=== PATIENT | male | born 1945 | race Caucasian/White ===

== ENCOUNTER 2016-06-03 05:54 | Emergency (ER) | payer MEDICARE, BC ==
[2016-06-03] MEDS ORDERED: Ondansetron INJ* 2 MG/ML VIAL IV ONE (06:36)
[2016-06-03] MEDS ORDERED: NS 0.9% 1000 ML* 1,000 ML IV ONE (06:36)
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
[2016-06-03 07:19] LABS: Hematocrit 35 % (42-52); Hemoglobin 11.8 g/dl (14.0-18.0); Mean Corpuscular HGB Conc 34 g/dl (31-36); Mean Corpuscular Hemoglobin 30 pg (27-31); Mean Corpuscular Volume 89 fL (80-94); Mean Platelet Volume 8 um3 (7.4-10.4); Red Blood Count 3.89 10^6/ul (4.0-5.4); Red Cell Distribution Width 15 % (10.5-15); White Blood Count 9.7 10^3/ul (3.5-10.8)
[2016-06-03 07:36] LABS: Albumin 3.8 g/dL (3.2-5.2); C Reactive Protein 2.41 mg/L (< 5.00); Calcium 9.5 mg/dL (8.6-10.3); EGFR African American 53.2 (>60); EGFR Non-African American 41.3 (>60); Globulin 3.4 g/dL (2-4); Potassium 3.1 mmol/L (3.5-5.0); Total Bilirubin 0.7 mg/dL (0.2-1.0); Total Protein 7.2 g/dL (6.4-8.9)
[2016-06-03 07:38] LABS: Troponin I 0.03 ng/mL (<0.04)
[2016-06-03] MEDS ORDERED: diPHENhydraMINE IV* 50 MG/ML 1 ml VIAL (BENADRYL) IV ONE (09:20)
[2016-06-03] MEDS ORDERED: diPHENhydraMINE IV* 50 MG/ML 1 ml VIAL (BENADRYL) ONE (09:21)
[2016-06-03 10:09] VITALS: BP 152/81
--- NOTE | 2016-06-03 10:30 | ED ---
Tank Mcnair Michael, scribed for Abel Merida MD on 06/03/16 at 0759 . Progress - Progress Note Progress Note: The patient was signed out to Dr. Merida by Dr. Em. The pt's potassium was 3.1, and his first Troponin was 0.03. The pt is waiting for a second Troponin at 0900. If results are normal, the pt will be discharged home. The second Troponin was 0.03. Course/Dx - Diagnoses Provider Diagnoses: Abdominal pain The documentation as recorded by the garfieldibTank fan Michael accurately reflects the service I personally performed and the decisions made by Fuad gaines Richard L, MD.
== END 2016-06-03 10:10 | disposition home or self-care (01) ==
LOC: ED 05:54
DX: R11.10 Vomiting, unspecified (principal); I95.9 Hypotension, unspecified; Z87.891 Personal history of nicotine dependence; E11.9 Type 2 diabetes mellitus without complications; I10 Essential (primary) hypertension; I50.9 Heart failure, unspecified; I25.10 Atherosclerotic heart disease of native coronary artery without angina pectoris; I25.2 Old myocardial infarction; Z95.2 Presence of prosthetic heart valve; Z86.711 Personal history of pulmonary embolism; R10.30 Lower abdominal pain, unspecified
CPT/HCPCS: 36415; 80053; 83605; 83690; 84484; 85025; 86140; 86850; 86900; 86901; 96360; 96374; 96375; 99283; J1200

== ENCOUNTER 2016-10-23 13:53 | Emergency (ER) | payer MEDICARE, BC ==
[2016-10-23] MEDS ORDERED: Insulin REGULAR(*) 1 UNITS UNIT IV ONE (17:01)
[2016-10-23] MEDS ORDERED: NS 0.9% 1000 ML* 2,000 ML IV ONE (17:01)
[2016-10-23 17:42] LABS: Hematocrit 33 % (42-52); Hemoglobin 11.3 g/dl (14.0-18.0); Mean Corpuscular HGB Conc 34 g/dl (31-36); Mean Corpuscular Hemoglobin 31 pg (27-31); Mean Corpuscular Volume 92 fL (80-94); Mean Platelet Volume 8 um3 (7.4-10.4); Red Blood Count 3.65 10^6/ul (4.0-5.4); Red Cell Distribution Width 14 % (10.5-15); White Blood Count 4.6 10^3/ul (3.5-10.8)
[2016-10-23 17:57] LABS: Albumin 3.9 g/dL (3.2-5.2); C Reactive Protein 7.36 mg/L (< 5.00); Calcium 9.2 mg/dL (8.6-10.3); EGFR African American 23.1 (>60); EGFR Non-African American 17.9 (>60); Globulin 3.7 g/dL (2-4); Magnesium 2.6 mg/dL (1.9-2.7); Potassium 3.2 mmol/L (3.5-5.0); Total Bilirubin 0.5 mg/dL (0.2-1.0); Total Protein 7.6 g/dL (6.4-8.9)
[2016-10-23] MEDS ORDERED: Potassium Chlor TAB* 20 MEQ TAB.ER PO ONE (18:34)
[2016-10-23 18:41] LABS: Venous Bicarbonate HCO3 28.5 mmol/L (24-28)
[2016-10-23 18:41] LABS: Urine Bilirubin Negative (Negative); Urine Glucose 1+(50 mg/dL) (Negative); Urine Nitrite Negative (Negative)
[2016-10-23] MEDS ORDERED: Insulin REGULAR(*) 1 UNITS UNIT IV PUSH ONE (18:54)
[2016-10-23] MEDS: KCL 10 MEQ/50 ML IVPREMIX* 10 MEQ/50 ML BAG IV SCH ×2 (19:19→20:57)
[2016-10-23 22:07] VITALS: BP 133/100
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
== END 2016-10-23 22:10 | disposition home or self-care (01) ==
LOC: ED 13:53
DX: R73.9 Hyperglycemia, unspecified (principal); N18.9 Chronic kidney disease, unspecified; R35.8 Other polyuria; Z87.891 Personal history of nicotine dependence; E87.6 Hypokalemia
CPT/HCPCS: 36415; 80053; 81003; 82803; 83735; 85025; 85610; 86140; 99282; A9270-GY; J3480

== ENCOUNTER 2016-11-11 15:08 | Emergency (ER) | payer MEDICARE, BC ==
[2016-11-11 15:16] VITALS: BP 111/63
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
== END 2016-11-11 16:00 | disposition home or self-care (01) ==
LOC: UCEAST 15:08
DX: S80.12XA Contusion of left lower leg, initial encounter (principal); S80.11XA Contusion of right lower leg, initial encounter; S80.812A Abrasion, left lower leg, initial encounter; S80.811A Abrasion, right lower leg, initial encounter; X50.0XXA Overexertion from strenuous movement or load, initial encounter; E11.9 Type 2 diabetes mellitus without complications; I10 Essential (primary) hypertension; Z87.891 Personal history of nicotine dependence; Z79.4 Long term (current) use of insulin
CPT/HCPCS: 99213; G0463

== ENCOUNTER 2017-02-27 17:14 | Observation (INO) | payer MEDICARE, BC ==
[2017-02-27 19:35] LABS: Hematocrit 37 % (42-52); Hemoglobin 12.3 g/dl (14.0-18.0); Mean Corpuscular HGB Conc 33 g/dl (31-36); Mean Corpuscular Hemoglobin 30 pg (27-31); Mean Corpuscular Volume 89 fL (80-94); Mean Platelet Volume 9 um3 (7.4-10.4); Red Blood Count 4.11 10^6/ul (4.0-5.4); Red Cell Distribution Width 15 % (10.5-15); White Blood Count 5.9 10^3/ul (3.5-10.8)
[2017-02-27 19:48] LABS: BUN/Creatinine Ratio 28.1 (8-20); Calcium 9.3 mg/dL (8.6-10.3); EGFR African American 26.1 (>60); EGFR Non-African American 20.3 (>60); Globulin 3.9 g/dL (2-4); Magnesium 2.3 mg/dL (1.9-2.7); Potassium 2.8 mmol/L (3.5-5.0); Total Bilirubin 0.4 mg/dL (0.2-1.0); Total Protein 7.9 g/dL (6.4-8.9)
[2017-02-27] MEDS ORDERED: NS 0.9% 1000 ML* 1,000 ML IV ONE (19:58)
[2017-02-27] MEDS ORDERED: Potassium Chlor TAB* 20 MEQ TAB.ER PO ONE ×2 (20:00→23:59)
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
[2017-02-27 20:30] LABS: Troponin I 0.05 ng/mL (<0.04)
[2017-02-27] MEDS ORDERED: Dextrose 50% Syringe 50 ML* 25 GM/50 ML SYRINGE IV PUSH PRN (22:55)
[2017-02-27] MEDS ORDERED: Nortriptyline CAP* 25 MG PO SCH (23:30)
[2017-02-28 01:05] LABS: Potassium 2.8 mmol/L (3.5-5.0)
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
[2017-02-28 01:20] LABS: Troponin I 0.05 ng/mL (<0.04)
[2017-02-28] MEDS ORDERED: Levothyroxine TAB* 25 MCG TAB PO SCH (06:00)
[2017-02-28 07:07] LABS: Calcium 9.1 mg/dL (8.6-10.3); EGFR Non-African American 19.5 (>60)
[2017-02-28] MEDS ORDERED: Metolazone TAB* 5 MG PO SCH (07:30)
[2017-02-28] MEDS ORDERED: Torsemide TAB* 20 MG PO SCH (08:00)
[2017-02-28] MEDS: Insulin LISPRO* 1 UNITS UNIT SUBCUT SCH ×2 (08:53→12:53)
[2017-02-28] MEDS ORDERED: Magnesium Oxide TAB* 400 MG PO SCH (09:00)
[2017-02-28] MEDS ORDERED: busPIRone TAB* 10 MG PO SCH (09:00)
[2017-02-28] MEDS ORDERED: Gabapentin CAP(*) 100 MG PO SCH (09:00)
[2017-02-28] MEDS ORDERED: Insulin GLARGINE(*) 1 UNITS UNIT SUBCUT SCH (09:00)
[2017-02-28] MEDS ORDERED: Atorvastatin* 10 MG TAB PO SCH (09:00)
[2017-02-28] MEDS ORDERED: Cholecalciferol TAB* 1000 UNITS PO SCH (09:00)
[2017-02-28] MEDS ORDERED: Carvedilol TAB* 25 MG PO SCH (09:00)
[2017-02-28] MEDS ORDERED: Amiodarone TAB* 200 MG PO SCH (09:00)
[2017-02-28] MEDS ORDERED: Docusate CAP* 100 MG PO SCH (09:00)
[2017-02-28 13:06] VITALS: BP 104/64
[2017-02-28] MEDS ORDERED: Warfarin TAB(*) 4 MG PO SCH (17:00)
[2017-02-28] MEDS ORDERED: Potassium Chlor TAB* 10 MEQ TAB.ER PO SCH (21:00)
--- NOTE | 2017-02-28 22:21 | DS ---
CC: Dr. Gonzalez * DISCHARGE SUMMARY: DATE OF ADMISSION: 02/27/17 DATE OF DISCHARGE: 02/28/17 HISTORY OF PRESENT ILLNESS: This 71-year-old man was admitted due to an outpatient potassium level of 2.8. This was drawn on 04/29/16. It was notified by his family physician on the day of admission who saw potassium and advised to go to the emergency room. He had been feeling in his usual state of health; however, did notice blood sugars at home were quite high. I think this has been going on for some time. I note his A1c here level was 9.8%. The patient was given potassium supplementation. His magnesium level was 2.3. The patient noted that he did not seem to have any potassium or magnesium at home, although he thought he was supposed to be taking them. The patient received oral potassium here. His potassium level last measured on the day of discharge was 3.0. He received another 20 mEq p.o. before discharge. He will take 10 mEq at night at home as well as 10 mEq twice a day. He was prescribed his magnesium oxide 400 mg daily. It is not clear for how long he had not been taking it. FINAL DIAGNOSES: 1. Hypokalemia. 2. Chronic kidney disease. 3. Diabetes. 4. Coronary artery disease with ischemic cardiomyopathy. 5. Gastroesophageal reflux disease. 6. Atrial fibrillation on warfarin. 7. Hypertension. I note his INR here was 1.93. DISCHARGE MEDICATIONS: 1. Glargine insulin 55 units in the morning and 35 units at night. 2. Potassium chloride 10 mEq b.i.d. 3. Buspirone 10 mg b.i.d. 4. Atorvastatin 10 mg daily. 5. Amiodarone 200 mg daily. 6. Vitamin D3 1000 units daily. 7. Exenatide 2 mg subcu weekly. 8. Nortriptyline 50 mg h.s. 9. Carvedilol 25 mg b.i.d. 10. Levothyroxine 25 mcg daily. 11. Metolazone 2.5 mg daily. 12. Docusate 100 mg b.i.d. 13. Gabapentin 200 mg b.i.d. 14. Lispro by sliding scale. 15. Torsemide 20 mg b.i.d. 16. Warfarin 4 mg daily. 17. Magnesium oxide 400 mg daily. A consultation request was sent to a telehealth nurse educator and we welcomes as outpatient. [id number]/[facility] #: [id number] ANAMIKA
[2017-03-01] MEDS ORDERED: Potassium Chlor TAB* 10 MEQ TAB.ER PO ONE (11:30)
== END 2017-02-28 13:55 | disposition home or self-care (01) ==
LOC: ED 17:14 → MEDTELE 22:45
PROVIDERS: ADMIT Hospitalist; ATTEND Internal Medicine
DX: E87.6 Hypokalemia (principal); I12.9 Hypertensive chronic kidney disease with stage 1 through stage 4 chronic kidney disease, or unspecified chronic kidney disease; E11.22 Type 2 diabetes mellitus with diabetic chronic kidney disease; N18.9 Chronic kidney disease, unspecified; I25.10 Atherosclerotic heart disease of native coronary artery without angina pectoris; I25.5 Ischemic cardiomyopathy; K21.9 Gastro-esophageal reflux disease without esophagitis; I48.91 Unspecified atrial fibrillation; Z79.01 Long term (current) use of anticoagulants; Z91.09 Other allergy status, other than to drugs and biological substances; I25.2 Old myocardial infarction; Z95.0 Presence of cardiac pacemaker; Z79.4 Long term (current) use of insulin; Z79.899 Other long term (current) drug therapy; Z87.891 Personal history of nicotine dependence
CPT/HCPCS: 36415; 80048; 80051; 80053; 83036; 83735; 84484; 85025; 85610; 93005; 96361; 99283; A9270-GY; G0378

== ENCOUNTER 2017-05-08 19:28 | Inpatient (IN) | payer MEDICARE, BC ==
--- OUTSIDE RECORDS SUMMARY | 2017-05-08 20:07 | XMS REPORT ---
:1945 External Reference #:[id number] Author Organization [facility] Address [address] [address] Phone [phone] Care Team Providers Name Role Phone Lee Gonzalez MD Primary Care Physician Unavailable Payers Type Date Identification Numbers Payment Provider Subscriber Medicare Primary Effective: Policy Number: Medicare Mohit Mckinley 2003 [id number] PayID: [id number] [address] [place] [address] Medigap Part B Effective: 2011 Policy Number: BS Facets Mohit Mckinley [id number] PayID: [id number] [address] [address] [place] [address] Workers Compensation Onset: 2014 Policy Number: [facility] Mohit Mckinley [id number] [facility] Group Number: [id number] [address] [address] Group Name: [place] [address] PayID: [id number] Problems Date Description Provider Status Onset: 04/14/2014 Diabetic neuropathy Nilson Burgos M.D. Active Onset: 09/17/2015 Chronic ischemic heart disease Daryl Hernandez M.D. Active Onset: 09/17/2015 Coronary arteriosclerosis Daryl Hernandez M.D. Active Onset: 09/17/2015 Chronic post-traumatic stress Daryl Hernandez M.D. Active disorder Onset: 01/27/2016 Dyspnea Mercedez Clemons M.D. Active Onset: 01/27/2016 Chronic combined systolic and Mercedez Clemons M.D. Active diastolic heart failure Onset: 01/27/2016 Edema Mercedez Clemons M.D. Active Family History Date Family Member(s) Problem(s) Comments General Heart Disease General Diabetes Social History Type Date Description Comments Lives With Alone Occupation Retired Cigarette Use Former Cigarette Smoker Quit 1990 Denies using pipe, cigar, e-cigarettes, or chewing tobacco. ETOH Use Denies alcohol use ETOH Use Has consumed alcohol in the past Smoking Patient is a former smoker Recreational Drug Use Denies Drug Use Daily Caffeine Consumes on average 2 cups of regular coffee per day Exercise Type/Frequency Does not exercise Allergies, Adverse Reactions, Alerts Date Description Reaction Status Severity Comments 04/14/2014 Ibuprofen active 09/07/2014 Oxycodone angioedema, hives, SOB active 09/29/2014 Invanz rash active 02/04/2015 Lisinopril Cough, SOB, difficulty walk active 01/11/2016 Simvastatin active 01/11/2016 Crestor active 01/11/2016 Lovastatin active 01/11/2016 Gemfibrozil active 01/11/2016 Diltiazem active 11/07/2013 NKDA inactive Medications Medication Date Status Form Strength Qnty SIG Indications Ordering Provider Amiodarone HCL 01/10 Active Tablets 200mg 90tab 1 by mouth s every day An Hernandez M.D. Novofine Active Misc 32G X 6 Unknown /0000 mm Bydureon Active Suspension 2mg injection Rec once weekly Lantus Solostar Active Solution 100Unit/M inject 55 / Pen-Inject L SQ qam , 35 SQ qpm Atorvastatin Active Tablets 10mg 1 tab Unknown Calcium / every other day Nortriptyline HCL Active Capsules 50mg 1 by mouth every night at bedtime Magnesium Oxide Active Tablets 400mg One tab a day Alprazolam Active Tablets 0.25mg 1 po qd prn (does not use per daughter 03/27/16) Potassium Active Tablets ER 20Meq 1 by mouth Unknown Chloride ER /0000 three times per day (Dr Gonzalez increased) Coreg Active Tablets 25mg 60tab 1 tablet Z95.2 s twice a Ddimple Mcconnell M.D. Docusate Sodium Active Capsules 100mg 1 by mouth twice daily Vitamin D Active Tablets 1000Unit 1 tab each Unknown (Cholecalciferol) day by mouth Warfarin Sodium Active Tablets 2.5mg 120ta 1 tab Daryl bs every day DHarsha Hernandez, plus as M.D. directed. Buspirone HCL Active Tablets 10mg 1 by mouth Unknown twice per day Gabapentin Active Capsules 100mg 2 by mouth Unknown twice a day Levothyroxine Active Tablets 25mcg 1 by mouth Unknown Sodium every day Metolazone Active Tablets 2.5mg 30tab 1 tablet Daryl s daily An Hernandez M.D. Torsemide Active Tablets 20mg 180ta 3 by mouth Daryl bs every day An Hernandez, (patient M.D. has only been taking two a day) Prednisone Active Tablets 10mg 2 po daily Trazodone HCL Active Tablets 50mg 1-2 tablet at bedtime as needed Coreg 07/01 Hx Tablets 12.5mg 60tab 1 by mouth Z95.2 s twice a D. David, - day M.D. 01/09 Cozaar 06/20 Hx Tablets 100mg 90tab 1 by mouth Z95.2 s every day An Hernandez, - M.D. 01/09 Cozaar 06/07 Hx Tablets 50mg 2 by mouth Z95.2 Daryl every day An Hernandez, - M.D. 06/20 Keflex 04/20 Hx Capsules 500mg 9caps 1 by mouth Daryl three DHarsha Hernandez, - times a M.D. 04/26 day for days Cozaar 04/07 Hx Tablets 50mg 90tab 1 by mouth Z95.2 s every day An Hernandez, - M.D. 06/07 Coreg 02/04 Hx Tablets 6.25mg 180ta Z95.2 Daryl bs An Hernandez, - M.D. 07/01 Diovan 02/04 Hx Tablets 40mg 90tab 1 by mouth Z95.2 Daryl s every day An Hernandez, - (on hold M.D. 04/07 per /2015 David) Aldactone 01/22 Hx Tablets 25mg 30tab 1 by mouth Daryl s every day An Hernandez, - M.D. 01/09 Augmentin 10/27 Hx Tablets 500-125mg 60tab 1 by mouth 730.05 s twice a D. - day Hernesto, 11/17.D. Ceftriaxone 09/29 Hx Solution 2gm 28uni iv every Rec ts 24 hours x D. - 4 wks Hernesto, 11/17.D Flagyl 09/29 Hx Tablets 500mg 56tab 1 by mouth s two times D. - a day x 4 letitia, 11/17 wk.D Invanz 09/18 Hx Solution 1gm 42uni every 24 Rec ts hours D. - Anders, 09/29 Bactrim DS 11/18 Hx Tablets 800-160mg 42tab 1 tabs by Lee s mouth Christopher, - twice a M.D. 04/13 day x days Amoxicillin/Clavu 00/00 Hx Unknown lanate Potassium /0000 ER - 11/26 Clindamycin HCL 00/00 Hx Unknown / - 11/26 Oxycodone HCL 00/00 Hx Capsules 5mg 40cap 1-2 four Unknown /0000 s times a - day as 04/13 Vascepa 00/00 Hx Capsules 1gm one tab Unknown /0000 daily - 11/17 Amlodipine 00/00 Hx Tablets 10mg one tab Unknown Besylate /0000 daily - 02/04 Invokana 00/00 Hx Tablets 300mg one tab Unknown /0000 daily - 09/06 Levofloxacin 00/00 Hx Tablets 500mg Unknown /0000 - 11/26 Amoxicillin/Clavu 00/00 Hx Tablets 875-125mg Unknown lanate Potassium /0000 - 11/27 Clindamycin HCL 00/00 Hx Capsules 300mg Unknown /0000 - 11/26 Oxycodone-Acetami 00/00 Hx Tablets 5-325mg Unknown nophen / - 04/13 Cialis 00/00 Hx Tablets 20mg Unknown /0000 - 11/26 Nasonex 00/00 Hx Suspension 50mcg/Act Unknown /0000 - 11/17 Metoprolol /00 Hx Tablets 25mg 1 po bid Z95.2 Unknown Tartrate /0000 - 02/04 Diovan /00 Hx Tablets 320mg one tab Unknown /0000 daily - 12/17 Omeprazole 00/[address] 20mg one tab Unknown /0000 daily prn - 10/045 Ondansetron HCL 00/00 Hx Tablets 4mg Unknown /0000 - 11/26 Fluconazole 00/00 Hx Tablets 150mg Unknown /0000 - 11/26 Ondansetron 00/00 Hx Tablets 4mg Unknown /0000 Dispers - 11/26 Meclizine HCL 00/00 Hx Tablets 25mg Unknown /0000 - 04/13 Ondansetron 00/00 Hx Tablets 4mg 1 by mouth Unknown /0000 Dispers every 8 h - as needed 11/26 Hydrochlorothiazi 00 Hx Tablets 25mg 1 by mouth Unknown de /0000 every day - 11/17 Vitamin D 00/00 Hx Tablets 1000Unit by mouth Unknown /0000 everyday - 11/17 Tramadol HCL 00/00 Hx Tablets 50mg 1 tablets Unknown /0000 every 6 - hours as 09/16 Aspirin Adult Low 00/ Hx Tablets DR 81mg 1 by mouth Unknown Dose /0000 every day - 01/09 Metformin HCL /00 Hx Tablets 1000mg 1 by mouth Unknown /0000 twice a - day 01/09 Bactrim DS Hx Tablets 800-160mg 1 by mouth Unknown /0000 twice a - day 09/21 Flagyl Hx Tablets 500mg 1 by mouth Unknown /0000 three - times a Valsartan-Hydroch 00/00 Hx Tablets 320-12.5m 1 by mouth Unknown lorothiazide /0000 g every day - 01/19 Fish Oil Plus 00/00 Hx Capsules 1000mg -1 2 by mouth Unknown Vascepa /0000 G bid - 08/01 Furosemide 00/00 Hx Tablets 40mg 1 tablet Unknown /0000 po b.i.d ( - increased 03/2609/08/15) /2016 Amiodarone HCL 00/00 Hx Tablets 200mg 1 by mouth Unknown /0000 every day - 12/05 Lisinopril 00/00 Hx Tablets 5mg 1 by mouth Unknown /0000 every day - 12/05 Vitamin D2 00/00 Hx 50,000Iu weekly Unknown /0000 - 01/09 Augmentin /00 Hx Tablets 875-125mg 1 tablet Unknown /0000 by mouth - q12 hours 12/05 for days Citalopram Hx Tablets 40mg 1 po qd Unknown Hydrobromide /0000 - 01/09 Buspirone HCL Hx Tablets 15mg take one Unknown /0000 tablet by - mouth tid 03/27 Amoxicillin Hx Tablets 875mg take one Unknown /0000 tablet by - mouth 03/20 daily x weeks ( last day to take sunday04/04/16) Doxycycline Hx Capsules 100mg si Unknown Monohydrate / twice a - day ( 03/20 taking) Furosemide Hx Tablets 40mg 1 tablet Unknown /0000 po twice - daily 03/30 Vascepa /00 Hx Capsules 1gm 2 by mouth Unknown /0000 twice a - day 03/30 Vascepa 00/00 Hx 1G 1 tablet Unknown /0000 po daily - 08/01 Metformin HCL 00/00 Hx Tablets 1000mg 1 tablet Unknown /0000 po bid - 03/20 Immunizations CPT Code Status Date Vaccine Lot # [id number] Ordered 12/17/2014 Influenza Virus Vaccine, Quadrivalent, Split, Preservative Free Vital Signs Date Vital Result Comment 04/18/2017 Height 72 inches 6'0" Weight 238.00 lb No shoes Heart Rate 84 /min BP Systolic Sitting 140 mmHg Lue lrg cuff BP Diastolic Sitting 82 mmHg Lue lrg cuff BP Systolic Standing 132 mmHg Lue lrg cuff BP Diastolic Standing 80 mmHg Lue lrg cuff Respiratory Rate 16 /min BMI (Body Mass Index) 32.3 kg/m2 Ejection Fraction >20% 03/31/2017-echo 03/21/2017 Height 72 inches 6'0" Weight 236.00 lb Heart Rate 72 /min BP Systolic Sitting 106 mmHg Rue large cuff BP Diastolic Sitting 66 mmHg Rue large cuff BP Systolic Standing 114 mmHg Rue BP Diastolic Standing 72 mmHg Rue Respiratory Rate 18 /min BMI (Body Mass Index) 32.0 kg/m2 Ejection Fraction 20% 11/18/15 08/02/2016 Height 72 inches 6'0" Weight 234.00 lb with shoes Heart Rate 70 /min BP Systolic Sitting 100 mmHg Rue lg cuff BP Diastolic Sitting 60 mmHg Rue lg cuff BP Systolic Standing 108 mmHg Rue lg cuff BP Diastolic Standing 64 mmHg Rue lg cuff Respiratory Rate 17 /min BMI (Body Mass Index) 31.7 kg/m2 Ejection Fraction >20% date 11/18/2015 ECHO 03/31/2016 Height 72 inches 6'0" Weight 221.00 lb Heart Rate 70 /min BP Systolic Sitting 120 mmHg Rue lg cuff BP Diastolic Sitting 80 mmHg Rue lg cuff BP Systolic Standing 130 mmHg Rue lg cuff BP Diastolic Standing 78 mmHg Rue lg cuff Respiratory Rate 17 /min BMI (Body Mass Index) 30.0 kg/m2 Ejection Fraction <20% date 11/18/15 ECHO 01/27/2016 Height 65 inches 5'5" Weight 241.00 lb with shoes Heart Rate 74 /min BP Systolic Sitting 160 mmHg L arm reg cuff BP Diastolic Sitting 100 mmHg L arm reg cuff BP Systolic Standing 155 mmHg BP Diastolic Standing 105 mmHg Respiratory Rate 22 /min BMI (Body Mass Index) 40.1 kg/m2 01/11/2016 Height 72 inches 6'0" Weight 234.00 lb with shoes and coat Heart Rate 68 /min BP Systolic Sitting 106 mmHg right arm, reg cuff BP Diastolic Sitting 70 mmHg right arm, reg cuff BP Systolic Standing 108 mmHg right arm, reg cuff BP Diastolic Standing 72 mmHg right arm, reg cuff Respiratory Rate 16 /min BMI (Body Mass Index) 31.7 kg/m2 Ejection Fraction <20% 11/18/15 09/17/2015 Height 72 inches 6'0" Weight 208.00 lb with shoes Heart Rate 78 /min BP Systolic Sitting 140 mmHg Ra reg cuff BP Diastolic Sitting 88 mmHg Ra reg cuff BP Systolic Standing 138 mmHg Ra reg cuff BP Diastolic Standing 90 mmHg Ra reg cuff Respiratory Rate 17 /min O2 % BldC Oximetry 95 % at room air BMI (Body Mass Index) 28.2 kg/m2 Ejection Fraction <20% date 03/25/15 ECHO 07/02/2015 Height 72 inches 6'0" Weight 213.50 lb Heart Rate 90 /min BP Systolic Sitting 146 mmHg LA reg cuff BP Diastolic Sitting 100 mmHg LA reg cuff BP Systolic Standing 150 mmHg LA reg cuff BP Diastolic Standing 96 mmHg LA reg cuff Respiratory Rate 18 /min BMI (Body Mass Index) 29.0 kg/m2 Ejection Fraction <20% 03/25/15 06/08/2015 Height 72 inches 6'0" Weight 217.00 lb Heart Rate 100 /min BP Systolic Sitting 148 mmHg right arm, reg cuff BP Diastolic Sitting 102 mmHg right arm, reg cuff BP Systolic Standing 150 mmHg right arm, reg cuff BP Diastolic Standing 104 mmHg right arm, reg cuff Respiratory Rate 16 /min BMI (Body Mass Index) 29.4 kg/m2 Ejection Fraction <20% 03/25/15 04/27/2015 Height 72 inches 6'0" Weight 214.00 lb Heart Rate 78 /min BP Systolic Sitting 162 mmHg right arm, reg cuff BP Diastolic Sitting 102 mmHg right arm, reg cuff BP Systolic Standing 158 mmHg right arm, reg cuff BP Diastolic Standing 100 mmHg right arm, reg cuff BMI (Body Mass Index) 29.0 kg/m2 Ejection Fraction >20% 03/25/15 04/09/2015 Height 72 inches 6'0" Weight 212.00 lb BP Systolic Sitting 158 mmHg LA large cuff BP Diastolic Sitting 104 mmHg LA large cuff BP Systolic Standing 158 mmHg LA BP Diastolic Standing 106 mmHg LA Respiratory Rate 16 /min BMI (Body Mass Index) 28.7 kg/m2 02/04/2015 Height 72 inches 6'0" Weight 213.00 lb w/ shoes Heart Rate 80 /min reg BP Systolic Sitting 120 mmHg Lue, reg cuf f BP Diastolic Sitting 90 mmHg Lue, reg cuf f BP Systolic Standing 124 mmHg Lue BP Diastolic Standing 96 mmHg Lue Respiratory Rate 18 /min BMI (Body Mass Index) 28.9 kg/m2 Ejection Fraction < 20% as of 01/25/15 echo 01/20/2015 Height 72 inches 6'0" Weight 237.00 lb BMI (Body Mass Index) 32.1 kg/m2 12/24/2014 Height 72 inches 6'0" Weight 224.38 lb Heart Rate 86 /min BP Systolic Sitting 126 mmHg BP Diastolic Sitting 82 mmHg Respiratory Rate 14 /min Body Temperature 97.9 F BMI (Body Mass Index) 30.4 kg/m2 12/17/2014 Height 72 inches 6'0" Weight 219.00 lb w/ shoes Heart Rate 76 /min reg BP Systolic Sitting 110 mmHg Rue, reg cuff BP Diastolic Sitting 76 mmHg Rue, reg cuff BP Systolic Standing 110 mmHg Rue BP Diastolic Standing 78 mmHg Rue Respiratory Rate 18 /min BMI (Body Mass Index) 29.7 kg/m2 Ejection Fraction 30-35% as of 11/09/14 echo 10/27/2014 Height 72 inches 6'0" Weight 211.38 lb Heart Rate 80 /min BP Systolic Sitting 126 mmHg BP Diastolic Sitting 82 mmHg Respiratory Rate 14 /min Body Temperature 98.0 F BMI (Body Mass Index) 28.7 kg/m2 09/07/2014 Height 72 inches 6'0" Weight 200.00 lb Heart Rate 84 /min BP Systolic Sitting 110 mmHg BP Diastolic Sitting 72 mmHg Respiratory Rate 14 /min Body Temperature 97.8 F BMI (Body Mass Index) 27.1 kg/m2 04/14/2014 Height 72 inches 6'0" Weight 225.00 lb Heart Rate 80 /min BP Systolic Sitting 138 mmHg BP Diastolic Sitting 78 mmHg Respiratory Rate 16 /min BMI (Body Mass Index) 30.5 kg/m2 02/17/2014 Heart Rate 84 /min BP Systolic Sitting 128 mmHg BP Diastolic Sitting 82 mmHg 12/02/2013 Heart Rate 80 /min BP Systolic Sitting 130 mmHg BP Diastolic Sitting 82 mmHg 11/27/2013 Height 72 inches 6'0" Weight 225.00 lb Heart Rate 78 /min BP Systolic Sitting 132 mmHg BP Diastolic Sitting 76 mmHg Respiratory Rate 14 /min Body Temperature 97.3 F BMI (Body Mass Index) 30.5 kg/m2 11/18/2013 Heart Rate 84 /min BP Systolic Sitting 120 mmHg BP Diastolic Sitting 82 mmHg Body Temperature 98.2 F 11/07/2013 Height 72 inches 6'0" Weight 225.00 lb Heart Rate 78 /min BP Systolic 165 mmHg BP Diastolic 100 mmHg BMI (Body Mass Index) 30.5 kg/m2 Results Test Date Test Result H/L Range Note Laboratory test 04/18/2017 B-Type Natriuretic <pending> finding Peptide BNP Inr/Protime 04/11/2017 Inr 1.66 High 0.77-1.02 Inr/Protime 04/05/2017 Inr 1.33 High 0.77-1.02 Laboratory test 02/22/2017 PSA Screening 0.485 ng/mL 0-4.000 1 finding LDL Cholesterol Direct 51 mg/dL 2 Hemoglobin A1c (Glyco HGB) 9.8 % High 4.0-5.6 3 Inr/Protime 02/22/2017 Inr 1.57 High 0.77-1.02 4 Comp Metabolic Panel 02/22/2017 Sodium 134 mmol/L 133-145 Potassium 2.8 mmol/L Low 3.5-5.0 Chloride 93 mmol/L Low 101-111 Co2 Carbon Dioxide 31 mmol/L 22-32 Anion Gap 10 mmol/L 2-11 Glucose 253 mg/dL High 70-100 Blood Urea Nitrogen 81 mg/dL High 6-24 Creatinine 2.86 mg/dL High 0.67-1.17 BUN/Creatinine Ratio 28.3 High 8-20 Calcium 9.6 mg/dL 8.6-10.3 Total Protein 7.6 g/dL 6.4-8.9 Albumin 3.9 g/dL 3.2-5.2 Globulin 3.7 g/dL 2-4 Albumin/Globulin Ratio 1.1 1-3 Total Bilirubin 0.50 mg/dL 0.2-1.0 Alkaline Phosphatase 111 U/L High 34-104 Alt 50 U/L 7-52 Ast 44 U/L High 13-39 Egfr Non- 21.9 >60 Egfr 28.2 >60 5 Lipid Profile (Trig/Chol/HDL) 02/22/2017 Triglycerides 472 mg/dL 6 Cholesterol 147 mg/dL 7 HDL Cholesterol 23.4 mg/dL 8 LDL Cholesterol (SEE NOTE) mg/dL 9 Inr/Protime 04/06/2016 Inr 1.88 High 0.89-1.11 Basic Metabolic Panel 09/24/2015 Sodium 134 mmol/L 133-145 Potassium 4.9 mmol/L 3.5-5.0 Chloride 100 mmol/L Low 101-111 Co2 Carbon Dioxide 28 mmol/L 22-32 Anion Gap 6 mmol/L 2-11 Glucose 150 mg/dL High 70-100 Blood Urea Nitrogen 30 mg/dL High 6-24 Creatinine 1.23 mg/dL High 0.67-1.17 BUN/Creatinine Ratio 24.4 High 8-20 Calcium 8.9 mg/dL 8.6-10.3 Egfr Non- 58.2 >60 Egfr 74.8 >60 10 Laboratory test finding 06/08/2015 B-Type Natriuretic 1431 pg/mL High 11 Peptide BNP Basic Metabolic Panel 06/08/2015 Sodium 137 mmol/L 133-145 Potassium 4.0 mmol/L 3.5-5.0 Chloride 100 mmol/L Low 101-111 Co2 Carbon Dioxide 29 mmol/L 22-32 Anion Gap 8 mmol/L 2-11 Glucose 80 mg/dL 70-100 Blood Urea Nitrogen 35 mg/dL High 6-24 Creatinine 1.20 mg/dL High 0.67-1.17 BUN/Creatinine Ratio 29.2 High 8-20 Calcium 9.6 mg/dL 8.6-10.3 Egfr Non- 59.9 >60 Egfr 77.0 >60 12 Laboratory test finding 04/19/2015 Point of Care 119 mg/dL High 74-106 13 Glucose Pre Cath Panel 04/14/2015 Partial Thrombo Time 34.2 seconds 26.0-36.3 14 PTT CBC Auto Diff 04/14/2015 White Blood Count 7.7 10^3/uL 3.5-10.8 Red Blood Count 4.42 10^6/uL 4.0-5.4 Hemoglobin 12.1 g/dL Low 14.0-18.0 Hematocrit 38 % Low 42-52 Mean Corpuscular Volume 87 fL 80-94 Mean Corpuscular Hemoglobin 27 pg 27-31 Mean Corpuscular HGB Conc 32 g/dL 31-36 Red Cell Distribution Width 20 % High 10.5-15 Platelet Count 170 10^3/uL 150-450 Mean Platelet Volume 9 um3 7.4-10.4 Abs Neutrophils 5.8 10^3/uL 1.5-7.7 Abs Lymphocytes 1.0 10^3/uL 1.0-4.8 Abs Monocytes 0.6 10^3/uL 0-0.8 Abs Eosinophils 0.3 10^3/uL 0-0.6 Abs Basophils 0 10^3/uL 0-0.2 Abs Nucleated RBC 0 10^3/uL Granulocyte % 75.4 % 38-83 Lymphocyte % 12.7 % Low 25-47 Monocyte % 7.8 % 1-9 Eosinophil % 3.8 % 0-6 Basophil % 0.3 % 0-2 Nucleated Red Blood Cells % 0.1 Inr/Protime 04/14/2015 Inr 1.33 High 0.89-1.11 Basic Metabolic Panel 04/14/2015 Sodium 140 mmol/L 133-145 Potassium 4.0 mmol/L 3.5-5.0 Chloride 104 mmol/L 101-111 Co2 Carbon Dioxide 28 mmol/L 22-32 Anion Gap 8 mmol/L 2-11 Glucose 71 mg/dL 70-100 Blood Urea Nitrogen 25 mg/dL High 6-24 Creatinine 0.96 mg/dL 0.67-1.17 BUN/Creatinine Ratio 26.0 High 8-20 Calcium 9.2 mg/dL 8.6-10.3 Egfr Non- 77.7 >60 Egfr 99.9 >60 15 Laboratory test finding 04/14/2015 C Reactive Protein 5.56 mg/L High < 5.00 16 Basic Metabolic Panel 02/17/2015 Sodium 136 mmol/L 133-145 17 Potassium 4.1 mmol/L 3.5-5.0 17 Chloride 100 mmol/L Low 101-111 17 Co2 Carbon Dioxide 30 mmol/L 22-32 17 Anion Gap 6 mmol/L 2-11 17 Glucose 147 mg/dL High 70-100 17 Blood Urea Nitrogen 19 mg/dL 6-24 17 Creatinine 0.90 mg/dL 0.67-1.17 17 BUN/Creatinine Ratio 21.1 High 8-20 17 Calcium 9.7 mg/dL 8.6-10.3 17 Egfr Non- 83.7 >60 17 Egfr 107.6 >60 17, 18 Laboratory test finding 01/21/2015 Magnesium 1.4 mg/dL Low 1.9-2.7 Basic Metabolic Panel 01/21/2015 Sodium 139 mmol/L 133-145 Potassium 3.5 mmol/L 3.5-5.0 Chloride 100 mmol/L Low 101-111 Co2 Carbon Dioxide 29 mmol/L 22-32 Anion Gap 10 mmol/L 2-11 Glucose 142 mg/dL High 70-100 Blood Urea Nitrogen 15 mg/dL 6-24 Creatinine 0.95 mg/dL 0.67-1.17 BUN/Creatinine Ratio 15.8 8-20 Calcium 8.9 mg/dL 8.6-10.3 Egfr Non- 78.6 >60 Egfr 101.1 >60 19 Pre Cath Panel 12/17/2014 Partial Thrombo Time PTT 35.2 seconds 26.0- 36.3 20, 21 CBC Auto Diff 12/17/2014 White Blood Count 7.3 10^3/uL 4.8-10.8 20 Red Blood Count 4.41 10^6/uL 4.0-5.4 20 Hemoglobin 13.3 g/dL Low 14.0-18.0 20 Hematocrit 40 % Low 42-52 20 Mean Corpuscular Volume 91 fL 80-94 20 Mean Corpuscular Hemoglobin 30 pg 27-31 20 Mean Corpuscular HGB Conc 33 g/dL 31-36 20 Red Cell Distribution Width 13 % 10.5-15 20 Platelet Count 219 10^3/uL 150-450 20 Mean Platelet Volume 9 um3 7.4-10.4 20 Abs Neutrophils 4.6 10^3/uL 1.5-7.7 20 Abs Lymphocytes 1.8 10^3/uL 1.0-4.8 20 Abs Monocytes 0.7 10^3/uL 0-0.8 20 Abs Eosinophils 0.2 10^3/uL 0-0.6 20 Abs Basophils 0 10^3/uL 0-0.2 20 Abs Nucleated RBC 0.01 10^3/uL 20 Granulocyte % 63.1 % 38-83 20 Lymphocyte % 24.9 % Low 25-47 20 Monocyte % 9.3 % High 1-9 20 Eosinophil % 2.3 % 0-6 20 Basophil % 0.4 % 0-2 20 Nucleated Red Blood Cells % 0.1 20 Inr/Protime 12/17/2014 Inr 1.01 0.78-1.07 20 Basic Metabolic Panel 12/17/2014 Sodium 136 mmol/L 133-145 20 Potassium 3.5 mmol/L 3.5-5.0 20 Chloride 100 mmol/L Low 101-111 20 Co2 Carbon Dioxide 28 mmol/L 22-32 20 Anion Gap 8 mmol/L 2-11 20 Glucose 142 mg/dL High 70-100 20 Blood Urea Nitrogen 14 mg/dL 6-24 20 Creatinine 0.83 mg/dL 0.67-1.17 20 BUN/Creatinine Ratio 16.9 8-20 20 Calcium 9.5 mg/dL 8.6-10.3 20 Egfr Non- 91.9 >60 20 Egfr 118.1 >60 20, 22 CBC Auto Diff 10/21/2014 White Blood Count 5.9 10^3/uL 4.8-10.8 Red Blood Count 3.79 10^6/uL Low 4.0-5.4 Hemoglobin 11.5 g/dL Low 14.0-18.0 Hematocrit 35 % Low 42-52 Mean Corpuscular Volume 92 fL 80-94 Mean Corpuscular Hemoglobin 30 pg 27-31 Mean Corpuscular HGB Conc 33 g/dL 31-36 Red Cell Distribution Width 16 % High 10.5-15 Platelet Count 223 10^3/uL 150-450 Mean Platelet Volume 9 um3 7.4-10.4 Abs Neutrophils 3.6 10^3/uL 1.5-7.7 Abs Lymphocytes 1.7 10^3/uL 1.0-4.8 Abs Monocytes 0.5 10^3/uL 0-0.8 Abs Eosinophils 0.2 10^3/uL 0-0.6 Abs Basophils 0 10^3/uL 0-0.2 Abs Nucleated RBC 0 10^3/uL Granulocyte % 60.4 % 38-83 Lymphocyte % 27.9 % 25-47 Monocyte % 8.1 % 1-9 Eosinophil % 2.9 % 0-6 Basophil % 0.7 % 0-2 Nucleated Red Blood Cells % 0.1 Basic Metabolic Panel 10/21/2014 Sodium 135 mmol/L 133-145 Potassium 4.0 mmol/L 3.5-5.0 Chloride 101 mmol/L 101-111 Co2 Carbon Dioxide 25 mmol/L 22-32 Anion Gap 9 mmol/L 2-11 Glucose 165 mg/dL High 70-100 Blood Urea Nitrogen 13 mg/dL 6-24 Creatinine 0.67 mg/dL 0.67-1.17 BUN/Creatinine Ratio 19.4 8-20 Calcium 9.0 mg/dL 8.6-10.3 Egfr Non- 117.6 >60 Egfr 151.3 >60 23 Laboratory test finding 10/21/2014 C Reactive Protein 2.64 mg/L < 5.00 24 CBC Auto Diff 10/13/2014 White Blood Count 7.7 10^3/uL 4.8-10.8 Red Blood Count 3.73 10^6/uL Low 4.0-5.4 Hemoglobin 11.3 g/dL Low 14.0-18.0 Hematocrit 34 % Low 42-52 Mean Corpuscular Volume 91 fL 80-94 Mean Corpuscular Hemoglobin 30 pg 27-31 Mean Corpuscular HGB Conc 33 g/dL 31-36 Red Cell Distribution Width 15 % 10.5-15 Platelet Count 260 10^3/uL 150-450 Mean Platelet Volume 8 um3 7.4-10.4 Abs Neutrophils 5.3 10^3/uL 1.5-7.7 Abs Lymphocytes 1.7 10^3/uL 1.0-4.8 Abs Monocytes 0.5 10^3/uL 0-0.8 Abs Eosinophils 0.3 10^3/uL 0-0.6 Abs Basophils 0 10^3/uL 0-0.2 Abs Nucleated RBC 0.02 10^3/uL Granulocyte % 68.2 % 38-83 Lymphocyte % 21.4 % Low 25-47 Monocyte % 6.6 % 1-9 Eosinophil % 3.3 % 0-6 Basophil % 0.5 % 0-2 Nucleated Red Blood Cells % 0.3 Basic Metabolic Panel 10/13/2014 Sodium 136 mmol/L 133-145 Potassium 4.3 mmol/L 3.5-5.0 Chloride 102 mmol/L 101-111 Co2 Carbon Dioxide 27 mmol/L 22-32 Anion Gap 7 mmol/L 2-11 Glucose 97 mg/dL 70-100 Blood Urea Nitrogen 14 mg/dL 6-24 Creatinine 0.69 mg/dL 0.67-1.17 BUN/Creatinine Ratio 20.3 High 8-20 Calcium 8.9 mg/dL 8.6-10.3 Egfr Non- 113.7 >60 Egfr 146.2 >60 25 Laboratory test finding 10/13/2014 C Reactive Protein 3.12 mg/L < 5.00 26 CBC Auto Diff 10/06/2014 White Blood Count 7.0 10^3/uL 4.8-10.8 Red Blood Count 3.58 10^6/uL Low 4.0-5.4 Hemoglobin 10.7 g/dL Low 14.0-18.0 Hematocrit 32 % Low 42-52 Mean Corpuscular Volume 91 fL 80-94 Mean Corpuscular Hemoglobin 30 pg 27-31 Mean Corpuscular HGB Conc 33 g/dL 31-36 Red Cell Distribution Width 16 % High 10.5-15 Platelet Count 249 10^3/uL 150-450 Mean Platelet Volume 8 um3 7.4-10.4 Abs Neutrophils 4.3 10^3/uL 1.5-7.7 Abs Lymphocytes 1.8 10^3/uL 1.0-4.8 Abs Monocytes 0.6 10^3/uL 0-0.8 Abs Eosinophils 0.3 10^3/uL 0-0.6 Abs Basophils 0 10^3/uL 0-0.2 Abs Nucleated RBC 0 10^3/uL Granulocyte % 61.8 % 38-83 Lymphocyte % 25.1 % 25-47 Monocyte % 8.5 % 1-9 Eosinophil % 4.2 % 0-6 Basophil % 0.4 % 0-2 Nucleated Red Blood Cells % 0.1 Laboratory test finding 10/06/2014 Erythrocyte Sed Rate 36 mm/Hr 0-40 Basic Metabolic Panel 10/06/2014 Sodium 136 mmol/L 133-145 Potassium 3.8 mmol/L 3.5-5.0 Chloride 100 mmol/L Low 101-111 Co2 Carbon Dioxide 28 mmol/L 22-32 Anion Gap 8 mmol/L 2-11 Glucose 146 mg/dL High 70-100 Blood Urea Nitrogen 12 mg/dL 6-24 Creatinine 0.79 mg/dL 0.67-1.17 BUN/Creatinine Ratio 15.2 8-20 Calcium 8.8 mg/dL 8.6-10.3 Egfr Non- 97.2 >60 Egfr 125.1 >60 27 Laboratory test finding 10/06/2014 C Reactive Protein 14.29 mg/L High &lt ; 5.00 28 Basic Metabolic Panel 09/27/2014 Sodium 134 mmol/L 133-145 Potassium 3.8 mmol/L 3.5-5.0 Chloride 99 mmol/L Low 101-111 Co2 Carbon Dioxide 28 mmol/L 22-32 Anion Gap 7 mmol/L 2-11 Glucose 134 mg/dL High 70-100 Blood Urea Nitrogen 16 mg/dL 6-24 Creatinine 0.67 mg/dL 0.67-1.17 BUN/Creatinine Ratio 23.9 High 8-20 Calcium 8.7 mg/dL 8.6-10.3 Egfr Non- 117.6 >60 Egfr 151.3 >60 29 Laboratory test finding 09/27/2014 C Reactive Protein 9.08 mg/L High < 5.00 30 CBC Auto Diff 09/27/2014 White Blood Count 6.1 10^3/uL 4.8-10.8 Red Blood Count 3.64 10^6/uL Low 4.0-5.4 Hemoglobin 10.7 g/dL Low 14.0-18.0 Hematocrit 32 % Low 42-52 Mean Corpuscular Volume 88 fL 80-94 Mean Corpuscular Hemoglobin 30 pg 27-31 Mean Corpuscular HGB Conc 34 g/dL 31-36 Red Cell Distribution Width 14 % 10.5-15 Platelet Count 214 10^3/uL 150-450 Mean Platelet Volume 8 um3 7.4-10.4 Abs Neutrophils 3.6 10^3/uL 1.5-7.7 Abs Lymphocytes 1.7 10^3/uL 1.0-4.8 Abs Monocytes 0.5 10^3/uL 0-0.8 Abs Eosinophils 0.2 10^3/uL 0-0.6 Abs Basophils 0 10^3/uL 0-0.2 Abs Nucleated RBC 0 10^3/uL Granulocyte % 59.2 % 38-83 Lymphocyte % 27.8 % 25-47 Monocyte % 8.9 % 1-9 Eosinophil % 3.7 % 0-6 Basophil % 0.4 % 0-2 Nucleated Red Blood Cells % 0 Laboratory test finding 09/27/2014 Erythrocyte Sed Rate 60 mm/Hr High 0- 40 CBC Auto Diff 09/20/2014 White Blood Count 7.8 10^3/uL 4.8-10.8 Red Blood Count 3.87 10^6/uL Low 4.0-5.4 Hemoglobin 11.2 g/dL Low 14.0-18.0 Hematocrit 34 % Low 42-52 Mean Corpuscular Volume 88 fL 80-94 Mean Corpuscular Hemoglobin 29 pg 27-31 Mean Corpuscular HGB Conc 33 g/dL 31-36 Red Cell Distribution Width 14 % 10.5-15 Platelet Count 255 10^3/uL 150-450 Mean Platelet Volume 8 um3 7.4-10.4 Abs Neutrophils 5.1 10^3/uL 1.5-7.7 Abs Lymphocytes 1.9 10^3/uL 1.0-4.8 Abs Monocytes 0.6 10^3/uL 0-0.8 Abs Eosinophils 0.2 10^3/uL 0-0.6 Abs Basophils 0 10^3/uL 0-0.2 Abs Nucleated RBC 0.01 10^3/uL Granulocyte % 65.1 % 38-83 Lymphocyte % 23.7 % Low 25-47 Monocyte % 8.0 % 1-9 Eosinophil % 3.0 % 0-6 Basophil % 0.2 % 0-2 Nucleated Red Blood Cells % 0.1 Laboratory test finding 09/20/2014 Erythrocyte Sed Rate 65 mm/Hr High 0- 40 Basic Metabolic Panel 09/20/2014 Sodium 134 mmol/L 133-145 Potassium 4.2 mmol/L 3.5-5.0 Chloride 101 mmol/L 101-111 Co2 Carbon Dioxide 26 mmol/L 22-32 Anion Gap 7 mmol/L 2-11 Glucose 162 mg/dL High 70-100 Blood Urea Nitrogen 13 mg/dL 6-24 Creatinine 0.75 mg/dL 0.67-1.17 BUN/Creatinine Ratio 17.3 8-20 Calcium 9.2 mg/dL 8.6-10.3 Egfr Non- 103.3 >60 Egfr 132.8 >60 31 Laboratory test finding 09/20/2014 C Reactive Protein 8.73 mg/L High < 5.00 32 Laboratory test finding 11/27/2013 C Reactive Protein 1.91 mg/L < 5.00 33 CBC Auto Diff 11/27/2013 White Blood Count 5.2 10^3/uL 4.8-10.8 Red Blood Count 4.62 10^6/uL 4.0-5.4 Hemoglobin 13.3 g/dL Low 14.0-18.0 Hematocrit 40 % Low 42-52 Mean Corpuscular Volume 86 fL 80-94 Mean Corpuscular Hemoglobin 29 pg 27-31 Mean Corpuscular HGB Conc 34 g/dL 31-36 Red Cell Distribution Width 13 % 10.5-15 Platelet Count 228 10^3/uL 150-450 Mean Platelet Volume 9 um3 7.4-10.4 Abs Neutrophils 2.8 10^3/uL 1.5-7.7 Abs Lymphocytes 1.7 10^3/uL 1.0-4.8 Abs Monocytes 0.5 10^3/uL 0-0.8 Abs Eosinophils 0.1 10^3/uL 0-0.6 Abs Basophils 0 10^3/uL 0-0.2 Abs Nucleated RBC 0 10^3/uL Granulocyte % 53.9 % 38-83 Lymphocyte % 33.3 % 25-47 Monocyte % 9.8 % High 1-9 Eosinophil % 2.4 % 0-6 Basophil % 0.6 % 0-2 Nucleated Red Blood Cells % 0.1 1 Serum levels of PSA measured using the [employer] DXI Hybritech immunoassay should not be interpreted as absolute evidence of the presence or absence of disease. The PSA value should be used in conjunction with other pertinent clinical diagnostic procedures. A PSA value in the range of 0.1 to 0.6 ng/ml is indeterminate if being used as an indicator of recurrent or residual disease. The values obtained with different assay methods or kits cannot be used interchangeably. 2 Desirable: <100 Near Optimal: 100-129 Borderline High: 130-159 High: 160-189 Very High: >189 3 Therapeutic target for the treatment of diabetes mellitus patients is <7% HBA1C, and in selective patients <6.0%. Please refer to [place] [employer] diabetic care guidelines for further information. 4 Please note the change in INR reference range effective 17. 5 Because ethnic data is not always readily available, this report includes an eGFR for both -Americans and non- Americans. The National Kidney Disease Education Program (NKDEP) does not endorse the use of the MDRD equation for patients that are not between the ages of 18 and 70, are , have extremes of body size, muscle mass, or nutritional status, or are non- or non-. According to the National Kidney Foundation, irrespective of diagnosis, the stage of the disease is based on the level of kidney function: Stage Description GFR(mL/min/1.73 m(2)) 1 Kidney damage with normal or decreased GFR 90 2 Kidney damage with mild decrease in GFR 60-89 3 Moderate decrease in GFR 30-59 4 Severe decrease in GFR 15-29 5 Kidney failure <15 (or dialysis) 6 Desirable: <150 Borderline High: 150-199 High: 200-499 Very High: >500 7 Desirable: <200 Borderline High: 200-239 High: >239 8 Low: <40 Desirable: 40-60 High: >60 9 Unable to calculate LDL as triglyceride is > 400 10 Because ethnic data is not always readily available, this report includes an eGFR for both -Americans and non- Americans. The National Kidney Disease Education Program (NKDEP) does not endorse the use of the MDRD equation for patients that are not between the ages of 18 and 70, are , have extremes of body size, muscle mass, or nutritional status, or are non- or non-. According to the National Kidney Foundation, irrespective of diagnosis, the stage of the disease is based on the level of kidney function: Stage Description GFR(mL/min/1.73 m(2)) 1 Kidney damage with normal or decreased GFR 90 2 Kidney damage with mild decrease in GFR 60-89 3 Moderate decrease in GFR 30-59 4 Severe decrease in GFR 15-29 5 Kidney failure <15 (or dialysis) 11 >100 to <200 pg/mL: likely compensated congestive heart failure (CHF) 200 to 400 pg/mL: likely moderate CHF >400 pg/mL: likely moderate to severe CHF 12 Because ethnic data is not always readily available, this report includes an eGFR for both -Americans and non- Americans. The National Kidney Disease Education Program (NKDEP) does not endorse the use of the MDRD equation for patients that are not between the ages of 18 and 70, are , have extremes of body size, muscle mass, or nutritional status, or are non- or non-. According to the National Kidney Foundation, irrespective of diagnosis, the stage of the disease is based on the level of kidney function: Stage Description GFR(mL/min/1.73 m(2)) 1 Kidney damage with normal or decreased GFR 90 2 Kidney damage with mild decrease in GFR 60-89 3 Moderate decrease in GFR 30-59 4 Severe decrease in GFR 15-29 5 Kidney failure <15 (or dialysis) 13 [employer]: [id number] [place] 14 soon 15 Because ethnic data is not always readily available, this report includes an eGFR for both -Americans and non- Americans. The National Kidney Disease Education Program (NKDEP) does not endorse the use of the MDRD equation for patients that are not between the ages of 18 and 70, are , have extremes of body size, muscle mass, or nutritional status, or are non- or non-. According to the National Kidney Foundation, irrespective of diagnosis, the stage of the disease is based on the level of kidney function: Stage Description GFR(mL/min/1.73 m(2)) 1 Kidney damage with normal or decreased GFR 90 2 Kidney damage with mild decrease in GFR 60-89 3 Moderate decrease in GFR 30-59 4 Severe decrease in GFR 15-29 5 Kidney failure <15 (or dialysis) 16 Acute inflammation: >10.00 17 in 7-10 days 18 Because ethnic data is not always readily available, this report includes an eGFR for both -Americans and non- Americans. The National Kidney Disease Education Program (NKDEP) does not endorse the use of the MDRD equation for patients that are not between the ages of 18 and 70, are , have extremes of body size, muscle mass, or nutritional status, or are non- or non-. According to the National Kidney Foundation, irrespective of diagnosis, the stage of the disease is based on the level of kidney function: Stage Description GFR(mL/min/1.73 m(2)) 1 Kidney damage with normal or decreased GFR 90 2 Kidney damage with mild decrease in GFR 60-89 3 Moderate decrease in GFR 30-59 4 Severe decrease in GFR 15-29 5 Kidney failure <15 (or dialysis) 19 Because ethnic data is not always readily available, this report includes an eGFR for both -Americans and non- Americans. The National Kidney Disease Education Program (NKDEP) does not endorse the use of the MDRD equation for patients that are not between the ages of 18 and 70, are , have extremes of body size, muscle mass, or nutritional status, or are non- or non-. According to the National Kidney Foundation, irrespective of diagnosis, the stage of the disease is based on the level of kidney function: Stage Description GFR(mL/min/1.73 m(2)) 1 Kidney damage with normal or decreased GFR 90 2 Kidney damage with mild decrease in GFR 60-89 3 Moderate decrease in GFR 30-59 4 Severe decrease in GFR 15-29 5 Kidney failure <15 (or dialysis) 20 soon 21 soon 22 Because ethnic data is not always readily available, this report includes an eGFR for both -Americans and non- Americans. The National Kidney Disease Education Program (NKDEP) does not endorse the use of the MDRD equation for patients that are not between the ages of 18 and 70, are , have extremes of body size, muscle mass, or nutritional status, or are non- or non-. According to the National Kidney Foundation, irrespective of diagnosis, the stage of the disease is based on the level of kidney function: Stage Description GFR(mL/min/1.73 m(2)) 1 Kidney damage with normal or decreased GFR 90 2 Kidney damage with mild decrease in GFR 60-89 3 Moderate decrease in GFR 30-59 4 Severe decrease in GFR 15-29 5 Kidney failure <15 (or dialysis) 23 Because ethnic data is not always readily available, this report includes an eGFR for both -Americans and non- Americans. The National Kidney Disease Education Program (NKDEP) does not endorse the use of the MDRD equation for patients that are not between the ages of 18 and 70, are , have extremes of body size, muscle mass, or nutritional status, or are non- or non-. According to the National Kidney Foundation, irrespective of diagnosis, the stage of the disease is based on the level of kidney function: Stage Description GFR(mL/min/1.73 m(2)) 1 Kidney damage with normal or decreased GFR 90 2 Kidney damage with mild decrease in GFR 60-89 3 Moderate decrease in GFR 30-59 4 Severe decrease in GFR 15-29 5 Kidney failure <15 (or dialysis) 24 Acute inflammation: >10.00 25 Because ethnic data is not always readily available, this report includes an eGFR for both -Americans and non- Americans. The National Kidney Disease Education Program (NKDEP) does not endorse the use of the MDRD equation for patients that are not between the ages of 18 and 70, are , have extremes of body size, muscle mass, or nutritional status, or are non- or non-. According to the National Kidney Foundation, irrespective of diagnosis, the stage of the disease is based on the level of kidney function: Stage Description GFR(mL/min/1.73 m(2)) 1 Kidney damage with normal or decreased GFR 90 2 Kidney damage with mild decrease in GFR 60-89 3 Moderate decrease in GFR 30-59 4 Severe decrease in GFR 15-29 5 Kidney failure <15 (or dialysis) 26 Acute inflammation: >10.00 27 Because ethnic data is not always readily available, this report includes an eGFR for both -Americans and non- Americans. The National Kidney Disease Education Program (NKDEP) does not endorse the use of the MDRD equation for patients that are not between the ages of 18 and 70, are , have extremes of body size, muscle mass, or nutritional status, or are non- or non-. According to the National Kidney Foundation, irrespective of diagnosis, the stage of the disease is based on the level of kidney function: Stage Description GFR(mL/min/1.73 m(2)) 1 Kidney damage with normal or decreased GFR 90 2 Kidney damage with mild decrease in GFR 60-89 3 Moderate decrease in GFR 30-59 4 Severe decrease in GFR 15-29 5 Kidney failure <15 (or dialysis) 28 Acute inflammation: >10.00 29 Because ethnic data is not always readily available, this report includes an eGFR for both -Americans and non- Americans. The National Kidney Disease Education Program (NKDEP) does not endorse the use of the MDRD equation for patients that are not between the ages of 18 and 70, are , have extremes of body size, muscle mass, or nutritional status, or are non- or non-. According to the National Kidney Foundation, irrespective of diagnosis, the stage of the disease is based on the level of kidney function: Stage Description GFR(mL/min/1.73 m(2)) 1 Kidney damage with normal or decreased GFR 90 2 Kidney damage with mild decrease in GFR 60-89 3 Moderate decrease in GFR 30-59 4 Severe decrease in GFR 15-29 5 Kidney failure <15 (or dialysis) 30 Acute inflammation: >10.00 31 Because ethnic data is not always readily available, this report includes an eGFR for both -Americans and non- Americans. The National Kidney Disease Education Program (NKDEP) does not endorse the use of the MDRD equation for patients that are not between the ages of 18 and 70, are , have extremes of body size, muscle mass, or nutritional status, or are non- or non-. According to the National Kidney Foundation, irrespective of diagnosis, the stage of the disease is based on the level of kidney function: Stage Description GFR(mL/min/1.73 m(2)) 1 Kidney damage with normal or decreased GFR 90 2 Kidney damage with mild decrease in GFR 60-89 3 Moderate decrease in GFR 30-59 4 Severe decrease in GFR 15-29 5 Kidney failure <15 (or dialysis) 32 Acute inflammation: >10.00 33 Acute inflammation: >10.00 Procedures Date CPT Code Description Status 03/21/2017 61636 EKG Tracing & Interpretation Completed 03/09/2017 10644 Interrogation Implant Cardiovasc Monitor System Incl Completed Analysis Int 03/09/2017 73828 Icd Eval W/Iterative Adjustmnt Single Lead Icd Completed 03/09/2017 11070 Interrogation Implant Cardiovasc Monitor System Incl Completed Analysis Int 03/09/2017 57810 Icd Eval W/Iterative Adjustmnt Single Lead Icd Completed 11/22/2016 55464 Interrogation Implant Cardiovasc Monitor System Incl Completed Analysis Int 11/22/2016 36719 Icd Eval W/Iterative Adjustmnt Single Lead Icd Completed 07/05/2016 72541 Interrogation Implant Cardiovasc Monitor System Incl Completed Analysis Int 07/05/2016 19812 Icd eval w/iterative adjment single lead Icd Completed 01/11/2016 00671 EKG Tracing & Interpretation Completed 11/30/2015 32867 EKG, Interpretation Only Completed 11/22/2015 97079 EKG, Interpretation Only Completed 11/21/2015 37189 EKG, Interpretation Only Completed 11/20/2015 92891 EKG, Interpretation Only Completed 11/18/2015 14626 ECHO Transthorasic Realtime 2D W Doppler & Color Completed Flow Hosp 11/17/2015 00179 Interrogation Device Eval In Person W/DR Completed Analysis,Single,Dual,Mul 11/17/2015 87519 EKG, Interpretation Only Completed 11/16/2015 64078 EKG, Interpretation Only Completed 10/14/2015 48601 ECHO Transthorasic Realtime 2D W Doppler & Color Completed [facility] 10/12/2015 56366 EKG, Interpretation Only Completed 10/07/2015 83485 Icd eval w/iterative adjment single lead Icd Completed 09/17/2015 42583 EKG Tracing & Interpretation Completed 05/19/2015 83405 Icd eval w/iterative adjment single lead Icd Completed 04/19/2015 56891 Ep Eval Icd At Implant Completed 04/19/2015 81526 Insert/Replace Icd W/Generator Completed 04/09/2015 60758 EKG Tracing & Interpretation Completed 03/25/2015 13529 ECHO Transthoracic, Real-Time 2D With Doppler And Color Completed Flow 01/25/2015 20866 ECHO Transthoracic, Real-Time 2D With Doppler And Color Completed Flow 01/20/2015 70701 EKG Tracing & Interpretation Completed 12/21/2014 82385 EKG, Interpretation Only Completed 12/21/2014 78827 Left Heart Cath. Incl S/I Coronaries, Angio S/I V Gram Completed If Done 12/17/2014 76509 EKG Tracing & Interpretation Completed 11/09/2014 43348 ECHO Transthoracic, Real-Time 2D With Doppler And Color Completed Flow 07/13/2014 65743 Treadmill Interp/Report Only Completed 07/13/2014 48277 Stress Test Supervsn W/Out I/R Completed 07/10/2014 93281 ECHO Transthorasic Realtime 2D W Doppler & Color Completed [facility] 07/10/2014 13385 EKG, Interpretation Only Completed 11/10/2013 98351 Amputation Toe MP JT Completed 11/10/2013 49835 Amputation Toe MP JT Completed Encounters Type Date Location Provider CPT E/M Dx Office Visit 03/21/2017 [facility] Daryl Hernandez, 99152 I25.5 1:30p Karley Ortiz I48.91 Z95.810 I50.22 Office Visit 02/28/2017 1:11p [facility],jordyn Espino, 20251 E87.6 Hospitalists Diana I50.22 R74.8 I48.91 Office Visit 02/27/2017 1:10p [facility]pc Sarah Singer, 17446 E87.6 Hospitalists M.D. I50.22 R74.8 I48.91 Office Visit 08/02/2016 10:00a [facility] AdenikeHarsha Hernandez, 00015 I25.5 Nursing Attendant M.D. Z95.810 Z95.2 I25.10 Office Visit 03/31/2016 4:00p [facility] nA Hernandez, 90723 I50.42 Nursing Attendant M.D. R06.02 R94.31 Z95.2 I25.10 Office Visit 02/04/2016 10:28a [facility] Joon Espino, 31151 I27.2 Hospitalists M.D. E11.9 Z79.4 I50.21 Office Visit 02/03/2016 10:27a [facility] Joon Espino, 58084 I50.21 Hospitalists M.D. I27.2 E11.9 Z79.4 Office Visit 02/02/2016 10:27a [facility] Lupillo Marzulla-Dulfer, 55687 I50.21 Assoc,pc PA Hospitalists E11.9 I27.2 Z79.4 Office Visit 02/01/2016 10:26a [facility] Lupillo Marzulla-Dulfer, 46833 E11.9 Assoc,pc PA Hospitalists I27.2 Office Visit 01/31/2016 10:26a [facility] Lupillo Marzulla-Dulfer, 12937 I50.21 Assoc,pc PA Hospitalists I27.2 E11.9 Z79.4 Office Visit 01/30/2016 10:25a [facility] Sarah Singer, 88686 I50.21 Hospitalists M.D. E11.9 Office Visit 01/29/2016 10:25a [facility] Joon Espino, 18544 I50.21 Hospitalists M.D. E11.9 Office Visit 01/28/2016 10:24a [facility] Joon Espino, 44022 I50.21 Hospitalists M.D. E11.9 Office Visit 01/27/2016 10:23a [facility] Joontaty Espino, 84174 I50.21 Hospitalists Diana E11.9 Office Visit 01/27/2016 5:15p [facility] Mercedez Clemons M.D. 84143 R60.0 Nursing Attendant I48.92 I25.5 I50.42 R06.02 Office Visit 01/11/2016 1:30p [facility] Daryl Hernandez, 74842 I50.9 Nursing Attendant At [facility] Diana R94.31 Z95.2 I25.5 I25.10 I48.0 Office Visit 11/30/2015 1:13p [facility], Felipe Katherynlatanya, 61465 I50.9 Hospitalists Diana E11.9 I10 Z79.4 Office Visit 11/29/2015 1:13p [facility], Ronaldo Mayo M.D. 87683 I50.9 Hospitalists E11.9 I10 Z79.4 Office Visit [facility]/25[facility]2015 [facility] 70687 I48.92 Assoc, Hospitalists Diana I50.9 E11.9 L03.116 Office Visit 11/24/2015 1:46p [facility] Nolan 33921 L02.416 Infectious Diseases Diana Eric B95.61 I50.9 Z95.2 Office Visit 11/24/2015 10:08a [facility] Gabriella Monteiro, 77356 I48.92 Assoc, Hospitalists Diana I50.9 E11.9 L03.116 Office Visit 11/23/2015 2:48p [facility] Shaheen Reyes M.D. 69654 I25.5 I48.92 I50.9 Office Visit 11/23/2015 10:07a [facility] Gabriella Monteiro, 33776 I48.92 Assoc, Hospitalists Diana I50.9 L03.116 E11.9 Office Visit 11/22/2015 10:07a [facility] Gabriella Monteiro 00731 I48.92 Assoc, Hospitalists Diana I50.9 E11.9 L03.116 Office Visit 11/21/2015 12:28p [facility] Sharon Jenningsmichael, 15524 R00.0 M.D. I25.5 Z95.1 Z95.810 Office Visit 11/21/2015 10:07a [facility], Lee Glencoe, 49718 I50.9 Hospitalists M.D. E11.9 L03.116 I25.10 Office Visit 11/20/2015 12:24p [facility] S. Tammy, 76194 R00.0 M.D. I25.5 Z95.1 Z95.810 Office Visit 11/20/2015 10:06a [facility], Lee [place], 63127 I50.9 Hospitalists M.D. I25.10 E11.9 L03.116 Office Visit 11/19/2015 10:05a [facility], Lee [place], 36709 I50.9 Hospitalists M.D. E11.9 I25.10 L03.116 Office Visit 11/18/2015 10:05a [facility], Lee [place], 36121 I50.9 Hospitalists M.D. I25.10 E11.9 L03.116 Office Visit 11/17/2015 11:47a [facility] Mercedez Clemons M.D. 27957 I50.9 Nursing Attendant I25.5 E87.5 Z95.810 Office Visit 11/17/2015 10:04a [facility], Lee [place], 25035 I50.9 Hospitalists M.D. E11.9 L03.116 I25.10 Office Visit 11/16/2015 10:03a [facility], Rebecca Hernandez, 06717 I50.9 Hospitalists E11.9 L03.116 I25.10 Office Visit 10/14/2015 1:25p [facility], Sarah Singer, 49441 I50.9 Hospitalists M.D. E11.8 I10 I25.5 Office Visit 10/13/2015 1:25p [facility], Sarah Singer, 91193 I50.9 Hospitalists M.D. E11.8 I10 I25.5 Office Visit 10/12/2015 [facility] 22089 I50.9 Assoc,pc [facility] Hospitalists E11.8 I10 I25.5 Office Visit 09/17/2015 10:00a [facility] Darylpearl Hernandez, 42997 I25.5 Nursing Attendant M.D. I10 Z95.2 Z95.810 Office Visit 07/02/2015 11:30a [facility] OLIVER Edwards 40235 I25.5 I10 Z95.810 Z95.2 Office Visit 06/08/2015 1:30p [facility] Daryl Hernandez, 65387 I25.5 Nursing Attendant At [facility] M.D. Z95.810 Z95.2 I10 Office Visit 04/09/2015 1:45p [facility] Daryl Hernandez, 48723 I25.5 [facility] M.D. I25.10 Z95.2 I50.23 Office Visit 02/04/2015 10:30a [facility] Daryl Hernandez, 15951 Z95.2 [facility] M.D. I25.10 I25.5 Office Visit 01/20/2015 4:00p [facility] [place] [address] I50.23 [facility] Z95.2 I10 E11.9 M79.605 Office Visit 12/29/2014 11:38a [facility],pc Joon Espino, 95521 I50.23 Hospitalists M.DHarsha I35.0 I25.10 Z13.1 Office Visit 12/24/2014 3:00p [facility] Pranay Nolan 90886 L89.319 Infectious Diseases Diana Eric Office Visit 12/17/2014 10:45a [facility] Daryl Hernandez, 28175 I35.0 Karley Ortiz R94.31 I42.9 Office Visit 10/27/2014 9:50a [facility] Pranay Eric, 90840 730.05 Infectious Diseases Diana Office Visit 09/07/2014 4:20p [facility] Pranay Eric, 33657 730.05 Infectious Diseases Diana 707.8 Office Visit 08/28/2014 9:22a [facility] Guanaco Eric, 04036 682.5 Infectious Diseases M.D. 041.89 250.00 E819.9 Office Visit 08/28/2014 4:01p [facility], 84160 682.9 Hospitalists N.P. 682.9 250.00 401.9 250.00 427.31 401.9 427.31 Office Visit 08/27/2014 4:00p [facility], 98807 682.9 Hospitalists N.P. 250.00 401.9 427.31 Office Visit 08/14/2014 3:17p [facility] Pranay Eric, 62554 728.0 Infectious Diseases M.DHarsha Office Visit 08/13/2014 3:12p [facility] Pranay Eric, 15453 707.8 Infectious Diseases MHarshaDHarsha 250.80 Office Visit 07/13/2014 10:17a [facility] Daryl Hernandez, 86101 794.39 Nursing Attendant M.D. Office Visit 07/10/2014 12:51p [facility], 46873 959.9 Hospitalists N.P. 959.9 786.05 786.05 250.00 250.00 401.9 401.9 Office Visit 04/14/2014 3:45p [facility] Nilson Burgos, 40528 368.9 Services Of Karley Ortiz 250.80 Office Visit 02/17/2014 11:45a [facility], 65490 707.15 Nursing Attendant At [place] Diana Office Visit 11/27/2013 2:20p [facility] Pranay Nolan 26259 730.27 Infectious Yolanda Eric M.D. Office Visit 11/12/2013 10:32a [facility] Pranay Nolan 56743 730.27 Infectious Yolanda Eric M.D. 250.00 Office Visit 11/11/2013 10:23a [facility] Pranay Eric, 29922 250.80 Infectious Diseases Diana 707.15 730.27 401.9 Office Visit 11/07/2013 2:00p [facility], 38338 681.10 C.M.Fredi Ortiz Plan of Care Future Appointment(s):2017 2:00 pm - [facility] ECHO Schedule at [facility]04/18/2017 - Daryl Hernandez M.D.I25.5 Ischemic cardiomyopathyNew Orders:EchocardiogramReferral:Aishwarya Ortiz MD, Cardiology/Phys/OsteoFollow up:4 [id number] Presence of automatic ( implantable) cardiac [id number] Chronic systolic (congestive) heart [id number] Presence of prosthetic heart valve
[2017-05-08] MEDS ORDERED: NS 0.9% 1000 ML* 1,000 ML IV ONE (20:26)
--- NOTE | 2017-05-08 20:54 | RAD ---
INDICATION: Weakness. Short of breath. COMPARISON: February 01, 2016 TECHNIQUE: PA and lateral dual-energy views were obtained. FINDINGS: Bones/Soft Tissues: There are no acute bony findings. There are multiple right-sided rib fractures with cortical plates and screws. The appearance unchanged. There are sternotomy. There is a left-sided cardiac pacemaker. Cardiomediastinal: The cardiomediastinal silhouette is normal. Lungs: There is hyperinflation. There are no focal infiltrates. Pleura: Blunting left costophrenic angle consistent with a pleural effusion. Some of the findings may be chronic. There is an improved aeration of the right lung base with less pleural fluid. Other: None IMPRESSION: POSTOPERATIVE CHANGES. SMALL LEFT-SIDED EFFUSION. HYPERINFLATION.
[2017-05-08 21:23] LABS: ABS Basophils 0 10^3/ul (0-0.2); ABS Eosinophils 0.2 10^3/ul (0-0.6); ABS Lymphocytes 0.8 10^3/ul (1.0-4.8); ABS Monocytes 0.7 10^3/ul (0-0.8); ABS Neutrophils 3.5 10^3/ul (1.5-7.7); ABS Nucleated RBC 0 10^3/ul; Eosinophil % 3.8 % (0-6); Hematocrit 25 % (42-52); Hemoglobin 8.1 g/dl (14.0-18.0); Lymphocyte % 15.1 % (25-47); Mean Corpuscular HGB Conc 33 g/dl (31-36); Mean Corpuscular Hemoglobin 27 pg (27-31); Mean Corpuscular Volume 82 fL (80-94); Mean Platelet Volume 7 um3 (7.4-10.4); Nucleated Red Blood Cells % 0; Platelet Count 183 10^3/ul (150-450); Red Blood Count 3.03 10^6/ul (4.0-5.4); Red Cell Distribution Width 19 % (10.5-15); White Blood Count 5.2 10^3/ul (3.5-10.8)
[2017-05-08 21:25] LABS: Urine Appearance Clear; Urine Blood Negative (Negative); Urine Color Straw; Urine Ketones Negative (Negative); Urine Protein Negative (Negative); Urine Specific Gravity 1.008 (1.010-1.030); Urine Urobilinogen Negative (Negative)
[2017-05-08 21:35] LABS: EGFR Non-African American 16.9 (>60)
[2017-05-08 21:59] LABS: INR 2.37 (0.77-1.02)
[2017-05-08] MEDS ORDERED: NS 0.9% 1000 ML* 1,000 ML IV SCH (23:15)
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
[2017-05-08] MEDS ORDERED: Phytonadione Oral Solution* 5 MG/25 ML UDC PO ONE (23:19)
[2017-05-08] MEDS ORDERED: Potassium Chlor TAB* 20 MEQ TAB.ER PO ONE (23:22)
[2017-05-08] MEDS ORDERED: Dextrose 50% Syringe 50 ML* 25 GM/50 ML SYRINGE IV PUSH PRN (23:41)
[2017-05-09 01:35] LABS: Hematocrit 23 % (42-52); Hemoglobin 7.7 g/dl (14.0-18.0)
[2017-05-09] MEDS: Gabapentin CAP(*) 100 MG PO SCH ×3 (01:45→20:06)
--- NOTE | 2017-05-09 02:20 | HP ---
CC: Dr. Gonzalez; Dr. Hernandez * HISTORY AND PHYSICAL: DATE OF ADMISSION: 05/08/17 PRIMARY CARE PROVIDER: Dr. Gonzalez. POULTRYMAN: Dr. Hernandez. CHIEF COMPLAINT: Weakness. HISTORY OF PRESENT ILLNESS: Mr. Mckinley is a 71-year-old male, who states that he has had difficulty with getting up and walking around on the day of admission. He describes it as a feeling as if he wants to get up to walk but he feels like it is hard to get up from the chair or that it is very taxing. He denies any lightheadedness. He denies any pain. He has no shortness of breath or chest pain. The patient denies any recent illnesses including cold symptoms or diarrhea. He denies any dysuria. He does state he has a feeling somewhat of malaise. He also feels as if he is somewhat off balance while ambulating and he has had to use a cane to get around. He does not, however, feel as if he is leaning towards one side over the other. He denies any black stools or bright red blood per rectum. He denies any recent nose bleeds. He has had no other signs of bleeding. PAST MEDICAL HISTORY: 1. Systolic CHF. 2. Coronary artery disease. 3. GERD. 4. Depression. 5. History of DVT/PE. 6. Atrial fibrillation. 7. Type 2 diabetes. 8. Hypertension. PAST SURGICAL HISTORY: 1. Cholecystectomy. 2. IVC filter placement. 3. CABG and aortic valve replacement in 2014. 4. ICD insertion. 5. ORIF. MEDICATIONS: 1. Amiodarone 200 mg p.o. daily. 2. Lipitor 10 mg p.o. daily. 3. BuSpar 10 mg p.o. b.i.d. 4. Coreg 25 mg p.o. b.i.d. 5. Vitamin D3 1000 units p.o. daily. 6. Colace 100 mg p.o. daily. 7. Exenatide 2 mg subcutaneous weekly. 8. Gabapentin 200 mg p.o. twice daily. 9. Lantus 55 units subcutaneous q.a.m., 35 units subcutaneous q.p.m. 10. Lispro via sliding scale. 11. Levothyroxine 25 mcg p.o. daily. 12. Magnesium oxide 400 mg p.o. daily. 13. Metolazone 2.5 mg p.o. daily. 14. Nortriptyline 50 mg p.o. q.h.s. 15. Potassium chloride 10 mEq p.o. b.i.d. 16. Torsemide 20 mg p.o. b.i.d. 17. Coumadin 4 mg p.o. Sunday, Sunday, , Sunday; 6 mg Sunday, Sunday, Sunday. ALLERGIES: IBUPROFEN, OXYCODONE, ERTAPENEM, LISINOPRIL, DILTIAZEM, GEMFIBROZIL , LOVASTATIN, ROSUVASTATIN, SIMVASTATIN. FAMILY HISTORY: Mom at the age of 85 of coronary disease. Dad at the age of 92, he had diabetes and coronary disease. SOCIAL HISTORY: The patient is a former smoker. He quit approximately 30 years ago. He also quit drinking approximately 30 years ago. 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 He is . He has 5 children. His daughter, Pam, would be his surrogate decision maker. REVIEW OF SYSTEMS: A complete 11-system review of systems is obtained. Pertinent positives and negatives are as per HPI and in addition, the patient complains of poor appetite over the last few days as well as generalized weakness and ongoing depression. The rest of the review of systems is negative. PHYSICAL EXAMINATION GENERAL: The patient is a well-developed, elderly male, seen lying in the stretcher, in no acute distress. VITAL SIGNS: Blood pressure 123/78, pulse 72, respirations 17, temp 97.9, O2 sat 98% on room air. HEENT: Pupils are equal and round. Extraocular muscles are intact. Oropharynx is clear. Oral mucosa is moist. The patient wears dentures. There is no submandibular, cervical, or supraclavicular adenopathy. Thyroid is not enlarged. No thyroid nodules are noted. PULMONARY: Lungs are clear to auscultation bilaterally. CARDIAC: Normal S1, S2. Regular rate and rhythm. There is a 2/6 systolic murmur heard best at the right upper sternal border. There is no lower extremity edema. ABDOMEN: Bowel sounds are present. Abdomen is soft, nontender, nondistended. MUSCULOSKELETAL: There is no cyanosis or clubbing of the digits. There is full active range of motion of all 4 extremities. NEURO: Cranial nerves II through XII are grossly intact. Sensation is intact to light touch throughout. Strength is 5/5 and symmetric in both upper and lower extremities bilaterally. PSYCH: The patient is alert. He is oriented x3. Affects appears appropriate. SKIN: Warm and dry. There are no rashes. There are chronic venous stasis changes to the bilateral lower extremities. DIAGNOSTIC STUDIES/LAB DATA: WBC 5.2, hemoglobin 8.1, hematocrit 25, platelets 183. INR 2.37. Sodium 132, potassium 3.3, chloride 92, CO2 31, BUN 88, creatinine 3.59, glucose 240, lactic acid 1.2, calcium 9.5, magnesium 2.3. Bilirubin 0.5, AST 39, ALT 40, alk phos 99. Troponin 0.04. BNP 221. Albumin 3.8. TSH 3.2. Urinalysis reveals a specific gravity of 1.008 and otherwise negative sign of infection. EKG: Reveals normal sinus rhythm with inverted T waves in the inferior leads. No acute ST-T wave abnormalities. Chest x-ray: Postoperative changes are noted secondary to sternotomy. There is a small left-sided effusion and hyperinflation is noted. ASSESSMENT AND PLAN: Mr. Mckinley is a 71-year-old male with history of systolic congestive heart failure, coronary artery disease, history of deep venous thrombosis/pulmonary embolism, depression, atrial fibrillation, type 2 diabetes , and hypertension, who presents to the emergency room with complaints of weakness and is found to have a worsened anemia. 1. Symptomatic anemia. I suspect the patient's weakness is secondary to symptomatic anemia. In February 2017, his hemoglobin was 12.3. He dropped his hemoglobin to 8.1 on today's read. Stool is heme positive. My suspicion is that the patient may be having a slow upper gastrointestinal bleed. He is on Coumadin which likely does not help. He has never had an endoscopy before. He does believe that he had a colonoscopy within the last 5 years through the [facility] system. He states he had polyps removed at that time. The patient has a therapeutic INR; therefore, I will give vitamin K 5 mg p.o. x1 now. A repeat INR will be obtained tomorrow morning. I am going to hold off on transfusing any blood at this time; however, I will get a followup H and H at 0100. Subsequent H and H will be obtained with morning labs. GI consultation will be requested. Additionally, the patient's creatinine has worsened, so perhaps there is also component of worsened anemia secondary to his chronic kidney disease. He has a normal MCV; however his RDW is mildly elevated. I will check iron and B12 studies. 2. Worsened stage 4 chronic kidney disease. The patient's baseline creatinine appears to run in the 2.5 to 3 range. His creatinine currently is 3.59. He looks based on labs to be slightly volume deplete as the sodium and chloride are both down. The patient will receive 1 L of normal saline. Followup BNP will be obtained tomorrow morning. I am going to hold the patient's metolazone and torsemide for now. 3. Elevated troponin. The patient's troponin is mildly elevated at 0.04. His troponin appears to be chronically elevated. No further workup will be undertaken for this as he denies any chest pain. 4. Atrial fibrillation. The patient is currently in normal sinus rhythm. He will be maintained on amiodarone and Coreg. His Coumadin will be held given the possibility of gastrointestinal bleed. 5. Type 2 diabetes. The patient's last hemoglobin A1c was 9.8% in February 2017. He will be due for followup A1c next month. For now, he will be continued on his usual dose of Lantus and lispro sliding scale. I am going to hold his Exenatide as it is nonformulary. 6. Systolic congestive heart failure. As above, I am holding the patient's torsemide and metolazone. We will monitor his fluid status with the administration of normal saline. 7. Depression. Will continue BuSpar and nortriptyline. 8. DVT prophylaxis. According to the Adult Thrombosis Prophylaxis Risk Factor Assessment Guide, the patient has a total risk factor score of 3 making him high risk. His INR is therapeutic plus in the setting of possible gastrointestinal bleed, we will hold chemical prophylaxis. Ambulation will otherwise be utilized. 9. Code status is full. [id number]/[facility] #: [id number] MTDD
[2017-05-09] MEDS: Levothyroxine TAB* 25 MCG TAB PO SCH (05:37)
[2017-05-09 06:12] LABS: Hematocrit 23 % (42-52); Hemoglobin 7.5 g/dl (14.0-18.0); Mean Corpuscular HGB Conc 33 g/dl (31-36); Mean Corpuscular Hemoglobin 27 pg (27-31); Mean Corpuscular Volume 81 fL (80-94); Mean Platelet Volume 7 um3 (7.4-10.4); Platelet Count 181 10^3/ul (150-450); Red Blood Count 2.82 10^6/ul (4.0-5.4); Red Cell Distribution Width 19 % (10.5-15); White Blood Count 4.7 10^3/ul (3.5-10.8)
[2017-05-09 06:27] LABS: EGFR Non-African American 18.3 (>60)
[2017-05-09 06:30] LABS: INR 2.43 (0.77-1.02)
[2017-05-09] MEDS: Insulin LISPRO* 1 UNITS UNIT SUBCUT SCH ×4 (08:18→21:45)
[2017-05-09] MEDS: Insulin GLARGINE(*) 1 UNITS UNIT SUBCUT SCH (08:21)
[2017-05-09] MEDS ORDERED: Phytonadione INJ* 1 MG/0.5 ML ML IM ONE (08:50)
[2017-05-09] MEDS: Amiodarone TAB* 200 MG PO SCH (09:57)
[2017-05-09] MEDS: Atorvastatin* 10 MG TAB PO SCH (09:57)
[2017-05-09] MEDS: Cholecalciferol TAB* 1000 UNITS PO SCH (09:58)
[2017-05-09] MEDS: Carvedilol TAB* 25 MG PO SCH ×2 (09:58→20:06)
[2017-05-09] MEDS: busPIRone TAB* 10 MG PO SCH ×2 (09:58→20:06)
[2017-05-09] MEDS ORDERED: NS 0.9% IV ONE (10:00)
[2017-05-09] MEDS ORDERED: PHYTONADIONE IV ONE (10:00)
[2017-05-09] MEDS: Magnesium Oxide TAB* 400 MG PO SCH (10:01)
[2017-05-09] MEDS: Potassium Chlor TAB* 20 MEQ TAB.ER PO SCH ×2 (10:08→11:22)
[2017-05-09] MEDS ORDERED: fentaNYL* 50 MCG/ML 2 ML VIAL (100 MCG VIAL) ONE (12:51)
[2017-05-09] MEDS ORDERED: Midazolam* 1 MG/ML 10 ML VIAL (10 MG) ONE (12:52)
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
[2017-05-09 16:56] LABS: ABS Basophils 0 10^3/ul (0-0.2); ABS Eosinophils 0.1 10^3/ul (0-0.6); ABS Lymphocytes 0.6 10^3/ul (1.0-4.8); ABS Monocytes 0.6 10^3/ul (0-0.8); ABS Neutrophils 2.7 10^3/ul (1.5-7.7); ABS Nucleated RBC 0 10^3/ul; Eosinophil % 3.4 % (0-6); Hematocrit 26 % (42-52); Hemoglobin 8.7 g/dl (14.0-18.0); Lymphocyte % 15.7 % (25-47); Mean Corpuscular HGB Conc 33 g/dl (31-36); Mean Corpuscular Hemoglobin 27 pg (27-31); Mean Corpuscular Volume 82 fL (80-94); Mean Platelet Volume 7 um3 (7.4-10.4); Nucleated Red Blood Cells % 0; Platelet Count 163 10^3/ul (150-450); Red Blood Count 3.19 10^6/ul (4.0-5.4); Red Cell Distribution Width 18 % (10.5-15); White Blood Count 4.1 10^3/ul (3.5-10.8)
[2017-05-09] MEDS: Ferrous Gluconate TAB* 324 MG TAB PO SCH (17:44)
--- NOTE | 2017-05-09 18:25 | CONS ---
CC: Dr. Lee Gonzalez and Dr. Sarah Singer * GASTROENTEROLOGY CONSULTATION: DATE OF CONSULT: 05/09/17 REFERRING PHYSICIANS: Dr. Lee Gonzalez and Dr. Sarah Singer. HISTORY OF PRESENT ILLNESS: Thank you for asking me to see Mr. Mckinley. As you know, he is a pleasant 72-year-old male, who was admitted 2 days ago with weakness. He does have a history of chronic renal failure, atrial fibrillation on Coumadin therapy as well as aortic valve replacement. The patient was noted on admission to have a hematocrit of 25, MCV of 82, MCH of 27. His BUN and creatinine are elevated at 88 and 3.59. The patient's INR was 2.37 on admission. He was noted to have guaiac positive stool. The patient denied any melena, rectal bleeding, or hematemesis. He has had no abdominal pain or dysphagia. The patient did receive 5 mg of vitamin K p.o. in the emergency room. His hematocrit subsequently dropped to 23 today, he is receiving 1 unit of packed red blood cells. There have been no signs of active bleeding. His vital signs have been stable. PAST MEDICAL HISTORY: Significant for congestive heart failure, atrial fibrillation, hypertension, history of DVT, acid reflux disease, type 2 diabetes , cholecystectomy IVC filter placement, status post ICD insertion, CABG, and aortic valve replacement. MEDICATIONS: At home include: 1. Amiodarone. 2. BuSpar. 3. Coreg. 4. Lipitor. 5. Exenatide. 6. Gabapentin. 7. Insulin. 8. Levothyroxine. 9. Metolazone. 10. Nortriptyline. 11. Torsemide. 12. Coumadin. ALLERGIES: STATIN DRUGS, IBUPROFEN, OXYCODONE, ERTAPENEM, LISINOPRIL, DILTIAZEM , and GEMFIBROZIL. FAMILY HISTORY: Significant for heart disease and diabetes. SOCIAL HISTORY: No tobacco or alcohol abuse. The patient is . REVIEW OF SYSTEMS: A 10-point review of systems is performed and is otherwise negative. PHYSICAL EXAM: Mr. Mckinley is a well-appearing 72-year-old male. HEENT Exam: There is no scleral icterus. Heart is regular rate and rhythm. Lungs are clear. Abdomen is soft. There is no tenderness. Bowel sounds are present. There is no distention. Extremities are without cyanosis, clubbing, or edema. Neurologic exam is grossly intact. Alert and oriented x3. PERTINENT LABORATORY STUDIES: An INR this morning of 2.43. The patient has received 5 mg of vitamin K IV prior to endoscopy. White blood count of 4.7, hematocrit of 23. Patient is receiving 1 unit of packed red blood cells. IMPRESSION: Mr. Mckinley has significant anemia. He does have markedly elevated creatinine likely contributing to a chronic anemia. He did although have guaiac positive stool without signs of active bleeding. RECOMMENDATIONS: Upper endoscopy will be performed to look for source of upper GI bleeding. Further recommendations will be made based upon the results of that study. [id number]/[facility] #: [id number] [facility]ITALAdenike
[2017-05-09] MEDS: Omeprazole CAP* 20 MG PO SCH (20:08)
[2017-05-09] MEDS ORDERED: Insulin GLARGINE(*) 1 UNITS UNIT SUBCUT SCH (21:00)
[2017-05-09] MEDS ORDERED: Nortriptyline CAP* 25 MG PO SCH (21:00)
[2017-05-10 06:00] LABS: ABS Basophils 0 10^3/ul (0-0.2); ABS Eosinophils 0.1 10^3/ul (0-0.6); ABS Lymphocytes 0.5 10^3/ul (1.0-4.8); ABS Monocytes 0.6 10^3/ul (0-0.8); ABS Neutrophils 2.5 10^3/ul (1.5-7.7); ABS Nucleated RBC 0 10^3/ul; Eosinophil % 3.3 % (0-6); Hematocrit 27 % (42-52); Hemoglobin 8.7 g/dl (14.0-18.0); Lymphocyte % 13.6 % (25-47); Mean Corpuscular HGB Conc 33 g/dl (31-36); Mean Corpuscular Hemoglobin 27 pg (27-31); Mean Corpuscular Volume 82 fL (80-94); Mean Platelet Volume 7 um3 (7.4-10.4); Nucleated Red Blood Cells % 0.1; Platelet Count 184 10^3/ul (150-450); Red Blood Count 3.23 10^6/ul (4.0-5.4); Red Cell Distribution Width 19 % (10.5-15); White Blood Count 3.7 10^3/ul (3.5-10.8)
[2017-05-10] MEDS: Levothyroxine TAB* 25 MCG TAB PO SCH (06:13)
[2017-05-10 06:15] LABS: EGFR Non-African American 25.8 (>60)
[2017-05-10] MEDS: Gabapentin CAP(*) 100 MG PO SCH (08:31)
[2017-05-10] MEDS: Cholecalciferol TAB* 1000 UNITS PO SCH (08:31)
[2017-05-10] MEDS: Omeprazole CAP* 20 MG PO SCH (08:31)
[2017-05-10] MEDS: busPIRone TAB* 10 MG PO SCH (08:32)
[2017-05-10] MEDS: Insulin GLARGINE(*) 1 UNITS UNIT SUBCUT SCH (08:32)
[2017-05-10] MEDS: Magnesium Oxide TAB* 400 MG PO SCH (08:32)
[2017-05-10] MEDS: Atorvastatin* 10 MG TAB PO SCH (08:32)
[2017-05-10] MEDS: Amiodarone TAB* 200 MG PO SCH (08:32)
[2017-05-10] MEDS: Insulin LISPRO* 1 UNITS UNIT SUBCUT SCH ×2 (08:32→12:22)
[2017-05-10] MEDS: Ferrous Gluconate TAB* 324 MG TAB PO SCH (08:32)
[2017-05-10] MEDS: Carvedilol TAB* 25 MG PO SCH (08:32)
[2017-05-10] MEDS: Potassium Chlor TAB* 20 MEQ TAB.ER PO SCH ×2 (08:40→10:40)
--- NOTE | 2017-05-10 09:06 | PRO ---
CC: Dr. Lee Gonzalez; Dr. Sarah Singer GASTROENTEROLOGY PROCEDURE NOTE: DATE OF PROCEDURE: 05/09/17 REFERRING PHYSICIANS: Dr. Lee Gonzalez and Dr. Sarah Singer. PROCEDURE: EGD. PREOPERATIVE DIAGNOSIS: Question of upper GI bleeding in a 72-year-old male with significant anemia and guaiac positive stool. The patient is on Coumadin. Hematocrit of 23. Currently receiving 1 unit of packed red blood cells. INR of 2.43. The patient has received vitamin K 5 mg IV preprocedure. Vital signs have been stable. There have been no signs of significant active bleeding. POSTOPERATIVE DIAGNOSES: 1. Mild distal esophagitis. 2. Mild antral gastritis without erosion or ulceration. No old or new blood is present in the stoma ch. 3. Thickened fold of the duodenal bulb. No sign of ulceration or bleeding. PROCEDURE MEDICATIONS: 1. Versed 3 mg IV. 2. Fentanyl 50 mcg IV. INSTRUMENT: GF-190 Olympus high-definition gastroscope. DESCRIPTION OF PROCEDURE: Informed consent was obtained prior to performing this procedure. The ins trument was introduced into the mouth and passed the cervical esophagus under direct visualization. The instrument was then advanced down the esophagus. In the distal esophagus, there was mild inflamm ation. No obvious Platt's mucosa was noted. The scope was then passed in the gastric cardia, fund us, body, and antrum. There was mild antral gastritis without erosion or ulceration. No old or new blood is present. The scope was passed through the pylorus and duodenal bulb and descending duodenum . No old or new blood is present. There is a thickened fold in the bulb. No apparent ulceration clotilde und this thickened fold. Photograph is obtained. The instrument was withdrawn from the patient. Th e patient tolerated the procedure well and there were no complications. RECOMMENDATIONS: I will start the patient on omeprazole 40 mg daily. I would recommend outpatient v ideo capsule endoscopy and the patient may likely be discharged if his hematocrit responds to transfu isaías and there are no further signs of active bleeding, to follow up with Trisha Sauceda, nurse cassie sterling, in our office of [facility] 1 week after discharge to set up vide o capsule endoscopy. I would monitor his hematocrit on a weekly basis and try and keep his INR at 2. 0. The patient has undergone colonoscopy within the past couple of years. [id number]/[facility] #: [id number]
[2017-05-10 14:21] VITALS: BP 116/60
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
== END 2017-05-10 15:20 | disposition home or self-care (01) | DRG 812 ==
LOC: ED 19:28 → MED 23:10 → UNDOADMOB 23:10 → OBSVTOIN 05-09 14:00 → INTOOBSV 05-09 14:00 → MED 05-09 21:50 → UNDODISIN 05-10 15:20
PROVIDERS: ADMIT Hospitalist; ATTEND Internal Medicine
PROC: 30233N1 Transfusion of Nonautologous Red Blood Cells into Peripheral Vein, Percutaneous Approach (ICD-10-PCS; 2017-05-08)
PROC: 0DJ08ZZ Inspection of Upper Intestinal Tract, Via Natural or Artificial Opening Endoscopic (ICD-10-PCS; principal; 2017-05-09)
DX: D64.89 Other specified anemias (principal); E11.22 Type 2 diabetes mellitus with diabetic chronic kidney disease; E11.40 Type 2 diabetes mellitus with diabetic neuropathy, unspecified; N17.9 Acute kidney failure, unspecified; N18.4 Chronic kidney disease, stage 4 (severe); I13.0 Hypertensive heart and chronic kidney disease with heart failure and stage 1 through stage 4 chronic kidney disease, or unspecified chronic kidney disease; I50.20 Unspecified systolic (congestive) heart failure; E11.65 Type 2 diabetes mellitus with hyperglycemia; I25.10 Atherosclerotic heart disease of native coronary artery without angina pectoris; K21.9 Gastro-esophageal reflux disease without esophagitis; F32.9 Major depressive disorder, single episode, unspecified; I48.91 Unspecified atrial fibrillation; I25.5 Ischemic cardiomyopathy; I35.0 Nonrheumatic aortic (valve) stenosis; K20.8 Other esophagitis; R74.8 Abnormal levels of other serum enzymes; K29.60 Other gastritis without bleeding; Z95.1 Presence of aortocoronary bypass graft; Z95.2 Presence of prosthetic heart valve; Z95.810 Presence of automatic (implantable) cardiac defibrillator; Z86.718 Personal history of other venous thrombosis and embolism; Z86.711 Personal history of pulmonary embolism; Z79.01 Long term (current) use of anticoagulants; Z79.4 Long term (current) use of insulin; Z79.899 Other long term (current) drug therapy; Z88.6 Allergy status to analgesic agent; Z88.5 Allergy status to narcotic agent; Z88.8 Allergy status to other drugs, medicaments and biological substances; Z82.49 Family history of ischemic heart disease and other diseases of the circulatory system; Z83.3 Family history of diabetes mellitus; Z87.891 Personal history of nicotine dependence
CPT/HCPCS: 36415; 71046; 80048; 80053; 81003; 82272; 82607; 82728; 83540; 83550; 83605; 83735; 83880; 84443; 84484; 85014; 85018; 85025; 85027; 85610; 86703; 86704; 86706; 86803; 86850; 86900; 86901; 86922; 87340; 87522; 93005; 99156; 99157; 99284; A9270-GY; J2250; J3010; J3430; P9040

== ENCOUNTER 2017-07-17 18:54 | Observation (INO) | payer MEDICARE, BC ==
[2017-07-17 23:05] LABS: ABS Basophils 0 10^3/ul (0-0.2); ABS Eosinophils 0.2 10^3/ul (0-0.6); ABS Monocytes 0.7 10^3/ul (0-0.8); ABS Neutrophils 3.7 10^3/ul (1.5-7.7); ABS Nucleated RBC 0 10^3/ul; Eosinophil % 3.2 % (0-6); Hematocrit 29 % (42-52); Hemoglobin 10.1 g/dl (14.0-18.0); Lymphocyte % 18.2 % (25-47); Mean Corpuscular HGB Conc 34 g/dl (31-36); Mean Corpuscular Hemoglobin 30 pg (27-31); Mean Corpuscular Volume 88 fL (80-94); Mean Platelet Volume 7.8 um3 (7.4-10.4); Nucleated Red Blood Cells % 0.1; Platelet Count 153 10^3/ul (150-450); Red Blood Count 3.33 10^6/ul (4.0-5.4); Red Cell Distribution Width 20 % (10.5-15); White Blood Count 5.5 10^3/ul (3.5-10.8)
[2017-07-17 23:16] LABS: INR 2.24 (0.77-1.02)
[2017-07-17 23:22] LABS: EGFR Non-African American 16.6 (>60)
[2017-07-17] MEDS ORDERED: Furosemide IV* 10 MG/ML VIAL (40 MG) IV SLOW PU ONE (23:23)
[2017-07-17] MEDS ORDERED: Potassium Chlor TAB* 10 MEQ TAB.ER PO ONE (23:30)
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
[2017-07-18] MEDS ORDERED: Potassium Chlor TAB* 10 MEQ TAB.ER PO ONE (00:45)
[2017-07-18] MEDS ORDERED: Dextrose 50% Syringe 50 ML* 25 GM/50 ML SYRINGE IV PUSH PRN (01:02)
[2017-07-18] MEDS: Acetaminophen TAB* 325 MG PO PRN ×2 (04:29→23:49)
[2017-07-18] MEDS: Levothyroxine TAB* 25 MCG TAB PO SCH (05:27)
[2017-07-18 06:04] LABS: EGFR Non-African American 15.3 (>60)
--- NOTE | 2017-07-18 06:13 | HP ---
CC: Dr. Gonzalez * HISTORY AND PHYSICAL: DATE OF ADMISSION: 07/18/17 PRIMARY CARE PROVIDER: Dr. Gonzalez. CHIEF COMPLAINT: Dizziness. HISTORY OF PRESENT ILLNESS: Mr. Mckinley is a 72-year-old male whom I know from 2 prior admissions within the last 6 months who presents to the emergency room with complaints of dizziness. The patient has a history of systolic CHF, coronary artery disease, past history of DVT/PE, atrial fibrillation, type 2 diabetes and hypertension. The patient states that today he was taking his garbage out. He states that he was dragging several bags outside. While doing this he began to feel dizzy. He sat down in his chair for a while, began to feel quite a bit better and therefore, got up to continue completing his tasks. He again felt quite dizzy. He denied any chest pain or racing heart with the dizziness. He had some mild shortness of breath with exertion, but nothing significant. The patient states over the last couple of days he has been feeling pretty normal. He decided ultimately to present to the emergency room due to the dizziness. He did get up to go to the bathroom in the emergency room and did not have any dizziness with this activity. PAST MEDICAL HISTORY: 1. Systolic CHF. 2. Coronary artery disease. 3. GERD. 4. Depression. 5. History of DVT/PE. 6. Atrial fibrillation. 7. Type 2 diabetes. 8. Hypertension. PAST SURGICAL HISTORY: 1. Cholecystectomy. 2. IVC filter placement. 3. CABG and aortic valve replacement. 4. ICD insertion. 5. ORIF of pelvic fracture. MEDICATIONS: 1. Coumadin 4 mg p.o. daily. 2. Omeprazole 40 mg p.o. daily. 3. Lantus 55 units subcutaneous q.a.m., 35 units subcutaneous q.h.s. 4. Ferrous sulfate 143 mg p.o. daily. 5. Bydureon 2 mg subcutaneous weekly. 6. Coreg 25 mg p.o. b.i.d. 7. Lipitor 10 mg p.o. daily. 8. Amiodarone 200 mg p.o. daily. 9. Colace 100 mg p.o. b.i.d. 10. Vitamin D3, 1000 units p.o. daily. 11. Gabapentin 200 mg p.o. twice daily. 12. Lispro via sliding scale. 13. Metolazone 2.5 mg p.o. daily. 14. Magnesium oxide 400 mg p.o. daily. 15. Levothyroxine 25 mcg p.o. daily. 16. Potassium chloride 20 mEq p.o. twice daily. 17. Nortriptyline 50 mg p.o. q.h.s. 18. Torsemide 20 mg p.o. b.i.d. 19. BuSpar 10 mg p.o. b.i.d. ALLERGIES: IBUPROFEN, OXYCODONE, ERTAPENEM, LISINOPRIL, DILTIAZEM, GEMFIBROZIL , LOVASTATIN, ROSUVASTATIN and SIMVASTATIN. FAMILY HISTORY: Mom at the age of 85 of coronary artery disease. Dad at the age of 92, he had diabetes and coronary artery disease. SOCIAL HISTORY: The patient is a former smoker. He quit approximately 30 years ago. He also quit drinking heavily approximately 30 years ago. 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 He is . He has 5 children. His daughter, Pam, is his surrogate decision maker. REVIEW OF SYSTEMS: A complete 11-system review of systems is obtained. Pertinent positives and negatives are as per HPI and otherwise negative. PHYSICAL EXAMINATION GENERAL: The patient is a well-developed elderly male seen sitting up in the stretcher, in no acute distress. VITAL SIGNS: Blood pressure 136/68, pulse 67, respirations 20, temp 99.4, O2 sat 97% on room air. HEENT: Pupils are equal and round. Extraocular muscles are intact. Oropharynx is clear. The patient wears upper and lower dentures. There is no submandibular or supraclavicular adenopathy. Thyroid is not enlarged. No thyroid nodules noted. PULMONARY: Lungs are clear to auscultation bilaterally. CARDIAC: Normal S1 and S2. Regular rate and rhythm. There is trace bilateral lower extremity pitting edema. There are chronic venous stasis changes to the bilateral lower extremities. ABDOMEN: Bowel sounds are present. Abdomen is soft, nontender, nondistended. MUSCULOSKELETAL: There is no cyanosis or clubbing of the digits. There is full active range of motion of all 4 extremities. NEURO: Cranial nerves II through XII are grossly intact. Sensation is intact to light touch throughout. Strength is 5/5 and symmetric in both upper and lower extremities bilaterally. SKIN: Warm and dry. There are no rashes. There again is brawny discoloration of the bilateral lower legs. PSYCH: The patient is alert. He is oriented x3. Affect appears appropriate. DIAGNOSTIC STUDIES/LAB DATA: WBC 5.5, hemoglobin 10.1, hematocrit 29, platelets 153,000. INR 2.24. Sodium 129, potassium 2.8, chloride 85, CO2 of 33 , BUN 84, creatinine 3.63, glucose 351, calcium 9.1, bilirubin 0.4, AST 52, ALT 49, alk phos 110, troponin 0.03. CRP 10.68, BNP 118, albumin 4.0. EKG reveals normal sinus rhythm with a nonspecific intraventricular conduction delay and no acute ST-T wave abnormalities. Chest x-ray to my interpretation revealed perhaps increased pulmonary vascular congestion compared to the chest x-ray obtained on 05/08/17. Formal radiology report is pending. ASSESSMENT AND PLAN: Mr. Mckinley is a 72-year-old male with history of systolic congestive heart failure, coronary artery disease, atrial fibrillation, hypertension, type 2 diabetes and a past history of deep venous thrombosis/ pulmonary embolism who presents to the emergency room today with complaints of dizziness. 1. Dizziness. The etiology behind is not clear at this time. The differential diagnosis includes dizziness related to orthostasis from dehydration versus arrhythmia versus potentially hypoxia. The patient will be admitted to observation stay on the telemetry floor. We will get him up and moving later on the day of admission to monitor his heart rate with activity and check an O2 saturation with exertion. So far, the patient has had no further episodes of dizziness in the emergency room. At one point, he does inform me that he questions if maybe his dizziness was related to being exertional in the heat outside. 2. The patient did receive a dose of IV Lasix in the emergency room due to concerns of increased congestive heart failure; however, I am not going to continue this at this time and additionally I am not going to continue his torsemide at this time as again dehydration is a possibility as to the cause of his dizziness. If the patient's creatinine increases at the next lab draw, perhaps IV fluids should be administered. 3. Progressive stage 4 kidney disease. The patient's creatinine continues to worsen. His creatinine is the highest it has ever been. Again, he did receive IV Lasix in the ER. I am holding off on any further diuretic, but I am also holding off on IV fluids for now. If the creatinine worsens, gentle IV fluid hydration should be considered. The patient should be seeing a wet process head miller. He informs me that he has never seen a wet process head miller as far as he knows. A referral should be made on discharge for the patient to be seen by Dr. Coats. 4. Systolic congestive heart failure. At this point, the patient does not look overtly fluid overloaded. He does have trace edema to the bilateral lower extremities. As above, I am holding his torsemide. If he begins to show signs of overt fluid overload or respiratory distress related to fluid overload, we will reinitiate diuretic therapy. 5. Coronary artery disease. The patient's troponin is within normal limits. He will continue on his Lipitor and Coreg. He is not on an AYSHA inhibitor and this is appropriate given his progressive renal dysfunction. 6. Atrial fibrillation. The patient is currently in sinus rhythm. We will continue amiodarone, Coreg and Coumadin. 7. Type 2 diabetes. The patient will be maintained on his usual doses of Lantus and a lispro sliding scale. 8. Hypertension. The patient's blood pressure is under fair control in the emergency room. We will continue home medication regimen. 9. DVT prophylaxis. According to the Adult Thrombosis Prophylaxis Risk Factor Assessment Guide, the patient has a total risk factor score of 4, making him high risk. He is already on Coumadin with the therapeutic INR and this will act as his DVT prophylaxis. 10. Code status is full. TIME SPENT: 60 minutes was spent admitting this patient. [id number]/[facility] #: [id number] [place]
--- NOTE | 2017-07-18 07:18 | RAD ---
INDICATION: Shortness of breath. COMPARISON: Comparison is made with a prior study from May 08, 2017. Correlation is also made with a prior study from November 29, 2015. TECHNIQUE: A portable view of the chest was obtained. FINDINGS: The patient is status post coronary artery bypass surgery. Note is made of a transvenous cardiac pacemaker. The heart is mildly enlarged and unchanged. There is mild prominence of the interstitial markings which is most focal at the right lung base and unchanged from the prior study. The lungs are otherwise clear. No pleural effusion is seen. There are multiple surgical plates transfixed with screws present along several of the right lower ribs consistent with prior fracture reduction. IMPRESSION: MILD CARDIOMEGALY AND POSTSURGICAL CHANGES, NO EVIDENCE FOR ACUTE FINDING
[2017-07-18] MEDS: Omeprazole CAP* 20 MG PO SCH (07:49)
[2017-07-18] MEDS: Insulin LISPRO* 1 UNITS UNIT SUBCUT SCH ×4 (09:14→20:46)
[2017-07-18] MEDS: Insulin GLARGINE(*) 1 UNITS UNIT SUBCUT SCH (09:15)
[2017-07-18] MEDS: Docusate CAP* 100 MG PO SCH ×2 (09:16→20:46)
[2017-07-18] MEDS: busPIRone TAB* 10 MG PO SCH ×2 (09:16→20:46)
[2017-07-18] MEDS: Magnesium Oxide TAB* 400 MG PO SCH (09:16)
[2017-07-18] MEDS: Gabapentin CAP(*) 100 MG PO SCH ×2 (09:16→20:45)
[2017-07-18] MEDS: Amiodarone TAB* 200 MG PO SCH (09:16)
[2017-07-18] MEDS: Carvedilol TAB* 25 MG PO SCH ×2 (09:16→20:45)
[2017-07-18] MEDS: Cholecalciferol TAB* 1000 UNITS PO SCH (09:16)
[2017-07-18] MEDS: Atorvastatin* 10 MG TAB PO SCH (09:16)
[2017-07-18] MEDS ORDERED: KCL 20 MEQ/100 ML IVPREMIX* 20 MEQ/100 ML BAG IV SCH (14:00)
[2017-07-18] MEDS ORDERED: Potassium Chloride IV* 60 MEQ in NS 0.9% 500 ML* 500 ML IVPB ONE (14:00)
[2017-07-18] MEDS ORDERED: NS 0.9% 500 ML* 500 ML IV SCH (16:00)
--- NOTE | 2017-07-18 16:54 | PN ---
Hospitalist Progress Note Date of Service: 07/18/17 I have seen and examined Mr. Mckinley and assumed his care for today. He feels much better and wishes to go home. I spoke with his daughter Pam, who expressed some concern that he had been confused over the past few days, which usually occurs when he has an infection. Given his worsening renal failure, hypokalemia, and confusion, I'm going to give him an IVF trial after obtaining a FeUrea, replete his K+ intravenously, and check a UA. Recheck bmp in the morning.
[2017-07-18] MEDS ORDERED: Warfarin TAB(*) 4 MG PO SCH (17:00)
[2017-07-18] MEDS ORDERED: CMCS Melatonin (NF) 3 MG TAB PO SCH (20:00)
[2017-07-18 20:18] LABS: Urine Appearance Clear; Urine Blood Negative (Negative); Urine Color Yellow; Urine Ketones Negative (Negative); Urine Protein Negative (Negative); Urine Specific Gravity 1.009 (1.010-1.030); Urine Urobilinogen Negative (Negative)
[2017-07-18] MEDS ORDERED: Insulin GLARGINE(*) 1 UNITS UNIT SUBCUT SCH (21:00)
[2017-07-18] MEDS ORDERED: Nortriptyline CAP* 25 MG PO SCH (21:00)
[2017-07-19] MEDS: Levothyroxine TAB* 25 MCG TAB PO SCH (06:07)
[2017-07-19 06:09] LABS: ABS Basophils 0 10^3/ul (0-0.2); ABS Eosinophils 0.1 10^3/ul (0-0.6); ABS Lymphocytes 0.7 10^3/ul (1.0-4.8); ABS Monocytes 0.6 10^3/ul (0-0.8); ABS Neutrophils 3.1 10^3/ul (1.5-7.7); ABS Nucleated RBC 0 10^3/ul; Eosinophil % 3.3 % (0-6); Hematocrit 31 % (42-52); Hemoglobin 10.5 g/dl (14.0-18.0); Mean Corpuscular HGB Conc 34 g/dl (31-36); Mean Corpuscular Hemoglobin 30 pg (27-31); Mean Corpuscular Volume 88 fL (80-94); Mean Platelet Volume 7.6 um3 (7.4-10.4); Nucleated Red Blood Cells % 0; Platelet Count 139 10^3/ul (150-450); Red Blood Count 3.49 10^6/ul (4.0-5.4); Red Cell Distribution Width 21 % (10.5-15); White Blood Count 4.5 10^3/ul (3.5-10.8)
[2017-07-19 06:24] LABS: EGFR Non-African American 18.5 (>60)
[2017-07-19] MEDS: Insulin GLARGINE(*) 1 UNITS UNIT SUBCUT SCH (08:34)
[2017-07-19] MEDS: busPIRone TAB* 10 MG PO SCH (08:35)
[2017-07-19] MEDS: Omeprazole CAP* 20 MG PO SCH (08:35)
[2017-07-19] MEDS: Docusate CAP* 100 MG PO SCH (08:35)
[2017-07-19] MEDS: Insulin LISPRO* 1 UNITS UNIT SUBCUT SCH ×2 (08:35→12:19)
[2017-07-19] MEDS: Atorvastatin* 10 MG TAB PO SCH (08:35)
[2017-07-19] MEDS: Gabapentin CAP(*) 100 MG PO SCH (08:36)
[2017-07-19] MEDS: Amiodarone TAB* 200 MG PO SCH (08:36)
[2017-07-19] MEDS: Carvedilol TAB* 25 MG PO SCH (08:36)
[2017-07-19] MEDS: Cholecalciferol TAB* 1000 UNITS PO SCH (08:37)
[2017-07-19] MEDS: Magnesium Oxide TAB* 400 MG PO SCH (08:47)
[2017-07-19] MEDS ORDERED: KCL 20 MEQ/100 ML IVPREMIX* 20 MEQ/100 ML BAG IV SCH (09:00)
[2017-07-19] MEDS ORDERED: Potassium Chloride IV* 40 MEQ in NS 0.9% 250 ML* 250 ML IVPB ONE (09:00)
--- NOTE | 2017-07-19 10:45 | PN ---
Subjective Date of Service: 07/19/17 Interval History: Mr. Mckinley denies complaint and is eager for discharge home. Objective Active Medications: Acetaminophen (Tylenol Tab*) 650 mg PO Q4H PRN Amiodarone HCl (Cordarone Tab*) 200 mg PO DAILY [facility] Atorvastatin Calcium (Lipitor*) 10 mg PO DAILY [facility] Buspirone HCl (Buspar Tab*) 10 mg PO BID [facility] Carvedilol (Coreg Tab*) 25 mg PO BID [facility] Cholecalciferol (Vitamin D Tab*) 1,000 units PO DAILY [facility] Dextrose (D50w Syringe 50 Ml*) 12.5 gm IV PUSH .FOR FS < 60 - SS PRN Docusate Sodium (Colace Cap*) 100 mg PO BID [facility] Gabapentin (Neurontin Cap(*)) 200 mg PO BID [facility] Potassium Chloride 40 meq/ (Sodium Chloride) 270 mls @ 67.5 mls/hr IVPB ONCE ONE Insulin Glargine (Lantus(*)) 55 units SUBCUT QAM [facility] Insulin Glargine (Lantus(*)) 35 units SUBCUT BEDTIME [facility] Insulin Human Lispro (Humalog*) 0 units SUBCUT ACHS [facility] Levothyroxine Sodium (Synthroid Tab*) 25 mcg PO DAILY@0600 [facility] Magnesium Oxide (Magox 400 Tab*) 400 mg PO DAILY [facility] Melatonin (Melatonin (Nf)) 3 mg PO 2000 [facility] Nortriptyline HCl (Pamelor Cap*) 50 mg PO BEDTIME [facility] Omeprazole (Prilosec Cap*) 40 mg PO DAILY@0730 [facility] Pharmacy Profile Note (Coumadin Daily Reminder*) 1 note FOLLOW UP 1700 [facility] Warfarin Sodium (Coumadin Tab(*)) 4 mg PO DAILY@1700 [facility] Vital Signs: Temp Pulse Resp BP Pulse Ox 97.7 F 69 18 116/70 100 07/19/17 08:15 07/19/17 08:15 07/19/17 08:36 07/19/17 08:15 07/19/17 08:15 Oxygen Devices in Use Now: None Appearance: Male ambulating in room in NAD Eyes: No Scleral Icterus Ears/Nose/Mouth/Throat: Mucous Membranes Moist Neck: Trachea Midline Respiratory: Symmetrical Chest Expansion and Respiratory Effort, Clear to Auscultation Cardiovascular: NL Sounds; No Murmurs; No JVD, No Edema Abdominal: NL Sounds; No Tenderness; No Distention Lymphatic: No Cervical Adenopathy Extremities: No Edema Skin: No Rash or Ulcers Neurological: Alert and Oriented x 3, NL Muscle Strength and Tone Nutrition: Taking PO's Result Diagrams: 07/19/17 05:27 07/19/17 05:27 Assess/Plan/Problems-Billing Assessment: Mr. Mckinley is a 72 yo male with a PMH of systolic CHF, CKD, hx DVT/PE, afib, DM, and hypertension who was admitted on 07/18/17 with dizziness found to have worsening creatinine and hypokalemia. - Patient Problems (1) Dizziness Comment: - Resolved, ambulating on unit independently. - Not orthostatic, not hypoxic, no arrhythmmia noted on telemetry. - Question if related to hypokalemia and dehydration. (2) Hypokalemia Comment: - K persistently low this AM. - 40meq IV now, increase po home supplementation. (3) Hx of deep venous thrombosis Comment: - Continue warfarin. (4) CAD (coronary artery disease) Comment: - Continue atorvastatin (5) Diabetes Comment: - BGa 170-190s. - Continue lantus 55 qam, 35 qpm with lispro SSI coverage. (6) HTN (hypertension) Comment: - BP is under good control on his current regimen. - Continue carvedilol. (7) PAF (paroxysmal atrial fibrillation) Comment: - Now in NSR. - Continue amiodarone and carvedilol. - Continue warfarin, INR 2.24. (8) CKD (chronic kidney disease), stage IV Comment: - Creatinine slowly worsening over time. - Patient will need to follow up with Dr. Coats at discharge. (9) DVT prophylaxis Comment: - Warfarin with therapeutic INR (10) Full code status Comment: Status and Disposition: Inpatient. Discharge to home.
[2017-07-19 13:50] VITALS: BP 123/71
[2017-07-19] MEDS: Acetaminophen TAB* 325 MG PO PRN (14:45)
--- NOTE | 2017-07-19 23:54 | DS ---
CC: Dr. Gonzalez; Dr. Coats; Dr. Hernandez.* HOSPITAL MEDICINE DISCHARGE SUMMARY: DATE OF ADMISSION: 07/18/17 DATE OF DISCHARGE: 07/19/17 PRIMARY CARE PHYSICIAN: Dr. Gonzalez. STRETCH MACHINE OPERATOR: Dr. Coats. HEEL SPRAYER FIRST: Dr. Hernandez. ATTENDING PHYSICIAN: Dr. Bain * (dictation provided by Lacey Clifton NP). PRIMARY DIAGNOSIS: Dizziness suspected secondary to dehydration and hypokalemia. SECONDARY DIAGNOSES: 1. History of systolic congestive heart failure, systolic with ejection fraction less than 20% as of last echo on my record from 2015. 2. Coronary artery disease with history of coronary artery bypass graft. 3. Gastroesophageal reflux disease. 4. Depression. 5. History of deep venous thrombosis and pulmonary embolism. 6. History of atrial fibrillation, on chronic anticoagulation. 7. Type 2 diabetes, insulin dependent. 8. Hypertension. PAST SURGICAL HISTORY: 1. History of cholecystectomy. 2. IVC filter placement. 3. CABG and aortic valve replacement. 4. ICD insertion. 5. ORIF of pelvic fracture. MEDICATIONS AT THE TIME OF DISCHARGE: The only medication change is for potassium chloride increased to 20 mEq p.o. t.i.d. The remainder of the medications is: 1. Coumadin 4 mg p.o. daily with therapeutic INR. 2. Omeprazole 40 mg p.o. daily. 3. Lantus 55 units subcutaneously q.a.m. and 35 units subcutaneously q.h.s. ( well- controlled BGs in hospital). 4. Ferrous sulfate 143 mg p.o. daily. 5. Bydureon 2 mg subcutaneously weekly. 6 Coreg 25 mg p.o. b.i.d. 7. Lipitor 10 mg p.o. daily. 8. Amiodarone 200 mg p.o. daily. 9. Colace 100 mg p.o. b.i.d. 10. Vitamin D3 1000 units p.o. daily. 11. Gabapentin 200 mg p.o. twice daily. 12. Lispro via sliding scale. 13. Metolazone 2.5 mg p.o. daily. 14. Magnesium oxide 400 mg p.o. daily. 15. Levothyroxine 25 mcg p.o. daily. 16. Nortriptyline 50 mg p.o. q.h.s. 17. Torsemide 20 mg p.o. b.i.d. 18. BuSpar 10 mg p.o. b.i.d. HOSPITAL COURSE: Mr. Mckinley is a 72-year-old male with past medical history of systolic CHF, coronary artery disease with CABG, AFib, type 2 diabetes which is insulin dependent, who presented to the hospital on 07/18/17 with concern for dizziness. Mr. Mckinley states that he had been very sedentary over the winter months. As the weather has recently improved, he was out working hard in his garage. He drug several bags of garbage out to the road side and with this, he became lightheaded. He denied feeling unwell prior to this and noted no chest pain or shortness of breath with this event. Mr. Mckinley presented to the emergency room for evaluation. He was able to ambulate in the emergency room without dizziness. His workup included an EKG, which showed a normal sinus rhythm with no evidence of ischemia. He had a chest x-ray, which showed "mild cardiomegaly and post surgical changes, no evidence for acute findings." He had labs, which showed a persistent anemia, which was actually improved since his last check on 05/10/17; at the time of discharge, it was 10.5 and 31. His INR was therapeutic at 2.24; however, he did have hypokalemia with the potassium of 2.8, sodium of 129, BUN was 84. His creatinine was 3.63, this is somewhat up from baseline, though his values have been pretty variable. He had orthostatic vital signs and he was not orthostatic , his vitals were stable. Mr. Mckinley was admitted to the hospital, it was unclear why he had become dizzy or lightheaded at home. He did not describe the room spinning, but just stated he did not feel well. We repleted his potassium despite receiving over 60 mEq IV plus his home oral dose, he remained somewhat hypokalemic with potassium of 2.9. I had to have replete him with an additional 40 mEq today, and he will be going home with an increased dose for his home medication regimen at potassium chloride 20 mEq p.o. t.i.d. from his previous b.i.d. dosing. The patient was euvolemic during the hospitalization. He was given a one-time dose of diuretic in the emergency room IV. His BUN and creatinine have improved since arrival and his creatinine today at the time of discharge is 3.30. Mr. Mckinley has been doing very well since arriving to the emergency room. He has been able to ambulate without difficulty. He has been ambulating around the unit without difficulty. He is tolerating oral intake well. He denies chest pain. He denies shortness of breath. We suspect that perhaps his not feeling well was related to being sedentary for several months and then being very active yesterday in the warm weather in the setting of his multiple extensive severe comorbidities. I see no active issue today, and he should follow up with his primary care provider, his supervisor counseling and guidance and also with Nephrology. The patient states he has never seen a airport representative and with his steadily worsening chronic kidney disease now at stage 4, we do recommend that he see Dr. Coats. DISPOSITION: Home. DIET: Low fat, low salt, consistent carbohydrate, renal. ACTIVITY: As tolerated. FOLLOWUP PLANS: 1. Please follow up with Dr. Gonzalez for an appointment in 1 week. 2. Please follow up with Dr. Hernandez for an appointment within 1 month. 3. Please follow up with Dr. Coats within 1 month. 4. Please follow up with basic metabolic panel and INR on 07/23/17, with results forwarded to Dr. Gonzalez and Dr. Hernandez. TIME SPENT: Approximately 60 minutes was spent on the discharge of this patient , more than half the time spent with the patient at the bedside reviewing the events leading up to this hospitalization, performing the physical examination, and reviewing the plan of care. LACEY CLIFTON NP [id number]/CPS #: [id number] ANAMIKA
== END 2017-07-19 15:27 | disposition home or self-care (01) ==
LOC: ED 18:54 → MEDTELE 07-18 00:36
PROVIDERS: ADMIT Hospitalist; ATTEND Student in an Organized Health Care Education/Training Program
DX: R42 Dizziness and giddiness (principal); I13.0 Hypertensive heart and chronic kidney disease with heart failure and stage 1 through stage 4 chronic kidney disease, or unspecified chronic kidney disease; E11.22 Type 2 diabetes mellitus with diabetic chronic kidney disease; Z79.4 Long term (current) use of insulin; N18.4 Chronic kidney disease, stage 4 (severe); I50.20 Unspecified systolic (congestive) heart failure; I25.10 Atherosclerotic heart disease of native coronary artery without angina pectoris; Z95.1 Presence of aortocoronary bypass graft; F32.9 Major depressive disorder, single episode, unspecified; Z86.718 Personal history of other venous thrombosis and embolism; Z86.711 Personal history of pulmonary embolism; E87.6 Hypokalemia; Z79.01 Long term (current) use of anticoagulants; I48.91 Unspecified atrial fibrillation; Z79.899 Other long term (current) drug therapy; Z95.2 Presence of prosthetic heart valve; Z88.8 Allergy status to other drugs, medicaments and biological substances; Z87.891 Personal history of nicotine dependence; Z95.810 Presence of automatic (implantable) cardiac defibrillator; I51.7 Cardiomegaly
CPT/HCPCS: 36415; 71045; 80048; 80053; 81003; 82570; 82947; 83735; 83880; 84145; 84300; 84484; 84540; 85025; 85610; 85730; 86140; 86850; 86900; 86901; 93005; 96365; 96366; 96375; 99284; A9270-GY; G0378; J1940; J3480

== ENCOUNTER 2017-11-23 16:42 | Emergency (ER) | payer MEDICARE, BC ==
[2017-11-23 17:34] VITALS: BP 112/66
--- NOTE | 2017-11-23 18:24 | RAD ---
INDICATION: Patient twisted wrist last night, now has pain and swelling COMPARISON: None. TECHNIQUE: 3 views left wrist. REPORT: The visualized bones are properly aligned and well corticated. The joint spaces are normal.There is no fracture, dislocation or other focal osseous abnormality. There is calcified atherosclerosis overlying the radial ulnar arteries. IMPRESSION: No radiographically apparent fracture or dislocation of the left wrist. 2. Incidentally noted is calcified atherosclerosis of the visualized forearm arteries. If the patient's symptoms persist, follow-up imaging is recommended.
--- NOTE | 2017-11-23 18:24 | UC ---
Hand/Wrist HPI - HPI Summary HPI Summary: The patient is a 72 y/o M presenting to [facility] with a chief complaint of left hand and wrist pain starting last night at 2300. He was lying in bed when he tried to reach over to switch a fan off when he felt pain in his wrist. Due to the pain, he wrapped the wrist in a bandage, but he wrapped it too tight, causing him to wake up this morning with swelling in the wrist and hand. The aching pain is currently rated 8/10 in severity. The pain is aggravated by movement and alleviated by rest. He denies decreased sensation in the wrist. He has hx of CHF, CAD, DVT, HTN, GERD, renal failure. - History Of Current Complaint Chief Complaint: UCUpperExtremity Stated Complaint: HAND INJURY Time Seen by Provider: 11/23/17 17:40 Hx Obtained From: Patient Onset/Duration: Sudden Onset, Lasting Hours - starting last night at 2300, Still Present Severity Initially: Mild Severity Currently: Moderate Pain Intensity: 8 Pain Scale Used: 0-10 Numeric Character Of Pain: Aching Aggravating Factor(s): Movement Alleviating Factor(s): Rest Associated Signs And Symptoms: Positive: Negative - decreased sensation, Swelling Hands: 1 - pain in left wrist - Allergies/Home Medications Allergies/Adverse Reactions: Allergies Allergy/AdvReac Type Severity Reaction Status Date / Time diltiazem Allergy Unknown Verified 11/23/17 17:34 Reaction Details ertapenem Allergy Rash Verified 11/23/17 17:34 gemfibrozil Allergy Unknown Verified 11/23/17 17:34 Reaction Details lisinopril Allergy Difficulty Verified 11/23/17 17:34 Breathing lovastatin Allergy Unknown Verified 11/23/17 17:34 Reaction Details rosuvastatin [From Crestor] Allergy Unknown Verified 11/23/17 17:34 Reaction Details simvastatin [From Zocor] Allergy Unknown Verified 11/23/17 17:34 Reaction Details PMH/Surg Hx/FS Hx/Imm Hx Endocrine History: Diabetes Cardiovascular History: Hypertension, Congestive Heart Failure, Deep Vein Thrombosis Respiratory History: Pulmonary Embolism GI/ History: Gastroesophageal Reflux, Renal Disease - renal failure Other History Of: Anticoagulant Therapy Negative For: HIV, Hepatitis B, Hepatitis C - Surgical History Surgical History: Yes Surgery Procedure, Year, and Place: CABG 2016. chole[place]STECTOMY, [place], [place]. back surgery remote past, 2007, [facility]. bilat cataracts, [place], 2005. vitrectomy surgery rt eye 09/17 [place],. amputation Right great toe, 2013, [facility]. MULTIPLE RIB FX AND PELVIC SURGERY, RIGHT ARM, [place], 05/2014. orif of multiple fractured ribs 05/31 [place]. IVC INSERTION 05/31 [facility]. orif ulna [facility]. 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 Substance Use Type: None Smoking Status (MU): Former Smoker Type: Cigarettes Amount Used/How Often: 1.5 PACKS A DAY Have You Smoked in the Last Year: No When Did the Patient Quit Smoking/Using Tobacco: 29 years ago - Immunization History Most Recent Influenza Vaccination: Fall 2014 Most Recent Tetanus Shot: at some time in the past four year Most Recent Pneumonia Vaccination: 2013 Review of Systems Neurovascular: Other - NEGATIVE: decreased sensation Musculoskeletal: Other: - left wrist and hand pain and swelling All Other Systems Reviewed And Are Negative: Yes Physical Exam - Summary Physical Exam Summary: VITAL SIGNS: Reviewed. GENERAL: Patient is a well-developed and nourished male who is lying comfortable in the stretcher. Patient is not in any acute respiratory distress. HEAD AND FACE: Normocephalic EYES: PERRLA, EOMI x 2. EARS: Hearing grossly intact. MOUTH: Oropharynx within normal limits. NECK: Supple, trachea is midline, no adenopathy, no JVD, no carotid bruit. CHEST: Symmetric, no tenderness at palpation LUNGS: Clear to auscultation bilaterally. No wheezing or crackles. CVS: Regular rate and rhythm, S1 and S2 present, no murmurs or gallops appreciated. ABDOMEN: Soft, non-tender. Bowel sounds are normal. No abdominal abnormal pulsations. EXTREMITIES: Full ROM in all major joints, no edema, no cyanosis or clubbing. Good capillary refill, good muscle movements, Mild swelling in the left wrist NEURO: Alert and oriented x 3. No acute neurological deficits. Speech is normal and follows commands. SKIN: Dry and warm Triage Information Reviewed: Yes Vital Signs: Initial Vital Signs Temp 98.1 F 11/23/17 17:27 Pulse 63 11/23/17 17:27 Resp 18 11/23/17 17:27 BP 112/66 11/23/17 17:27 Pulse Ox 94 11/23/17 17:27 Vital Signs Reviewed: Yes Diagnostics - Radiology Left Wrist XR Xray Interpretation: No Acute Changes - 1. No radiographically apparent fracture or dislocation of the left wrist. 2. Incidentally noted is calcified atherosclerosis of the visualized forearm arteries. If the patient's symptoms persist, follow-up imaging is recommended. [facility] physician has reviewed this report. Radiology Interpretation Completed By: Radiologist Hand/Wrist Course/Dx - Course Course Of Treatment: Patient is a 72-year-old female presenting to the urgent care with chief complaint of left hand swelling. Patient reports that last night he was trying to reach the switch for the fan and started having some pain. Patient placed a tight bandage and this morning developed swelling of the hand. Patient has no history of trauma. X-ray of the wrist negative for fracture dislocation. Patient was discharged home with follow-up with PCP. He was advised to elevate the hand no bandages, and he can use ice or warm compresses. Patient understands and agrees. - Differential Dx/Diagnosis Provider Diagnoses: Hand Swelling Discharge - Sign-Out/Discharge Documenting (check all that apply): Patient Departure - Patient will be discharged home. All imaging exams completed and their final reports reviewed: Yes - Discharge Plan Condition: Stable Disposition: HOME Patient Education Materials: Hand Sprain (ED) Referrals: Lee Gonzalez MD [Primary Care Provider] - Additional Instructions: Elevate left upper extremity, apply ice or warm compresses. Do not place any bandages. Follow-up with PCP - Billing Disposition and Condition Condition: STABLE Disposition: Home - Attestation Statements Document Initiated by Melba: Yes Documenting Scribe: Elda Valles Provider For Whom Melba is Documenting (Include Credential): Dr. Tyler Morales MD Scribe Attestation: Elda Mcnair scribed for Dr. Tyler Morales MD on 11/23/17 at 2106. Scribe Documentation Reviewed: Yes Provider Attestation: The documentation as recorded by the Elda maddox Hai accurately reflects the service I personally performed and the decisions made by me, Dr. Tyler Morales MD
== END 2017-11-23 18:35 | disposition home or self-care (01) ==
LOC: UCEAST 16:42
DX: M79.89 Other specified soft tissue disorders (principal); M25.531 Pain in right wrist; M79.642 Pain in left hand; Z86.711 Personal history of pulmonary embolism; Z79.01 Long term (current) use of anticoagulants; Z89.411 Acquired absence of right great toe; Z88.8 Allergy status to other drugs, medicaments and biological substances; Z87.891 Personal history of nicotine dependence
CPT/HCPCS: 99211; G0463

== ENCOUNTER 2018-02-22 22:41 | Emergency (ER) | payer MEDICARE, BC ==
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
[2018-02-23] MEDS ORDERED: Butalb/Acetamin/Caff TAB* 1 TAB PO ONE (00:10)
[2018-02-23 00:54] LABS: ABS Basophils 0 10^3/ul (0-0.2); ABS Eosinophils 0.2 10^3/ul (0-0.6); ABS Lymphocytes 1.1 10^3/ul (1.0-4.8); ABS Monocytes 0.6 10^3/ul (0-0.8); ABS Neutrophils 3.7 10^3/ul (1.5-7.7); ABS Nucleated RBC 0 10^3/ul; Eosinophil % 2.9 %; Hematocrit 38 % (42-52); Hemoglobin 12.9 g/dl (14.0-18.0); Lymphocyte % 19.2 %; Mean Corpuscular HGB Conc 34 g/dl (31-36); Mean Corpuscular Hemoglobin 30 pg (27-31); Mean Corpuscular Volume 90 fL (80-94); Nucleated Red Blood Cells % 0; Platelet Count 146 10^3/ul (150-450); Red Blood Count 4.24 10^6/ul (4.00-5.40); Red Cell Distribution Width 14 % (10.5-15); White Blood Count 5.6 10^3/ul (3.5-10.8)
[2018-02-23 01:03] LABS: INR 2.05 (0.77-1.02)
[2018-02-23 01:13] LABS: EGFR Non-African American 40.9 (>60)
[2018-02-23] MEDS ORDERED: cloNIDine TAB* 0.1 MG PO ONE (01:41)
[2018-02-23 02:42] VITALS: BP 158/96
== END 2018-02-23 02:00 | disposition home or self-care (01) ==
LOC: ED 22:41
DX: I10 Essential (primary) hypertension (principal); R42 Dizziness and giddiness; R47.81 Slurred speech; R51 Headache; Z79.01 Long term (current) use of anticoagulants; Z87.891 Personal history of nicotine dependence
CPT/HCPCS: 36415; 80053; 83735; 84484; 85025; 85610; 85730; 93005; 99283; A9270-GY

== ENCOUNTER 2018-03-05 22:21 | Emergency (ER) | payer MEDICARE, BC ==
--- OUTSIDE RECORDS SUMMARY | 2018-03-05 22:40 | XMS REPORT | Continuity of Care Document ---
:1945 External Reference #:[id number] Author Name Lilliam Klein Care Team Providers Name Role Phone Lee Gonzalez MD Primary Care Physician Unavailable Payers Type Date Identification Numbers Payment Provider Subscriber Effective: 2003 Policy Number: [id number] Medicare Mohit Mckinley PayID: [id number] [address] [place] [address] Effective: 2011 Policy Number: [id number] [facility] Mohit Mckinley PayID: [id number] [address] [address] [place] [address] Onset: 2014 Policy Number: [id number] [facility] Mohit Mckinley Group Number: [id number] [address] [address] Group Name: [place] [address] PayID: [id number] Advance Directives Description No Information Available Problems Date Description Provider Status Onset: 04/14/2014 Diabetic neuropathy Nilson Burgos M.D. Active Onset: 09/17/2015 Chronic ischemic heart disease Daryl Hernandez M.D. Active Onset: 09/17/2015 Coronary arteriosclerosis Daryl Hernandez M.D. Active Onset: 09/17/2015 Chronic post-traumatic stress Daryl Hernandez M.D. Active disorder Onset: 01/27/2016 Edema Mercedez Clemons M.D. Active Onset: 01/27/2016 Chronic combined systolic and Mercedez Clemons M.D. Active diastolic heart failure Onset: 01/27/2016 Dyspnea Mercedez Clemons M.D. Active Family History Date Family Member(s) Problem(s) Comments General Heart Disease General Diabetes Social History Type Date Description Comments Sex Unknown Lives With Alone Occupation Retired Tobacco Use Start: Unknown End: Former Cigarette Smoker Quit 1990 Denies Unknown using pipe, cigar, e-cigarettes, or chewing tobacco. Smoking Status Reviewed: 01/02/18 Former Cigarette Smoker Quit 1990 Denies using pipe, cigar, e-cigarettes, or chewing tobacco. ETOH Use Denies alcohol use ETOH Use Has consumed alcohol in the past Tobacco Use Start: Unknown End: Patient is a former Unknown smoker Recreational Drug Use Denies Drug Use Exercise Type/Frequency Does not exercise Allergies, Adverse Reactions, Alerts Date Description Reaction Status Severity Comments 04/14/2014 Ibuprofen Active 09/07/2014 Oxycodone angioedema, hives, SOB Active 09/29/2014 Invanz rash Active 02/04/2015 Lisinopril Cough, SOB, difficulty walk Active 01/11/2016 Simvastatin Active 01/11/2016 Crestor Active 01/11/2016 Lovastatin Active 01/11/2016 Gemfibrozil Active 01/11/2016 Diltiazem Active 11/07/2013 NKDA Inactive Medications Medication Date Status Form Strength Qnty SIG Indications Ordering Provider Amiodarone HCL 01/10 Active Tablets 200mg 90tab 1 by mouth s every day An Hernandez M.D. Novofine Active Misc 32G X 6 Unknown /0000 mm Bydureon Active Suspension 2mg injection Rec once weekly Lantus Solostar Active Solution 100Unit/M inject 60 Pen-Inject L SQ qam , 50 SQ qpm Atorvastatin Active Tablets 10mg 1 tab Unknown Calcium / every other day Nortriptyline HCL Active Capsules 50mg 1 by mouth every night at bedtime Magnesium Oxide Active Tablets 400mg One tab a day Potassium Active Tablets ER 20Meq 1 by mouth Unknown Chloride ER /0000 three times per day (Dr Gonzalez increased) Coreg Active Tablets 25mg 60tab 1 tablet Z95.2 s twice a Ddimple Mcconnell M.D. Docusate Sodium Active Capsules 100mg 1 by mouth Unknown twice daily Warfarin Sodium Active Tablets 2.5mg 120ta 1 tab bs every day DHarsha Hernandez, plus as Diana directed. Buspirone HCL Active Tablets 10mg 1 by mouth Unknown /0000 twice per day Gabapentin Active Capsules 100mg 2 by mouth Unknown /0000 twice a day Levothyroxine Active Tablets 25mcg 1 by mouth Unknown Sodium /0000 every day Torsemide Active Tablets 20mg 90tab 3 by mouth Daryl / s every day DHarsha Hernandez M.D. Trazodone HCL Active Tablets 50mg 1-2 Unknown /0000 tablet at bedtime as needed Iron Slow Release Active Tablets ER 143(45Fe) take one Unknown /0000 mg capsule/ta blet daily by mouth Cholecalciferol Active Unknown / Metolazone Active Tablets 2.5mg take 1 Unknown /0000 tablet by mouth 3 times weekly Coreg 07/01 Hx Tablets 12.5mg 60tab 1 by mouth Z95.2 Daryl s twice a D. David, - day [...] Tablets 50mg 90tab 1 by mouth Z95.2 Daryl s every day An Hernandez, - M.D. 06/07 Coreg 02/04 Hx Tablets 6.25mg 180ta Z95.2 Daryl bs An Hernandez, - M.D. 07/01 Diovan 02/04 Hx Tablets 40mg 90tab 1 by mouth Z95.2 Daryl s every day An Hernandez, - (on hold M.D. 04/07 per Harsha /2015 David) Aldactone 01/22 Hx Tablets 25mg 30tab 1 by mouth Daryl s every day An Hernandez, - M.D. 01/09 Augmentin 10/27 Hx Tablets 500-125mg 60tab 1 by mouth 730.05 s twice a D. - day , 11/17 M.D. Ceftriaxone 09/29 Hx Solution 2gm 28uni iv every Rec ts 24 hours x D. - 4 wks , 11/17 M.D. Flagyl 09/29 Hx Tablets 500mg 56tab 1 by mouth s two times D. - a day x 4 , 11/17 wks M.D. Invanz 09/18 Hx Solution 1gm 42uni every 24 [place] Rec ts hours D. - , 09/29.D. Bactrim DS 11/18 Hx Tablets 800-160mg 42tab 1 tabs by s mouth Christopher, - twice a M.D. 04/13 day x days Amoxicillin/Clavu 00/00 Hx Unknown lanate Potassium /0000 ER - 11/26 Clindamycin HCL 00/00 Hx Unknown / - 11/26 Oxycodone HCL 00/00 Hx Capsules 5mg 40cap 1-2 four Unknown /0000 s times a - day as 04/13 Vascepa 00/00 Hx Capsules 1gm one tab Unknown / daily - 11/17 Amlodipine 00/00 Hx Tablets 10mg one tab Unknown Besylate /0000 daily - 02/04 Invokana 00/00 Hx Tablets 300mg one tab Unknown / daily - 09/06 Levofloxacin 00/00 Hx Tablets 500mg Unknown / - 11/26 Amoxicillin/Clavu 00/00 Hx Tablets 875-125mg Unknown lanate Potassium /0000 - 11/27 Clindamycin HCL 00/00 Hx Capsules 300mg Unknown / - 11/26 Oxycodone-Acetami 00/00 Hx Tablets 5-325mg Unknown nophen / - 04/13 Cialis /00 Hx Tablets 20mg Unknown / - 11/26 Nasonex / Hx Suspension 50mcg/Act Unknown - 11/17 Metoprolol 00/00 Hx Tablets 25mg 1 po bid Z95.2 Unknown Tartrate /0000 - 02/04 Diovan 00/00 Hx Tablets 320mg one tab Unknown /0000 [...] 8 h - as needed 11/26 Hydrochlorothiazi 00/00 Hx Tablets 25mg 1 by mouth Unknown de /0000 every day - 11/17 Vitamin D 00/00 Hx Tablets 1000Unit by mouth Unknown /0000 everyday - 11/17 Tramadol HCL 00/00 Hx Tablets 50mg 1 tablets Unknown /0000 every 6 - hours as 09/16 Aspirin Adult Low 00/[address] 81mg 1 by mouth Unknown Dose /0000 every day - 01/09 Metformin HCL 00/00 Hx Tablets 1000mg 1 by mouth Unknown /0000 twice a - day 01/09 Bactrim DS 00/00 Hx Tablets 800-160mg 1 by mouth Unknown /0000 twice a - day 09/21 Flagyl 0000 Hx Tablets 500mg 1 by mouth Unknown /0000 three - times a Valsartan-Hydroch 00/00 Hx Tablets 320-12.5m 1 by mouth Unknown lorothiazide /0000 g every day - 01/19 Fish Oil Plus 00/00 Hx Capsules 1000mg -1 2 by mouth Unknown Vascepa /0000 G bid - 08/01 Furosemide 00/00 Hx Tablets 40mg 1 tablet Unknown /0000 po b.i.d ( - increased 03/2609/08/15) Amiodarone HCL 00/00 Hx Tablets 200mg 1 by mouth Unknown /0000 every day - 12/05 Lisinopril 00/00 Hx Tablets 5mg 1 by mouth Unknown /0000 every day - 12/05 Vitamin D2 00/00 Hx 50,000Iu weekly Unknown /0000 - 01/09 Augmentin 00/00 Hx Tablets 875-125mg 1 tablet Unknown /0000 by mouth - q12 hours 12/05 for days Citalopram /00 Hx Tablets 40mg 1 po qd Unknown Hydrobromide /0000 - 01/09 Alprazolam 00/00 Hx Tablets 0.25mg 1 po qd Unknown /0000 prn (does - not use 01/01 daughter 03/27/16) Buspirone HCL Hx Tablets 15mg take one Unknown /0000 tablet by - mouth tid 03/27 Vitamin D / Hx Tablets 1000Unit 1 tab each Unknown (Cholecalciferol) / day by - mouth 01/02 Amoxicillin /00 Hx Tablets 875mg take one Unknown /0000 tablet by - mouth 03/20 daily x weeks ( last day to take sunday04/04/16) Doxycycline Hx Capsules 100mg si Unknown Monohydrate / twice a - day ( 03/20 taking) Metolazone Hx Tablets 2.5mg 30tab 1 tablet Daryl /0000 s daily Jean Erickson M.D. 12/06 Furosemide 00 Hx Tablets 40mg 1 tablet Unknown /0000 po twice - daily 03/30 Vascepa 00 Hx Capsules 1gm 2 by mouth Unknown /0000 twice a - day 03/30 Vascepa 0000 Hx 1G 1 tablet Unknown /0000 po daily - 08/01 Metformin HCL 00 Hx Tablets 1000mg 1 tablet Unknown /0000 po bid - 03/20 Prednisone 00/00 Hx Tablets 10mg 2 po daily Unknown /0000 - 05/29 Immunizations CPT Code Status Date Vaccine Lot # [id number] Ordered 12/17/2014 Influenza Virus Vaccine, Quadrivalent, Split, Preservative Free Vital Signs Date Vital Result Comment 01/02/2018 3:23pm Height 72 inches 6'0" Weight 256.00 lb Heart Rate 70 /min BP Systolic Sitting 110 mmHg lue lg cuff BP Diastolic Sitting 62 mmHg lue lg cuff Respiratory Rate 16 /min BMI (Body Mass Index) 34.7 kg/m2 Ejection Fraction LVEF 30-3% 05/29/2017 bubble echo 08/29/2017 3:08pm Height 72 inches 6'0" Weight 248.00 lb w/ shoes Heart Rate 60 /min reg BP Systolic Sitting 104 mmHg Rue lg cuff BP Diastolic Sitting 60 mmHg Rue lg cuff BP Systolic Standing 94 mmHg Rue BP Diastolic Standing 64 mmHg Rue Respiratory Rate 16 /min BMI (Body Mass Index) 33.6 kg/m2 Ejection Fraction < 20% as of 11/2015 echo 04/18/2017 8:29am Height 72 inches 6'0" Weight 238.00 lb No shoes Heart Rate 84 /min BP Systolic Sitting 140 mmHg Lue lrg cuff BP Diastolic Sitting 82 mmHg Lue lrg cuff BP Systolic Standing 132 mmHg Lue lrg cuff BP Diastolic Standing 80 mmHg Lue lrg cuff Respiratory Rate 16 /min BMI (Body Mass Index) 32.3 kg/m2 Ejection Fraction >20% 03/31/2017-echo 03/21/2017 1:04pm Height 72 inches 6'0" Weight 236.00 lb Heart Rate 72 /min BP Systolic Sitting 106 mmHg Rue large cuff BP Diastolic Sitting 66 mmHg Rue large cuff BP Systolic Standing 114 mmHg Rue BP Diastolic Standing 72 mmHg Rue Respiratory Rate 18 /min BMI (Body Mass Index) 32.0 kg/m2 Ejection Fraction 20% 11/18/15 08/02/2016 10:23am Height 72 inches 6'0" Weight 234.00 lb with shoes Heart Rate 70 /min BP Systolic Sitting 100 mmHg Rue lg cuff BP Diastolic Sitting 60 mmHg Rue lg cuff BP Systolic Standing 108 mmHg Rue lg cuff BP Diastolic Standing 64 mmHg Rue lg cuff Respiratory Rate 17 /min BMI (Body Mass Index) 31.7 kg/m2 Ejection Fraction >20% date 11/18/2015 ECHO 03/31/2016 4:16pm Height 72 inches 6'0" Weight 221.00 lb Heart Rate 70 /min BP Systolic Sitting 120 mmHg Rue lg cuff BP Diastolic Sitting 80 mmHg Rue lg cuff BP Systolic Standing 130 mmHg Rue lg cuff BP Diastolic Standing 78 mmHg Rue lg cuff Respiratory Rate 17 /min BMI (Body Mass Index) 30.0 kg/m2 Ejection Fraction <20% date 11/18/15 ECHO 01/27/2016 5:14pm Height 65 inches 5'5" Weight 241.00 lb with shoes Heart Rate 74 /min BP Systolic Sitting 160 mmHg L arm reg cuff BP Diastolic Sitting 100 mmHg L arm reg cuff BP Systolic Standing 155 mmHg BP Diastolic Standing 105 mmHg Respiratory Rate 22 /min BMI (Body Mass Index) 40.1 kg/m2 01/11/2016 1:49pm Height 72 inches 6'0" Weight 234.00 lb [...] 31.7 kg/m2 Ejection Fraction <20% 11/18/15 09/17/2015 9:58am Height 72 inches 6'0" Weight 208.00 lb [...] Ejection Fraction <20% date 03/25/15 ECHO 07/02/2015 11:47am Height 72 inches 6'0" Weight 213.50 lb Heart Rate 90 /min BP Systolic Sitting 146 mmHg LA reg cuff BP Diastolic Sitting 100 mmHg LA reg cuff BP Systolic Standing 150 mmHg LA reg cuff BP Diastolic Standing 96 mmHg LA reg cuff Respiratory Rate 18 /min BMI (Body Mass Index) 29.0 kg/m2 Ejection Fraction <20% 03/25/15 06/08/2015 1:06pm Height 72 inches 6'0" Weight 217.00 lb Heart Rate 100 /min BP Systolic Sitting 148 mmHg right arm, reg cuff BP Diastolic Sitting 102 mmHg right arm, reg cuff BP Systolic Standing 150 mmHg right arm, reg cuff BP Diastolic Standing 104 mmHg right arm, reg cuff Respiratory Rate 16 /min BMI (Body Mass Index) 29.4 kg/m2 Ejection Fraction <20% 03/25/15 04/27/2015 1:20pm Height 72 inches 6'0" Weight 214.00 lb Heart Rate 78 /min BP Systolic Sitting 162 mmHg right arm, reg cuff BP Diastolic Sitting 102 mmHg right arm, reg cuff BP Systolic Standing 158 mmHg right arm, reg cuff BP Diastolic Standing 100 mmHg right arm, reg cuff BMI (Body Mass Index) 29.0 kg/m2 Ejection Fraction >20% 03/25/15 04/09/2015 1:45pm Height 72 inches 6'0" Weight 212.00 lb BP Systolic Sitting 158 mmHg LA large cuff BP Diastolic Sitting 104 mmHg LA large cuff BP Systolic Standing 158 mmHg LA BP Diastolic Standing 106 mmHg LA Respiratory Rate 16 /min BMI (Body Mass Index) 28.7 kg/m2 02/04/2015 10:35am Height 72 inches 6'0" Weight 213.00 lb w/ shoes Heart Rate 80 /min reg BP Systolic Sitting 120 mmHg Lue, reg cuf f BP Diastolic Sitting 90 mmHg Lue, reg cuf f BP Systolic Standing 124 mmHg Lue BP Diastolic Standing 96 mmHg Lue Respiratory Rate 18 /min BMI (Body Mass Index) 28.9 kg/m2 Ejection Fraction < 20% as of 01/25/15 echo 01/20/2015 3:57pm Height 72 inches 6'0" Weight 237.00 lb BMI (Body Mass Index) 32.1 kg/m2 12/24/2014 2:55pm Height 72 inches 6'0" Weight 224.38 lb Heart Rate 86 /min BP Systolic Sitting 126 mmHg BP Diastolic Sitting 82 mmHg Respiratory Rate 14 /min Body Temperature 97.9 F BMI (Body Mass Index) 30.4 kg/m2 12/17/2014 10:30am Height 72 inches 6'0" Weight 219.00 lb w/ shoes Heart Rate 76 /min reg BP Systolic Sitting 110 mmHg Rue, reg cuff BP Diastolic Sitting 76 mmHg Rue, reg cuff BP Systolic Standing 110 mmHg Rue BP Diastolic Standing 78 mmHg Rue Respiratory Rate 18 /min BMI (Body Mass Index) 29.7 kg/m2 Ejection Fraction 30-35% as of 11/09/14 echo 10/27/2014 9:41am Height 72 inches 6'0" Weight 211.38 lb Heart Rate 80 /min BP Systolic Sitting 126 mmHg BP Diastolic Sitting 82 mmHg Respiratory Rate 14 /min Body Temperature 98.0 F BMI (Body Mass Index) 28.7 kg/m2 09/07/2014 4:17pm Height 72 inches 6'0" Weight 200.00 lb Heart Rate 84 /min BP Systolic Sitting 110 mmHg BP Diastolic Sitting 72 mmHg Respiratory Rate 14 /min Body Temperature 97.8 F BMI (Body Mass Index) 27.1 kg/m2 04/14/2014 3:58pm Height 72 inches 6'0" Weight 225.00 lb Heart Rate 80 /min BP Systolic Sitting 138 mmHg BP Diastolic Sitting 78 mmHg Respiratory Rate 16 /min BMI (Body Mass Index) 30.5 kg/m2 02/17/2014 11:43am Heart Rate 84 /min BP Systolic Sitting 128 mmHg BP Diastolic Sitting 82 mmHg 12/02/2013 10:17am Heart Rate 80 /min BP Systolic Sitting 130 mmHg BP Diastolic Sitting 82 mmHg 11/27/2013 2:10pm Height 72 inches 6'0" Weight 225.00 lb Heart Rate 78 /min BP Systolic Sitting 132 mmHg BP Diastolic Sitting 76 mmHg Respiratory Rate 14 /min Body Temperature 97.3 F BMI (Body Mass Index) 30.5 kg/m2 11/18/2013 9:10am Heart Rate 84 /min BP Systolic Sitting 120 mmHg BP Diastolic Sitting 82 mmHg Body Temperature 98.2 F 11/07/2013 2:09pm Height 72 inches 6'0" Weight 225.00 lb Heart Rate 78 /min BP Systolic 165 mmHg BP Diastolic 100 mmHg BMI (Body Mass Index) 30.5 kg/m2 Results Test Date Facility Test Result H/L Range Note Inr/Protime 02/04/2018 [facility] Inr 2.13 High 0.77-1.02 [address] [place] [address] [phone] Inr/Protime 01/10/2018 [facility] Inr 1.98 High 0.77-1.[address] [place] [address] [phone] Inr/Protime 12/14/2017 [facility] Inr 1.96 High 0.77-1.02 [address] [place] [address] [phone] Inr/Protime 11/14/2017 [facility] Inr 2.22 High 0.77-1.02 [address] [place] [address] [phone] Inr/Protime 10/24/2017 [facility] Inr 2.51 High 0.77-1.02 [address] [place] [address] [phone] Inr/Protime 10/01/2017 [facility] Inr 2.47 High 0.77-1.02 [address] [place] [address] [phone] Inr/Protime 09/14/2017 [facility] Inr 2.55 High 0.77-1.02 [address] [place] [address] [phone] Inr/Protime 08/30/2017 [facility] Inr 2.96 High 0.77-1.02 [address] [place] [address] [phone] Inr/Protime 08/15/2017 [facility] Inr 2.55 High 0.77-1.02 [address] [place] [address] [phone] Inr/Protime 06/28/2017 [facility] Inr 2.28 High 0.77-1.02 [address] [place] [address] [phone] Inr/Protime 06/14/2017 [facility] Inr 1.99 High 0.77-1.02 [address] [place] [address] [phone] Inr/Protime 05/30/2017 [facility] Inr 2.54 High 0.77-1.02 1 [address] [place] [address] [phone] Inr/Protime 05/16/2017 [facility] Inr 1.50 High 0.77-1.02 [address] [place] [address] [phone] Inr/Protime 05/02/2017 [facility] Inr 3.15 High 0.77-1.02 [address] [place] [address] [phone] Basic Metabolic 04/18/2017 [facility] Sodium 137 mmol/L N 133- 145 Panel [address] [place] [address] [phone] Potassium 3.7 mmol/L N 3.5-5.0 Chloride 97 mmol/L Low 101-111 Co2 Carbon Dioxide 30 mmol/L N 22-32 Anion Gap 10 mmol/L N 2-11 Glucose 153 mg/dL High 70-100 Blood Urea Nitrogen 74 mg/dL High 6-24 Creatinine 2.61 mg/dL High 0.67-1.17 BUN/Creatinine Ratio 28.4 High 8-20 Calcium 8.8 mg/dL N 8.6-10.3 Egfr Non- 24.3 >60 Egfr 31.3 >60 2 Laboratory test 04/18/2017 [facility] B-Type 209 pg/mL High [address] [place] [address] Peptide BNP [phone] Inr/Protime 04/18/2017 [facility] Inr 2.29 High 0.77- [address] [place] [address] [phone] Inr/Protime 04/11/2017 [facility] Inr 1.66 High 0.77- [address] [place] [address] [phone] Inr/Protime 04/05/2017 [facility] Inr 1.33 High 0.77- [address] [place] [address] [phone] Inr/Protime 02/22/2017 [facility] Inr 1.57 High 0.77- [address] [place] [address] [phone] Comp Metabolic 02/22/2017 [facility] Sodium 134 mmol/L N 133- [address] [place] [address] [phone] Potassium 2.8 mmol/L Low 3.5-5.0 Chloride 93 mmol/L Low 101-111 Co2 Carbon Dioxide 31 mmol/L N 22-32 Anion Gap 10 mmol/L N 2-11 Glucose 253 mg/dL High 70-100 Blood Urea Nitrogen 81 mg/dL High 6-24 Creatinine 2.86 mg/dL High 0.67-1.17 BUN/Creatinine Ratio 28.3 High 8-20 Calcium 9.6 mg/dL N 8.6-10.3 Total Protein 7.6 g/dL N 6.4-8.9 Albumin 3.9 g/dL N 3.2-5.2 Globulin 3.7 g/dL N 2-4 Albumin/Globulin Ratio 1.1 N 1-3 Total Bilirubin 0.50 mg/dL N 0.2-1.0 Alkaline Phosphatase 111 U/L High 34-104 Alt 50 U/L N 7-52 Ast 44 U/L High 13-39 Egfr Non- 21.9 >60 Egfr 28.2 >60 5 Lipid Profile 02/22/2017 [facility] Triglycerides 472 mg/dL 6 (Trig/Chol/HDL) [address] [place] [address] [phone] Cholesterol 147 mg/dL 7 HDL Cholesterol 23.4 mg/dL 8 LDL Cholesterol (SEE NOTE) mg/dL 9 Laboratory test 02/22/2017 [facility] PSA Screening 0.485 ng/mL N 0-4.000 [address] [place] [address] [phone] LDL Cholesterol Direct 51 mg/dL 11 Hemoglobin A1c (Glyco HGB) 9.8 % High 4.0-5.6 12 Inr/Protime 04/06/2016 [facility] Inr 1.88 High 0.89-1.[address] [place] [address] [phone] Basic Metabolic 09/24/2015 [facility] Sodium 134 mmol/L N 133- [address] [place] [address] [phone] Potassium 4.9 mmol/L N 3.5-5.0 Chloride 100 mmol/L Low 101-111 Co2 Carbon Dioxide 28 mmol/L N 22-32 Anion Gap 6 mmol/L N 2-11 Glucose 150 mg/dL High 70-100 Blood Urea Nitrogen 30 mg/dL High 6-24 Creatinine 1.23 mg/dL High 0.67-1.17 BUN/Creatinine Ratio 24.4 High 8-20 Calcium 8.9 mg/dL N 8.6-10.3 Egfr Non- 58.2 N >60 Egfr 74.8 N >60 13 Laboratory test 06/08/2015 [facility] B-Type 1431 pg/mL High [address] [place] [address] Peptide BNP [phone] Basic Metabolic 06/08/2015 [facility] Sodium 137 mmol/L N 133- [address] [place] [address] [phone] Potassium 4.0 mmol/L N 3.5-5.0 Chloride 100 mmol/L Low 101-111 Co2 Carbon Dioxide 29 mmol/L N 22-32 Anion Gap 8 mmol/L N 2-11 Glucose 80 mg/dL N 70-100 Blood Urea Nitrogen 35 mg/dL High 6-24 Creatinine 1.20 mg/dL High 0.67-1.17 BUN/Creatinine Ratio 29.2 High 8-20 Calcium 9.6 mg/dL N 8.6-10.3 Egfr Non- 59.9 N >60 Egfr 77.0 N >60 15 Laboratory test 04/19/2015 [facility] Point of 119 mg/dL High 74-106 [address] [place] [address] Glucose [phone] Pre Cath Panel 04/14/2015 [facility] Partial 34.2 N 26.0-36.[address] [place] [place] [address] Time PTT [phone] CBC Auto Diff 04/14/2015 [facility] White Blood 7.7 10^3/uL N 3.5-10.[address] [place] [address] [phone] Red Blood Count 4.42 10^6/uL N 4.0-5.4 Hemoglobin 12.1 g/dL Low 14.0-18.0 Hematocrit 38 % Low 42-52 Mean Corpuscular Volume 87 fL N 80-94 Mean Corpuscular Hemoglobin 27 pg N 27-31 Mean Corpuscular HGB Conc 32 g/dL N 31-36 Red Cell Distribution Width 20 % High 10.5-15 Platelet Count 170 10^3/uL N 150-450 Mean Platelet Volume 9 um3 N 7.4-10.4 Abs Neutrophils 5.8 10^3/uL N 1.5-7.7 Abs Lymphocytes 1.0 10^3/uL N 1.0-4.8 Abs Monocytes 0.6 10^3/uL N 0-0.8 Abs Eosinophils 0.3 10^3/uL N 0-0.6 Abs Basophils 0 10^3/uL N 0-0.2 Abs Nucleated RBC 0 10^3/uL N Granulocyte % 75.4 % N 38-83 Lymphocyte % 12.7 % Low 25-47 Monocyte % 7.8 % N 1-9 Eosinophil % 3.8 % N 0-6 Basophil % 0.3 % N 0-2 Nucleated Red Blood Cells % 0.1 N Inr/Protime 04/14/2015 [facility] Inr 1.33 High 0.89-1.[address] [place] [address] [phone] Basic Metabolic 04/14/2015 [facility] Sodium 140 mmol/L N 133- [address] [place] [address] [phone] Potassium 4.0 mmol/L N 3.5-5.0 Chloride 104 mmol/L N 101-111 Co2 Carbon Dioxide 28 mmol/L N 22-32 Anion Gap 8 mmol/L N 2-11 Glucose 71 mg/dL N 70-100 Blood Urea Nitrogen 25 mg/dL High 6-24 Creatinine 0.96 mg/dL N 0.67-1.17 BUN/Creatinine Ratio 26.0 High 8-20 Calcium 9.2 mg/dL N 8.6-10.3 Egfr Non- 77.7 N >60 Egfr 99.9 N >60 18 Laboratory test 04/14/2015 [facility] C Reactive 5.56 mg/L High < 5.00 [address] [place] [address] [phone] Basic Metabolic 02/17/2015 [facility] Sodium 136 N 133-145 [address] mmol/[place] [address] [phone] Potassium 4.1 mmol/L N 3.5-5.0 Chloride 100 mmol/L Low 101-111 Co2 Carbon Dioxide 30 mmol/L N 22-32 Anion Gap 6 mmol/L N 2-11 Glucose 147 mg/dL High 70-100 Blood Urea Nitrogen 19 mg/dL N 6-24 Creatinine 0.90 mg/dL N 0.67-1.17 BUN/Creatinine Ratio 21.1 High 8-20 Calcium 9.7 mg/dL N 8.6-10.3 Egfr Non- 83.7 N >60 Egfr 107.6 N >60 21 Basic Metabolic Panel 01/21/2015 [facility] Sodium 139 mmol/L N 133-[address] [place] [address] [phone] Potassium 3.5 mmol/L N 3.5-5.0 Chloride 100 mmol/L Low 101-111 Co2 Carbon Dioxide 29 mmol/L N 22-32 Anion Gap 10 mmol/L N 2-11 Glucose 142 mg/dL High 70-100 Blood Urea Nitrogen 15 mg/dL N 6-24 Creatinine 0.95 mg/dL N 0.67-1.17 BUN/Creatinine Ratio 15.8 N 8-20 Calcium 8.9 mg/dL N 8.6-10.3 Egfr Non- 78.6 N >60 Egfr 101.1 N >60 22 Laboratory test 01/21/2015 [facility] Magnesium 1.4 mg/dL Low 1.9-2.7 finding [address] [place] [address] [phone] Inr/Protime 12/17/2014 [facility] Inr 1.01 N 0.78-1.07 23 [address] [place] [address] [phone] Basic Metabolic 12/17/2014 [facility] Sodium 136 mmol/L N 133- 145 Panel [address] [place] [address] [phone] Potassium 3.5 mmol/L N 3.5-5.0 Chloride 100 mmol/L Low 101-111 Co2 Carbon Dioxide 28 mmol/L N 22-32 Anion Gap 8 mmol/L N 2-11 Glucose 142 mg/dL High 70-100 Blood Urea Nitrogen 14 mg/dL N 6-24 Creatinine 0.83 mg/dL N 0.67-1.17 BUN/Creatinine Ratio 16.9 N 8-20 Calcium 9.5 mg/dL N 8.6-10.3 Egfr Non- 91.9 N >60 Egfr 118.1 N >60 24 CBC Auto Diff 12/17/2014 [facility] White Blood 7.3 10^3/uL N 4.8-10.[address] [place] [address] [phone] Red Blood Count 4.41 10^6/uL N 4.0-5.4 Hemoglobin 13.3 g/dL Low 14.0-18.0 Hematocrit 40 % Low 42-52 Mean Corpuscular Volume 91 fL N 80-94 Mean Corpuscular Hemoglobin 30 pg N 27-31 Mean Corpuscular HGB Conc 33 g/dL N 31-36 Red Cell Distribution Width 13 % N 10.5-15 Platelet Count 219 10^3/uL N 150-450 Mean Platelet Volume 9 um3 N 7.4-10.4 Abs Neutrophils 4.6 10^3/uL N 1.5-7.7 Abs Lymphocytes 1.8 10^3/uL N 1.0-4.8 Abs Monocytes 0.7 10^3/uL N 0-0.8 Abs Eosinophils 0.2 10^3/uL N 0-0.6 Abs Basophils 0 10^3/uL N 0-0.2 Abs Nucleated RBC 0.01 10^3/uL N Granulocyte % 63.1 % N 38-83 Lymphocyte % 24.9 % Low 25-47 Monocyte % 9.3 % High 1-9 Eosinophil % 2.3 % N 0-6 Basophil % 0.4 % N 0-2 Nucleated Red Blood Cells % 0.1 N Pre Cath 12/17/2014 [facility] Partial 35.2 seconds N 26.0- 36.3 [address] [place] [address] PTT [phone] CBC Auto 10/21/2014 [facility] White Blood 5.9 10^3/uL N 4.8- 10.[address] [place] [address] [phone] Red Blood Count 3.79 10^6/uL Low 4.0-5.4 Hemoglobin 11.5 g/dL Low 14.0-18.0 Hematocrit 35 % Low 42-52 Mean Corpuscular Volume 92 fL N 80-94 Mean Corpuscular Hemoglobin 30 pg N 27-31 Mean Corpuscular HGB Conc 33 g/dL N 31-36 Red Cell Distribution Width 16 % High 10.5-15 Platelet Count 223 10^3/uL N 150-450 Mean Platelet Volume 9 um3 N 7.4-10.4 Abs Neutrophils 3.6 10^3/uL N 1.5-7.7 Abs Lymphocytes 1.7 10^3/uL N 1.0-4.8 Abs Monocytes 0.5 10^3/uL N 0-0.8 Abs Eosinophils 0.2 10^3/uL N 0-0.6 Abs Basophils 0 10^3/uL N 0-0.2 Abs Nucleated RBC 0 10^3/uL N Granulocyte % 60.4 % N 38-83 Lymphocyte % 27.9 % N 25-47 Monocyte % 8.1 % N 1-9 Eosinophil % 2.9 % N 0-6 Basophil % 0.7 % N 0-2 Nucleated Red Blood Cells % 0.1 N Basic Metabolic Panel 10/21/2014 [facility] Sodium 135 mmol/L N 133-[address] [place] [address] [phone] Potassium 4.0 mmol/L N 3.5-5.0 Chloride 101 mmol/L N 101-111 Co2 Carbon Dioxide 25 mmol/L N 22-32 Anion Gap 9 mmol/L N 2-11 Glucose 165 mg/dL High 70-100 Blood Urea Nitrogen 13 mg/dL N 6-24 Creatinine 0.67 mg/dL N 0.67-1.17 BUN/Creatinine Ratio 19.4 N 8-20 Calcium 9.0 mg/dL N 8.6-10.3 Egfr Non- 117.6 N >60 Egfr 151.3 N >60 26 Laboratory test 10/21/2014 [facility] C Reactive 2.64 mg/L N < 5.00 [address] [place] [address] [phone] CBC Auto Diff 10/13/2014 [facility] White Blood 7.7 N 4.8- 10.[address] Count 10^3/[place] [address] [phone] Red Blood Count 3.73 10^6/uL Low 4.0-5.4 Hemoglobin 11.3 g/dL Low 14.0-18.0 Hematocrit 34 % Low 42-52 Mean Corpuscular Volume 91 fL N 80-94 Mean Corpuscular Hemoglobin 30 pg N 27-31 Mean Corpuscular HGB Conc 33 g/dL N 31-36 Red Cell Distribution Width 15 % N 10.5-15 Platelet Count 260 10^3/uL N 150-450 Mean Platelet Volume 8 um3 N 7.4-10.4 Abs Neutrophils 5.3 10^3/uL N 1.5-7.7 Abs Lymphocytes 1.7 10^3/uL N 1.0-4.8 Abs Monocytes 0.5 10^3/uL N 0-0.8 Abs Eosinophils 0.3 10^3/uL N 0-0.6 Abs Basophils 0 10^3/uL N 0-0.2 Abs Nucleated RBC 0.02 10^3/uL N Granulocyte % 68.2 % N 38-83 Lymphocyte % 21.4 % Low 25-47 Monocyte % 6.6 % N 1-9 Eosinophil % 3.3 % N 0-6 Basophil % 0.5 % N 0-2 Nucleated Red Blood Cells % 0.3 N Basic Metabolic Panel 10/13/2014 [facility] Sodium 136 mmol/L N 133-[address] [place] [address] [phone] Potassium 4.3 mmol/L N 3.5-5.0 Chloride 102 mmol/L N 101-111 Co2 Carbon Dioxide 27 mmol/L N 22-32 Anion Gap 7 mmol/L N 2-11 Glucose 97 mg/dL N 70-100 Blood Urea Nitrogen 14 mg/dL N 6-24 Creatinine 0.69 mg/dL N 0.67-1.17 BUN/Creatinine Ratio 20.3 High 8-20 Calcium 8.9 mg/dL N 8.6-10.3 Egfr Non- 113.7 N >60 Egfr 146.2 N >60 28 Laboratory test 10/13/2014 [facility] C Reactive 3.12 mg/L N < 5.00 [address] [place] [address] [phone] Laboratory test 10/06/2014 [facility] C Reactive 14.29 High < 5.00 [address] Protein mg/[place] [address] [phone] Basic Metabolic 10/06/2014 [facility] Sodium 136 N 133-[address] mmol/[place] [address] [phone] Potassium 3.8 mmol/L N 3.5-5.0 Chloride 100 mmol/L Low 101-111 Co2 Carbon Dioxide 28 mmol/L N 22-32 Anion Gap 8 mmol/L N 2-11 Glucose 146 mg/dL High 70-100 Blood Urea Nitrogen 12 mg/dL N 6-24 Creatinine 0.79 mg/dL N 0.67-1.17 BUN/Creatinine Ratio 15.2 N 8-20 Calcium 8.8 mg/dL N 8.6-10.3 Egfr Non- 97.2 N >60 Egfr 125.1 N >60 31 Laboratory test 10/06/2014 [facility] Erythrocyte Sed 36 mm/Hr N 0-[address] [place] [address] [phone] CBC Auto Diff 10/06/2014 [facility] White Blood 7.0 N 4.8- 10.[address] Count 10^3/[place] [address] [phone] Red Blood Count 3.58 10^6/uL Low 4.0-5.4 Hemoglobin 10.7 g/dL Low 14.0-18.0 Hematocrit 32 % Low 42-52 Mean Corpuscular Volume 91 fL N 80-94 Mean Corpuscular Hemoglobin 30 pg N 27-31 Mean Corpuscular HGB Conc 33 g/dL N 31-36 Red Cell Distribution Width 16 % High 10.5-15 Platelet Count 249 10^3/uL N 150-450 Mean Platelet Volume 8 um3 N 7.4-10.4 Abs Neutrophils 4.3 10^3/uL N 1.5-7.7 Abs Lymphocytes 1.8 10^3/uL N 1.0-4.8 Abs Monocytes 0.6 10^3/uL N 0-0.8 Abs Eosinophils 0.3 10^3/uL N 0-0.6 Abs Basophils 0 10^3/uL N 0-0.2 Abs Nucleated RBC 0 10^3/uL N Granulocyte % 61.8 % N 38-83 Lymphocyte % 25.1 % N 25-47 Monocyte % 8.5 % N 1-9 Eosinophil % 4.2 % N 0-6 Basophil % 0.4 % N 0-2 Nucleated Red Blood Cells % 0.1 N Laboratory test 09/27/2014 [facility] Erythrocyte Sed 60 mm/Hr High 0-[address] [place] [address] [phone] CBC Auto Diff 09/27/2014 [facility] White Blood 6.1 N 4.8- 10.[address] Count 10^3/[place] [address] [phone] Red Blood Count 3.64 10^6/uL Low 4.0-5.4 Hemoglobin 10.7 g/dL Low 14.0-18.0 Hematocrit 32 % Low 42-52 Mean Corpuscular Volume 88 fL N 80-94 Mean Corpuscular Hemoglobin 30 pg N 27-31 Mean Corpuscular HGB Conc 34 g/dL N 31-36 Red Cell Distribution Width 14 % N 10.5-15 Platelet Count 214 10^3/uL N 150-450 Mean Platelet Volume 8 um3 N 7.4-10.4 Abs Neutrophils 3.6 10^3/uL N 1.5-7.7 Abs Lymphocytes 1.7 10^3/uL N 1.0-4.8 Abs Monocytes 0.5 10^3/uL N 0-0.8 Abs Eosinophils 0.2 10^3/uL N 0-0.6 Abs Basophils 0 10^3/uL N 0-0.2 Abs Nucleated RBC 0 10^3/uL N Granulocyte % 59.2 % N 38-83 Lymphocyte % 27.8 % N 25-47 Monocyte % 8.9 % N 1-9 Eosinophil % 3.7 % N 0-6 Basophil % 0.4 % N 0-2 Nucleated Red Blood Cells % 0 N Laboratory test 09/27/2014 [facility] C Reactive 9.08 mg/L High < 5.00 [address] [place] [address] [phone] Basic Metabolic 09/27/2014 [facility] Sodium 134 N 133-[address] mmol/[place] [address] [phone] Potassium 3.8 mmol/L N 3.5-5.0 Chloride 99 mmol/L Low 101-111 Co2 Carbon Dioxide 28 mmol/L N 22-32 Anion Gap 7 mmol/L N 2-11 Glucose 134 mg/dL High 70-100 Blood Urea Nitrogen 16 mg/dL N 6-24 Creatinine 0.67 mg/dL N 0.67-1.17 BUN/Creatinine Ratio 23.9 High 8-20 Calcium 8.7 mg/dL N 8.6-10.3 Egfr Non- 117.6 N >60 Egfr 151.3 N >60 33 Laboratory test 09/20/2014 [facility] C Reactive 8.73 mg/L High < 5.00 [address] [place] [address] [phone] Basic Metabolic 09/20/2014 [facility] Sodium 134 N 133-[address] mmol/[place] [address] [phone] Potassium 4.2 mmol/L N 3.5-5.0 Chloride 101 mmol/L N 101-111 Co2 Carbon Dioxide 26 mmol/L N 22-32 Anion Gap 7 mmol/L N 2-11 Glucose 162 mg/dL High 70-100 Blood Urea Nitrogen 13 mg/dL N 6-24 Creatinine 0.75 mg/dL N 0.67-1.17 BUN/Creatinine Ratio 17.3 N 8-20 Calcium 9.2 mg/dL N 8.6-10.3 Egfr Non- 103.3 N >60 Egfr 132.8 N >60 35 Laboratory test 09/20/2014 [facility] Erythrocyte Sed 65 mm/Hr High 0-[address] [place] [address] [phone] CBC Auto Diff 09/20/2014 [facility] White Blood 7.8 N 4.8- 10.[address] Count 10^3/[place] [address] [phone] Red Blood Count 3.87 10^6/uL Low 4.0-5.4 Hemoglobin 11.2 g/dL Low 14.0-18.0 Hematocrit 34 % Low 42-52 Mean Corpuscular Volume 88 fL N 80-94 Mean Corpuscular Hemoglobin 29 pg N 27-31 Mean Corpuscular HGB Conc 33 g/dL N 31-36 Red Cell Distribution Width 14 % N 10.5-15 Platelet Count 255 10^3/uL N 150-450 Mean Platelet Volume 8 um3 N 7.4-10.4 Abs Neutrophils 5.1 10^3/uL N 1.5-7.7 Abs Lymphocytes 1.9 10^3/uL N 1.0-4.8 Abs Monocytes 0.6 10^3/uL N 0-0.8 Abs Eosinophils 0.2 10^3/uL N 0-0.6 Abs Basophils 0 10^3/uL N 0-0.2 Abs Nucleated RBC 0.01 10^3/uL N Granulocyte % 65.1 % N 38-83 Lymphocyte % 23.7 % Low 25-47 Monocyte % 8.0 % N 1-9 Eosinophil % 3.0 % N 0-6 Basophil % 0.2 % N 0-2 Nucleated Red Blood Cells % 0.1 N CBC Auto Diff 11/27/2013 [facility] White Blood 5.2 10^3/uL N 4.8-10.[address] [place] [address] [phone] Red Blood Count 4.62 10^6/uL N 4.0-5.4 Hemoglobin 13.3 g/dL Low 14.0-18.0 Hematocrit 40 % Low 42-52 Mean Corpuscular Volume 86 fL N 80-94 Mean Corpuscular Hemoglobin 29 pg N 27-31 Mean Corpuscular HGB Conc 34 g/dL N 31-36 Red Cell Distribution Width 13 % N 10.5-15 Platelet Count 228 10^3/uL N 150-450 Mean Platelet Volume 9 um3 N 7.4-10.4 Abs Neutrophils 2.8 10^3/uL N 1.5-7.7 Abs Lymphocytes 1.7 10^3/uL N 1.0-4.8 Abs Monocytes 0.5 10^3/uL N 0-0.8 Abs Eosinophils 0.1 10^3/uL N 0-0.6 Abs Basophils 0 10^3/uL N 0-0.2 Abs Nucleated RBC 0 10^3/uL N Granulocyte % 53.9 % N 38-83 Lymphocyte % 33.3 % N 25-47 Monocyte % 9.8 % High 1-9 Eosinophil % 2.4 % N 0-6 Basophil % 0.6 % N 0-2 Nucleated Red Blood Cells % 0.1 N Laboratory test 11/27/2013 [facility] C Reactive 1.91 mg/L N < 5.00 36 finding [address] [place] [address] [phone] 1 ORDER DATE 04/06/17 EXPIRES 10/04/17 INR Q MONTH TIMES 6 MONTHS PLUS PRN 2 Because ethnic data is not always readily [...] 15-29 5 Kidney failure <15 (or dialysis) 3 >100 to <200 pg/mL: likely compensated congestive heart failure (CHF) 200 to 400 pg/mL: likely moderate CHF >400 pg/mL: likely moderate to severe CHF 4 Please note the change in INR [...] LDL as triglyceride is > 400 10 Serum levels of PSA measured using the Natalio Worthing DXI Hybritech immunoassay should not be interpreted [...] methods or kits cannot be used interchangeably. 11 Desirable: <100 Near Optimal: 100-129 Borderline High: 130-159 High: 160-189 Very High: >189 12 Therapeutic target for the treatment of diabetes mellitus patients is <7% HBA1C, and in selective patients <6.0%. Please refer to [place] [employer] diabetic care guidelines for further information. 13 Because ethnic data is not always readily [...] 15-29 5 Kidney failure <15 (or dialysis) 14 >100 to <200 pg/mL: likely compensated congestive heart failure (CHF) 200 to 400 pg/mL: likely moderate CHF >400 pg/mL: likely moderate to severe CHF 15 Because ethnic data is not always [...] 5 Kidney failure <15 (or dialysis) 16 Doctor Of Podiatry: [id number] [place] 17 soon 18 Because ethnic data is not always [...] 5 Kidney failure <15 (or dialysis) 19 Acute inflammation: >10.00 20 in 7-10 days 21 Because ethnic data is not always readily [...] 15-29 5 Kidney failure <15 (or dialysis) 22 Because ethnic data is not always [...] 5 Kidney failure <15 (or dialysis) 23 soon 24 Because ethnic data is not always readily [...] 15-29 5 Kidney failure <15 (or dialysis) 25 soon 26 Because ethnic data is not always readily [...] 15-29 5 Kidney failure <15 (or dialysis) 27 Acute inflammation: >10.00 28 Because ethnic data is not always readily [...] 15-29 5 Kidney failure <15 (or dialysis) 29 Acute inflammation: >10.00 30 Acute inflammation: >10.00 31 Because ethnic [...] (or dialysis) 32 Acute inflammation: >10.00 33 Because ethnic data is not always readily [...] 15-29 5 Kidney failure <15 (or dialysis) 34 Acute inflammation: >10.00 35 Because ethnic data is not always readily [...] 15-29 5 Kidney failure <15 (or dialysis) 36 Acute inflammation: >10.00 Procedures Date Code Description Status 11/22/2017 41194 Interrogation Implant Cardiovasc Monitor System Incl Completed Analysis Int 11/22/2017 65833 Interrogation Implant Cardiovasc Monitor System Incl Completed Analysis Int 11/22/2017 78016 Icd eval w/iterative adjment single lead Icd Completed 11/22/2017 71662 Icd eval w/iterative adjment single lead Icd Completed 08/29/2017 33283 EKG Tracing & Interpretation Completed 05/23/2017 32834 Icd eval w/iterative adjment single lead Icd Completed 05/23/2017 07595 Icd eval w/iterative adjment single lead Icd Completed 2017 80078 Endoscopy Upper GI Biopsy Completed 03/21/2017 17542 EKG Tracing & Interpretation Completed 03/09/2017 96213 Icd Eval W/Iterative Adjustmnt Single Lead Icd Completed 03/09/2017 76109 Icd Eval W/Iterative Adjustmnt Single Lead Icd Completed 03/09/2017 12828 Interrogation Implant Cardiovasc Monitor System Incl Completed Analysis Int 03/09/2017 21817 Interrogation Implant Cardiovasc Monitor System Incl Completed Analysis Int 11/22/2016 49370 Interrogation Implant Cardiovasc Monitor System Incl Completed Analysis Int 11/22/2016 95815 Icd Eval W/Iterative Adjustmnt Single Lead Icd Completed 07/05/2016 43543 Interrogation Implant Cardiovasc Monitor System Incl Completed Analysis Int 07/05/2016 23783 Icd eval w/iterative adjment single lead Icd Completed 01/11/2016 85944 EKG Tracing & Interpretation Completed 11/30/2015 60946 EKG, Interpretation Only Completed 11/22/2015 68433 EKG, Interpretation Only Completed 11/21/2015 61104 EKG, Interpretation Only Completed 11/20/2015 21861 EKG, Interpretation Only Completed 11/18/2015 91016 ECHO Transthorasic Realtime 2D W Doppler & Color Flow Hosp Completed 11/17/2015 32224 EKG, Interpretation Only Completed 11/17/2015 59166 Interrogation Device Eval In Person W/DR Completed Analysis,Single,Dual,Mul 11/16/2015 74106 EKG, Interpretation Only Completed 10/14/2015 69897 ECHO Transthorasic Realtime 2D W Doppler & Color Flow Hosp Completed 10/12/2015 48864 EKG, Interpretation Only Completed 10/07/2015 37292 Icd eval w/iterative adjment single lead Icd Completed 09/17/2015 20292 EKG Tracing & Interpretation Completed 05/19/2015 30496 Icd eval w/iterative adjment single lead Icd Completed 04/19/2015 25138 Ep Eval Icd AT Implant Completed 04/19/2015 24171 Insert/Replace Icd W/Generator Completed 04/09/2015 77180 EKG Tracing & Interpretation Completed 03/25/2015 54759 ECHO Transthoracic, Real-Time 2D With Doppler And Color Completed Flow 01/25/2015 66793 ECHO Transthoracic, Real-Time 2D With Doppler And Color Completed Flow 01/20/2015 65158 EKG Tracing & Interpretation Completed 12/21/2014 28073 Left Heart Cath. Incl S/I Coronaries, Angio S/I V Gram If Completed Done 12/21/2014 44221 EKG, Interpretation Only Completed 12/17/2014 49307 EKG Tracing & Interpretation Completed 11/09/2014 30264 ECHO Transthoracic, Real-Time 2D With Doppler And Color Completed Flow 07/13/2014 48083 Treadmill Interp/Report Only Completed 07/13/2014 99898 Stress Test Supervsn W/Out I/R Completed 07/10/2014 32679 ECHO Transthorasic Realtime 2D W Doppler & Color Flow Hosp Completed 07/10/2014 77418 EKG, Interpretation Only Completed 11/10/2013 78841 Amputation Toe MP JT Completed 11/10/2013 26303 Amputation Toe MP JT Completed Encounters Type Date Location Provider Dx Diagnosis Office Visit 01/02/2018 [facility] Daryl Nolan I48.0 Paroxysmal atrial 3:30p Of Karley Hernandez M.D. fibrillation N18.3 Chronic kidney disease, stage 3 (moderate) I50.22 Chronic systolic (congestive) heart failure I25.10 Athscl heart disease of [place] coronary artery w/o ang pctrs Z95.810 Presence of automatic (implantable) cardiac defibrillator I25.5 Ischemic cardiomyopathy Office Visit 08/29/2017 3:30p Rahul Nolan I25.5 Ischemic Cardiology Meagan Hernandez M.D. cardiomyopathy [facility] I25.10 Athscl heart disease of [place] coronary artery w/o ang pctrs I50.22 Chronic systolic (congestive) heart failure Office Visit 07/19/2017 9:41a [facility] Lacey Clifton, I50.22 Chronic systolic Assoc,pc N.P. (congestive) heart Hospitalists failure N18.3 Chronic kidney disease, stage 3 (moderate) I48.0 Paroxysmal atrial fibrillation Z86.718 Personal history of other venous thrombosis and embolism Office Visit 07/18/2017 [facility] Sarah I50.22 Chronic systolic 9:40a Assoc,pc Enmanuel D.OHarsha (congestive) heart Hospitalists failure N18.3 Chronic kidney disease, stage 3 (moderate) I48.0 Paroxysmal atrial fibrillation Z86.718 Personal history of other venous thrombosis and embolism Office Visit 05/10/2017 10:09a [facility] Tony Mott, D64.9 Anemia, Assocjordyn MD unspecified Hospitalists I50.22 Chronic systolic (congestive) heart failure N18.4 Chronic kidney disease, stage 4 (severe) E11.22 Type 2 diabetes mellitus w diabetic chronic kidney disease Office Visit 2017 10:07a [facility] Tony Mott D64.9 Anemia, Assocjordyn MD unspecified Hospitalists I50.22 Chronic systolic (congestive) heart failure N18.4 Chronic kidney disease, stage 4 (severe) E11.22 Type 2 diabetes mellitus w diabetic chronic kidney disease Office Visit 2017 7:00a [facility] Lacey Celestin, 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 D64.9 Anemia, unspecified I50.22 Chronic systolic (congestive) heart failure E11.22 Type 2 diabetes mellitus w diabetic chronic kidney disease Office Visit 04/18/2017 8:30a Rahul Nolan I25.5 Ischemic Cardiology Meagan Hernandez M.D. cardiomyopathy [employer] [place] Z95.810 Presence of automatic (implantable) cardiac defibrillator I50.22 Chronic systolic (congestive) heart failure Z95.2 Presence of prosthetic heart valve Office Visit 03/21/2017 1:30p Rahul Nolan I25.5 Ischemic Cardiology Meagan Hernandez M.D. cardiomyopathy [employer] [place] I48.91 Unspecified atrial fibrillation Z95.810 Presence of automatic (implantable) cardiac defibrillator I50.22 Chronic systolic (congestive) heart failure Office Visit 02/28/2017 1:11p [facility] Bong Tellez7.6 Hypokalemia Assoc, Barbie Ortiz I50.22 Chronic systolic (congestive) heart failure R74.8 Abnormal levels of other serum enzymes I48.91 Unspecified atrial fibrillation Office Visit 02/27/2017 1:10p [facility] Sarah Singer E87.6 Hypokalemia Assoc,[facility] Hospitalists D.OHarsha I50.22 Chronic systolic (congestive) heart failure R74.8 Abnormal levels of other serum enzymes I48.91 Unspecified atrial fibrillation Office Visit 08/02/2016 10:00a Rahul Nolan I25.5 Ischemic Cardiology Meagan Hernandez M.D. 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 pulmonary Hospitalists hypertension E11.9 Type 2 diabetes mellitus without complications Z79.4 [facility] (current) use of insulin I50.21 Acute systolic (congestive) heart failure Office Visit 02/03/2016 [facility] I50.21 Acute systolic 10:27a jordyn Heredia M.D. 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 I50.21 Acute systolic 10:25a jordyn Heredia DNoe (congestive) heart Hospitalists failure E11.9 Type 2 diabetes mellitus without complications Office Visit 01/29/2016 [facility] I50.21 Acute systolic 10:25a jordyn Heredia M.D. (congestive) heart Hospitalists failure E11.9 Type 2 diabetes mellitus without complications Office Visit 01/28/2016 [facility] I50.21 Acute systolic 10:24a jordyn Heredia M.D. (congestive) heart Hospitalists failure E11.9 Type 2 diabetes mellitus without complications Office Visit 01/27/2016 [facility] I50.21 Acute systolic 10:23a jordyn Heredia M.D. (congestive) heart Hospitalists failure E11.9 Type 2 diabetes mellitus without complications Office Visit 01/27/2016 5:15p [facility] Mercedez Clemons, R60.0 Localized edema Of Karley Ortiz I48.92 Unspecified atrial flutter I25.5 Ischemic cardiomyopathy I50.42 Chronic combined systolic and diastolic hrt fail R06.02 Shortness of breath Office Visit 01/11/2016 1:30p [facility] Daryl Nolan I50.9 Heart failure, Of [facility] Diana Hernandez unspecified R94.31 Abnormal electrocardiogram [ECG] [EKG] Z95.2 Presence of prosthetic heart valve I25.5 Ischemic cardiomyopathy I25.10 Athscl heart disease of [place] coronary artery w/o ang pctrs I48.0 Paroxysmal atrial fibrillation Office Visit 11/30/2015 [facility] Felipe I50.9 Heart failure, 1:13p Assjordyn titus M.D. 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 atrial flutter Hospitalists I50.9 Heart failure, unspecified E11.9 Type 2 diabetes mellitus without complications L03.116 Cellulitis of left lower limb Office Visit 11/24/2015 1:46p [facility] Pranay Nolan L02.416 Cutaneous Infectious Diana Eric abscess of left Diseases lower limb B95.61 Methicillin suscep staph infct causing dis classd elswhr I50.9 Heart failure, unspecified Z95.2 Presence of prosthetic heart valve Office Visit 11/24/2015 [facility] Gabriella Monteiro, I48.92 Unspecified 10:08a jordyn Heredia M.D. atrial flutter Hospitalists I50.9 Heart failure, unspecified E11.9 Type 2 diabetes mellitus without complications L03.116 Cellulitis of left lower limb Office Visit 11/23/2015 [place] Shaheen Patel I25.5 Ischemic 2:48p Cardiology Diana Reyes cardiomyopathy I48.92 Unspecified atrial flutter I50.9 Heart failure, unspecified Office Visit 11/23/2015 [place] Leticia Monteiro, I48.92 Unspecified 10:07a jordyn Heredia M.D. atrial flutter Hospitalists I50.9 Heart failure, unspecified L03.116 Cellulitis of left lower limb E11.9 Type 2 diabetes mellitus without complications Office Visit 11/22/2015 [place] Leticia Monteiro, I48.92 Unspecified 10:07a jordyn Heredia M.D. atrial flutter Hospitalists I50.9 Heart failure, unspecified E11.9 Type 2 diabetes mellitus without complications L03.116 Cellulitis of left lower limb Office Visit 11/21/2015 Brittany Simental S. R00.0 Tachycardia, 12:28p Irais Steinberg M.D. unspecified I25.5 Ischemic cardiomyopathy Z95.1 Presence of aortocoronary bypass graft Z95.810 Presence of automatic (implantable) cardiac defibrillator Office Visit 11/21/2015 10:07a Brittany Howard I50.9 Heart failure, Assjordyn titus M.D. unspecified Hospitalists E11.9 Type 2 diabetes mellitus without complications L03.116 Cellulitis of left lower limb I25.10 Athscl heart disease of [place] coronary artery w/o ang pctrs Office Visit 11/20/2015 Brittany Simental S. R00.0 Tachycardia, 12:24p Irais Steinberg M.D. unspecified I25.5 Ischemic cardiomyopathy Z95.1 Presence of aortocoronary bypass graft Z95.810 Presence of automatic (implantable) cardiac defibrillator Office Visit 11/20/2015 10:06a Brittany Hwoard I50.9 Heart failure, Assjordyn titus M.D. unspecified Hospitalists I25.10 Athscl heart disease of [place] coronary artery w/o ang pctrs E11.9 Type 2 diabetes mellitus without complications L03.116 Cellulitis of left lower limb Office Visit 11/19/2015 10:05a Brittany Howard I50.9 Heart failure, Assjordyn titus M.D. unspecified Hospitalists E11.9 Type 2 diabetes mellitus without complications I25.10 Athscl heart disease of [place] coronary artery w/o ang pctrs L03.116 Cellulitis of left lower limb Office Visit 11/18/2015 10:05a [facility] Lee I50.9 Heart failure, Assoc,pc Eloisa Ross. unspecified Hospitalists I25.10 Athscl heart disease of [place] coronary artery w/o ang pctrs E11.9 Type 2 diabetes mellitus without complications L03.116 Cellulitis of left lower limb Office Visit 11/17/2015 10:04a [facility] Lee I50.9 Heart failure, Assoc,pc Eloisa Ross. unspecified Hospitalists E11.9 Type 2 diabetes mellitus without complications L03.116 Cellulitis of left lower limb I25.10 Athscl heart disease of [place] coronary artery w/o ang pctrs Office Visit 11/17/2015 11:47a [facility] Mercedez Clemons, I50.9 Heart failure, Of [facility] MKale unspecified I25.5 Ischemic cardiomyopathy E87.5 Hyperkalemia Z95.810 Presence of automatic (implantable) cardiac defibrillator Office Visit 11/16/2015 10:03a [facility] Rebecca I50.9 Heart failure, Assoc,pc Christiane, DO unspecified Hospitalists E11.9 Type 2 diabetes mellitus without complications L03.116 Cellulitis of left lower limb I25.10 Athscl heart disease of [place] coronary artery w/o ang pctrs Office Visit 10/14/2015 1:25p [facility] Sarah I50.9 Heart failure, Assoc,pc Enmanuel, D.O. unspecified Hospitalists E11.8 Type 2 diabetes mellitus with unspecified complications I10 Essential (primary) hypertension I25.5 Ischemic cardiomyopathy Office [facility] 10/[facility], [facility]oc,pc Enmanuel, D.O. unspecified Hospitalists E11.8 Type 2 diabetes mellitus with unspecified complications I10 Essential (primary) hypertension I25.5 Ischemic cardiomyopathy Office Visit 10/12/2015 [facility] Di Valenzuela I50.9 Heart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
[2018-03-05] MEDS ORDERED: Albuterol 2.5 MG/3 ML NEB.SOL* (0.083%) INH ONE (23:24)
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
[2018-03-05 23:40] LABS: ABS Basophils 0.1 10^3/ul (0-0.2); ABS Eosinophils 0.2 10^3/ul (0-0.6); ABS Lymphocytes 0.8 10^3/ul (1.0-4.8); ABS Monocytes 0.5 10^3/ul (0-0.8); ABS Neutrophils 4.6 10^3/ul (1.5-7.7); ABS Nucleated RBC 0 10^3/ul; Eosinophil % 2.5 %; Hematocrit 38 % (42-52); Hemoglobin 12.6 g/dl (14.0-18.0); Mean Corpuscular HGB Conc 34 g/dl (31-36); Mean Corpuscular Hemoglobin 30 pg (27-31); Mean Corpuscular Volume 90 fL (80-94); Mean Platelet Volume 8.4 fL (7.4-10.4); Nucleated Red Blood Cells % 0.1; Platelet Count 147 10^3/ul (150-450); Red Blood Count 4.18 10^6/ul (4.00-5.40); Red Cell Distribution Width 14 % (10.5-15); White Blood Count 6.2 10^3/ul (3.5-10.8)
[2018-03-05 23:56] LABS: BUN/Creatinine Ratio 15.6 (8-20); EGFR Non-African American 37.5 (>60); Potassium 3.5 mmol/L (3.5-5.0)
[2018-03-06 00:17] VITALS: BP 160/95
== END 2018-03-06 00:16 | disposition home or self-care (01) ==
LOC: ED 22:21
DX: J06.9 Acute upper respiratory infection, unspecified (principal); E11.65 Type 2 diabetes mellitus with hyperglycemia; I50.9 Heart failure, unspecified; E78.00 Pure hypercholesterolemia, unspecified; I25.10 Atherosclerotic heart disease of native coronary artery without angina pectoris; Z86.718 Personal history of other venous thrombosis and embolism; Z79.01 Long term (current) use of anticoagulants; I73.9 Peripheral vascular disease, unspecified; K21.9 Gastro-esophageal reflux disease without esophagitis; Z87.891 Personal history of nicotine dependence; Z95.2 Presence of prosthetic heart valve; I25.2 Old myocardial infarction
CPT/HCPCS: 36415; 71046; 80048; 85025; 99282

== ENCOUNTER 2018-03-30 11:17 | Observation (INO) | payer MEDICARE, BC ==
[2018-03-30] MEDS ORDERED: NS 0.9% 1000 ML** 1,000 ML IV ONE (11:45)
[2018-03-30] MEDS ORDERED: HYDROcodone/ACETAMIN 5-325 MG* 1 TAB PO ONE (11:46)
[2018-03-30] MEDS ORDERED: HYDROcodone/ACETAMIN 5-325 MG* 1 TAB ONE (11:51)
[2018-03-30 11:52] LABS: Influenza A Molecular NEGATIVE (Negative); Influenza B Molecular NEGATIVE (Negative)
[2018-03-30 12:30] LABS: ABS Basophils 0 10^3/ul (0-0.2); ABS Eosinophils 0.1 10^3/ul (0-0.6); ABS Lymphocytes 0.7 10^3/ul (1.0-4.8); ABS Monocytes 0.9 10^3/ul (0-0.8); ABS Neutrophils 10.2 10^3/ul (1.5-7.7); ABS Nucleated RBC 0 10^3/ul; Eosinophil % 0.5 %; Hematocrit 42 % (42-52); Hemoglobin 14.1 g/dl (14.0-18.0); Lymphocyte % 5.8 %; Mean Corpuscular HGB Conc 34 g/dl (31-36); Mean Corpuscular Hemoglobin 30 pg (27-31); Mean Corpuscular Volume 88 fL (80-94); Mean Platelet Volume 8.2 fL (7.4-10.4); Nucleated Red Blood Cells % 0; Platelet Count 145 10^3/ul (150-450); Red Blood Count 4.74 10^6/ul (4.00-5.40); Red Cell Distribution Width 14 % (10.5-15); White Blood Count 11.9 10^3/ul (3.5-10.8)
[2018-03-30 12:46] LABS: Albumin 4.1 g/dL (3.2-5.2); Albumin/Globulin Ratio 1.1 (1-3); BUN/Creatinine Ratio 13.1 (8-20); C Reactive Protein 13.02 mg/L (<8.01); Calcium 9.8 mg/dL (8.6-10.3); EGFR African American 57.9 (>60); EGFR Non-African American 47.8 (>60); Globulin 3.8 g/dL (2-4); Potassium 3.6 mmol/L (3.5-5.0); Total Bilirubin 0.7 mg/dL (0.2-1.0); Total Protein 7.9 g/dL (6.4-8.9)
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
[2018-03-30 12:52] LABS: Troponin I 0.04 ng/mL (<0.04)
[2018-03-30] MEDS ORDERED: cefTRIAXone(*) 1 GM in NS 0.9% 50 ML* 50 ML IVPB ONE (12:57)
[2018-03-30] MEDS ORDERED: Azithromycin TAB* 250 MG PO ONE (13:09)
[2018-03-30] MEDS ORDERED: Aspirin 81 mg CHEW TAB* 81 MG TAB.CHEW PO ONE (13:09)
[2018-03-30 13:26] LABS: Activated Partial Thrombo Time 40.9 seconds (26.0-36.3); INR 1.89 (0.77-1.02)
[2018-03-30 14:28] LABS: TSH (Thyroid Stimulating Horm) 2.19 mcIU/mL (0.34-5.60)
[2018-03-30] MEDS ORDERED: Magnesium Hydroxide LIQ* 30 ML UDC PO PRN (15:00)
[2018-03-30] MEDS ORDERED: Acetaminophen TAB* 325 MG PO PRN (15:00)
[2018-03-30] MEDS ORDERED: Albuterol 2.5 MG/3 ML NEB.SOL* (0.083%) INH PRN (15:00)
[2018-03-30] MEDS ORDERED: Al Hydrox/Mg Hydrox/Simet LIQ* 30 ML UDC PO PRN (15:00)
[2018-03-30] MEDS ORDERED: Dextrose 50% Syringe 50 ML* 25 GM/50 ML SYRINGE IV PUSH PRN (15:11)
[2018-03-30] MEDS: Magnesium Oxide TAB* 400 MG PO SCH (16:42)
[2018-03-30] MEDS: Potassium Chlor TAB* 20 MEQ TAB.ER PO SCH ×2 (16:42→22:01)
[2018-03-30] MEDS: Atorvastatin* 10 MG TAB PO SCH (16:43)
[2018-03-30] MEDS: Torsemide TAB* 20 MG PO SCH ×2 (16:43→22:02)
[2018-03-30] MEDS: Levothyroxine TAB* 25 MCG TAB PO SCH (16:43)
[2018-03-30] MEDS: Amiodarone TAB* 200 MG PO SCH (16:44)
[2018-03-30] MEDS: Carvedilol TAB* 25 MG PO SCH ×2 (16:44→22:02)
[2018-03-30] MEDS: Insulin LISPRO* 1 UNITS UNIT SUBCUT SCH (16:57)
[2018-03-30] MEDS: busPIRone TAB* 15 MG PO SCH (16:58)
[2018-03-30] MEDS ORDERED: Warfarin TAB(*) 2.5 MG PO SCH (18:00)
[2018-03-30] MEDS ORDERED: DOXYcycline IV* 100 MG in NS 0.9% 250 ML* 250 ML IVPB SCH (19:00)
[2018-03-30] MEDS ORDERED: Insulin GLARGINE(*) 1 UNITS UNIT SUBCUT SCH (19:00)
--- NOTE | 2018-03-30 20:39 | HP ---
AMENDED REPORT NOW INCLUDES DESIGNATED COSIGNER AND ADDENDUM CC: Dr. Gonzalez * HISTORY AND PHYSICAL: DATE OF ADMISSION: 03/30/18 PRIMARY CARE PROVIDER: Dr. Gonzalez. ATTENDING PROVIDER: Dr. Bain * (DICTATED BY RAD DONALDSON, MELINDA) CHIEF COMPLAINT: Productive cough, shortness of breath, sore throat, headache. HISTORY OF PRESENT ILLNESS: Mr. Mckinley is a 72-year-old male who presented to the emergency room today with a complaint of productive cough, shortness of breath, sore throat and headache. He reports the onset was approximately 3 days ago. He reports the symptoms started with the cough and worsened last evening with the additional symptom of wheezing. The patient reports that aggravating factors include being in the cold or lying flat as he will hear gurgling sounds when he lies flat and also has an increase in shortness of breath when lying flat. 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 Alleviating symptoms include ProAir. The patient reports that when he lies flat and he feels short of breath, he will use his ProAir which alleviates symptoms. Home treatment prior to presentation to the emergency room include Tylenol, Sudafed, severe cold meds. On presentation to the emergency room, the patient was afebrile with a temp of 98.6, mildly tachycardic with a pulse of 95, resp rate of 19, blood pressure of 167/78 and pulse ox 93% on room air. The patient was noted to have mildly elevated WBC of 11.9. In addition, the patient's chest x-ray is suggestive of pneumonia as he has increased airspace consolidation predominantly in the right mid and lower lobe zones. Therefore, hospitalist team were asked to evaluate the patient for admission. In addition, it should also be noted that on admission, the patient had a mildly elevated troponin at 0.04. PAST MEDICAL HISTORY: 1. Systolic heart failure. 2. CAD. 3. GERD. 4. Depression. 5. History of DVT/PE. 6. Atrial fibrillation. 7. Type 2 diabetes. 8. Hypertension. 9. Thyroid disease. 10. Anemia. 11. High cholesterol. 12. Valvular disease. 13. CKD. PAST SURGICAL HISTORY: 1. Cholecystectomy. 2. IVC filter placement. 3. CABG with aortic valve replacement. 4. ICD insertion. 5. ORIF of pelvic fracture. ALLERGIES: IBUPROFEN, OXYCODONE, ERTAPENEM, LISINOPRIL, DILTIAZEM, GEMFIBROZIL , LOVASTATIN, ROSUVASTATIN and SIMVASTATIN. I reviewed these allergies with the patient but he reports he is unsure of many of these allergies and what his reactions were. FAMILY HISTORY: Mom at age 85 of coronary artery disease. Dad at the age 92, he had diabetes and coronary artery disease. SOCIAL HISTORY: The patient is a former smoker. He reports he smoked approximately 1.5 packs per day for approximately 30 years. The patient has a history of alcohol abuse, but has been sober for approximately 30 years. 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 He is . He has 5 children. His daughter, Pam Olivares, is his surrogate decision maker, her number is . REVIEW OF SYSTEMS: Constitutional: The patient denies fevers, anorexia, unexplained weight loss. The patient reports weakness since the onset of his recent illness. Cardiac: No chest pain, no edema, no palpitations. Respiratory: The patient reports productive cough and shortness of breath. Reports production of green sputum. Denies hemoptysis. GI: No nausea or vomiting, no diarrhea, no abdominal pain. Last BM 03/30/17. : No gross hematuria. No dysuria, no increasing frequency. Neuro: No focal weakness or sensory loss. Eyes: No visual complaints. ENT: The patient reports sore throat. No dysphagia, no nasal congestion. Musculoskeletal: The patient reports chronic back pain. Denies acute arthralgias or myalgias. Skin: No rashes, lesions, or ulcers. Psych: No psychosis. The patient reports anxiety and depression and a history of PTSD due to history. PHYSICAL EXAMINATION GENERAL: Mr. Mckinley is a 72-year-old male sitting on the emergency room stretcher and has just finished lunch. He is in no acute distress. He is alert and pleasant. VITAL SIGNS: Blood pressure 167/78, O2 sat 93% on room air, respirations 19, pulse 95, temp 98.6. HEENT: Eyes: Conjunctivae pink. PERRLA. EOMs intact. ENT: External ears and nose normal. Lips normal. Dentition good. Oropharynx is moist and free from lesions. Posterior pharynx is free from erythema, exudate, lesions. LYMPHATIC: No cervical or supraclavicular lymphadenopathy. RESPIRATORY: No accessory muscle use. The patient is breathing with ease. Lung sounds have noted sporadic wheeze and decrease in aeration. No rhonchi or rales. CARDIAC: S1, S2 present. Slight systolic murmur noted. No rubs or gallops. ABDOMEN: Soft, nontender, nondistended. Bowel sounds x4. EXTREMITIES: The patient has trace to +1 bilateral lower extremity pitting edema. It should also be noted that the patient has signs of peripheral vascular disease which include significant rubor. Pedal pulses are +2 bilaterally. MUSCULOSKELETAL: No clubbing or cyanosis. No abnormalities. SKIN: No rashes or lesions. As mentioned above, the patient has discoloration of bilateral lower extremities due to history of chronic DVT. NEURO: CN II through XII intact. Moves all extremities. No focal deficits. PSYCH: Alert and oriented x3. Mood is good and affect is normal. DIAGNOSTIC STUDIES/LAB DATA: Sodium 136, potassium 3.6, chloride 99, carbon dioxide 28, BUN 19, creatinine 1.45. Glucose 92, lactic acid 1.4, calcium 9.8, magnesium 2.0. Total bilirubin 0.70, AST 46, ALT 50, alk phos 145. Troponin 0.04. C-reactive protein 13.02. BNP 207. TSH is pending. INR is 1.89. WBC 11.9, hemoglobin 14.1, hematocrit 42, platelets 145. Influenza A and B negative. Group A strep rapid negative. Awaiting urine collection. Chest x-ray: Impression: Increased airspace consolidation predominates in right and mid lower lung zones. Unchanged bilateral pleural effusions. Status post CABG and AVR. AICD in place. ORIF, multiple old rib fractures redemonstrated. EKG: Impression: Sinus rhythm, rate 94. No significant change compared to 10/03. ASSESSMENT/PLAN: 1. Pneumonia: Due to the patient's chest x-ray which is suggestive of pneumonia, the patient's symptomatology, and previous history, the patient will be admitted for IV antibiotics and supportive care including respiratory treatments. In addition, patient has a CURB 65 score of 3. The patient has received ceftriaxone and azithromycin while in the emergency room. Ceftriaxone has been reordered, but Doxycycline will replace Azithro due to risk of QT prolongation. The patient does not meet systemic inflammatory response syndrome/ sepsis criteria. Either way, we will refrain from fluid bolus due to the patient's significant cardiac history, systolic congestive heart failure and suggestion of acute on chronic heart failure. The patient will receive nebulizer treatments. In addition, I have ordered urine antigen for a Streptococcus pneumoniae and legionella, sputum cultures. 2. Elevated troponin: On presentation to the ED, the patient did have a troponin drawn and it was noted to be elevated at 0.04. The patient is asymptomatic, he denies chest pain, shortness of breath with exertion, palpitations. Due to the elevated troponin, I will repeat the patient's troponins x4 q.3 hours. I suspect this troponin elevation is due to demand ischemia given his recent upper respiratory illness. Either way, I will trend the patient's troponin. 3. Systolic congestive heart failure: The patient has a history of heart failure. The patient's last echocardiogram was on 05/29/17 which revealed concentric left ventricular hypertrophy with abnormal diastolic function and left atrial enlargement. Moderately reduced calculated resting LVEF 37%. It should also be noted that the patient follows with Dr. Hernandez for his cardiac illness. His last appointment was 01/02/18 at which time, he was referred to [facility]. In regards to his admission and history of systolic heart failure, we will continue the patient's home medications as same including torsemide 60 mg p.o. b.i.d. and potassium 20 mEq p.o. t.i.d. The patient does report some shortness of breath with lying flat. He reports this is resolved with his albuterol. BNP is only mildly elevated. Therefore, we will continue to monitor the patient. 4. Coronary artery disease: The patient has a history of coronary artery disease with myocardial infarction and status post coronary artery bypass grafting. We will continue the patient's medications as same. 5. Severe cardiomyopathy: We will continue medications as same. The patient will be placed on telemetry. The patient has an ICD. We will refrain from any aggressive fluid resuscitation. 6. Gastroesophageal reflux disease: The patient is not currently on any medications for gastroesophageal reflux disease. We will provide PRNs as needed. 7. Depression: The patient has a history of depression, anxiety, and posttraumatic stress disorder due to career. We will continue the patient's medications as same. 8. History of deep vein thrombosis/pulmonary embolism. The patient does have an implanted IVC filter. He is also on Coumadin and slightly subtherapeutic. We will repeat his INR tomorrow and adjust medications as needed. 9. Atrial fibrillation: We will continue the patient's warfarin, amiodarone, Coreg as previously prescribed. The patient will also be placed on telemetry. 10. Type 2 diabetes: He takes insulin long acting at 60 units daily and 50 units at bedtime. I have ordered a hemoglobin A1c. I will place him on a sliding scale. I will provide him with the consistent carb diet. I will decrease his long acting insulin by half due to his current acute illness and monitor his fingersticks routinely. 11. Hypertension: The patient is currently mildly hypertensive with a pressure of 185/101. It should be noted that the patient has not received his morning medications which I will order promptly. We will continue the patient' s daily medications for hypertension as same and monitor his blood pressure. The patient may require p.r.n. for blood pressure but we will await until all of his daily medications are on board. 12. Thyroid disease: The patient takes levothyroxine. Therefore, I have added the TSH to his labs drawn in the emergency department. 13. High cholesterol: The patient has a history of high cholesterol. The patient takes atorvastatin 10 mg p.o. daily, which we will continue as same. 14. Peripheral vascular disease: As previously mentioned, the patient has a history of peripheral vascular disease and has evidence of bilateral lower extremity discoloration. The patient does see a liquor rectifier routinely and I will encourage the patient to continue that as an outpatient. 15. Chronic kidney disease: The patient does have elevated creatinine in his previous records. It is also noted that the patient has been previously referred to Dr. Coats. The patient shoulder be referred to Dr. Coats as an outpatient at discharge if this has not already been completed. 16. FEN: The patient will be on a consistent carb diet. 17. Code status: Full code. 18. DVT prophylaxis: The patient is currently on Coumadin and has an IVC filter. 19. Disposition: The patient will be placed on OBV status to receive IV antibiotics and respiratory treatments. The patient already has a followup with his primary care provider, Dr. Gonzalez on Sunday. This plan was discussed with my attending Dr. Bain, who agrees with my plan. TIME SPENT: Approximately 60 minutes was spent on this admission, greater than half the time was spent [id number] with the patient doing my physical exam and obtaining history. RAD DONALDSON, QUARTZ MOUNTER ADDENDUM: The patient required admission as his CURB-65 score is 2 to 3 points , due to respiratory rate greater than 30, age greater than 65, and BUN of 19. In addition, I have changed the patient's azithromycin to doxycycline due to risk of QT prolongation with the co-administration of amiodarone. RAD DONALDSON NP [id number]/CPS #: [id number]/CPS #: [id number] ANAMIKA
[2018-03-30] MEDS ORDERED: Nortriptyline CAP* 25 MG PO SCH (21:00)
[2018-03-30] MEDS: Docusate CAP* 100 MG PO SCH (22:01)
[2018-03-30] MEDS: Gabapentin CAP(*) 100 MG PO SCH (22:02)
--- NOTE | 2018-03-30 23:15 | HP ---
HISTORY AND PHYSICAL: ADDENDUM: The patient required admission as his CURB-65 score is 2 to 3 points , due to respiratory rate greater than 30, age greater than 65, and BUN of 19. In addition, I have changed the patient's azithromycin to doxycycline due to risk of QT prolongation with the co-administration of amiodarone. RAD DONALDSON, SEMICONDUCTOR ENGINEER [id number]/[facility] #: [id number] [facility] HOSPITALAdenike
[2018-03-30 23:57] LABS: Urine Appearance Clear; Urine Bacteria Absent (Absent); Urine Bilirubin Negative (Negative); Urine Blood 1+ (Negative); Urine Color Yellow; Urine Glucose 1+(50 mg/dL) (Negative); Urine Ketones Negative (Negative); Urine Nitrite Negative (Negative); Urine Protein 1+(30 mg/dL) (Negative); Urine Red Blood Cell 1+(3-5/hpf) (Absent); Urine Squamous Epithelial Cell Present (Absent); Urine Urobilinogen Negative (Negative); Urine White Blood Cell Absent (Absent)
[2018-03-31] MEDS: Levothyroxine TAB* 25 MCG TAB PO SCH (05:14)
[2018-03-31 06:48] LABS: INR 2.23 (0.77-1.02)
[2018-03-31 06:49] LABS: ABS Basophils 0.1 10^3/ul (0-0.2); ABS Eosinophils 0.1 10^3/ul (0-0.6); ABS Monocytes 0.6 10^3/ul (0-0.8); ABS Neutrophils 4.4 10^3/ul (1.5-7.7); ABS Nucleated RBC 0 10^3/ul; Eosinophil % 2.1 %; Hematocrit 36 % (42-52); Hemoglobin 12.1 g/dl (14.0-18.0); Lymphocyte % 15.8 %; Mean Corpuscular HGB Conc 34 g/dl (31-36); Mean Corpuscular Hemoglobin 30 pg (27-31); Mean Corpuscular Volume 89 fL (80-94); Mean Platelet Volume 8.6 fL (7.4-10.4); Nucleated Red Blood Cells % 0; Platelet Count 119 10^3/ul (150-450); Red Blood Count 4.05 10^6/ul (4.00-5.40); Red Cell Distribution Width 14 % (10.5-15); White Blood Count 6.3 10^3/ul (3.5-10.8)
[2018-03-31 07:03] LABS: BUN/Creatinine Ratio 15.1 (8-20); Calcium 9.1 mg/dL (8.6-10.3); EGFR African American 41.9 (>60); EGFR Non-African American 34.6 (>60); Potassium 3.8 mmol/L (3.5-5.0)
[2018-03-31] MEDS: Insulin LISPRO* 1 UNITS UNIT SUBCUT SCH ×2 (08:39→12:51)
[2018-03-31] MEDS: Docusate CAP* 100 MG PO SCH (08:40)
[2018-03-31] MEDS: Gabapentin CAP(*) 100 MG PO SCH (08:40)
[2018-03-31] MEDS: Atorvastatin* 10 MG TAB PO SCH (08:40)
[2018-03-31] MEDS: Torsemide TAB* 20 MG PO SCH (08:40)
[2018-03-31] MEDS: busPIRone TAB* 15 MG PO SCH (08:40)
[2018-03-31] MEDS: Carvedilol TAB* 25 MG PO SCH (08:40)
[2018-03-31] MEDS: Magnesium Oxide TAB* 400 MG PO SCH (08:40)
[2018-03-31] MEDS: Amiodarone TAB* 200 MG PO SCH (08:40)
[2018-03-31] MEDS: Potassium Chlor TAB* 20 MEQ TAB.ER PO SCH (08:40)
[2018-03-31] MEDS ORDERED: DOXYcycline IV* 100 MG in NS 0.9% 250 ML* 250 ML IVPB SCH (09:00)
[2018-03-31] MEDS ORDERED: Azithromycin TAB* 250 MG PO SCH (09:00)
[2018-03-31 11:31] VITALS: BP 126/67
[2018-03-31] MEDS ORDERED: cefTRIAXone(*) 1 GM in NS 0.9% 50 ML* 50 ML IVPB SCH (12:00)
--- NOTE | 2018-03-31 13:11 | DS ---
CC: Lee Gonzalez MD DISCHARGE SUMMARY: DATE OF ADMISSION: 03/30/18 DATE OF DISCHARGE: 03/31/18 PRIMARY CARE PHYSICIAN: Lee Gonzalez MD PRINCIPAL DIAGNOSIS: Community-acquired pneumonia. SECONDARY DIAGNOSES: 1. History of ischemic cardiomyopathy with an ICD with EF less than 20. 2. Coronary artery disease. 3. Gastroesophageal reflux disease. 4. Depression. 5. History of deep vein thrombosis and pulmonary embolism. 6. History of atrial fibrillation, on anticoagulation. 7. Diabetes. 8. Chronic kidney disease. 9. Hypothyroidism. 10. Hypertension. 11. Hyperlipidemia. MEDICATIONS: New medications prescribed on discharge are doxycycline 100 mg p.o. b.i.d. for 6 days to complete a total of 7-day treatment. Remaining medications are unchanged as follows though our medical reconciliation did not seem to be completely accurate with the patient's. What we have listed here as mentioned may not be completely accurate with the patient , as he has some discrepancies, but not able to articulate clearly what they are. They are as follows: 1. Lantus 60 units in the morning, 50 units in the evening. 2. Gabapentin 100 mg p.o. b.i.d. 3. Ezetimibe 2 mg subcu weekly. 4. Colace 100 mg p.o. b.i.d. 5. Coreg 25 mg p.o. b.i.d. 6. Lipitor 10 mg p.o. daily. 7. Amiodarone 20 mg p.o. daily. 8. Albuterol 1 to 2 puffs every 4 hours as needed. 9. Humalog sliding scale. 10. Vitamin D3 1000 units p.o. daily. 11. Magnesium oxide 400 mg p.o. daily. 12. Synthroid 25 mg daily. 13. Demadex 60 mg p.o. b.i.d. 14. Potassium chloride 20 mEq p.o. t.i.d. 15. Pamelor 50 mg p.o. at bedtime. 16. BuSpar 50 mg p.o. daily. 17. Warfarin 2.5 mg p.o. daily. HOSPITAL COURSE: This is a 72-year-old male with multiple comorbidities, who presented to the emergency room with cough, congestion, shortness of breath on his chest x-ray on admission. It was read as increased air space consolidation , predominant in the right mid and lower lung zones, unchanged small bilateral pleural effusions. The patient was admitted and started on doxycycline. He had a mildly elevated white count on admission that resolved on the day of discharge. His flu was negative. His legionella antigen, his Strep pneumoniae antigen were also negative. His vitals remained within normal limits. He remained afebrile. He remained on room air. The patient states from a respiratory standpoint, he feels significantly better. Before he has significant dyspnea on exertion when he was at home. Here, I am ambulating in the quinn with him, he is satting between 92 and 94%. He denies any shortness of breath. He is not coughing. He denies any chest pain. His troponins remain flat at 0.04. He denied any chest pain. EKG, no significant changes. Discussed regarding his community-acquired pneumonia to continue his doxycycline for a total of 7 days and that he should use his albuterol inhaler if he does wheeze, although on his exam today his lungs were clear, but diminished. He is to follow up with Dr. Gonzalez tomorrow. I discussed his renal function did bump overnight. It is possible from the torsemide and caused him to be dry though he does have baseline CKD . I discussed holding his torsemide tomorrow morning because of his elevated BUN and creatinine and to follow up with Dr. Gonzalez and to resume it on 04/02/18. We also discussed the patient taking Benadryl at night for sleep. We discussed the increased side effect profile as the older you get and discussed the trailing of melatonin instead, which he is agreeable to. The patient is independent at home. He has a 1 floor level. He has his grandson and his daughter who come and check on him. He is a follow-up appointment with Dr. Gonzalez tomorrow, which we recommended following his renal function, holding his torsemide for 1 day tomorrow and to continue with doxycycline for his pneumonia. ACTIVITY: Increase as tolerated. DIET: Heart-healthy diabetic. PATIENT TIME: Greater than 40 minutes was spent doing the discharge summary, more than half the time was spent in direct patient contact. [id number]/[facility] #: [id number] ANAMIKA
[2018-03-31] MEDS ORDERED: Warfarin TAB(*) 2.5 MG PO SCH (17:00)
[2018-04-01] MEDS ORDERED: Warfarin TAB(*) 5 MG PO SCH (17:00)
== END 2018-03-31 13:00 | disposition home or self-care (01) ==
LOC: ED 11:17 → MEDTELE 15:00
PROVIDERS: ADMIT Nurse Practitioner; ATTEND Pediatrics
DX: J18.9 Pneumonia, unspecified organism (principal); I25.5 Ischemic cardiomyopathy; I25.10 Atherosclerotic heart disease of native coronary artery without angina pectoris; K21.9 Gastro-esophageal reflux disease without esophagitis; F32.9 Major depressive disorder, single episode, unspecified; Z86.718 Personal history of other venous thrombosis and embolism; Z86.711 Personal history of pulmonary embolism; I48.91 Unspecified atrial fibrillation; Z79.01 Long term (current) use of anticoagulants; E11.9 Type 2 diabetes mellitus without complications; I12.9 Hypertensive chronic kidney disease with stage 1 through stage 4 chronic kidney disease, or unspecified chronic kidney disease; E11.22 Type 2 diabetes mellitus with diabetic chronic kidney disease; N18.9 Chronic kidney disease, unspecified; E03.9 Hypothyroidism, unspecified; E78.5 Hyperlipidemia, unspecified; Z95.4 Presence of other heart-valve replacement; Z90.49 Acquired absence of other specified parts of digestive tract; Z95.810 Presence of automatic (implantable) cardiac defibrillator; Z87.81 Personal history of (healed) traumatic fracture
CPT/HCPCS: 36415; 71046; 80048; 80053; 81003; 81015; 83036; 83605; 83735; 83880; 84443; 84484; 85025; 85610; 85730; 86140; 87651; 87899; 93005; 96365; 96366; 96372; 99284; A9270-GY; G0378; J0696

== ENCOUNTER 2018-04-09 16:33 | Emergency (ER) | payer MEDICARE, BC ==
[2018-04-09 16:54] VITALS: BP 171/96
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
== END 2018-04-09 18:45 | disposition home or self-care (01) ==
LOC: UCEAST 16:33
DX: M54.5 Low back pain (principal); M51.37 Other intervertebral disc degeneration, lumbosacral region; I25.10 Atherosclerotic heart disease of native coronary artery without angina pectoris; I10 Essential (primary) hypertension; Z95.1 Presence of aortocoronary bypass graft; Z88.8 Allergy status to other drugs, medicaments and biological substances; Z87.891 Personal history of nicotine dependence
CPT/HCPCS: 72131; 99212; G0463

== ENCOUNTER 2018-04-16 15:31 | Emergency (ER) | payer MEDICARE, BC ==
[2018-04-16] MEDS ORDERED: methylPREDNISolone 125 MG* 2 ML VIAL IV ONE (15:52)
[2018-04-16] MEDS ORDERED: Albuterol/Ipratropium NEB.SOL* Albuterol 2.5 MG/Ipratropium 0.5 MG 3 ML INH ONE ×2 (15:52→18:18)
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
[2018-04-16 16:15] LABS: ABS Basophils 0 10^3/ul (0-0.2); ABS Eosinophils 0.2 10^3/ul (0-0.6); ABS Lymphocytes 0.9 10^3/ul (1.0-4.8); ABS Monocytes 0.6 10^3/ul (0-0.8); ABS Neutrophils 3.1 10^3/ul (1.5-7.7); ABS Nucleated RBC 0 10^3/ul; Eosinophil % 3.6 %; Hematocrit 39 % (42-52); Hemoglobin 13.1 g/dl (14.0-18.0); Lymphocyte % 18.2 %; Mean Corpuscular HGB Conc 34 g/dl (31-36); Mean Corpuscular Hemoglobin 30 pg (27-31); Mean Corpuscular Volume 88 fL (80-94); Mean Platelet Volume 7.9 fL (7.4-10.4); Nucleated Red Blood Cells % 0.1; Platelet Count 146 10^3/ul (150-450); Red Blood Count 4.41 10^6/ul (4.00-5.40); Red Cell Distribution Width 14 % (10.5-15); White Blood Count 4.8 10^3/ul (3.5-10.8)
[2018-04-16 16:26] LABS: Activated Partial Thrombo Time 45.8 seconds (26.0-36.3); INR 2.54 (0.77-1.02)
[2018-04-16 16:35] LABS: Albumin 4.2 g/dL (3.2-5.2); Albumin/Globulin Ratio 1.2 (1-3); BUN/Creatinine Ratio 13.2 (8-20); Calcium 9.4 mg/dL (8.6-10.3); Globulin 3.4 g/dL (2-4); Potassium 3.7 mmol/L (3.5-5.0); Total Bilirubin 0.5 mg/dL (0.2-1.0); Total Protein 7.6 g/dL (6.4-8.9)
[2018-04-16 16:36] LABS: Troponin I 0.02 ng/mL (<0.04)
[2018-04-16 18:55] LABS: Influenza A Molecular NEGATIVE (Negative); Influenza B Molecular NEGATIVE (Negative)
[2018-04-16] MEDS ORDERED: Azithromycin TAB* 250 MG PO ONE (20:25)
[2018-04-16 21:14] VITALS: BP 159/11
== END 2018-04-16 21:26 | disposition home or self-care (01) ==
LOC: ED 15:31
DX: J20.9 Acute bronchitis, unspecified (principal); I25.10 Atherosclerotic heart disease of native coronary artery without angina pectoris; I11.0 Hypertensive heart disease with heart failure; Z95.1 Presence of aortocoronary bypass graft; Z95.810 Presence of automatic (implantable) cardiac defibrillator; Z95.2 Presence of prosthetic heart valve; Z86.718 Personal history of other venous thrombosis and embolism; Z79.01 Long term (current) use of anticoagulants; Z89.411 Acquired absence of right great toe; Z88.8 Allergy status to other drugs, medicaments and biological substances; Z82.49 Family history of ischemic heart disease and other diseases of the circulatory system; Z83.3 Family history of diabetes mellitus; Z87.891 Personal history of nicotine dependence
CPT/HCPCS: 36415; 71045; 80053; 82803; 83605; 83880; 84484; 85025; 85610; 85730; 93005; 96374; 99285; A9270-GY; J2930

== ENCOUNTER → 2018-05-22 16:32 | Emergency (ER) | payer MEDICARE, BC ==
[~2018-05-22 16:32] MED LIST: Furosemide TAB* 20 MG PO ONE; oxyCODONE/Acetamin 5/325 MG* TAB PO ONE
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
--- OUTSIDE RECORDS SUMMARY | 2018-05-22 17:05 | XMS REPORT | Continuity of Care Document ---
:1945 External Reference #:[id number] Author Name Geetha Velasco Care Team Providers Name Role Phone Lee Gonzalez MD Primary Care Physician Unavailable Payers Date Identification Numbers Payment Provider Subscriber Effective: 2003 Policy Number: [id number] Medicare Mohit Mckinley PayID: [id number] [address] [place] [address] Effective: 2011 Policy Number: [id number] [facility] Mohit Mckinley PayID: [id number] [address] [address] [place] [address] Onset: 2014 Policy Number: [id number] [facility] Mohit Mckinley Group Number: [id number] [address] [address] Group Name: [place] [address] PayID: [id number] Advance Directives Description No Information Available Problems Date Description Provider Status Onset: 04/14/2014 Diabetic neuropathy Nilson Burgos M.D. Active Onset: 09/17/2015 Chronic ischemic heart disease Daryl Hernandez M.D. Active Onset: 09/17/2015 Coronary arteriosclerosis Drayl Hernandez M.D. Active Onset: 09/17/2015 Chronic post-traumatic stress Daryl Hernandez M.D. Active disorder Onset: 01/27/2016 Edema Mercedez Clemons M.D. Active Onset: 01/27/2016 Chronic combined systolic and Mercedez Clemons M.D. Active diastolic heart failure Onset: 01/27/2016 Dyspnea Mercedez Clemons M.D. Active Family History Date Family Member(s) Observation Comments General Heart Disease General Diabetes Social [...] Lantus Solostar Active Solution 100Unit/M inject 60 Unknown Pen-Inject L SQ qam , 50 SQ qpm Atorvastatin Active Tablets 10mg 1 tab Unknown Calcium / every other day Nortriptyline HCL Active Capsules 50mg 1 by mouth every night at bedtime Magnesium Oxide Active Tablets 400mg One tab a day Potassium Active Tablets ER 20Meq 1 by mouth Unknown Chloride ER 0000 three times per day (Dr Gonzlaez increased) Coreg Active Tablets 25mg 60tab 1 tablet Z95.2 s twice a Ddimple Mcconnell M.D. Docusate Sodium Active Capsules 100mg 1 by mouth Unknown twice daily Warfarin Sodium Active Tablets 2.5mg 120ta 1 tab bs every day D. Brand, plus as M.DHarsha directed. Buspirone HCL Active Tablets 10mg 1 [...] Hx Tablets 6.25mg 180ta Z95.2 Daryl bs DHarsha Hernandez, - M.D. 07/01 Diovan 02/04 Hx [...] s twice a D. - day , 11/17.D. Ceftriaxone 09/29 Hx Solution 2gm 28uni [...] days Amoxicillin/Clavu 00/00 Hx Unknown lanate Potassium / ER - 11/26 Clindamycin HCL 00/00 Hx Unknown / - 11/26 Oxycodone HCL 00/00 Hx Capsules 5mg 40cap 1-2 four Unknown /0000 s times a - day as 04/13 Vascepa 00/00 Hx Capsules 1gm one tab Unknown / daily - 11/17 Amlodipine 00/00 Hx Tablets 10mg one tab Unknown Besylate daily - 02/04 Invokana /00 Hx Tablets 300mg one tab Unknown daily - 09/06 Levofloxacin 00/00 Hx Tablets [...] /0000 twice a - day 09/21 Flagyl 00 Hx Tablets 500mg 1 by mouth Unknown /0000 three - times a Valsartan-Hydroch 00/00 Hx Tablets 320-12.5m 1 by mouth Unknown lorothiazide /0000 g every day - 01/19 Fish Oil Plus 0000 Hx Capsules 1000mg -1 2 by mouth [...] qd Unknown Hydrobromide /0000 - 01/09 Alprazolam / Hx Tablets 0.25mg 1 po qd Unknown /0000 prn (does - not use 01/01 daughter 03/27/16) Buspirone HCL Hx Tablets 15mg take one Unknown /0000 tablet by - mouth tid 03/27 Vitamin D Hx Tablets 1000Unit 1 tab each Unknown (Cholecalciferol) / day by - mouth 01/02 Amoxicillin Hx Tablets 875mg take one Unknown /0000 tablet by - mouth 03/20 daily x weeks ( last day to take sunday04/04/16) Doxycycline Hx Capsules 100mg si Unknown Monohydrate / twice a - day ( 03/20 taking) Metolazone Hx Tablets 2.5mg 30tab 1 tablet Daryl /0000 s daily Jean Erickson M.D. 12/06 Furosemide Hx Tablets 40mg 1 tablet Unknown /0000 po twice - daily 03/30 Vascepa Hx Capsules 1gm 2 by mouth Unknown /0000 twice a - day 03/30 Vascepa 00 Hx 1G 1 tablet Unknown /0000 po daily - 08/01 Metformin HCL 00 Hx Tablets 1000mg 1 tablet Unknown /0000 po bid - 03/20 Prednisone 00/00 Hx Tablets 10mg 2 po daily Unknown /0000 - 05/29 Immunizations CPT Code Status Date Vaccine Lot # [id number] Ordered 12/17/2014 Influenza Virus Vaccine, Quadrivalent, Split, [...] Facility Test Result H/L Range Note Inr/Protime 04/11/2018 [facility] Inr 2.09 High 0.77-1.02 [address] [place] [address] [phone] Inr/Protime 03/25/2018 [facility] Inr 2.23 High 0.77-1.[address] [place] [address] [phone] Inr/Protime 03/06/2018 [facility] Inr 1.80 High 0.77-1.02 [address] [place] [address] [phone] Inr/Protime 02/04/2018 [facility] Inr 2.13 High 0.77-1.02 [address] [place] [address] [phone] Inr/Protime 01/10/2018 [facility] Inr 1.98 High 0.77-1.02 [address] [place] [address] [phone] Inr/Protime 12/14/2017 [facility] Inr 1.96 High 0.77-1.02 [address] [place] [address] [phone] Inr/Protime 11/14/2017 [facility] Inr 2.22 High 0.77-1.[address] [place] [address] [phone] Inr/Protime 10/24/2017 [facility] Inr 2.51 High 0.77-1.[address] [place] [address] [phone] Inr/Protime 10/01/2017 [facility] Inr 2.47 High 0.77-1.[address] [place] [address] [phone] Inr/Protime 09/14/2017 [facility] Inr 2.55 High 0.77-1.[address] [place] [address] [phone] Inr/Protime 08/30/2017 [facility] Inr 2.96 High 0.77-1.[address] [place] [address] [phone] Inr/Protime 08/15/2017 [facility] Inr 2.55 High 0.77-1.[address] [place] [address] [phone] Inr/Protime 06/28/2017 [facility] Inr 2.28 High 0.77-1.[address] [place] [address] [phone] Inr/Protime 06/14/2017 [facility] Inr 1.99 High 0.77-1.[address] [place] [address] [phone] Inr/Protime 05/30/2017 [facility] Inr 2.54 High 0.77-1.[address] [place] [address] [phone] Inr/Protime 05/16/2017 [facility] Inr 1.50 High 0.77-1.[address] [place] [address] [phone] Inr/Protime 05/02/2017 [facility] Inr 3.15 High 0.77-1.[address] [place] [address] [phone] Basic Metabolic 04/18/2017 [facility] Sodium 137 mmol/L N 133- [address] [place] [address] [phone] Potassium 3.7 mmol/L N 3.5-5.0 Chloride 97 mmol/L Low 101-111 Co2 Carbon Dioxide 30 mmol/L N 22-32 Anion Gap 10 mmol/L N 2-11 Glucose 153 mg/dL High 70-100 Blood Urea Nitrogen 74 mg/dL High 6-24 Creatinine 2.61 mg/dL High 0.67-1.17 BUN/Creatinine Ratio 28.4 High 8-20 Calcium 8.8 mg/dL N 8.6-10.3 Egfr Non- 24.3 >60 Egfr 31.3 >60 2 Laboratory test 04/18/2017 [facility] B-Type 209 pg/mL High [address] [place] [address] Peptide BNP [phone] Inr/Protime 04/18/2017 [facility] Inr 2.29 High 0.77- [address]02 [place] [address] [phone] Inr/Protime 04/11/2017 [facility] Inr 1.66 High 0.77- [address] [place] [address] [phone] Inr/Protime 04/05/2017 [facility] Inr 1.33 High 0.77- [address] [place] [address] [phone] Inr/Protime 02/22/2017 [facility] Inr 1.57 High 0.77- [address] [place] [address] [phone] Comp Metabolic 02/22/2017 [facility] Sodium 134 mmol/L N 133- [address] [place] [address] [phone] Potassium 2.8 mmol/L Low 3.5-5.0 Chloride 93 [...] Egfr 28.2 >60 5 Lipid Profile 02/22/2017 [facility] Triglycerides 472 mg/dL 6 (Trig/Chol/HDL) [address] [place], [place] [id number] [phone] Cholesterol 147 mg/dL 7 HDL Cholesterol 23.4 mg/dL 8 LDL Cholesterol (SEE NOTE) mg/dL 9 Laboratory test 02/22/2017 [facility] PSA Screening 0.485 ng/mL N 0-4.000 10 finding [address] [place], [place] [address] [phone] LDL Cholesterol Direct 51 mg/dL 11 Hemoglobin A1c (Glyco HGB) 9.8 % High 4.0-5.6 12 Inr/Protime 04/06/2016 [facility] Inr 1.88 High 0.89-1.11 [address] [place] [address] [phone] Basic Metabolic 09/24/2015 [facility] Sodium 134 mmol/L N 133- 145 Panel [address] [place] [address] [phone] Potassium 4.9 mmol/L N 3.5-5.0 Chloride 100 mmol/L Low 101-111 Co2 Carbon Dioxide 28 mmol/L N 22-32 Anion Gap 6 mmol/L N 2-11 Glucose 150 mg/dL High 70-100 Blood Urea Nitrogen 30 mg/dL High 6-24 Creatinine 1.23 mg/dL High 0.67-1.17 BUN/Creatinine Ratio 24.4 High 8-20 Calcium 8.9 mg/dL N 8.6-10.3 Egfr Non- 58.2 N >60 Egfr 74.8 N >60 13 Laboratory test 06/08/2015 [facility] B-Type 1431 pg/mL High [address] [place] [address] Peptide BNP [phone] Basic Metabolic 06/08/2015 [facility] Sodium 137 mmol/L N 133- [address] [place] [address] [phone] Potassium 4.0 mmol/L N 3.5-5.0 Chloride 100 mmol/L Low 101-111 Co2 Carbon Dioxide 29 mmol/L N 22-32 Anion Gap 8 mmol/L N 2-11 Glucose 80 mg/dL N 70-100 Blood Urea Nitrogen 35 mg/dL High 6-24 Creatinine 1.20 mg/dL High 0.67-1.17 BUN/Creatinine Ratio 29.2 High 8-20 Calcium 9.6 mg/dL N 8.6-10.3 Egfr Non- 59.9 N >60 Egfr 77.0 N >60 15 Laboratory test 04/19/2015 [facility] Point of 119 mg/dL High 74-106 [address] [place] [address] Glucose [phone] Pre Cath Panel 04/14/2015 [facility] Partial 34.2 N 26.0-36.[address] [place] [address] Time PTT [phone] CBC Auto Diff 04/14/2015 [facility] White Blood 7.7 10^3/uL N 3.5-10.[address] [place] [address] [phone] Red Blood Count 4.42 10^6/uL N 4.0-5.4 [...] Blood Cells % 0.1 N Inr/Protime 04/14/2015 [facility] Inr 1.33 High 0.89-1.[address] [place] [address] [phone] Basic Metabolic 04/14/2015 [facility] Sodium 140 mmol/L N 133- [address] [place] [address] [phone] Potassium 4.0 mmol/L N 3.5-5.0 Chloride 104 mmol/L N 101-111 Co2 Carbon Dioxide 28 mmol/L N 22-32 Anion Gap 8 mmol/L N 2-11 Glucose 71 mg/dL N 70-100 Blood Urea Nitrogen 25 mg/dL High 6-24 Creatinine 0.96 mg/dL N 0.67-1.17 BUN/Creatinine Ratio 26.0 High 8-20 Calcium 9.2 mg/dL N 8.6-10.3 Egfr Non- 77.7 N >60 Egfr 99.9 N >60 18 Laboratory test 04/14/2015 [facility] C Reactive 5.56 mg/L High < 5.00 [address] [place] [address] [phone] Basic Metabolic 02/17/2015 [facility] Sodium 136 N 133-145 [address] mmol/[place] [address] [phone] Potassium 4.1 mmol/L N 3.5-5.0 Chloride 100 [...] N >60 21 Basic Metabolic Panel 01/21/2015 [facility] Sodium 139 mmol/L N 133-145 [address] [place] [address] [phone] Potassium 3.5 mmol/L N 3.5-5.0 Chloride 100 mmol/L Low 101-111 Co2 Carbon Dioxide 29 mmol/L N 22-32 Anion Gap 10 mmol/L N 2-11 Glucose 142 mg/dL High 70-100 Blood Urea Nitrogen 15 mg/dL N 6-24 Creatinine 0.95 mg/dL N 0.67-1.17 BUN/Creatinine Ratio 15.8 N 8-20 Calcium 8.9 mg/dL N 8.6-10.3 Egfr Non- 78.6 N >60 Egfr 101.1 N >60 22 Laboratory test 01/21/2015 [facility] Magnesium 1.4 mg/dL Low 1.9-2.7 finding [address] [place] [address] [phone] Inr/Protime 12/17/2014 [facility] Inr 1.01 N 0.78-1.07 23 [address] [place] [address] [phone] Basic Metabolic 12/17/2014 [facility] Sodium 136 mmol/L N 133- 145 Panel [address] [place] [address] [phone] Potassium 3.5 mmol/L N 3.5-5.0 Chloride 100 [...] N >60 24 CBC Auto Diff 12/17/2014 [facility] White Blood 7.3 10^3/uL N 4.8-10.[address] [place] [address] [phone] Red Blood Count 4.41 10^6/uL N 4.0-5.4 [...] Cells % 0.1 N Pre Cath 12/17/2014 [facility] Partial 35.2 seconds N 26.0- 36.3 [address] [place] [address] PTT [phone] CBC Auto 10/21/2014 [facility] White Blood 5.9 10^3/uL N 4.8- 10.[address] [place] [address] [phone] Red Blood Count 3.79 10^6/uL Low 4.0-5.4 [...] % 0.1 N Basic Metabolic Panel 10/21/2014 [facility] Sodium 135 mmol/L N 133-[address] [place] [address] [phone] Potassium 4.0 mmol/L N 3.5-5.0 Chloride 101 mmol/L N 101-111 Co2 Carbon Dioxide 25 mmol/L N 22-32 Anion Gap 9 mmol/L N 2-11 Glucose 165 mg/dL High 70-100 Blood Urea Nitrogen 13 mg/dL N 6-24 Creatinine 0.67 mg/dL N 0.67-1.17 BUN/Creatinine Ratio 19.4 N 8-20 Calcium 9.0 mg/dL N 8.6-10.3 Egfr Non- 117.6 N >60 Egfr 151.3 N >60 26 Laboratory test 10/21/2014 [facility] C Reactive 2.64 mg/L N < 5.00 [address] [place] [address] [phone] CBC Auto Diff 10/13/2014 [facility] White Blood 7.7 N 4.8- 10.[address] Count 10^3/[place] [address] [phone] Red Blood Count 3.73 10^6/uL Low 4.0-5.4 [...] % 0.3 N Basic Metabolic Panel 10/13/2014 [facility] Sodium 136 mmol/L N 133-[address] [place] [address] [phone] Potassium 4.3 mmol/L N 3.5-5.0 Chloride 102 mmol/L N 101-111 Co2 Carbon Dioxide 27 mmol/L N 22-32 Anion Gap 7 mmol/L N 2-11 Glucose 97 mg/dL N 70-100 Blood Urea Nitrogen 14 mg/dL N 6-24 Creatinine 0.69 mg/dL N 0.67-1.17 BUN/Creatinine Ratio 20.3 High 8-20 Calcium 8.9 mg/dL N 8.6-10.3 Egfr Non- 113.7 N >60 Egfr 146.2 N >60 28 Laboratory test 10/13/2014 [facility] C Reactive 3.12 mg/L N < 5.00 [address] [place] [address] [phone] Laboratory test 10/06/2014 [facility] C Reactive 14.29 High < 5.00 [address] Protein mg/[place] [address] [phone] Basic Metabolic 10/06/2014 [facility] Sodium 136 N 133-[address] mmol/[place] [address] [phone] Potassium 3.8 mmol/L N 3.5-5.0 Chloride 100 mmol/L Low 101-111 Co2 Carbon Dioxide 28 mmol/L N 22-32 Anion Gap 8 mmol/L N 2-11 Glucose 146 mg/dL High 70-100 Blood Urea Nitrogen 12 mg/dL N 6-24 Creatinine 0.79 mg/dL N 0.67-1.17 BUN/Creatinine Ratio 15.2 N 8-20 Calcium 8.8 mg/dL N 8.6-10.3 Egfr Non- 97.2 N >60 Egfr 125.1 N >60 31 Laboratory test 10/06/2014 [facility] Erythrocyte Sed 36 mm/Hr N 0-[address] [place] [address] [phone] CBC Auto Diff 10/06/2014 [facility] White Blood 7.0 N 4.8- 10.[address] Count 10^3/[place] [address] [phone] Red Blood Count 3.58 10^6/uL Low 4.0-5.4 [...] Cells % 0.1 N Laboratory test 09/27/2014 [facility] Erythrocyte Sed 60 mm/Hr High 0-[address] [place] [address] [phone] CBC Auto Diff 09/27/2014 [facility] White Blood 6.1 N 4.8- 10.[address] Count 10^3/uL [place], [place] [address] [phone] Red Blood Count 3.64 10^6/uL Low 4.0-5.4 [...] Cells % 0 N Laboratory test 09/27/2014 [facility] C Reactive 9.08 mg/L High < 5.00 [address] [place] [address] [phone] Basic Metabolic 09/27/2014 [facility] Sodium 134 N 133-[address] mmol/[place] [address] [phone] Potassium 3.8 mmol/L N 3.5-5.0 Chloride 99 mmol/L Low 101-111 Co2 Carbon Dioxide 28 mmol/L N 22-32 Anion Gap 7 mmol/L N 2-11 Glucose 134 mg/dL High 70-100 Blood Urea Nitrogen 16 mg/dL N 6-24 Creatinine 0.67 mg/dL N 0.67-1.17 BUN/Creatinine Ratio 23.9 High 8-20 Calcium 8.7 mg/dL N 8.6-10.3 Egfr Non- 117.6 N >60 Egfr 151.3 N >60 33 Laboratory test 09/20/2014 [facility] C Reactive 8.73 mg/L High < 5.00 [address] [place] [address] [phone] Basic Metabolic 09/20/2014 [facility] Sodium 134 N 133-[address] mmol/[place] [address] [phone] Potassium 4.2 mmol/L N 3.5-5.0 Chloride 101 mmol/L N 101-111 Co2 Carbon Dioxide 26 mmol/L N 22-32 Anion Gap 7 mmol/L N 2-11 Glucose 162 mg/dL High 70-100 Blood Urea Nitrogen 13 mg/dL N 6-24 Creatinine 0.75 mg/dL N 0.67-1.17 BUN/Creatinine Ratio 17.3 N 8-20 Calcium 9.2 mg/dL N 8.6-10.3 Egfr Non- 103.3 N >60 Egfr 132.8 N >60 35 Laboratory test 09/20/2014 [facility] Erythrocyte Sed 65 mm/Hr High 0-[address] [place] [address] [phone] CBC Auto Diff 09/20/2014 [facility] White Blood 7.8 N 4.8- 10.[address] Count 10^3/[place] [address] [phone] Red Blood Count 3.87 10^6/uL Low 4.0-5.4 [...] % 0.1 N CBC Auto Diff 11/27/2013 [facility] White Blood 5.2 10^3/uL N 4.8-10.[address] [place] [address] [phone] Red Blood Count 4.62 10^6/uL N 4.0-5.4 [...] Cells % 0.1 N Laboratory test 11/27/2013 [facility] C Reactive 1.91 mg/L N < 5.00 [address] [place] [address] [phone] 1 ORDER DATE 04/06/17 EXPIRES 10/04/17 INR [...] Serum levels of PSA measured using the [employer] DXI Hybritech immunoassay should not be interpreted [...] in selective patients <6.0%. Please refer to [place] [employer] diabetic care guidelines for further [...] 5 Kidney failure <15 (or dialysis) 16 Accountant: [id number] [place] 17 soon 18 Because ethnic [...] >10.00 Procedures Date Code Description Status 11/22/2017 74128 Interrogation Implant Cardiovasc Monitor System Incl Completed Analysis Int 11/22/2017 48580 Interrogation Implant Cardiovasc Monitor System Incl Completed Analysis Int 11/22/2017 18295 Icd eval w/iterative adjment single lead Icd Completed 11/22/2017 17760 Icd eval w/iterative adjment single lead Icd Completed 08/29/2017 52482 EKG Tracing & Interpretation Completed 05/23/2017 72377 Icd eval w/iterative adjment single lead Icd Completed 05/23/2017 50361 Icd eval w/iterative adjment single lead Icd Completed 2017 18723 Endoscopy Upper GI Biopsy Completed 03/21/2017 47577 EKG Tracing & Interpretation Completed 03/09/2017 21438 Icd Eval W/Iterative Adjustmnt Single Lead Icd Completed 03/09/2017 02384 Icd Eval W/Iterative Adjustmnt Single Lead Icd Completed 03/09/2017 98198 Interrogation Implant Cardiovasc Monitor System Incl Completed Analysis Int 03/09/2017 97566 Interrogation Implant Cardiovasc Monitor System Incl Completed Analysis Int 11/22/2016 31973 Interrogation Implant Cardiovasc Monitor System Incl Completed Analysis Int 11/22/2016 77673 Icd Eval W/Iterative Adjustmnt Single Lead Icd Completed 07/05/2016 79265 Interrogation Implant Cardiovasc Monitor System Incl Completed Analysis Int 07/05/2016 56480 Icd eval w/iterative adjment single lead Icd Completed 01/11/2016 22515 EKG Tracing & Interpretation Completed 11/30/2015 05119 EKG, Interpretation Only Completed 11/22/2015 16486 EKG, Interpretation Only Completed 11/21/2015 76667 EKG, Interpretation Only Completed 11/20/2015 95268 EKG, Interpretation Only Completed 11/18/2015 08982 ECHO Transthorasic Realtime 2D W Doppler & Color Flow Hosp Completed 11/17/2015 03444 EKG, Interpretation Only Completed 11/17/2015 57710 Interrogation Device Eval In Person W/DR Completed Analysis,Single,Dual,Mul 11/16/2015 76421 EKG, Interpretation Only Completed 10/14/2015 68575 ECHO Transthorasic Realtime 2D W Doppler & Color Flow Hosp Completed 10/12/2015 23024 EKG, Interpretation Only Completed 10/07/2015 56924 Icd eval w/iterative adjment single lead Icd Completed 09/17/2015 75005 EKG Tracing & Interpretation Completed 05/19/2015 05935 Icd eval w/iterative adjment single lead Icd Completed 04/19/2015 03849 Ep Eval Icd AT Implant Completed 04/19/2015 81256 Insert/Replace Icd W/Generator Completed 04/09/2015 12436 EKG Tracing & Interpretation Completed 03/25/2015 27369 ECHO Transthoracic, Real-Time 2D With Doppler And Color Completed Flow 01/25/2015 77021 ECHO Transthoracic, Real-Time 2D With Doppler And Color Completed Flow 01/20/2015 01163 EKG Tracing & Interpretation Completed 12/21/2014 23374 Left Heart Cath. Incl S/I Coronaries, Angio S/I V Gram If Completed Done 12/21/2014 69588 EKG, Interpretation Only Completed 12/17/2014 72849 EKG Tracing & Interpretation Completed 11/09/2014 57407 ECHO Transthoracic, Real-Time 2D With Doppler And Color Completed Flow 07/13/2014 90141 Treadmill Interp/Report Only Completed 07/13/2014 84659 Stress Test Supervsn W/Out I/R Completed 07/10/2014 76161 ECHO Transthorasic Realtime 2D W Doppler & Color Flow Hosp Completed 07/10/2014 97667 EKG, Interpretation Only Completed 11/10/2013 85280 Amputation Toe MP JT Completed 11/10/2013 30146 Amputation Toe MP JT Completed Encounters Type Date Location Provider Dx Diagnosis Office Visit 01/02/2018 [facility] Daryl Nolan I48.0 Paroxysmal atrial 3:30p Of Karley Hernandez M.D. fibrillation N18.3 Chronic kidney disease, stage 3 (moderate) I50.22 Chronic systolic (congestive) heart failure I25.10 Athscl heart disease of [place] coronary artery w/o ang pctrs Z95.810 Presence of automatic (implantable) cardiac defibrillator I25.5 Ischemic cardiomyopathy Office Visit 08/29/2017 3:30p Rahul Nolan I25.5 Ischemic Cardiology Of Diana Hernandez cardiomyopathy [employer] I25.10 Athscl heart disease of [place] coronary artery w/o ang pctrs I50.22 Chronic systolic (congestive) heart failure Office Visit 07/19/2017 9:41a [facility] Lacey Clifton, I50.22 Chronic systolic Assoc,pc N.P. (congestive) heart Hospitalists failure N18.3 Chronic kidney disease, stage 3 (moderate) I48.0 Paroxysmal atrial fibrillation Z86.718 Personal history of other venous thrombosis and embolism Office Visit 07/18/2017 [facility] Sarah I50.22 Chronic systolic 9:40a Assoc,pc Adenike Singer.Bacilio. (congestive) heart Hospitalists failure N18.3 Chronic kidney disease, stage 3 (moderate) I48.0 Paroxysmal atrial fibrillation Z86.718 Personal history of other venous thrombosis and embolism Office Visit 05/10/2017 10:09a [facility] Tony Mott, D64.9 Anemia, Assoc,jordyn AVILA unspecified Hospitalists I50.22 Chronic systolic (congestive) heart failure N18.4 Chronic kidney disease, stage 4 (severe) E11.22 Type 2 diabetes mellitus w diabetic chronic kidney disease Office Visit 2017 10:07a [facility] Tony Mott, D64.9 Anemia, Assoc,jordyn AVILA unspecified Hospitalists I50.22 Chronic systolic (congestive) heart failure N18.4 Chronic kidney disease, stage 4 (severe) E11.22 Type 2 diabetes mellitus w diabetic chronic kidney disease Office Visit 2017 7:00a [facility] Lacey Brownva, 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 D64.9 Anemia, unspecified I50.22 Chronic systolic (congestive) heart failure E11.22 Type 2 diabetes mellitus w diabetic chronic kidney disease Office Visit 04/18/2017 8:30a Rahul Nolan I25.5 Ischemic Cardiology Meagan Hernandez M.D. cardiomyopathy [facility] Z95.810 Presence of automatic (implantable) cardiac defibrillator I50.22 Chronic systolic (congestive) heart failure Z95.2 Presence of prosthetic heart valve Office Visit 03/21/2017 1:30p Rahul Nolan I25.5 Ischemic Cardiology Meagan Hernandez M.D. cardiomyopathy [facility] I48.91 Unspecified atrial fibrillation Z95.810 Presence of automatic (implantable) cardiac defibrillator I50.22 Chronic systolic (congestive) heart failure Office Visit 02/28/2017 1:11p [facility] Joon Espino, E87.6 Hypokalemia Assoc, Hospitalists M.DHarsha I50.22 Chronic systolic (congestive) heart failure R74.8 Abnormal levels of other serum enzymes I48.91 Unspecified atrial fibrillation Office Visit 02/27/2017 1:10p [facility] Sarah Singer, E87.6 Hypokalemia Assoc, Hospitalists D.OHarsha I50.22 Chronic systolic (congestive) heart failure R74.8 Abnormal levels of other serum enzymes I48.91 Unspecified atrial fibrillation Office Visit 08/02/2016 10:00a Rahul Nolan I25.5 Ischemic Cardiology Meagan Hernandez M.D. cardiomyopathy [facility] Z95.810 Presence of automatic (implantable) cardiac defibrillator Z95.2 Presence of prosthetic heart valve I25.10 Athscl heart disease of [place] coronary artery w/o ang pctrs Office Visit 03/31/2016 4:00p Rahul Floreslm D. I50.42 Chronic combined Of Karley Hernandez M.D. systolic and diastolic hrt fail R06.02 Shortness of breath R94.31 Abnormal electrocardiogram [ECG] [EKG] Z95.2 Presence of prosthetic heart valve I25.10 Athscl heart disease of [place] coronary artery w/o ang pctrs Office Visit 02/04/2016 10:28a [facility] I27.2 Other secondary jordyn Heredia M.D. pulmonary Hospitalists hypertension E11.9 Type 2 diabetes mellitus without complications Z79.4 intermediate (current) use of insulin I50.21 Acute systolic (congestive) heart failure Office Visit 02/03/2016 [facility] I50.21 Acute systolic 10:27a jordyn Heredia M.D. (congestive) heart Hospitalists failure I27.2 Other secondary pulmonary hypertension E11.9 Type 2 diabetes mellitus without complications Z79.4 intermediate (current) use of insulin [facility] I[facility]21 Acute systolic Visit 10:27a jordyn Heredia PA (congestive) Hospitalists heart failure E11.9 Type 2 diabetes mellitus without complications I27.2 Other secondary pulmonary hypertension Z79.4 intermediate (current) use of insulin Office 02/01/2016 [facility] E11.9 Type 2 diabetes Visit 10:26a jordyn Heredia PA mellitus without Hospitalists complications I27.2 Other secondary pulmonary hypertension Office 01/31[facility]2016 [facility] I[facility].21 Acute systolic Visit 10:26a jordyn Heredia PA (congestive) Hospitalists heart failure I27.2 Other secondary pulmonary hypertension E11.9 Type 2 diabetes mellitus without complications Z79.4 intermediate (current) use of insulin Office Visit 01/30/2016 [facility] I50.21 Acute systolic 10:25a jordyn Heredia D.O. (congestive) heart Hospitalists failure E11.9 Type 2 diabetes mellitus without complications Office Visit 01/29/2016 [facility] I50.21 Acute systolic 10:25a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
[2018-05-22 17:39] LABS: ABS Basophils 0 10^3/ul (0-0.2); ABS Eosinophils 0.2 10^3/ul (0-0.6); ABS Lymphocytes 0.9 10^3/ul (1.0-4.8); ABS Monocytes 0.6 10^3/ul (0-0.8); ABS Neutrophils 3.1 10^3/ul (1.5-7.7); ABS Nucleated RBC 0 10^3/ul; Eosinophil % 3.4 %; Hematocrit 34 % (42-52); Hemoglobin 11.4 g/dl (14.0-18.0); Lymphocyte % 18.8 %; Mean Corpuscular HGB Conc 34 g/dl (31-36); Mean Corpuscular Hemoglobin 30 pg (27-31); Mean Corpuscular Volume 87 fL (80-94); Mean Platelet Volume 7.5 fL (7.4-10.4); Nucleated Red Blood Cells % 0.2; Platelet Count 141 10^3/ul (150-450); Red Blood Count 3.89 10^6/ul (4.00-5.40); Red Cell Distribution Width 16 % (10.5-15); White Blood Count 4.8 10^3/ul (3.5-10.8)
[2018-05-22 17:56] LABS: BUN/Creatinine Ratio 14.7 (8-20); Calcium 9.2 mg/dL (8.6-10.3); EGFR African American 55.5 (>60); EGFR Non-African American 45.9 (>60); Potassium 3.6 mmol/L (3.5-5.0)
[2018-05-22 17:58] LABS: Troponin I 0.02 ng/mL (<0.04)
[2018-05-22 18:19] LABS: INR 5.01 (0.77-1.02)
[2018-05-22 19:10] VITALS: BP 160/89
== END | disposition home or self-care (01) ==
LOC: ED 16:32
DX: M54.9 Dorsalgia, unspecified (principal); R60.9 Edema, unspecified; I87.8 Other specified disorders of veins; R79.1 Abnormal coagulation profile; Z87.891 Personal history of nicotine dependence; I25.10 Atherosclerotic heart disease of native coronary artery without angina pectoris; I25.2 Old myocardial infarction; Z95.810 Presence of automatic (implantable) cardiac defibrillator; I73.9 Peripheral vascular disease, unspecified
CPT/HCPCS: 36415; 80048; 83880; 84484; 85025; 85610; 99282; A9270-GY

== ENCOUNTER 2018-05-31 10:52 | Inpatient (IN) | payer MEDICARE, BC ==
[2018-05-31] MEDS ORDERED: ceFAZolin 1 GM ADVAN(*) 1 GM in NS 0.9% 50 ML* 50 ML IVPB ONE (11:20)
[2018-05-31] MEDS ORDERED: Furosemide IV* 10 MG/ML VIAL (40 MG) IV ONE (11:23)
--- OUTSIDE RECORDS SUMMARY | 2018-05-31 11:24 | XMS REPORT | Continuity of Care Document ---
:1945 External Reference #:[id number] Author Name Mari Loving Care Team Providers Name Role Phone Lee Gonzalez MD Primary Care Physician Unavailable Payers Date Identification Numbers Payment Provider Subscriber Effective: 2003 Policy Number: [id number] Medicare Mohit Mckinley PayID: [id number] [address] [place] [address] Effective: 2011 Policy Number: [id number] [facility] Mohit Mckinley PayID: [id number] [address] [address] [place] [address] Onset: 2014 Policy Number: [id number] [facility] Mohit Mckinley Group Number: [id number] [address] [address] Group Name: [place] [address] PayID: [id number] Advance Directives Description No Information Available Problems [...] e-cigarettes, or chewing tobacco. Smoking Status Reviewed: 05/24/18 Former Cigarette Smoker Quit 1990 Denies using [...] Form Strength Qnty SIG Indications Ordering Provider Buspirone HCL 05/23 Active Tablets 15mg take one tablet by An Hernandez, mouth once M.D. a day Hydralazine HCL 05/23 Active Tablets 25mg 1 by mouth three DHarsha Hernandez, times a M.D. day Amiodarone HCL 01/10 Active Tablets 200mg 90tab 1 by mouth s every day An Hernandez M.D. Novofine Active Misc 32G X 6 Unknown /0000 mm Bydureon Active Suspension 2mg injection Unknown Rec once weekly Lantus Solostar Active Solution 100Unit/M inject 60 Unknown Pen-Inject L SQ qam , 50 SQ qpm Atorvastatin Active Tablets 10mg 1 tab Unknown Calcium /0000 every other day Nortriptyline HCL Active Capsules 50mg 1 by mouth Unknown every night at bedtime Magnesium Oxide Active Tablets 400mg One tab a Unknown / day Potassium Active Tablets ER 20Meq 1 by mouth Unknown Chloride ER /0000 three times per day (Dr Gonzalez increased) Coreg Active Tablets 25mg 60tab 1 tablet Z95.2 Daryl s twice a D. Brand, day M.DHarsha Docusate Sodium Active Capsules 100mg 1 by mouth Unknown twice daily Warfarin Sodium Active Tablets 2.5mg 120ta 1 tab Daryl bs every day D. David, plus as M.D. directed. Gabapentin Active Capsules 100mg 1 by mouth Unknown /0000 twice a day Levothyroxine Active Tablets 25mcg 1 by mouth Unknown Sodium /0000 every day Torsemide Active Tablets 20mg 90tab 3 by mouth Daryl s every day DHarsha Hernandez, Diana Cholecalciferol Active 1000 units daily Coreg 07/01 Hx Tablets 12.5mg 60tab 1 by mouth Z95.2 Daryl s twice a D. David, - day M.D. 01/09 Cozaar 06/20 Hx Tablets 100mg 90tab 1 by mouth Z95.2 Daryl s every day DHarsha Hernandez, - M.D. 01/09 Cozaar 06/07 Hx Tablets 50mg 2 by mouth Z95.2 Daryl every day DHarsha Hernandez, - M.D. 06/20 Keflex 04/20 Hx Capsules 500mg 9caps 1 by mouth Daryl three D. David, - times a M.D. 04/26 day for days Cozaar 04/07 Hx Tablets 50mg 90tab 1 by mouth Z95.2 Daryl s every day An Hernandez, - M.D. 06/07 Coreg 02/04 Hx Tablets 6.25mg 180ta Z95.2 Daryl bs DHarsha Hernandez, - M.D. 07/01 Diovan 02/04 Hx Tablets 40mg 90tab 1 by mouth Z95.2 Daryl s every day DHarsha Hernandez, - (on hold M.D. 04/07 per Harsha /2015 David) Aldactone 01/22 Hx Tablets 25mg 30tab 1 by mouth Daryl s every day DHarsha Hernandez, - M.D. 01/09 Augmentin 10/27 Hx Tablets 500-125mg 60tab 1 by mouth 730.05 s twice a D. - day Hernesto, 11/17 M.D. Ceftriaxone 09/29 Hx Solution 2gm 28uni iv every Rec ts 24 hours x D. - 4 wks , 11/17.D Flagyl 09/29 Hx Tablets 500mg 56tab 1 by mouth s two times D. - a day x 4 , 11/17 wks M.D Invanz 09/18 Hx Solution 1gm 42uni every 24 Rec ts hours D. - , 09/29.D Bactrim DS 11/18 Hx Tablets 800-160mg 42tab 1 tabs by Lee s mouth Christopher, - twice a M.D. 04/13 day x days Amoxicillin/Clavu 00/00 Hx Unknown lanate Potassium / ER - 11/26 Clindamycin HCL 00/00 Hx Unknown - 11/26 Oxycodone HCL 0000 Hx Capsules 5mg 40cap 1-2 four Unknown /0000 s times a - day as 04/13 Vascepa /00 Hx Capsules 1gm one tab Unknown /0000 daily - 11/17 Amlodipine /00 Hx Tablets 10mg one tab Unknown Besylate / daily - 02/04 Invokana 00 Hx Tablets 300mg one tab Unknown / daily - 09/06 Levofloxacin /00 Hx Tablets 500mg Unknown / - 11/26 Amoxicillin/Clavu /00 Hx Tablets 875-125mg Unknown lanate Potassium / - 11/27 Clindamycin HCL 00/00 Hx Capsules 300mg Unknown / - 11/26 Oxycodone-Acetami 00 Hx Tablets 5-325mg Unknown nophen / - 04/13 Cialis /00 Hx Tablets 20mg Unknown / - 11/26 Nasonex /00 Hx Suspension 50mcg/Act Unknown / - 11/17 Metoprolol /00 Hx Tablets 25mg 1 po bid Z95.2 Unknown Tartrate / - 02/04 Diovan Hx Tablets 320mg one tab Unknown /0000 daily - 12/17 Omeprazole 00/[address] 20mg one tab Unknown /0000 daily prn - 10/04 Ondansetron HCL 00/00 Hx Tablets 4mg Unknown [...] /0000 twice a - day 09/21 Flagyl 00/00 Hx Tablets 500mg 1 by mouth Unknown /0000 three - times a Valsartan-Hydroch 00/00 Hx Tablets 320-12.5m 1 by mouth Unknown lorothiazide /0000 g every day - 01/19 Fish Oil Plus 00/00 Hx Capsules 1000mg -1 2 by mouth Unknown Vascepa /0000 G bid - 08/01 Furosemide 00/00 Hx Tablets 40mg 1 tablet Unknown /0000 po b.i.d ( - increased 03/2609/08/15 /2016 Amiodarone HCL 00/00 Hx Tablets 200mg 1 by mouth Unknown /0000 every day - 12/05 Lisinopril 00/00 Hx Tablets 5mg 1 by mouth Unknown /0000 every day - 12/05 Vitamin D2 00/00 Hx 50,000Iu weekly Unknown /0000 - 01/09 Augmentin 00/00 Hx Tablets 875-125mg 1 tablet Unknown /0000 by mouth - q12 hours 12/05 for days Citalopram / Hx Tablets 40mg 1 po qd Unknown Hydrobromide / - 01/09 Alprazolam 00/00 Hx Tablets 0.25mg 1 po qd Unknown /0000 prn (does - not use 01/01 daughter 03/27/16) Buspirone HCL 00 Hx Tablets 15mg take one Unknown /0000 tablet by - mouth tid 03/27 Vitamin D Hx Tablets 1000Unit 1 tab each Unknown (Cholecalciferol) / day by - mouth 01/02 Amoxicillin / Hx Tablets 875mg take one Unknown /0000 tablet by - mouth 03/20 daily x weeks ( last day to take sunday04/04/16) Buspirone HCL /00 Hx Tablets 10mg 1 by mouth Unknown /0000 twice per - day 05/24 Doxycycline Hx Capsules 100mg si Unknown Monohydrate /0000 twice a - day ( 03/20 taking) Metolazone Hx Tablets 2.5mg 30tab 1 tablet Daryl /0000 s daily An Hernandez - M.An 12/06 Furosemide Hx Tablets 40mg 1 tablet Unknown /0000 po twice - daily 03/30 Vascepa 0000 Hx Capsules 1gm 2 by mouth Unknown /0000 twice a - day 03/30 Vascepa 00 Hx 1G 1 tablet Unknown /0000 po daily - 08/01 Metformin HCL /00 Hx Tablets 1000mg 1 tablet Unknown /0000 po bid - 03/20 Prednisone 00/00 Hx Tablets 10mg 2 po daily Unknown /0000 - 05/29 Trazodone HCL 00 Hx Tablets 50mg 1-2 Unknown /0000 tablet at - bedtime as 05/23 Iron Slow Release /00 Hx Tablets ER 143(45Fe) take one Unknown /0000 mg capsule/ta - blet daily 05/23 by mouth Metolazone /00 Hx Tablets 2.5mg take 1 Unknown /0000 tablet by - mouth 3 05/23 weekly Immunizations CPT Code Status Date Vaccine Lot # [id number] Ordered 12/17/2014 Influenza Virus Vaccine, Quadrivalent, Split, Preservative Free Vital Signs Date Vital Result Comment 05/24/2018 8:47am Height 72 inches 6'0" Weight 258.00 lb with shoes Heart Rate 80 /min BP Systolic Sitting 140 mmHg Lue, large cuff BP Diastolic Sitting 80 mmHg Lue, large cuff BP Systolic Standing 130 mmHg Lue, large cuff BP Diastolic Standing 80 mmHg Lue, large cuff Respiratory Rate 14 /min BMI (Body Mass Index) 35.0 kg/m2 Ejection Fraction 37% Bubble study 05/29/17 01/02/2018 3:23pm Height 72 inches 6'0" Weight [...] Date Facility Test Result H/L Range Note Laboratory test 05/24/2018 [facility] TSH (Thyroid <pending> finding [address] Stim [place]orm) [place] [address] [phone] Inr/Protime 04/11/2018 [facility] Inr 2.09 High 0.77-1.[address] [place] [address] [phone] Inr/Protime 03/25/2018 [facility] Inr 2.23 High 0.77-1.[address] [place] [address] [phone] Inr/Protime 03/06/2018 [facility] Inr 1.80 High 0.77-1.[address] [place] [address] [phone] Inr/Protime 02/04/2018 [facility] Inr 2.13 High 0.77-1.[address] [place] [address] [phone] Inr/Protime 01/10/2018 [facility] Inr 1.98 High 0.77-1.[address] [place] [address] [phone] Inr/Protime 12/14/2017 [facility] Inr 1.96 High 0.77-1.[address] [place] [address] [phone] Inr/Protime 11/14/2017 [facility] Inr 2.22 High 0.77-1.[address] [place] [address] [phone] Inr/Protime 10/24/2017 [facility] Inr 2.51 High 0.77-1.[address] [place] [address] [phone] Inr/Protime 10/01/2017 [facility] Inr 2.47 High 0.77-1.[address] [place] [address] [phone] Inr/Protime 09/14/2017 [facility] Inr 2.55 High 0.77-1.[address] [place] [address] [phone] Inr/Protime 08/30/2017 [facility] Inr 2.96 High 0.77-1.[address] [place] [address] [phone] Inr/Protime 08/15/2017 [facility] Inr 2.55 High 0.77-1.[address] [place] [address] [phone] Inr/Protime 06/28/2017 [facility] Inr 2.28 High 0.77-1.[address] [place] [address] [phone] Inr/Protime 06/14/2017 [facility] Inr 1.99 High 0.77-1.[address] [place] [address] [phone] Inr/Protime 05/30/2017 [facility] Inr 2.54 High 0.77-1.[address] [place] [address] [phone] Inr/Protime 05/16/2017 [facility] Inr 1.50 High 0.77-1.[address] [place], [place] [address] [phone] Inr/Protime 05/02/2017 [facility] Inr 3.15 High 0.77-1.[address] [place], [place] [address] [phone] Basic Metabolic 04/18/2017 [facility] Sodium 137 mmol/L N 133- [address] [place] [address] [phone] Potassium 3.7 mmol/L N 3.5-5.0 Chloride 97 mmol/L Low 101-111 Co2 Carbon Dioxide 30 mmol/L N 22-32 Anion Gap 10 mmol/L N 2-11 Glucose 153 mg/dL High 70-100 Blood Urea Nitrogen 74 mg/dL High 6-24 Creatinine 2.61 mg/dL High 0.67-1.17 BUN/Creatinine Ratio 28.4 High 8-20 Calcium 8.8 mg/dL N 8.6-10.3 Egfr Non- 24.3 >60 Egfr 31.3 >60 2 Laboratory test 04/18/2017 [facility] B-Type 209 pg/mL High [address] [place] [address] Peptide BNP [phone] Inr/Protime 04/18/2017 [facility] Inr 2.29 High 0.77- [address] [place] [address] [phone] Inr/Protime 04/11/2017 [facility] Inr 1.66 High 0.77- [address] [place] [address] [phone] Inr/Protime 04/05/2017 [facility] Inr 1.33 High 0.77- [address] [place] [address] [phone] Inr/Protime 02/22/2017 [facility] Inr 1.57 High 0.77- [address] [place] [address] [phone] Comp Metabolic 02/22/2017 [facility] Sodium 134 mmol/L N 133- [address] [place] [address] [phone] Potassium 2.8 mmol/L Low 3.5-5.0 Chloride 93 [...] Egfr 28.2 >60 5 Lipid Profile 02/22/2017 [facility] Triglycerides 472 mg/dL 6 (Trig/Chol/HDL) [address] [place] [address] [phone] Cholesterol 147 mg/dL 7 HDL Cholesterol 23.4 mg/dL 8 LDL Cholesterol (SEE NOTE) mg/dL 9 Laboratory test 02/22/2017 [facility] PSA Screening 0.485 ng/mL N 0-4.000 [address] [place] [address] [phone] LDL Cholesterol Direct 51 mg/dL 11 Hemoglobin A1c (Glyco HGB) 9.8 % High 4.0-5.6 12 Inr/Protime 04/06/2016 [facility] Inr 1.88 High 0.89-1.[address] [place] [address] [phone] Basic Metabolic 09/24/2015 [facility] Sodium 134 mmol/L N 133- [address] [place] [address] [phone] Potassium 4.9 mmol/L N 3.5-5.0 Chloride 100 mmol/L Low 101-111 Co2 Carbon Dioxide 28 mmol/L N 22-32 Anion Gap 6 mmol/L N 2-11 Glucose 150 mg/dL High 70-100 Blood Urea Nitrogen 30 mg/dL High 6-24 Creatinine 1.23 mg/dL High 0.67-1.17 BUN/Creatinine Ratio 24.4 High 8-20 Calcium 8.9 mg/dL N 8.6-10.3 Egfr Non- 58.2 N >60 Egfr 74.8 N >60 13 Laboratory test 06/08/2015 [facility] B-Type 1431 pg/mL High [address] [place] [address] Peptide BNP [phone] Basic Metabolic 06/08/2015 [facility] Sodium 137 mmol/L N 133- [address] [place] [address] [phone] Potassium 4.0 mmol/L N 3.5-5.0 Chloride 100 mmol/L Low 101-111 Co2 Carbon Dioxide 29 mmol/L N 22-32 Anion Gap 8 mmol/L N 2-11 Glucose 80 mg/dL N 70-100 Blood Urea Nitrogen 35 mg/dL High 6-24 Creatinine 1.20 mg/dL High 0.67-1.17 BUN/Creatinine Ratio 29.2 High 8-20 Calcium 9.6 mg/dL N 8.6-10.3 Egfr Non- 59.9 N >60 Egfr 77.0 N >60 15 Laboratory test 04/19/2015 [facility] Point of 119 mg/dL High 74-106 [address] [place] [address] Glucose [phone] Pre Cath Panel 04/14/2015 [facility] Partial 34.2 N 26.0-36.[address] [place] [address] Time PTT [phone] CBC Auto Diff 04/14/2015 [facility] White Blood 7.7 10^3/uL N 3.5-10.[address] [place] [address] [phone] Red Blood Count 4.42 10^6/uL N 4.0-5.4 [...] Blood Cells % 0.1 N Inr/Protime 04/14/2015 [facility] Inr 1.33 High 0.89-1.[address] [place] [address] [phone] Laboratory test 04/14/2015 [facility] C Reactive 5.56 High < 5.00 [address] Protein mg/[place] [address] [phone] Basic Metabolic 04/14/2015 [facility] Sodium 140 N 133-[address] mmol/[place] [address] [phone] Potassium 4.0 mmol/L N 3.5-5.0 Chloride 104 mmol/L N 101-111 Co2 Carbon Dioxide 28 mmol/L N 22-32 Anion Gap 8 mmol/L N 2-11 Glucose 71 mg/dL N 70-100 Blood Urea Nitrogen 25 mg/dL High 6-24 Creatinine 0.96 mg/dL N 0.67-1.17 BUN/Creatinine Ratio 26.0 High 8-20 Calcium 9.2 mg/dL N 8.6-10.3 Egfr Non- 77.7 N >60 Egfr 99.9 N >60 19 Basic Metabolic Panel 02/17/2015 [facility] Sodium 136 mmol/L N 133-[address] [place] [address] [phone] Potassium 4.1 mmol/L N 3.5-5.0 Chloride 100 [...] N >60 21 Basic Metabolic Panel 01/21/2015 [facility] Sodium 139 mmol/L N 133-[address] [place] [address] [phone] Potassium 3.5 mmol/L N 3.5-5.0 Chloride 100 mmol/L Low 101-111 Co2 Carbon Dioxide 29 mmol/L N 22-32 Anion Gap 10 mmol/L N 2-11 Glucose 142 mg/dL High 70-100 Blood Urea Nitrogen 15 mg/dL N 6-24 Creatinine 0.95 mg/dL N 0.67-1.17 BUN/Creatinine Ratio 15.8 N 8-20 Calcium 8.9 mg/dL N 8.6-10.3 Egfr Non- 78.6 N >60 Egfr 101.1 N >60 22 Laboratory 01/21/2015 [facility] Magnesium 1.4 mg/dL Low 1.9- 2.7 test finding [address] [place] [address] [phone] Pre Cath Panel 12/17/2014 [facility] Partial 35.2 N 26.0-36.3 23, [address] Thrombo Time seconds [address] [place] [address] PTT [phone] CBC Auto Diff 12/17/2014 [facility] White Blood 7.3 N 4.8- 10.[address] Count 10^3/[place] [address] [phone] Red Blood Count 4.41 10^6/uL N 4.0-5.4 [...] Red Blood Cells % 0.1 N Inr/Protime 12/17/2014 [facility] Inr 1.01 N 0.78-1.07 [address] [place] [address] [phone] Basic Metabolic 12/17/2014 [facility] Sodium 136 mmol/L N 133- 145 Panel [address] [place] [address] [phone] Potassium 3.5 mmol/L N 3.5-5.0 Chloride 100 mmol/L Low 101-111 Co2 Carbon Dioxide 28 mmol/L N 22-32 Anion Gap 8 mmol/L N 2-11 Glucose 142 mg/dL High 70-100 Blood Urea Nitrogen 14 mg/dL N 6-24 Creatinine 0.83 mg/dL N 0.67-1.17 BUN/Creatinine Ratio 16.9 N 8-20 Calcium 9.5 mg/dL N 8.6-10.3 Egfr Non- 91.9 N >60 Egfr 118.1 N >60 25 CBC Auto Diff 10/21/2014 [facility] White Blood 5.9 10^3/uL N 4.8-10.[address] [place] [address] [phone] Red Blood Count 3.79 10^6/uL Low 4.0-5.4 [...] % 0.1 N Basic Metabolic Panel 10/21/2014 [facility] Sodium 135 mmol/L N 133-[address] [place] [address] [phone] Potassium 4.0 mmol/L N 3.5-5.0 Chloride 101 mmol/L N 101-111 Co2 Carbon Dioxide 25 mmol/L N 22-32 Anion Gap 9 mmol/L N 2-11 Glucose 165 mg/dL High 70-100 Blood Urea Nitrogen 13 mg/dL N 6-24 Creatinine 0.67 mg/dL N 0.67-1.17 BUN/Creatinine Ratio 19.4 N 8-20 Calcium 9.0 mg/dL N 8.6-10.3 Egfr Non- 117.6 N >60 Egfr 151.3 N >60 26 Laboratory test 10/21/2014 [facility] C Reactive 2.64 mg/L N < 5.00 [address] [place] [address] [phone] CBC Auto Diff 10/13/2014 [facility] White Blood 7.7 N 4.8- 10.[address] Count 10^3/[place] [address] [phone] Red Blood Count 3.73 10^6/uL Low 4.0-5.4 [...] % 0.3 N Basic Metabolic Panel 10/13/2014 [facility] Sodium 136 mmol/L N 133-[address] [place] [address] [phone] Potassium 4.3 mmol/L N 3.5-5.0 Chloride 102 mmol/L N 101-111 Co2 Carbon Dioxide 27 mmol/L N 22-32 Anion Gap 7 mmol/L N 2-11 Glucose 97 mg/dL N 70-100 Blood Urea Nitrogen 14 mg/dL N 6-24 Creatinine 0.69 mg/dL N 0.67-1.17 BUN/Creatinine Ratio 20.3 High 8-20 Calcium 8.9 mg/dL N 8.6-10.3 Egfr Non- 113.7 N >60 Egfr 146.2 N >60 28 Laboratory test 10/13/2014 [facility] C Reactive 3.12 mg/L N < 5.00 [address] [place] [address] [phone] CBC Auto Diff 10/06/2014 [facility] White Blood 7.0 N 4.8- 10.[address] Count 10^3/[place] [address] [phone] Red Blood Count 3.58 10^6/uL Low 4.0-5.4 [...] Blood Cells % 0.1 N Laboratory test 10/06/2014 [facility] Erythrocyte Sed 36 mm/Hr N 0-[address] [place] [address] [phone] Basic Metabolic 10/06/2014 [facility] Sodium 136 mmol/L N 133- [address] [place] [address] [phone] Potassium 3.8 mmol/L N 3.5-5.0 Chloride 100 mmol/L Low 101-111 Co2 Carbon Dioxide 28 mmol/L N 22-32 Anion Gap 8 mmol/L N 2-11 Glucose 146 mg/dL High 70-100 Blood Urea Nitrogen 12 mg/dL N 6-24 Creatinine 0.79 mg/dL N 0.67-1.17 BUN/Creatinine Ratio 15.2 N 8-20 Calcium 8.8 mg/dL N 8.6-10.3 Egfr Non- 97.2 N >60 Egfr 125.1 N >60 30 Laboratory test 10/06/2014 [facility] C Reactive 14.29 mg/L High < 5.00 31 finding [address] [employer] [place] [address] [phone] Basic Metabolic 09/27/2014 [facility] Sodium 134 mmol/L N 133- [address] [place] [address] [phone] Potassium 3.8 mmol/L N 3.5-5.0 Chloride 99 mmol/L Low 101-111 Co2 Carbon Dioxide 28 mmol/L N 22-32 Anion Gap 7 mmol/L N 2-11 Glucose 134 mg/dL High 70-100 Blood Urea Nitrogen 16 mg/dL N 6-24 Creatinine 0.67 mg/dL N 0.67-1.17 BUN/Creatinine Ratio 23.9 High 8-20 Calcium 8.7 mg/dL N 8.6-10.3 Egfr Non- 117.6 N >60 Egfr 151.3 N >60 32 Laboratory test 09/27/2014 [facility] C Reactive 9.08 mg/L High < 5.00 33 finding [address] [place] [address] [phone] CBC Auto Diff 09/27/2014 [facility] White Blood 6.1 N 4.8- 10.[address] Count 10^3/[place] [address] [phone] Red Blood Count 3.64 10^6/uL Low 4.0-5.4 [...] Cells % 0 N Laboratory test 09/27/2014 [facility] Erythrocyte Sed 60 mm/Hr High 0-[address] [place] [address] [phone] CBC Auto Diff 09/20/2014 [facility] White Blood 7.8 N 4.8- 10.[address] Count 10^3/[place] [address] [phone] Red Blood Count 3.87 10^6/uL Low 4.0-5.4 [...] Blood Cells % 0.1 N Laboratory test 09/20/2014 [facility] Erythrocyte Sed 65 mm/Hr High 0-[address] [place] [address] [phone] Basic Metabolic 09/20/2014 [facility] Sodium 134 N 133-[address] mmol/[place] [address] [phone] Potassium 4.2 mmol/L N 3.5-5.0 Chloride 101 mmol/L N 101-111 Co2 Carbon Dioxide 26 mmol/L N 22-32 Anion Gap 7 mmol/L N 2-11 Glucose 162 mg/dL High 70-100 Blood Urea Nitrogen 13 mg/dL N 6-24 Creatinine 0.75 mg/dL N 0.67-1.17 BUN/Creatinine Ratio 17.3 N 8-20 Calcium 9.2 mg/dL N 8.6-10.3 Egfr Non- 103.3 N >60 Egfr 132.8 N >60 34 Laboratory test 09/20/2014 [facility] C Reactive 8.73 mg/L High < 5.00 [address] [place] [address] [phone] Laboratory test 11/27/2013 [facility] C Reactive 1.91 mg/L N < 5.00 [address] [place] [address] [phone] CBC Auto Diff 11/27/2013 [facility] White Blood 5.2 N 4.8- 10.[address] Count 10^3/[place] [address] [phone] Red Blood Count 4.62 10^6/uL N 4.0-5.4 [...] Nucleated Red Blood Cells % 0.1 N 1 ORDER DATE 04/06/17 EXPIRES 10/04/17 INR [...] Serum levels of PSA measured using the Nova[employer]om DXI Hybritech immunoassay should not be interpreted [...] in selective patients <6.0%. Please refer to [place] [employer] diabetic care guidelines for further [...] 5 Kidney failure <15 (or dialysis) 16 Document Preparation Specialist: [id number] [place] 17 soon 18 Acute inflammation: >10.00 19 Because ethnic data is not always [...] 5 Kidney failure <15 (or dialysis) 20 in 7-10 days 21 Because ethnic [...] failure <15 (or dialysis) 23 soon 24 soon 25 Because ethnic data is not always [...] 5 Kidney failure <15 (or dialysis) 26 Because ethnic data is not always [...] (or dialysis) 29 Acute inflammation: >10.00 30 Because ethnic data is not always readily [...] 15-29 5 Kidney failure <15 (or dialysis) 31 Acute inflammation: >10.00 32 Because ethnic data is not always readily [...] 15-29 5 Kidney failure <15 (or dialysis) 33 Acute inflammation: >10.00 34 Because ethnic data is not always readily [...] 15-29 5 Kidney failure <15 (or dialysis) 35 Acute inflammation: >10.00 36 Acute inflammation: >10.00 Procedures Date Code Description Status 05/24/2018 45036 Icd eval w/iterative adjment single lead Icd Completed 05/24/2018 58367 EKG Tracing & Interpretation Completed 03/31/2018 22808 EKG, Interpretation Only Completed 11/22/2017 26521 Interrogation Implant Cardiovasc Monitor System Incl Completed Analysis Int 11/22/2017 73316 Interrogation Implant Cardiovasc Monitor System Incl Completed Analysis Int 11/22/2017 09448 Icd eval w/iterative adjment single lead Icd Completed 11/22/2017 18035 Icd eval w/iterative adjment single lead Icd Completed 08/29/2017 91521 EKG Tracing & Interpretation Completed 05/23/2017 62010 Icd eval w/iterative adjment single lead Icd Completed 05/23/2017 80775 Icd eval w/iterative adjment single lead Icd Completed 2017 17851 Endoscopy Upper GI Biopsy Completed 03/21/2017 84179 EKG Tracing & Interpretation Completed 03/09/2017 86860 Icd Eval W/Iterative Adjustmnt Single Lead Icd Completed 03/09/2017 48251 Icd Eval W/Iterative Adjustmnt Single Lead Icd Completed 03/09/2017 02166 Interrogation Implant Cardiovasc Monitor System Incl Completed Analysis Int 03/09/2017 02346 Interrogation Implant Cardiovasc Monitor System Incl Completed Analysis Int 11/22/2016 50226 Interrogation Implant Cardiovasc Monitor System Incl Completed Analysis Int 11/22/2016 80783 Icd Eval W/Iterative Adjustmnt Single Lead Icd Completed 07/05/2016 61592 Interrogation Implant Cardiovasc Monitor System Incl Completed Analysis Int 07/05/2016 62901 Icd eval w/iterative adjment single lead Icd Completed 01/11/2016 16050 EKG Tracing & Interpretation Completed 11/30/2015 06624 EKG, Interpretation Only Completed 11/22/2015 67183 EKG, Interpretation Only Completed 11/21/2015 98578 EKG, Interpretation Only Completed 11/20/2015 63936 EKG, Interpretation Only Completed 11/18/2015 46015 ECHO Transthorasic Realtime 2D W Doppler & Color Flow Hosp Completed 11/17/2015 76599 Interrogation Device Eval In Person W/DR Completed Analysis,Single,Dual,Mul 11/17/2015 62045 EKG, Interpretation Only Completed 11/16/2015 45293 EKG, Interpretation Only Completed 10/14/2015 63772 ECHO Transthorasic Realtime 2D W Doppler & Color Flow Hosp Completed 10/12/2015 80204 EKG, Interpretation Only Completed 10/07/2015 07529 Icd eval w/iterative adjment single lead Icd Completed 09/17/2015 39853 EKG Tracing & Interpretation Completed 05/19/2015 99371 Icd eval w/iterative adjment single lead Icd Completed 04/19/2015 83015 Ep Eval Icd AT Implant Completed 04/19/2015 59644 Insert/Replace Icd W/Generator Completed 04/09/2015 87367 EKG Tracing & Interpretation Completed 03/25/2015 21633 ECHO Transthoracic, Real-Time 2D With Doppler And Color Completed Flow 01/25/2015 41577 ECHO Transthoracic, Real-Time 2D With Doppler And Color Completed Flow 01/20/2015 81479 EKG Tracing & Interpretation Completed 12/21/2014 99894 Left Heart Cath. Incl S/I Coronaries, Angio S/I V Gram If Completed Done 12/21/2014 18239 EKG, Interpretation Only Completed 12/17/2014 96549 EKG Tracing & Interpretation Completed 11/09/2014 71776 ECHO Transthoracic, Real-Time 2D With Doppler And Color Completed Flow 07/13/2014 95584 Treadmill Interp/Report Only Completed 07/13/2014 27394 Stress Test Supervsn W/Out I/R Completed 07/10/2014 76204 ECHO Transthorasic Realtime 2D W Doppler & Color Flow Hosp Completed 07/10/2014 04744 EKG, Interpretation Only Completed 11/10/2013 53175 Amputation Toe MP JT Completed 11/10/2013 71263 Amputation Toe MP JT Completed Encounters Type Date Location Provider Dx Diagnosis Office Visit 03/31/2018 [facility] Rebecca Hernandez, J18.9 Pneumonia, 1:51p Assoc,pc DO unspecified Hospitalists organism Office Visit 03/30/2018 [facility] Collette J18.9 Pneumonia, 1:51p Assoc,pc MELINDA Marcus unspecified Hospitalists organism I50.23 Acute on chronic systolic (congestive) heart failure 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 fibrillation N18.3 Chronic kidney disease, stage 3 (moderate) I50.22 Chronic systolic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
--- OUTSIDE RECORDS SUMMARY | 2018-05-31 11:24 | XMS REPORT | Continuity of Care Document ---
:[address] [facility] Care Team Providers Name Role Phone PORTIA OCONNELL Admitting Physician PORTIA OCONNELL Attending Physician Allergies and Intolerances Code Code Allergy Type Reaction Severity Start End Status System Substance Date Date 20231025 RXNorm Motrin Drug ANAPHYLAXIS Unknown Active allergy 3 (disorder) Medications RxNorm Medication Dose Route Instructions Start End Status Date Date 819398 24 HR venlafaxine 75 75 mg oral orally every day Active MG Extended Release Oral Capsule 777485 Amlodipine 10 MG Oral 10 mg oral orally every day Active Tablet 1191 Aspirin 81 mg oral orally every day Active 293095 atorvastatin 10 MG 10 mg oral orally every Active Oral Tablet other day 7508021 canagliflozin 300 MG 300 mg oral orally every Active Oral Tablet morning ( administer before first meal of the day) 4018 Ergocalciferol 30890 oral orally every Active unit week 119946 Hydrochlorothiazide 25 mg oral orally every day Active 25 MG Oral Tablet 694339 Insulin Glargine 100 69 unit subcutaneous subcutaneously Active UNT/ML Injectable every day at Solution bedtime Metformin Oral 1000 mg oral orally 2 times Active per day 542950 Metoprolol Tartrate 100 mg oral orally 2 times Active 100 MG Oral Tablet per day 322381 Nortriptyline 75 MG 75 mg oral orally every day Active Oral Capsule at bedtime 3446 Omeprazole 20 mg oral orally BID Active 359225 valsartan 320 MG Oral 320 mg oral orally every day Active Tablet Problems Code Code System Problem Name Start Date End Date Status 62681050 SNOMED-CT Hypertensive disorder U Active 12398047 SNOMED-CT Diabetes mellitus U Active 301954137 SNOMED-CT Gastroesophageal reflux disease U Active 545595941 SNOMED-CT Anemia U Active 20263565 SNOMED-CT Depressive disorder U Active 243317016 SNOMED-CT Backache U Active 47198864 SNOMED-CT Posttraumatic stress disorder U Active Procedures Code Code System Procedure Date 81959622 SNOMED CT Cholecystectomy U BACK [DISC] U Results Laboratory Results Order: PT/INR Specimen Source: Body Site: Legend: (G,H)=High, (GG,HH,CH,#H)=Above High Threshold, (#,L)=Low, (##,CL,#L,LL) =Below Low Threshold, (C,CC,CA,#A,A)=Abnormal LOINC Test Result Flag Range Units Date 5902-2 1PT Time PPP 62.6 H 9.4-12.4 sec 05/22/2018 07:54 6301-6 1INR PPP 5.3 CH 05/22/2018 07:54 Interpretive Dorinda: 1 INR INTERPERTATION 2.0-3.0 THERAPEUTIC MONITORING 2.5-3.5 HEART VALVE REPLACEMENT Performing Lab Footnotes:[facility] - [id number] - [address] [place] [address] HARRY Jay [id number] Social History Code Code System Social History Description Dates Observed Observation 905903648 SNOMED CT Current Smoking Unknown if ever Status smoked UNK AdministrativeGender Sex Assigned At Unknown Vital Signs No data in the system Goals Section No data in the system Health Concerns No data in the systemEncounter Diagnosis Date Code Code System Diagnosis Status I48.0 ICD10 PAROXYSMAL ATRIAL FIBRILLATION Active Advance Directives *RHIO - CONSENT IS YES Directive Type Effective Date Party Host/Hostess Notes Supporting Document Name Address Phone No Directive Type 04/18/2011 1:52:59 Not Specified Not Specified Not Specified None No specified PM Family History Relationship: Father () Health Problem Age At Onset Notes Adult-onset diabetes (Diabetes mellitus type 2) Functional Status No data in the system Immunizations Vaccine Code Code System Vaccine Name Date Status UTD Completed Medical Equipment No data in the system Mental Status No data in the system Assessment and Plan Assessments No data in the systemPlan Of Treatment No data in the systemPending Tests No data in the system Hospital Discharge Instructions No data in the system Reason for Visit No data in the system
[2018-05-31 11:45] LABS: Hematocrit 33 % (36-46); Mean Corpuscular HGB Conc 34 g/dL (31-36); Mean Corpuscular Hemoglobin 30 pg (27-31); Mean Corpuscular Volume 90 fL (80-94); Mean Platelet Volume 7.6 fL (7.4-10.4); Platelet Count 154 10^3/uL (150-450); Red Blood Count 3.65 10^6 /uL (4.18-5.48); Red Cell Distribution Width 16 % (10.5-15); White Blood Count 4.9 10^3/uL (3.5-10.8)
[2018-05-31 11:52] LABS: INR 2.66 (0.77-1.02)
[2018-05-31 12:13] LABS: Albumin 3.7 g/dL (3.2-5.2); Albumin/Globulin Ratio 1.3 (1-3); BUN/Creatinine Ratio 15.5 (8-20); CRP High Sensitivity 15.46 mg/L (<2.00); Calcium 8.9 mg/dL (8.6-10.3); EGFR African American 46.8 (>60); EGFR Non-African American 38.7 (>60); Globulin 2.8 g/dL (2-4); Potassium 3.8 mmol/L (3.5-5.0); Total Bilirubin 0.5 mg/dL (0.2-1.0); Total Protein 6.5 g/dL (6.4-8.9)
[2018-05-31 12:14] LABS: Troponin I 0.02 ng/mL (<0.04)
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
[2018-05-31] MEDS ORDERED: Dextrose 50% Syringe 50 ML* 25 GM/50 ML SYRINGE IV PUSH PRN (14:47)
[2018-05-31] MEDS ORDERED: Acetaminophen TAB* 325 MG PO PRN (14:50)
[2018-05-31] MEDS: traMADol TAB* 50 MG PO SCH ×2 (15:11→22:29)
[2018-05-31 15:30] LABS: Erythrocyte Sed Rate 42 mm/Hr (0-20)
[2018-05-31] MEDS: Insulin LISPRO* 1 UNITS UNIT SUBCUT SCH ×2 (16:24→22:29)
[2018-05-31] MEDS: Potassium Chlor TAB* 10 MEQ TAB.ER PO SCH (16:25)
[2018-05-31] MEDS: Warfarin TAB(*) 5 MG PO SCH (16:26)
--- NOTE | 2018-05-31 17:19 | HP ---
CC: Dr. Gonzalez HISTORY AND PHYSICAL: ADDENDUM: DATE OF ADMISSION: 05/31/18 PRIMARY CARE PROVIDER: Dr. Gonzalez This case was reviewed and discussed with Jeannine Malhotra, physician accounting manager assistant controller. Mr. Mckinley was seen and examined at bedside. He is a 73-year-old male with a past medical history of systolic CHF with ejection fraction less than 20%, CAD, GERD, depression, history of DVT and PE, AFib, type 2 diabetes, hypertension, status post ICD, status post IVC placement , status post biological aortic valve replacement, who presents to the emergency room with left leg pain, edema, and erythema. The patient was seen in the emergency room a couple of days ago and at that time , he had a lower extremity Doppler that was negative for DVT. He was prescribed doxycycline, but unfortunately continued to have progression of edema , erythema, and tenderness; reason why he came to the emergency room for further evaluation. His left lower extremity has significant edema with erythema, extending from below knee, all the way to his ankle, but no area of fluctuation or any open areas. He has a small scab on the pretibial area, but no purulence or any drainage at this time. It was described to me that when he arrived to the emergency room, he had some weeping from his leg, but this was cleaned up and has not happened again. Labs, EKG, and x-ray were revived. The patient will be admitted to the medical floor and we are going to start therapy with cefazolin. He is going to have a lower extremity ultrasound to rule out an abscess. His other comorbidities appeared to be stable at this time and we will continue current management. [id number]/CPS #: [id number] [facility]
[2018-05-31] MEDS: oxyCODONE TAB* 5 MG TAB PO PRN (18:27)
--- NOTE | 2018-05-31 19:04 | HP ---
ATTENDING ADDENDUM NOW INCLUDED ON THIS REPORT CC: Dr. Lee Gonzalez * HISTORY AND PHYSICAL: DATE OF ADMISSION: 05/31/18 PROVIDER: OLIVER Leahy ATTENDING PHYSICIAN: Dr. Surjit Zhang * (dictated by OLIVER Leahy). PRIMARY CARE PHYSICIAN: Dr. Lee Gonzalez. CHIEF COMPLAINT: Left leg swelling and redness. HISTORY OF PRESENT ILLNESS: Mohit Mckinley is a 73-year-old male with significant past medical history of coronary artery disease, status post CABG; atrial fibrillation; systolic CHF (ejection fraction of less than 20%); type 2 diabetes mellitus; and hypertension, who presents to the emergency department complaining of increased swelling and redness to left lower extremity and pain. The patient was in the emergency room on 05/22/18 with a complaint of left leg swelling and warmth. At that time, DVT was ruled out with venous Doppler. At that time, the patient had an INR of 5.0 and was instructed to hold his Coumadin. He was also instructed to increase his dose of torsemide. The patient followed up with his primary care physician on 05/27/18 or 05/28/18 per patient. At this time, his primary care provider diagnosed him with cellulitis and prescribed doxycycline b.i.d., which the patient has been taking since this visit. Today, the redness and swelling is worst and the patient has had pain in the left lower extremity, which was not as significant prior. The patient has not noticed any purulent drainage. Denies fevers or chills, chest pain, shortness of breath, prior injury, and scrotal edema. The swelling and pain of his left lower extremity has not impeded his ability to ambulate. He ambulates with a cane at baseline. The hospitalist team was asked to evaluate the patient for admission. The patient notes that at baseline, his lower extremities are discolored. PAST MEDICAL HISTORY: 1. Systolic congestive heart failure (ejection fraction less than 20%). 2. Coronary artery disease, status post CABG. 3. Atrial fibrillation, on Coumadin. 4. Hypertension. 5. History of DVT and PE, status post IVC filter placement. 6. Hyperlipidemia. 7. Valvular disease, status post biologic aortic valve replacement. 8. GERD. 9. Hypothyroidism. 10. Diabetes mellitus type 2. 11. Depression. 12. Chronic kidney disease type 3. 13. Peripheral vascular disease. PAST SURGICAL HISTORY: 1. Cholecystectomy. 2. IVC filter. 3. CABG with aortic valve replacement. 4. ICD insertion. 5. ORIF pelvic fracture. 6. ORIF ulna/radius. 7. Amputation of right first toe. HOME MEDICATIONS: 1. Exenatide 2 mg subcu weekly. 2. Nortriptyline 50 mg at bedtime. 3. Torsemide 60 mg p.o. daily. 4. Warfarin 2.5 mg daily. 5. Glargine 60 units subcu every morning and 50 units subcu every night. 6. Hydralazine 35 mg p.o. t.i.d. 7. Tramadol 50 mg p.o. q.8. 8. Potassium chloride 10 mEq p.o. b.i.d. with meals. 9. Omeprazole 40 mg p.o. daily. 10. Levothyroxine 25 mcg p.o. daily. 11. Insulin aspart 0 to 80 units subcu daily with sliding scale. 12. Gabapentin 300 mg p.o. t.i.d. 13. Doxycycline 100 mg p.o. q.12 hours. ALLERGIES: 1. DILTIAZEM (lip swelling). 2. ERTAPENEM (rash). 3. (unknown reaction). 4. LISINOPRIL (cough). 5. LOVASTATIN (unknown reaction). 6. ROSUVASTATIN (unknown reaction). 7. SIMVASTATIN (unknown reaction). FAMILY HISTORY: Father at age 91 of an accident. Father had history of type 2 diabetes mellitus. Mother at age 86 due to condition of her heart, which is unknown to the patient. Mother had history of hypertension. SOCIAL HISTORY: The patient denies use of tobacco products, alcohol, illicit drug use. The patient lives alone in [place]. He reports his daughter manages his medications. The patient is a former smoker. He has a smoking history of 1.5 packs per day for 30 years. He has a history of alcohol use disorder, but reports he has not had alcohol for 32 years. 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 He is and has 5 children. REVIEW OF SYSTEMS: A complete 11-system review of systems was completed and any of the pertinent positive and negative as already listed above, all others are negative. PHYSICAL EXAMINATION GENERAL: Obese male, lies comfortably in hospital stretcher, appeared in no acute distress. HEAD: Normocephalic and atraumatic. EYES: PERRL and sclerae anicteric. ENT: Mucous membranes moist. NECK: Supple and no JVD. CARDIO: Regular rate and rhythm without murmurs, rubs, or gallops. RESPIRATORY: Lungs are clear to auscultation without adventitious lung sounds. ABDOMEN: Soft, nondistended, nontender. Bowel sounds normoactive x4 quadrants. EXTREMITIES: Brown pigmentation to bilateral lower extremities in the pretibial areas. Left lower extremity with +2 pitting edema pretibially up to the knee. Erythema throughout lower extremity in pretibial region. Left lower extremity is warm. GENITOURINARY: No scrotal edema. NEURO: The patient is alert and oriented x3. 5/5 strength in all extremities. SKIN: No rashes or ecchymosis present. DIAGNOSTIC STUDIES/LAB DATA: EKG on 05/31/18 at 1432. Sinus rhythm at 72 beats per minute. CA interval 213. No evidence of ischemia. No significant change compared to 04/16/18. White blood cell count 4.9, red blood cell count 3.65, hemoglobin 11, hematocrit 33, MCH 30, platelet count 154. Sodium 136, potassium 3.8, chloride 101, carbon dioxide 27, BUN 227, creatinine 1.74, glucose 228, calcium 8.9. BNP 2.5. Sed rate 42. INR 2.66. ASSESSMENT/PLAN: Mohit Mckinley is a 73-year-old male with past medical history of coronary artery disease, status post coronary artery bypass graft; atrial fibrillation; systolic congestive heart failure (ejection fraction of less than 20%); type 2 diabetes mellitus; and hypertension, who presents to the emergency department complaining of increased swelling and redness to left lower extremity and pain 1. Cellulitis. Due to the patient's symptomatology and past medical history, the patient will be admitted for IV antibiotics. It is unlikely that his lower extremity edema is due to acute exacerbation of congestive heart failure as edema is limited to the left extremity. Because the patient failed outpatient treatment with doxycycline, transition to IV cefazolin is warranted. Because of the patient's history of type 2 diabetes mellitus, Infectious Disease will be consulted. Soft tissue ultrasound of the left lower extremity with the ultrasounds to rule out abscess. Given the patient's past medical history of deep venous thrombosis and pulmonary embolism, venous Doppler is ordered to rule out deep venous thrombosis. It is unlikely that the patient has deep venous thrombosis at this time as Doppler was negative on 05/22/18 and the patient has INR of 2.66, but given his history, it must be ruled out. 2. Diabetes mellitus type 2. A1c ordered. During last admission, the patient' s A1c was 8.7. We will discontinue his home medicine exenatide. His home medicine dose of glargine will be adjusted to 40 units subcu q.12 and his home insulin sliding scale will be maintained but with lispro as NovoLog is nonformulary. His diet will be consistent carb diet. 3. Systolic congestive heart failure with ejection fraction of less than 20%. Continue home dose of torsemide. We will add losartan as the patient has prior reaction to lisinopril. It is recommended that the patient's reduced ejection fraction be maintained with an AYSHA or ARB. 4. Coronary artery disease, status post coronary artery bypass graft. Continue initiating atorvastatin. The patient has multiple statins listed as allergy, but he is unsure what the allergy is. It is likely that myalgias are the allergy. Continue to monitor for any true allergy. 5. Atrial fibrillation. EKG demonstrated in sinus rhythm. Continue warfarin. The patient does not have rate-control medicine at home to consider adding metoprolol. 6. Valve disease, status post biological valve replacement. Continue warfarin. 7. Hypertension. Continue home hydralazine. Added losartan as previously discussed. Continue to monitor blood pressure in the setting of new antihypertensive medicine. 8. Chronic kidney disease type 3. Continue potassium chloride and monitor kidney function. 9. Depression. Continue nortriptyline. 10. Hypothyroidism: Continue home Synthroid. DVT risk: The patient has a DVT risk of 7. SCDs are contraindicated due to lower extremity cellulitis. He is anticoagulated on warfarin. The patient's INR today is 2.66. We will check INR again tomorrow. Code status: The patient is full code. TIME SPENT: Approximately 60 minutes were spent on this admission. OLIVER LEAHY ADDENDUM: DATE OF ADMISSION: 05/31/18 PRIMARY CARE PROVIDER: Dr. Gonzalez This case was reviewed and discussed with Jeannine Malhotra, physician child care assistant. Mr. Mckinley was seen and examined at bedside. He is a 73-year-old male with a past medical history of systolic CHF with ejection fraction less than 20%, CAD, GERD, depression, history of DVT and PE, AFib, type 2 diabetes, hypertension, status post ICD, status post IVC placement , status post biological aortic valve replacement, who presents to the emergency room with left leg pain, edema, and erythema. The patient was seen in the emergency room a couple of days ago and at that time , he had a lower extremity Doppler that was negative for DVT. He was prescribed doxycycline, but unfortunately continued to have progression of edema , erythema, and tenderness; reason why he came to the emergency room for further evaluation. His left lower extremity has significant edema with erythema, extending from below knee, all the way to his ankle, but no area of fluctuation or any open areas. He has a small scab on the pretibial area, but no purulence or any drainage at this time. It was described to me that when he arrived to the emergency room, he had some weeping from his leg, but this was cleaned up and has not happened again. Labs, EKG, and x-ray were revived. The patient will be admitted to the medical floor and we are going to start therapy with cefazolin. He is going to have a lower extremity ultrasound to rule out an abscess. His other comorbidities appeared to be stable at this time and we will continue current management. SURJIT Zhang MD [id number]/CPS #: [id number]/CPS #: [id number] [place]
[2018-05-31] MEDS ORDERED: Atorvastatin* 80 MG TAB PO ONE (21:00)
[2018-05-31] MEDS: ceFAZolin 1 GM in Dextrose (*) 1 GM/50 ML BAG IVPB SCH (22:21)
[2018-05-31] MEDS: Nortriptyline CAP* 25 MG PO SCH (22:28)
[2018-05-31] MEDS: Gabapentin CAP(*) 300 MG PO SCH (22:29)
[2018-05-31] MEDS: hydrALAZINE TAB* 25 MG PO SCH (22:29)
[2018-05-31] MEDS: Insulin GLARGINE(*) 1 UNITS UNIT SUBCUT SCH (22:31)
[2018-06-01] MEDS: Levothyroxine TAB* 25 MCG TAB PO SCH (05:06)
[2018-06-01] MEDS: traMADol TAB* 50 MG PO SCH ×3 (05:06→20:16)
[2018-06-01] MEDS: ceFAZolin 1 GM in Dextrose (*) 1 GM/50 ML BAG IVPB SCH ×3 (05:06→20:17)
[2018-06-01 06:23] LABS: ABS Basophils 0 10^3/ul (0-0.2); ABS Eosinophils 0.1 10^3/ul (0-0.6); ABS Lymphocytes 0.9 10^3/ul (1.0-4.8); ABS Monocytes 0.6 10^3/ul (0-0.8); ABS Neutrophils 3.2 10^3/ul (1.5-7.7); ABS Nucleated RBC 0 10^3/ul; Eosinophil % 2.8 %; Hematocrit 33 % (36-46); Hemoglobin 11.1 g/dL (14.0-18.0); Lymphocyte % 18.4 %; Mean Corpuscular HGB Conc 33 g/dL (31-36); Mean Corpuscular Hemoglobin 30 pg (27-31); Mean Corpuscular Volume 90 fL (80-94); Mean Platelet Volume 7.7 fL (7.4-10.4); Nucleated Red Blood Cells % 0.2; Platelet Count 155 10^3/uL (150-450); Red Blood Count 3.71 10^6 /uL (4.18-5.48); Red Cell Distribution Width 17 % (10.5-15); White Blood Count 4.9 10^3/uL (3.5-10.8)
[2018-06-01 06:29] LABS: INR 2.64 (0.77-1.02)
[2018-06-01 06:42] LABS: BUN/Creatinine Ratio 15.6 (8-20); C Reactive Protein 13.75 mg/L (<8.01); Calcium 8.7 mg/dL (8.6-10.3); EGFR African American 51.5 (>60); EGFR Non-African American 42.6 (>60); Potassium 3.7 mmol/L (3.5-5.0)
--- NOTE | 2018-06-01 07:42 | PN ---
Subjective Date of Service: 06/01/18 Interval History: Patient reports his LLE looked much better this morning now it has increased with swelling but states he thinks this is due to dangling his leg off the bed. Reports the redness may be improved along with the pain. No fever/chills. No N/D /V. Objective Active Medications: Acetaminophen (Tylenol Tab*) 650 mg PO Q6H PRN PRN Reason: PAIN Dextrose (D50w Syringe 50 Ml*) 12.5 gm IV PUSH .FOR FS < 60 - SS PRN PRN Reason: FS < 60 Gabapentin (Neurontin Cap(*)) 300 mg PO BID [facility] Last Admin: 05/31/18 22:29 Dose: 300 mg Hydralazine HCl (Apresoline Tab*) 25 mg PO TID [facility] Last Admin: 05/31/18 22:29 Dose: 25 mg Cefazolin Sodium/Dextrose (Kefzol 1 Gm In Dextrose Duplex (*)) 1 gm in 50 mls @ 200 mls/hr IVPB Q8H [facility] Last Admin: 06/01/18 05:06 Dose: 200 mls/hr Insulin Glargine (Lantus(*)) 40 units SUBCUT Q12H [facility] Last Admin: 05/31/18 22:31 Dose: 40 units Insulin Human Lispro (Humalog*) 0 units SUBCUT ACHS [facility]; Protocol Last Admin: 05/31/18 22:29 Dose: 4 units Levothyroxine Sodium (Synthroid Tab*) 25 mcg PO DAILY@0600 [facility] Last Admin: 06/01/18 05:06 Dose: 25 mcg Losartan Potassium (Cozaar Tab*) 25 mg PO DAILY [facility] Nortriptyline HCl (Pamelor Cap*) 50 mg PO BEDTIME [facility] Last Admin: 05/31/18 22:28 Dose: 50 mg Oxycodone HCl (Roxycodone Tab*) 5 mg PO Q6H PRN PRN Reason: SEVERE PAIN Last Admin: 05/31/18 18:27 Dose: 5 mg Pantoprazole Sodium (Protonix Tab*) 40 mg PO DAILY [facility] Polyethylene Glycol/Electrolytes (Miralax*) 17 gm PO DAILY PRN PRN Reason: CONSTIPATION Potassium Chloride (Klor Con Er Tab*) 10 meq PO BID WITH MEALS [facility] Last Admin: 05/31/18 16:25 Dose: 10 meq Torsemide (Demadex*) 60 mg PO DAILY [facility] Tramadol HCl (Ultram*) 50 mg PO Q8HR [facility] Last Admin: 06/01/18 05:06 Dose: 50 mg Warfarin Sodium (Coumadin Tab(*)) 2.5 mg PO DAILY@1700 [facility]; Protocol Last Admin: 05/31/18 16:26 Dose: 2.5 mg Vital Signs - 8 hr 06/01/18 06/01/18 06/01/18 04:00 05:06 07:23 Temperature 97.9 F Pulse Rate 78 Respiratory 20 18 16 Rate Blood Pressure 143/64 (mmHg) O2 Sat by Pulse 94 Oximetry Oxygen Devices in Use Now: None Appearance: 73 yo male sitting up on the side of the bed in NAD, A+Ox3 Eyes: No Scleral Icterus, PERRLA Ears/Nose/Mouth/Throat: NL Teeth, Lips, Gums, Mucous Membranes Moist Neck: NL Appearance and Movements; NL JVP Respiratory: Symmetrical Chest Expansion and Respiratory Effort, Clear to Auscultation Cardiovascular: NL Sounds; No Murmurs; No JVD, RRR Abdominal: NL Sounds; No Tenderness; No Distention Extremities: - - LLE > right - erythema generalized on LE. no noted open areas. warm, dry Neurological: Alert and Oriented x 3, NL Sensation, NL Gait, NL Muscle Strength and Tone Lines/Tubes/Other Access: Clean, Dry and Intact Peripheral IV Nutrition: Taking PO's Result Diagrams: 06/01/18 06:04 06/01/18 06:04 Additional Lab and Data: Lab Results 05/31/18 05/31/18 05/31/18 Range/Units 11:26 11:26 11:26 WBC 4.9 (3.5-10.8) 10^3/uL RBC 3.65 L (4.18-5.48) 10^6 /uL Hgb 11.0 L (14.0-18.0) g/dL Hct 33 L (36-46) % MCV 90 (80-94) fL MCH 30 (27-31) pg MCHC 34 (31-36) g/dL RDW 16 H (10.5-15) % Plt Count 154 (150-450) 10^3/uL MPV 7.6 (7.4-10.4) fL ESR Pending INR (Anticoag Therapy) 2.66 H (0.77-1.02) Sodium 136 (135-145) mmol/L Potassium 3.8 (3.5-5.0) mmol/L Chloride 101 (101-111) mmol/L Carbon Dioxide 27 (22-32) mmol/L Anion Gap 8 (2-11) mmol/L BUN 27 H (6-24) mg/dL Creatinine 1.74 H (0.67-1.17) mg/dL Est GFR ( Amer) 46.8 (>60) Est GFR (Non-Af Amer) 38.7 (>60) BUN/Creatinine Ratio 15.5 (8-20) Glucose 228 H (70-100) mg/dL Calcium 8.9 (8.6-10.3) mg/dL Total Bilirubin 0.50 (0.2-1.0) mg/dL AST 29 (13-39) U/L ALT 32 (7-52) U/L Alkaline Phosphatase 170 H (34-104) U/L Total Creatine Kinase 91 (10-223) U/L Troponin I 0.02 (<0.04) ng/mL C-React Prot High Sens 15.46 H (<2.00) mg/L B-Natriuretic Peptide (<=100) pg/mL Total Protein 6.5 (6.4-8.9) g/dL Albumin 3.7 (3.2-5.2) g/dL Globulin 2.8 (2-4) g/dL Albumin/Globulin Ratio 1.3 (1-3) 05/31/18 Range/Units 11:28 WBC (3.5-10.8) 10^3/uL RBC (4.18-5.48) 10^6 /uL Hgb (14.0-18.0) g/dL Hct (36-46) % MCV (80-94) fL MCH (27-31) pg MCHC (31-36) g/dL RDW (10.5-15) % Plt Count (150-450) 10^3/uL MPV (7.4-10.4) fL ESR INR (Anticoag Therapy) (0.77-1.02) Sodium (135-145) mmol/L Potassium (3.5-5.0) mmol/L Chloride (101-111) mmol/L Carbon Dioxide (22-32) mmol/L Anion Gap (2-11) mmol/L BUN (6-24) mg/dL Creatinine (0.67-1.17) mg/dL Est GFR ( Amer) (>60) Est GFR (Non-Af Amer) (>60) BUN/Creatinine Ratio (8-20) Glucose (70-100) mg/dL Calcium (8.6-10.3) mg/dL Total Bilirubin (0.2-1.0) mg/dL AST (13-39) U/L ALT (7-52) U/L Alkaline Phosphatase (34-104) U/L Total Creatine Kinase (10-223) U/L Troponin I (<0.04) ng/mL C-React Prot High Sens (<2.00) mg/L B-Natriuretic Peptide 295 H (<=100) pg/mL Total Protein (6.4-8.9) g/dL Albumin (3.2-5.2) g/dL Globulin (2-4) g/dL Albumin/Globulin Ratio (1-3) Assess/Plan/Problems-Billing Assessment: Mr. Mckinley is a 73 yo male with a PMH of CAD s/p CABG, afib on coumadin, systolic HF EF < 20%, DM II, HTN who presented to the ER on 05/31 with c/o increased left LE swelling, redness and pain. He was seen initially on 05/22 in the ED for similar complaints (increased swelling/warmth), DVT was ruled out , his torsemide was increased and patient then followed up with PCP on 05/27 & and was dx with cellulitis and started on Doxy - Patient Problems (1) Cellulitis Comment: - continue Cefazolin - Blood cx NTD - soft tissue US and Doppler negative - pain management - Encourage elevation of LE's (2) CAD (coronary artery disease) Comment: - s/p CABG - Continue atorvastatin, coumadin (3) HTN (hypertension) Comment: - Continue closartan, hydralazine, torsemide (4) CKD (chronic kidney disease) Comment: - stable - at baseline - renally dose medications (5) Hypothyroid Comment: add on TSH levothyroxine 25 mcg daily (6) Diabetes Comment: -Restart home insulin lantus 60 qam, 50 qpm with lispro SSI coverage. - FSBG ACHS (7) Hx of deep venous thrombosis Comment: - s/p IVC filter - Continue warfarin. (8) DVT prophylaxis Comment: - Warfarin with therapeutic INR (9) Full code status Comment: Status and Disposition: inpatient with cellulitis on IV abx failed oral antibiotics
[2018-06-01] MEDS: Insulin LISPRO* 1 UNITS UNIT SUBCUT SCH ×4 (08:51→20:09)
[2018-06-01] MEDS: Insulin GLARGINE(*) 1 UNITS UNIT SUBCUT SCH ×2 (08:51→20:09)
[2018-06-01] MEDS: Pantoprazole TAB * 40 MG TAB PO SCH (08:52)
[2018-06-01] MEDS: Torsemide TAB* 20 MG PO SCH (08:52)
[2018-06-01] MEDS: Losartan TAB* 25 MG PO SCH (08:52)
[2018-06-01] MEDS: Gabapentin CAP(*) 300 MG PO SCH ×2 (08:52→20:43)
[2018-06-01] MEDS: Potassium Chlor TAB* 10 MEQ TAB.ER PO SCH ×2 (08:53→16:45)
[2018-06-01] MEDS: hydrALAZINE TAB* 25 MG PO SCH ×3 (08:53→20:08)
[2018-06-01] MEDS: oxyCODONE TAB* 5 MG TAB PO PRN ×2 (11:45→20:07)
[2018-06-01 12:54] LABS: TSH (Thyroid Stimulating Horm) 4.04 mcIU/mL (0.34-5.60)
[2018-06-01] MEDS: Warfarin TAB(*) 5 MG PO SCH (16:45)
[2018-06-01] MEDS: Nortriptyline CAP* 25 MG PO SCH (20:08)
[2018-06-02] MEDS: oxyCODONE TAB* 5 MG TAB PO PRN ×2 (03:17→17:33)
[2018-06-02] MEDS: traMADol TAB* 50 MG PO SCH ×3 (05:08→21:04)
[2018-06-02] MEDS: Levothyroxine TAB* 25 MCG TAB PO SCH (05:08)
[2018-06-02] MEDS: ceFAZolin 1 GM in Dextrose (*) 1 GM/50 ML BAG IVPB SCH ×3 (05:08→21:03)
[2018-06-02 06:10] LABS: ABS Basophils 0.1 10^3/ul (0-0.2); ABS Eosinophils 0.1 10^3/ul (0-0.6); ABS Lymphocytes 0.8 10^3/ul (1.0-4.8); ABS Monocytes 0.8 10^3/ul (0-0.8); ABS Neutrophils 3.5 10^3/ul (1.5-7.7); ABS Nucleated RBC 0 10^3/ul; Eosinophil % 1.8 %; Hematocrit 34 % (36-46); Hemoglobin 11.4 g/dL (14.0-18.0); Lymphocyte % 15.5 %; Mean Corpuscular HGB Conc 33 g/dL (31-36); Mean Corpuscular Hemoglobin 30 pg (27-31); Mean Corpuscular Volume 90 fL (80-94); Mean Platelet Volume 7.4 fL (7.4-10.4); Nucleated Red Blood Cells % 0; Platelet Count 152 10^3/uL (150-450); Red Blood Count 3.83 10^6 /uL (4.18-5.48); Red Cell Distribution Width 16 % (10.5-15); White Blood Count 5.3 10^3/uL (3.5-10.8)
[2018-06-02 06:17] LABS: INR 2.86 (0.77-1.02)
[2018-06-02 06:25] LABS: BUN/Creatinine Ratio 15.2 (8-20); Calcium 8.9 mg/dL (8.6-10.3); EGFR African American 52.3 (>60); EGFR Non-African American 43.2 (>60); Potassium 3.6 mmol/L (3.5-5.0)
[2018-06-02] MEDS: Insulin LISPRO* 1 UNITS UNIT SUBCUT SCH ×4 (07:51→21:05)
--- NOTE | 2018-06-02 08:01 | PN ---
Subjective Date of Service: 06/02/18 Interval History: Pt reports he feels better today with less LLL pain and swelling. he reports he did elevated his leg most of the day yesterday and this seemed to help. he does feel that it is still "warmer than normal" and does report the swelling has not resolved. He is using a walker as he feels like he cant get around without it due to some continued discomfort in the right leg. He denies and fever/chills. No N/V/D. Objective Active Medications: Acetaminophen (Tylenol Tab*) 650 mg PO Q6H PRN PRN Reason: PAIN Dextrose (D50w Syringe 50 Ml*) 12.5 gm IV PUSH .FOR FS < 60 - SS PRN PRN Reason: FS < 60 Gabapentin (Neurontin Cap(*)) 300 mg PO BID [facility] Last Admin: 06/01/18 20:43 Dose: 300 mg Hydralazine HCl (Apresoline Tab*) 25 mg PO TID [facility] Last Admin: 06/01/18 20:08 Dose: 25 mg Cefazolin Sodium/Dextrose (Kefzol 1 Gm In Dextrose Duplex (*)) 1 gm in 50 mls @ 200 mls/hr IVPB Q8H [facility] Last Admin: 06/02/18 05:08 Dose: 200 mls/hr Insulin Glargine (Lantus(*)) 50 units SUBCUT Q24H [facility] Last Admin: 06/01/18 20:09 Dose: 50 units Insulin Glargine (Lantus(*)) 60 units SUBCUT Q24H [facility] Insulin Human Lispro (Humalog*) 0 units SUBCUT ACHS [facility]; Protocol Last Admin: 06/02/18 07:51 Dose: Not Given Levothyroxine Sodium (Synthroid Tab*) 25 mcg PO DAILY@0600 [facility] Last Admin: 06/02/18 05:08 Dose: 25 mcg Losartan Potassium (Cozaar Tab*) 25 mg PO DAILY [facility] Last Admin: 06/01/18 08:52 Dose: 25 mg Nortriptyline HCl (Pamelor Cap*) 50 mg PO BEDTIME [facility] Last Admin: 06/01/18 20:08 Dose: 50 mg Oxycodone HCl (Roxycodone Tab*) 5 mg PO Q6H PRN PRN Reason: SEVERE PAIN Last Admin: 06/02/18 03:17 Dose: 5 mg Pantoprazole Sodium (Protonix Tab*) 40 mg PO DAILY [facility] Last Admin: 06/01/18 08:52 Dose: 40 mg Polyethylene Glycol/Electrolytes (Miralax*) 17 gm PO DAILY PRN PRN Reason: CONSTIPATION Potassium Chloride (Klor Con Er Tab*) 10 meq PO BID WITH MEALS [facility] Last Admin: 06/01/18 16:45 Dose: 10 meq Torsemide (Demadex*) 60 mg PO DAILY [facility] Last Admin: 06/01/18 08:52 Dose: 60 mg Tramadol HCl (Ultram*) 50 mg PO Q8HR [facility] Last Admin: 06/02/18 05:08 Dose: 50 mg Warfarin Sodium (Coumadin Tab(*)) 2.5 mg PO DAILY@1700 [facility]; Protocol Last Admin: 06/01/18 16:45 Dose: 2.5 mg Vital Signs - 8 hr 06/02/18 06/02/18 06/02/18 03:10 03:17 05:08 Temperature 98.4 F Pulse Rate 91 Respiratory 20 18 18 Rate Blood Pressure 156/79 (mmHg) O2 Sat by Pulse 96 Oximetry 06/02/18 06/02/18 05:14 07:22 Temperature 98.2 F Pulse Rate 86 Respiratory 16 18 Rate Blood Pressure 126/79 (mmHg) O2 Sat by Pulse 95 Oximetry Oxygen Devices in Use Now: None Appearance: 73 yo chronically ill male sitting up in a chair in NAD, A+O x3 Eyes: No Scleral Icterus, PERRLA Ears/Nose/Mouth/Throat: NL Teeth, Lips, Gums, Mucous Membranes Moist Neck: NL Appearance and Movements; NL JVP Respiratory: Symmetrical Chest Expansion and Respiratory Effort, Clear to Auscultation Cardiovascular: RRR Abdominal: NL Sounds; No Tenderness; No Distention, - - obese Extremities: - - LLE is larger than Right - chronic vascular chngaes b/l. Left LE has noted erythema genralized and 1+ edema. Neurological: Alert and Oriented x 3, NL Sensation, NL Muscle Strength and Tone Lines/Tubes/Other Access: Clean, Dry and Intact Peripheral IV Nutrition: Taking PO's Result Diagrams: 06/02/18 06:01 06/02/18 06:01 Additional Lab and Data: Lab Results 05/31/18 05/31/18 05/31/18 Range/Units 11:26 11:26 11:26 WBC 4.9 (3.5-10.8) 10^3/uL RBC 3.65 L (4.18-5.48) 10^6 /uL Hgb 11.0 L (14.0-18.0) g/dL Hct 33 L (36-46) % MCV 90 (80-94) fL MCH 30 (27-31) pg MCHC 34 (31-36) g/dL RDW 16 H (10.5-15) % Plt Count 154 (150-450) 10^3/uL MPV 7.6 (7.4-10.4) fL ESR Pending INR (Anticoag Therapy) 2.66 H (0.77-1.02) Sodium 136 (135-145) mmol/L Potassium 3.8 (3.5-5.0) mmol/L Chloride 101 (101-111) mmol/L Carbon Dioxide 27 (22-32) mmol/L Anion Gap 8 (2-11) mmol/L BUN 27 H (6-24) mg/dL Creatinine 1.74 H (0.67-1.17) mg/dL Est GFR ( Amer) 46.8 (>60) Est GFR (Non-Af Amer) 38.7 (>60) BUN/Creatinine Ratio 15.5 (8-20) Glucose 228 H (70-100) mg/dL Calcium 8.9 (8.6-10.3) mg/dL Total Bilirubin 0.50 (0.2-1.0) mg/dL AST 29 (13-39) U/L ALT 32 (7-52) U/L Alkaline Phosphatase 170 H (34-104) U/L Total Creatine Kinase 91 (10-223) U/L Troponin I 0.02 (<0.04) ng/mL C-React Prot High Sens 15.46 H (<2.00) mg/L B-Natriuretic Peptide (<=100) pg/mL Total Protein 6.5 (6.4-8.9) g/dL Albumin 3.7 (3.2-5.2) g/dL Globulin 2.8 (2-4) g/dL Albumin/Globulin Ratio 1.3 (1-3) 05/31/18 Range/Units 11:28 WBC (3.5-10.8) 10^3/uL RBC (4.18-5.48) 10^6 /uL Hgb (14.0-18.0) g/dL Hct (36-46) % MCV (80-94) fL MCH (27-31) pg MCHC (31-36) g/dL RDW (10.5-15) % Plt Count (150-450) 10^3/uL MPV (7.4-10.4) fL ESR INR (Anticoag Therapy) (0.77-1.02) Sodium (135-145) mmol/L Potassium (3.5-5.0) mmol/L Chloride (101-111) mmol/L Carbon Dioxide (22-32) mmol/L Anion Gap (2-11) mmol/L BUN (6-24) mg/dL Creatinine (0.67-1.17) mg/dL Est GFR ( Amer) (>60) Est GFR (Non-Af Amer) (>60) BUN/Creatinine Ratio (8-20) Glucose (70-100) mg/dL Calcium (8.6-10.3) mg/dL Total Bilirubin (0.2-1.0) mg/dL AST (13-39) U/L ALT (7-52) U/L Alkaline Phosphatase (34-104) U/L Total Creatine Kinase (10-223) U/L Troponin I (<0.04) ng/mL C-React Prot High Sens (<2.00) mg/L B-Natriuretic Peptide 295 H (<=100) pg/mL Total Protein (6.4-8.9) g/dL Albumin (3.2-5.2) g/dL Globulin (2-4) g/dL Albumin/Globulin Ratio (1-3) Microbiology and Other Data: Microbiology 05/31/18 11:35 Aerobic Blood Culture - Preliminary Blood Venous No Growth Day 1 Anaerobic Blood Culture - Preliminary No Growth Day 1 05/31/18 11:35 Aerobic Blood Culture - Preliminary Blood Venous No Growth Day 1 Anaerobic Blood Culture - Preliminary No Growth Day 1 Assess/Plan/Problems-Billing Assessment: Mr. Mckinley is a 73 yo male with a PMH of CAD s/p CABG, afib on coumadin, systolic HF EF < 20% s/p ICD, s/p biological valve replacement, DM II , HTN who presented to the ER on 05/31 with c/o increased left LE swelling, redness and pain. He was seen initially on 05/22 in the ED for similar complaints (increased swelling/warmth), DVT was ruled out, his torsemide was increased and patient then followed up with PCP on 05/27 & 05/28 and was dx with cellulitis and started on Doxy - Patient Problems (1) Cellulitis Comment: - continue Cefazolin, failed outpt Doxy - Blood cx NTD - soft tissue US and Doppler negative - Encourage elevation of LE's (2) Systolic heart failure, chronic Comment: - asymptomatic, apears euvolemic - EF < 20%, s/p ICD - continue home dose torsemide 60 mg daily, Potassium supplementation - continue losartan (new/added on admission) (3) CAD (coronary artery disease) Comment: - asymptomatic - s/p CABG, biological valve replacement - Continue atorvastatin, coumadin (4) HTN (hypertension) Comment: - controlled - Continue losartan, hydralazine, torsemide (5) CKD (chronic kidney disease) Comment: - stable - at baseline - renally dose medications (6) Hypothyroid Comment: TSH 4 levothyroxine 25 mcg daily (7) Diabetes Comment: - controlled -continue home insulin lantus 60 qam, 50 qpm with lispro SSI coverage. - FSBG ACHS (8) Hx of deep venous thrombosis Comment: - Hx of PE/DVT - s/p IVC filter - Continue home dose warfarin. - INT therapuetic (9) DVT prophylaxis Comment: - Warfarin with therapeutic INR (10) Full code status Comment: Status and Disposition: inpatient with cellulitis on IV abx failed oral antibiotics. Home when medically stable, in 1-2 days
[2018-06-02 08:25] LABS: Magnesium 1.9 mg/dL (1.9-2.7)
[2018-06-02] MEDS: Torsemide TAB* 20 MG PO SCH (08:32)
[2018-06-02] MEDS: Losartan TAB* 25 MG PO SCH (08:32)
[2018-06-02] MEDS: Gabapentin CAP(*) 300 MG PO SCH ×2 (08:33→21:03)
[2018-06-02] MEDS: Insulin GLARGINE(*) 1 UNITS UNIT SUBCUT SCH ×2 (08:33→21:05)
[2018-06-02] MEDS: Pantoprazole TAB * 40 MG TAB PO SCH (08:33)
[2018-06-02] MEDS: hydrALAZINE TAB* 25 MG PO SCH ×3 (08:33→21:04)
[2018-06-02] MEDS: Potassium Chlor TAB* 10 MEQ TAB.ER PO SCH ×2 (08:33→17:34)
[2018-06-02] MEDS: Warfarin TAB(*) 5 MG PO SCH (17:34)
[2018-06-02] MEDS: Nortriptyline CAP* 25 MG PO SCH (21:08)
[2018-06-03] MEDS: oxyCODONE TAB* 5 MG TAB PO PRN ×2 (02:18→18:27)
[2018-06-03] MEDS: traMADol TAB* 50 MG PO SCH ×3 (05:49→21:02)
[2018-06-03] MEDS: Levothyroxine TAB* 25 MCG TAB PO SCH (05:49)
[2018-06-03] MEDS: ceFAZolin 1 GM in Dextrose (*) 1 GM/50 ML BAG IVPB SCH (05:49)
[2018-06-03 06:12] LABS: ABS Basophils 0 10^3/ul (0-0.2); ABS Eosinophils 0.1 10^3/ul (0-0.6); ABS Monocytes 1.1 10^3/ul (0-0.8); ABS Neutrophils 4.7 10^3/ul (1.5-7.7); ABS Nucleated RBC 0 10^3/ul; Eosinophil % 1.5 %; Hematocrit 35 % (36-46); Hemoglobin 11.7 g/dL (14.0-18.0); Lymphocyte % 14.8 %; Mean Corpuscular HGB Conc 34 g/dL (31-36); Mean Corpuscular Hemoglobin 30 pg (27-31); Mean Corpuscular Volume 89 fL (80-94); Mean Platelet Volume 7.7 fL (7.4-10.4); Nucleated Red Blood Cells % 0.1; Platelet Count 164 10^3/uL (150-450); Red Blood Count 3.88 10^6 /uL (4.18-5.48); Red Cell Distribution Width 16 % (10.5-15); White Blood Count 6.9 10^3/uL (3.5-10.8)
[2018-06-03 06:18] LABS: INR 2.61 (0.77-1.02)
[2018-06-03 06:30] LABS: BUN/Creatinine Ratio 16.3 (8-20); Calcium 8.9 mg/dL (8.6-10.3); EGFR African American 38.1 (>60); EGFR Non-African American 31.5 (>60); Potassium 3.8 mmol/L (3.5-5.0)
--- NOTE | 2018-06-03 09:00 | PN ---
Subjective Date of Service: 06/04/18 Interval History: patient with swelling in left lower leg 2-3 + pitting edema, mild edema noted to right lower leg( at baseline per patient). Denies chest pain or shortness of breath. denies abd pain n/v/d. Patient reports that left leg feels better today less pain. Encouraged to keep left leg elevated Family History: Unchanged from Admission Social History: Unchanged from Admission Past Medical History: Unchanged from Admission Objective Active Medications: Acetaminophen (Tylenol Tab*) 650 mg PO Q6H PRN PRN Reason: PAIN Dextrose (D50w Syringe 50 Ml*) 12.5 gm IV PUSH .FOR FS < 60 - SS PRN PRN Reason: FS < 60 Gabapentin (Neurontin Cap(*)) 300 mg PO BID [facility] Last Admin: 06/02/18 21:03 Dose: 300 mg Hydralazine HCl (Apresoline Tab*) 25 mg PO TID [facility] Last Admin: 06/02/18 21:04 Dose: 25 mg Cefazolin Sodium/Dextrose (Kefzol 1 Gm In Dextrose Duplex (*)) 1 gm in 50 mls @ 200 mls/hr IVPB Q8H [facility] Last Admin: 06/03/18 05:49 Dose: 200 mls/hr Insulin Glargine (Lantus(*)) 50 units SUBCUT Q24H [facility] Last Admin: 06/02/18 21:05 Dose: 50 units Insulin Glargine (Lantus(*)) 60 units SUBCUT Q24H [facility] Last Admin: 06/02/18 08:33 Dose: 60 unit Insulin Human Lispro (Humalog*) 0 units SUBCUT ACHS [facility]; Protocol Last Admin: 06/02/18 21:05 Dose: 4 units Levothyroxine Sodium (Synthroid Tab*) 25 mcg PO DAILY@0600 [facility] Last Admin: 06/03/18 05:49 Dose: 25 mcg Losartan Potassium (Cozaar Tab*) 25 mg PO DAILY [facility] Last Admin: 06/02/18 08:32 Dose: 25 mg Nortriptyline HCl (Pamelor Cap*) 50 mg PO BEDTIME [facility] Last Admin: 06/02/18 21:08 Dose: 50 mg Oxycodone HCl (Roxycodone Tab*) 5 mg PO Q6H PRN PRN Reason: SEVERE PAIN Last Admin: 06/03/18 02:18 Dose: 5 mg Pantoprazole Sodium (Protonix Tab*) 40 mg PO DAILY [facility] Last Admin: 06/02/18 08:33 Dose: 40 mg Polyethylene Glycol/Electrolytes (Miralax*) 17 gm PO DAILY PRN PRN Reason: CONSTIPATION Potassium Chloride (Klor Con Er Tab*) 10 meq PO BID WITH MEALS [facility] Last Admin: 06/02/18 17:34 Dose: 10 meq Torsemide (Demadex*) 60 mg PO DAILY [facility] Last Admin: 06/02/18 08:32 Dose: 60 mg Tramadol HCl (Ultram*) 50 mg PO Q8HR [facility] Last Admin: 06/03/18 05:49 Dose: 50 mg Warfarin Sodium (Coumadin Tab(*)) 2.5 mg PO DAILY@1700 [facility]; Protocol Last Admin: 06/02/18 17:34 Dose: 2.5 mg Vital Signs - 8 hr 06/03/18 06/03/18 06/03/18 02:18 02:54 05:02 Temperature 98.0 F Pulse Rate 88 Respiratory 17 20 17 Rate Blood Pressure 139/76 (mmHg) O2 Sat by Pulse 92 Oximetry 06/03/18 06/03/18 05:49 06:06 Temperature 98.2 F Pulse Rate 84 Respiratory 18 18 Rate Blood Pressure 120/67 (mmHg) O2 Sat by Pulse 93 Oximetry Oxygen Devices in Use Now: None Appearance: alert sittingin the chair no acute distress Eyes: No Scleral Icterus Ears/Nose/Mouth/Throat: Clear Oropharnyx, Mucous Membranes Moist Neck: NL Appearance and Movements; NL JVP, Trachea Midline Respiratory: Symmetrical Chest Expansion and Respiratory Effort, Clear to Auscultation Cardiovascular: NL Sounds; No Murmurs; No JVD Abdominal: NL Sounds; No Tenderness; No Distention Extremities: No Clubbing, Cyanosis, - - swelling to left lower leg 2-3+, mild swelling to right lower leg Skin: - - brown discoloration to bilat lower legs Neurological: Alert and Oriented x 3 Nutrition: Taking PO's Result Diagrams: 06/03/18 05:58 06/04/18 06:39 Additional Lab and Data: Lab Results 05/31/18 05/31/18 05/31/18 Range/Units 11:26 11:26 11:26 WBC 4.9 (3.5-10.8) 10^3/uL RBC 3.65 L (4.18-5.48) 10^6 /uL Hgb 11.0 L (14.0-18.0) g/dL Hct 33 L (36-46) % MCV 90 (80-94) fL MCH 30 (27-31) pg MCHC 34 (31-36) g/dL RDW 16 H (10.5-15) % Plt Count 154 (150-450) 10^3/uL MPV 7.6 (7.4-10.4) fL ESR Pending INR (Anticoag Therapy) 2.66 H (0.77-1.02) Sodium 136 (135-145) mmol/L Potassium 3.8 (3.5-5.0) mmol/L Chloride 101 (101-111) mmol/L Carbon Dioxide 27 (22-32) mmol/L Anion Gap 8 (2-11) mmol/L BUN 27 H (6-24) mg/dL Creatinine 1.74 H (0.67-1.17) mg/dL Est GFR ( Amer) 46.8 (>60) Est GFR (Non-Af Amer) 38.7 (>60) BUN/Creatinine Ratio 15.5 (8-20) Glucose 228 H (70-100) mg/dL Calcium 8.9 (8.6-10.3) mg/dL Total Bilirubin 0.50 (0.2-1.0) mg/dL AST 29 (13-39) U/L ALT 32 (7-52) U/L Alkaline Phosphatase 170 H (34-104) U/L Total Creatine Kinase 91 (10-223) U/L Troponin I 0.02 (<0.04) ng/mL C-React Prot High Sens 15.46 H (<2.00) mg/L B-Natriuretic Peptide (<=100) pg/mL Total Protein 6.5 (6.4-8.9) g/dL Albumin 3.7 (3.2-5.2) g/dL Globulin 2.8 (2-4) g/dL Albumin/Globulin Ratio 1.3 (1-3) 05/31/18 Range/Units 11:28 WBC (3.5-10.8) 10^3/uL RBC (4.18-5.48) 10^6 /uL Hgb (14.0-18.0) g/dL Hct (36-46) % MCV (80-94) fL MCH (27-31) pg MCHC (31-36) g/dL RDW (10.5-15) % Plt Count (150-450) 10^3/uL MPV (7.4-10.4) fL ESR INR (Anticoag Therapy) (0.77-1.02) Sodium (135-145) mmol/L Potassium (3.5-5.0) mmol/L Chloride (101-111) mmol/L Carbon Dioxide (22-32) mmol/L Anion Gap (2-11) mmol/L BUN (6-24) mg/dL Creatinine (0.67-1.17) mg/dL Est GFR ( Amer) (>60) Est GFR (Non-Af Amer) (>60) BUN/Creatinine Ratio (8-20) Glucose (70-100) mg/dL Calcium (8.6-10.3) mg/dL Total Bilirubin (0.2-1.0) mg/dL AST (13-39) U/L ALT (7-52) U/L Alkaline Phosphatase (34-104) U/L Total Creatine Kinase (10-223) U/L Troponin I (<0.04) ng/mL C-React Prot High Sens (<2.00) mg/L B-Natriuretic Peptide 295 H (<=100) pg/mL Total Protein (6.4-8.9) g/dL Albumin (3.2-5.2) g/dL Globulin (2-4) g/dL Albumin/Globulin Ratio (1-3) Microbiology and Other Data: Microbiology 05/31/18 11:35 Aerobic Blood Culture - Preliminary Blood Venous No Growth Day 1 Anaerobic Blood Culture - Preliminary No Growth Day 1 05/31/18 11:35 Aerobic Blood Culture - Preliminary Blood Venous No Growth Day 1 Anaerobic Blood Culture - Preliminary No Growth Day 1 Assess/Plan/Problems-Billing Assessment: Mr. Mckinley is a 73 yo male with a PMH of CAD s/p CABG, afib on coumadin, systolic HF EF < 20% s/p ICD, s/p biological valve replacement, DM II , HTN who presented to the ER on 05/31 with c/o increased left LE swelling, redness and pain. He was seen initially on 05/22 in the ED for similar complaints (increased swelling/warmth), DVT was ruled out, his torsemide was increased and patient then followed up with PCP on 05/27 & 05/28 and was dx with cellulitis and started on Doxy - Patient Problems (1) Cellulitis Current Visit: Yes Status: Acute Code(s): L03.90 - CELLULITIS, UNSPECIFIED SNOMED Code(s): 833148929 Comment: - stopped cefazolin as per ID recommendations - will continue keflex 500 mg BID - Blood cx NTD - soft tissue US and Doppler negative - Encourage elevation of LE's and jeet wrap - continues to have swelling to left lower leg, pain is improving , redness improving (2) CKD (chronic kidney disease) Current Visit: Yes Status: Acute Code(s): N18.9 - CHRONIC KIDNEY DISEASE, UNSPECIFIED SNOMED Code(s): 809364387 Comment: - bun/ creatinine trending up - FeUrea 21.8% today- pre renal - will continue to monitor , repeat BMP in the AM - upward trend in Bun/ creatinine could be related to starting Losartan - renally dose medications (3) HTN (hypertension) Current Visit: Yes Status: Acute Code(s): I10 - ESSENTIAL (PRIMARY) HYPERTENSION SNOMED Code(s): 05182208 Comment: - controlled - Continue hydralazine prn, torsemide - will stop losartan d/t SBP 95-106- could consider restarting Losartan if BP improves with changes hydralazine PRN. (4) Hx of deep venous thrombosis Current Visit: Yes Status: Acute Code(s): Z86.718 - PERSONAL HISTORY OF OTHER VENOUS THROMBOSIS AND EMBOLISM SNOMED Code(s): 761061974 Comment: - Hx of PE/DVT - s/p IVC filter - Continue home dose warfarin. - INT therapuetic (5) CAD (coronary artery disease) Current Visit: Yes Status: Chronic Code(s): I25.10 - ATHSCL HEART DISEASE OF INUPIAT CORONARY ARTERY W/O ANG PCTRS SNOMED Code(s): 08153236 Comment: - asymptomatic - s/p CABG, biological valve replacement - Continue atorvastatin, coumadin (6) Diabetes Current Visit: Yes Status: Chronic Code(s): E11.9 - TYPE 2 DIABETES MELLITUS WITHOUT COMPLICATIONS SNOMED Code(s): 58200991 Comment: - fasting blood sugar 102 this AM after drinking cranberry juice - will decrease lantus to 50 units in the AM and 30 units in the PM - FSBG ACHS (7) Hypothyroid Current Visit: Yes Status: Chronic Code(s): E03.9 - HYPOTHYROIDISM, UNSPECIFIED SNOMED Code(s): 52532511 Comment: TSH 4 levothyroxine 25 mcg daily (8) Systolic heart failure, chronic Current Visit: Yes Status: Chronic Code(s): I50.22 - CHRONIC SYSTOLIC ( CONGESTIVE) HEART FAILURE SNOMED Code(s): 802454179 Comment: - asymptomatic - EF < 20%, s/p ICD - continue home dose torsemide 60 mg daily, Potassium supplementation - losartan (new/added on admission)- will stop as patient SBP 95-106 - patient with 3 pound weight gain , pitting edema to lower ext +3 on the right and +1 on the Left - FeUrea 21.8% pre renal - LS clear , no respiratory distress - will give extra one time dose of lasix 20 mg IV monitor I/O and repeat BMP in the AM (9) DVT prophylaxis Current Visit: Yes Status: Acute Code(s): QQS7283 - SNOMED Code(s): 962124350 Comment: - Warfarin with therapeutic INR (10) Full code status Current Visit: Yes Status: Acute Code(s): Z78.9 - OTHER SPECIFIED HEALTH STATUS SNOMED Code(s): 429611447 Comment: Status and Disposition: inpatient with cellulitis on IV abx failed oral antibiotics. Home when medically stable, in 1-2 days
[2018-06-03] MEDS: Losartan TAB* 25 MG PO SCH (09:52)
[2018-06-03] MEDS: hydrALAZINE TAB* 25 MG PO SCH ×3 (09:52→21:02)
[2018-06-03] MEDS: Pantoprazole TAB * 40 MG TAB PO SCH (09:52)
[2018-06-03] MEDS: Torsemide TAB* 20 MG PO SCH (09:52)
[2018-06-03] MEDS: Potassium Chlor TAB* 10 MEQ TAB.ER PO SCH ×2 (09:52→18:11)
[2018-06-03] MEDS: Gabapentin CAP(*) 300 MG PO SCH ×2 (09:53→21:03)
[2018-06-03] MEDS: Insulin LISPRO* 1 UNITS UNIT SUBCUT SCH ×4 (09:53→21:04)
[2018-06-03] MEDS: Insulin GLARGINE(*) 1 UNITS UNIT SUBCUT SCH ×2 (09:54→21:04)
--- NOTE | 2018-06-03 14:16 | CONS ---
CONSULTATION REPORT: DATE OF ADMISSION: 05/31/18 DATE OF CONSULT: 06/03/18 PRIMARY CARE PROVIDER: Dr. Lee Gonzalez. PROVIDER REQUESTING CONSULTATION: Monica Benitez NP CONSULTING SERVICE: Infectious Disease. ATTENDING PHYSICIAN: Dr. Guanaco Marti * (dictated by Pamela Casiano NP) REASON FOR CONSULTATION: Cellulitis. IMPRESSION: 1. Left lower extremity cellulitis. He has completed a 2-day course of IV cefazolin. He is afebrile and has no leukocytosis. C-reactive protein is minimally elevated. This likely represents a strep infection which is worsened by lymphedema, venous insufficiency and his diabetes. 2. Peripheral vascular disease. 3. Chronic kidney disease stage 3. 4. Diabetes mellitus. PLAN: Discontinue IV cefazolin and change to Keflex 500 mg by mouth twice daily to complete a 7-day course of antibiotics. Recommend Thad wraps for compression to decrease swelling and elevating the leg throughout the day. HISTORY OF PRESENT ILLNESS: Mr. Mckinley is a 73-year-old male with past medical history significant for coronary artery disease, status post CABG; atrial fibrillation; systolic congestive heart failure with EF less than 20; diabetes mellitus type 2; peripheral vascular disease, who presented to the emergency room with complaints of increased swelling and redness to his left lower extremity and pain. The patient was initially seen in the emergency room on 09/04 with complaints of left leg swelling and warmth. At that time, a DVT was ruled out with venous Doppler. He was found to have a supratherapeutic INR of 5 and was instructed to hold his Coumadin and increase his torsemide dosing. He was seen by his primary care provider on 05/28/18, who diagnosed him with cellulitis and started him on doxycycline which he has been taking. He noticed increased redness and swelling of his left leg. The swelling and pain in his left leg were not impeding his ability to ambulate. He ambulates with a cane at baseline. Denied any drainage, fevers, chills. While in the ER, he had left lower extremity venous Doppler study that was negative for DVT and a soft tissue ultrasound of the left calf that was negative for abscess that showed diffuse edema. He was admitted to the hospital by the hospitalist service. During his hospitalization, he has been afebrile with no leukocytosis. He has been treated with IV cefazolin. PAST MEDICAL HISTORY: 1. Systolic congestive heart failure, EF less than 20%. 2. Coronary artery disease. 3. Atrial fibrillation. 4. Hypertension. 5. History of DVT and PE. 6. Hyperlipidemia. 7. Valvular heart disease. 8. GERD. 9. Hypothyroidism. 10. Diabetes mellitus type 2. 11. Depression. 12. Chronic kidney disease stage 3. 13. Peripheral vascular disease. PAST SURGICAL HISTORY: 1. Status post cholecystectomy. 2. Status post IVC filter placement. 3. Status post coronary artery bypass graft with aortic valve replacement. 4. Status post ICD insertion. 5. Status post ORIF of pelvic fracture. 6. Status post ulnar and radius ORIF. 7. Status post amputation of right first toe. MEDICATIONS: Home medications include: 1. Torsemide 60 mg by mouth daily. 2. Warfarin 2.5 mg by mouth daily. 3. Tramadol 50 mg by mouth every 8 hours. 4. Potassium chloride 10 mEq by mouth twice daily with meals. 5. Omeprazole 40 mg by mouth daily. 6. Nortriptyline 50 mg by mouth at bedtime. 7. Levothyroxine 25 mcg by mouth daily. 8. Glargine insulin 50 units subcutaneous at bedtime and 60 units subcutaneous in the morning. 9. NovoLog insulin 0 to 80 units subcutaneously daily. 10. Hydralazine 25 mg by mouth 3 times daily. 11. Gabapentin 300 mg by mouth 3 times daily. 12. Exenatide 2 mg subcutaneously weekly. 13. Doxycycline 100 mg by mouth twice daily. Hospital medications: 1. Acetaminophen 650 mg by mouth every 6 hours as needed for fever or pain. 2. Cefazolin 1 g IV every 8 hours. 3. Dextrose 12.5 g IV as needed for fingerstick less than 60. 4. Gabapentin 300 mg by mouth twice daily. 5. Hydralazine 25 mg by mouth 3 times daily. 6. Lantus insulin 60 units subcutaneously in the morning, 50 units subcutaneously at bedtime. 7. Lispro insulin sliding scale subcutaneously with meals and at bedtime. 8. Levothyroxine 25 mcg by mouth daily. 9. Losartan 25 mg by mouth daily. 10. Nortriptyline 50 mg by mouth at bedtime. 11. Oxycodone 5 mg by mouth every 6 hours as needed for pain. 12. Protonix 40 mg by mouth daily. 13. MiraLAX 17 g by mouth daily as needed for constipation. 14. Potassium chloride 10 mEq by mouth twice daily with meals. 15. Torsemide 60 mg by mouth daily. 16. Tramadol 50 mg by mouth every 8 hours. 17. Warfarin 2.5 mg by mouth daily. ALLERGIES: 1. DILTIAZEM. 2. ERTAPENEM causes rash. 3. GEMFIBROZIL. 4. LISINOPRIL. 5. LOVASTATIN. 6. CRESTOR. 7. SIMVASTATIN. FAMILY HISTORY: Mother with a history of heart disease, passed at age 86. Father with a history of diabetes and passed at age 91 from an accident. Older brother with a history of colon cancer and younger brother passed from colon cancer at the age of 59. SOCIAL HISTORY: Denies alcohol, recreational drug use. He is former smoker. He quit smoking approximately 31 years ago. Prior to that he had a pack and half a day smoking history for 30 years. 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 REVIEW OF SYSTEMS: I performed an 11-point review of systems. All the pertinent positives and negatives are mentioned in the history of present illness. The remaining review of systems are negative. PHYSICAL EXAMINATION: Vital Signs: Temperature 98.2, heart rate 84, respiratory rate 18, O2 sat 93% on room air, blood pressure 120/67. General Appearance: Alert, pleasant, appears to be in no acute distress. Head: Normocephalic, atraumatic. ENT: Pupils are equal and reactive to light. Mucous membranes are moist. Neck is supple. No lymphadenopathy. Neurological : Alert and oriented x4. Cardiovascular: Regular rate and rhythm. S1, S2 present. There are no murmurs, rubs, or gallops heard. Respiratory: No accessory muscle use. Lung are clear to auscultation bilateral. Abdomen: Bowel sounds present. Abdomen is soft, nontender, nondistended. Extremities: There is left lower extremity edema. Musculoskeletal: Moves all extremities. No swelling at any joints. Psychological: Calm and cooperative. Skin: There are some chronic skin changes consistent with venous stasis to bilateral lower extremities. The right leg below the knee is erythematous. There is an area of induration to the lateral proximal calf. Additionally, there is a boggy area to the medial malleolus. DIAGNOSTIC STUDIES/LABORATORY DATA: Sodium 136, potassium 3.8, chloride 99, CO2 is 29, BUN 34, and creatinine 2.08, glucose 175. White blood cell count 6.9 , hemoglobin 11.7, hematocrit 35, platelet count 164. ESR on 05/31/18 was 42, CRP on 06/01/18 was 13.75. Hemoglobin A1c is 8.9. Please see impressions and recommendations outlined above. Thank you for asking us to see Mr. Mckinley in consultation. TIME SPENT: Time spent for this consultation was approximately 45 minutes, greater than half of that was spent with the patient discussing medications, past medical history, the events leading to his arrival, performing a physical examination. The case has been reviewed with the attending, Dr. Marti, who agrees with the plan of care. The case has been discussed with Monica Benitez NP. Reviewed by PAMELA CASIANO, ABBEY-Loli 06/06/18 [id number]/[facility] #: [id number]
[2018-06-03] MEDS: Warfarin TAB(*) 5 MG PO SCH (18:10)
--- NOTE | 2018-06-03 18:54 | PN ---
Subjective Date of Service: 06/03/18 Interval History: patient reports that pain is his left leg has improved . continues to s/o increased warmth to left leg. denies fever or chills. denies abd pain n/v/d. Family History: Unchanged from Admission Social History: Unchanged from Admission Past Medical History: Unchanged from Admission Objective Active Medications: Acetaminophen (Tylenol Tab*) 650 mg PO Q6H PRN PRN Reason: PAIN Cephalexin HCl (Keflex Cap*) 500 mg PO BID [facility] Dextrose (D50w Syringe 50 Ml*) 12.5 gm IV PUSH .FOR FS < 60 - SS PRN PRN Reason: FS < 60 Gabapentin (Neurontin Cap(*)) 300 mg PO BID [facility] Last Admin: 06/03/18 09:53 Dose: 300 mg Hydralazine HCl (Apresoline Tab*) 25 mg PO TID [facility] Last Admin: 06/03/18 14:13 Dose: 25 mg Insulin Glargine (Lantus(*)) 50 units SUBCUT Q24H [facility] Last Admin: 06/02/18 21:05 Dose: 50 units Insulin Glargine (Lantus(*)) 60 units SUBCUT Q24H [facility] Last Admin: 06/03/18 09:54 Dose: 60 unit Insulin Human Lispro (Humalog*) 0 units SUBCUT [facility]; Protocol Last Admin: 06/03/18 18:10 Dose: 1 units Levothyroxine Sodium (Synthroid Tab*) 25 mcg PO DAILY@0600 [facility] Last Admin: 06/03/18 05:49 Dose: 25 mcg Losartan Potassium (Cozaar Tab*) 25 mg PO DAILY [facility] Last Admin: 06/03/18 09:52 Dose: 25 mg Nortriptyline HCl (Pamelor Cap*) 50 mg PO BEDTIME [facility] Last Admin: 06/02/18 21:08 Dose: 50 mg Oxycodone HCl (Roxycodone Tab*) 5 mg PO Q6H PRN PRN Reason: SEVERE PAIN Last Admin: 06/03/18 18:27 Dose: 5 mg Pantoprazole Sodium (Protonix Tab*) 40 mg PO DAILY [facility] Last Admin: 06/03/18 09:52 Dose: 40 mg Polyethylene Glycol/Electrolytes (Miralax*) 17 gm PO DAILY PRN PRN Reason: CONSTIPATION Potassium Chloride (Klor Con Er Tab*) 10 meq PO BID WITH MEALS [facility] Last Admin: 06/03/18 18:11 Dose: 10 meq Torsemide (Demadex*) 60 mg PO DAILY [facility] Last Admin: 06/03/18 09:52 Dose: 60 mg Tramadol HCl (Ultram*) 50 mg PO Q8HR [facility] Last Admin: 06/03/18 14:12 Dose: 50 mg Warfarin Sodium (Coumadin Tab(*)) 2.5 mg PO DAILY@1700 [facility]; Protocol Last Admin: 06/03/18 18:10 Dose: 2.5 mg Vital Signs - 8 hr 06/03/18 06/03/18 06/03/18 11:18 11:21 11:55 Temperature 97.9 F Pulse Rate 84 Respiratory 16 16 Rate Blood Pressure 124/66 (mmHg) O2 Sat by Pulse 95 Oximetry 06/03/18 06/03/18 06/03/18 14:12 14:24 15:57 Temperature 98.8 F Pulse Rate 91 Respiratory 14 16 22 Rate Blood Pressure 129/79 (mmHg) O2 Sat by Pulse 93 Oximetry 06/03/18 06/03/18 17:17 18:27 Temperature Pulse Rate Respiratory 18 18 Rate Blood Pressure (mmHg) O2 Sat by Pulse Oximetry Oxygen Devices in Use Now: None Appearance: appears comfortable sitting in the chair , no acute distress. Eyes: No Scleral Icterus Ears/Nose/Mouth/Throat: Clear Oropharnyx, Mucous Membranes Moist Neck: NL Appearance and Movements; NL JVP, Trachea Midline Respiratory: Symmetrical Chest Expansion and Respiratory Effort, Clear to Auscultation Cardiovascular: NL Sounds; No Murmurs; No JVD, No Edema Abdominal: NL Sounds; No Tenderness; No Distention Extremities: No Clubbing, Cyanosis, - - redness and warmth noted to left leg, mild swelling Skin: No Rash or Ulcers Neurological: Alert and Oriented x 3 Nutrition: Taking PO's Result Diagrams: 06/03/18 05:58 06/03/18 05:58 Additional Lab and Data: Lab Results 05/31/18 05/31/18 05/31/18 Range/Units 11:26 11:26 11:26 WBC 4.9 (3.5-10.8) 10^3/uL RBC 3.65 L (4.18-5.48) 10^6 /uL Hgb 11.0 L (14.0-18.0) g/dL Hct 33 L (36-46) % MCV 90 (80-94) fL MCH 30 (27-31) pg MCHC 34 (31-36) g/dL RDW 16 H (10.5-15) % Plt Count 154 (150-450) 10^3/uL MPV 7.6 (7.4-10.4) fL ESR Pending INR (Anticoag Therapy) 2.66 H (0.77-1.02) Sodium 136 (135-145) mmol/L Potassium 3.8 (3.5-5.0) mmol/L Chloride 101 (101-111) mmol/L Carbon Dioxide 27 (22-32) mmol/L Anion Gap 8 (2-11) mmol/L BUN 27 H (6-24) mg/dL Creatinine 1.74 H (0.67-1.17) mg/dL Est GFR ( Amer) 46.8 (>60) Est GFR (Non-Af Amer) 38.7 (>60) BUN/Creatinine Ratio 15.5 (8-20) Glucose 228 H (70-100) mg/dL Calcium 8.9 (8.6-10.3) mg/dL Total Bilirubin 0.50 (0.2-1.0) mg/dL AST 29 (13-39) U/L ALT 32 (7-52) U/L Alkaline Phosphatase 170 H (34-104) U/L Total Creatine Kinase 91 (10-223) U/L Troponin I 0.02 (<0.04) ng/mL C-React Prot High Sens 15.46 H (<2.00) mg/L B-Natriuretic Peptide (<=100) pg/mL Total Protein 6.5 (6.4-8.9) g/dL Albumin 3.7 (3.2-5.2) g/dL Globulin 2.8 (2-4) g/dL Albumin/Globulin Ratio 1.3 (1-3) 05/31/18 Range/Units 11:28 WBC (3.5-10.8) 10^3/uL RBC (4.18-5.48) 10^6 /uL Hgb (14.0-18.0) g/dL Hct (36-46) % MCV (80-94) fL MCH (27-31) pg MCHC (31-36) g/dL RDW (10.5-15) % Plt Count (150-450) 10^3/uL MPV (7.4-10.4) fL ESR INR (Anticoag Therapy) (0.77-1.02) Sodium (135-145) mmol/L Potassium (3.5-5.0) mmol/L Chloride (101-111) mmol/L Carbon Dioxide (22-32) mmol/L Anion Gap (2-11) mmol/L BUN (6-24) mg/dL Creatinine (0.67-1.17) mg/dL Est GFR ( Amer) (>60) Est GFR (Non-Af Amer) (>60) BUN/Creatinine Ratio (8-20) Glucose (70-100) mg/dL Calcium (8.6-10.3) mg/dL Total Bilirubin (0.2-1.0) mg/dL AST (13-39) U/L ALT (7-52) U/L Alkaline Phosphatase (34-104) U/L Total Creatine Kinase (10-223) U/L Troponin I (<0.04) ng/mL C-React Prot High Sens (<2.00) mg/L B-Natriuretic Peptide 295 H (<=100) pg/mL Total Protein (6.4-8.9) g/dL Albumin (3.2-5.2) g/dL Globulin (2-4) g/dL Albumin/Globulin Ratio (1-3) Microbiology and Other Data: Microbiology 05/31/18 11:35 Aerobic Blood Culture - Preliminary Blood Venous No Growth Day 1 Anaerobic Blood Culture - Preliminary No Growth Day 1 05/31/18 11:35 Aerobic Blood Culture - Preliminary Blood Venous No Growth Day 1 Anaerobic Blood Culture - Preliminary No Growth Day 1 Assess/Plan/Problems-Billing Assessment: Mr. Mckinley is a 73 yo male with a PMH of CAD s/p CABG, afib on coumadin, systolic HF EF < 20% s/p ICD, s/p biological valve replacement, DM II , HTN who presented to the ER on 05/31 with c/o increased left LE swelling, redness and pain. He was seen initially on 05/22 in the ED for similar complaints (increased swelling/warmth), DVT was ruled out, his torsemide was increased and patient then followed up with PCP on 05/27 & 05/28 and was dx with cellulitis and started on Doxy - Patient Problems (1) Cellulitis Current Visit: Yes Status: Acute Code(s): L03.90 - CELLULITIS, UNSPECIFIED SNOMED Code(s): 037666039 Comment: - will stop cefazolin as per ID recommendations - will start keflex 500 mg BID - Blood cx NTD - soft tissue US and Doppler negative - Encourage elevation of LE's and jeet wrap (2) CKD (chronic kidney disease) Current Visit: Yes Status: Acute Code(s): N18.9 - CHRONIC KIDNEY DISEASE, UNSPECIFIED SNOMED Code(s): 060689532 Comment: - stable - at baseline - renally dose medications (3) HTN (hypertension) Current Visit: Yes Status: Acute Code(s): I10 - ESSENTIAL (PRIMARY) HYPERTENSION SNOMED Code(s): 32808202 Comment: - controlled - Continue losartan, hydralazine, torsemide (4) Hx of deep venous thrombosis Current Visit: Yes Status: Acute Code(s): Z86.718 - PERSONAL HISTORY OF OTHER VENOUS THROMBOSIS AND EMBOLISM SNOMED Code(s): 173613707 Comment: - Hx of PE/DVT - s/p IVC filter - Continue home dose warfarin. - INT therapuetic (5) CAD (coronary artery disease) Current Visit: Yes Status: Chronic Code(s): I25.10 - ATHSCL HEART DISEASE OF [place] CORONARY ARTERY W/O ANG PCTRS SNOMED Code(s): 14313027 Comment: - asymptomatic - s/p CABG, biological valve replacement - Continue atorvastatin, coumadin (6) Diabetes Current Visit: Yes Status: Chronic Code(s): E11.9 - TYPE 2 DIABETES MELLITUS WITHOUT COMPLICATIONS SNOMED Code(s): 12524691 Comment: - controlled -continue home insulin lantus 60 qam, 50 qpm with lispro SSI coverage. - FSBG ACHS (7) Hypothyroid Current Visit: Yes Status: Chronic Code(s): E03.9 - HYPOTHYROIDISM, UNSPECIFIED SNOMED Code(s): 09302299 Comment: TSH 4 levothyroxine 25 mcg daily (8) Systolic heart failure, chronic Current Visit: Yes Status: Chronic Code(s): I50.22 - CHRONIC SYSTOLIC ( CONGESTIVE) HEART FAILURE SNOMED Code(s): 142313909 Comment: - asymptomatic, apears euvolemic - EF < 20%, s/p ICD - continue home dose torsemide 60 mg daily, Potassium supplementation - continue losartan (new/added on admission) (9) DVT prophylaxis Current Visit: Yes Status: Acute Code(s): QII5572 - SNOMED Code(s): 409815663 Comment: - Warfarin with therapeutic INR (10) Full code status Current Visit: Yes Status: Acute Code(s): Z78.9 - OTHER SPECIFIED HEALTH STATUS SNOMED Code(s): 114950266 Comment: Status and Disposition: inpatient with cellulitis on IV abx failed oral antibiotics. Home when medically stable, in 1-2 days
[2018-06-03] MEDS: Nortriptyline CAP* 25 MG PO SCH (21:02)
[2018-06-03] MEDS: Cephalexin CAP* 500 MG PO SCH (21:02)
[2018-06-04] MEDS: oxyCODONE TAB* 5 MG TAB PO PRN ×3 (00:09→21:21)
[2018-06-04] MEDS: traMADol TAB* 50 MG PO SCH ×3 (05:43→21:10)
[2018-06-04] MEDS: Levothyroxine TAB* 25 MCG TAB PO SCH (05:44)
[2018-06-04 07:29] LABS: BUN/Creatinine Ratio 19.7 (8-20); Calcium 8.9 mg/dL (8.6-10.3); EGFR African American 36.1 (>60); EGFR Non-African American 29.8 (>60); Potassium 3.8 mmol/L (3.5-5.0)
[2018-06-04] MEDS: Losartan TAB* 25 MG PO SCH (09:32)
[2018-06-04] MEDS: Torsemide TAB* 20 MG PO SCH (09:32)
[2018-06-04] MEDS: Cephalexin CAP* 500 MG PO SCH ×2 (09:32→21:10)
[2018-06-04] MEDS: Pantoprazole TAB * 40 MG TAB PO SCH (09:33)
[2018-06-04] MEDS: Potassium Chlor TAB* 10 MEQ TAB.ER PO SCH ×2 (09:33→17:03)
[2018-06-04] MEDS: Gabapentin CAP(*) 300 MG PO SCH ×2 (09:33→21:09)
[2018-06-04] MEDS: hydrALAZINE TAB* 25 MG PO SCH ×2 (09:33→12:54)
[2018-06-04] MEDS: Insulin LISPRO* 1 UNITS UNIT SUBCUT SCH ×4 (09:34→21:10)
[2018-06-04] MEDS: Insulin GLARGINE(*) 1 UNITS UNIT SUBCUT SCH ×2 (12:37→21:11)
[2018-06-04] MEDS ORDERED: hydrALAZINE TAB* 25 MG PO PRN (14:41)
[2018-06-04 16:23] LABS: Urine Appearance Clear; Urine Bilirubin Negative (Negative); Urine Blood Negative (Negative); Urine Color Yellow; Urine Glucose Negative (Negative); Urine Ketones Negative (Negative); Urine Nitrite Negative (Negative); Urine Protein Negative (Negative); Urine Specific Gravity 1.011 (1.010-1.030); Urine Urobilinogen Negative (Negative)
[2018-06-04 16:47] LABS: Urine Creatinine Concentration 94.71 mg/dL
[2018-06-04] MEDS: Polyethylene Glycol 3350* 17 GM PACKET PO PRN (17:01)
[2018-06-04] MEDS: Warfarin TAB(*) 5 MG PO SCH (17:02)
[2018-06-04] MEDS ORDERED: Furosemide IV* 10 MG/ML 2 ML VIAL (20 MG) IV ONE (20:11)
[2018-06-04] MEDS: Nortriptyline CAP* 25 MG PO SCH (21:10)
[2018-06-05] MEDS: traMADol TAB* 50 MG PO SCH ×3 (05:56→22:38)
[2018-06-05] MEDS: Levothyroxine TAB* 25 MCG TAB PO SCH (05:56)
[2018-06-05 07:09] LABS: BUN/Creatinine Ratio 23.1 (8-20); Calcium 8.7 mg/dL (8.6-10.3); EGFR African American 37.2 (>60); EGFR Non-African American 30.8 (>60)
[2018-06-05] MEDS: Cephalexin CAP* 500 MG PO SCH ×2 (08:53→21:07)
[2018-06-05] MEDS: Torsemide TAB* 20 MG PO SCH (08:53)
[2018-06-05] MEDS: Gabapentin CAP(*) 300 MG PO SCH ×2 (08:53→21:06)
[2018-06-05] MEDS: Insulin LISPRO* 1 UNITS UNIT SUBCUT SCH ×4 (08:54→21:08)
[2018-06-05] MEDS: Potassium Chlor TAB* 10 MEQ TAB.ER PO SCH ×2 (08:54→16:45)
[2018-06-05] MEDS: Pantoprazole TAB * 40 MG TAB PO SCH (08:54)
[2018-06-05] MEDS: Insulin GLARGINE(*) 1 UNITS UNIT SUBCUT SCH ×3 (08:56→21:09)
--- NOTE | 2018-06-05 10:40 | PN ---
Progress Note - Progress Note Date of Service: 06/05/18 SOAP: Subjective: CC: cellulitis HPI: 73 year old man with left leg cellulitis, redness less intense, swelling about the same and diffuse lower leg pain with weight bearing. No fever, rash, or diarrhea and appetite is good. Objective: Vital Signs Temp 36.8 C 06/05/18 07:46 Pulse 80 06/05/18 07:46 Resp 18 06/05/18 08:53 BP 117/69 06/05/18 07:46 Pulse Ox 94 06/05/18 03:21 Intake & Output 06/04/18 06/05/18 06/05/18 18:59 06:59 18:59 Intake Total 1360 1760 240 Output Total 300 600 Balance 1060 1160 240 Weight 263 lb 4.8 oz Intake: Oral 1360 1760 240 Output: Urine 300 600 Other: # Bowel Movements 0 Gen:awake, no distress HEENT: no thrush Heart:RRR no murmur Lungs: CTA BL Abd:+BS NTND soft Skin: no rash MSK: left lower leg diffuse edema, diffuse darkened erythema, no crepitus or fluctuance, no ankle or knee tenderness or effusion Laboratory Results - last 24 hr 06/04/18 06/04/18 06/04/18 12:06 15:50 15:50 Sodium Potassium Chloride Carbon Dioxide Anion Gap BUN Creatinine Est GFR ( Amer) Est GFR (Non-Af Amer) BUN/Creatinine Ratio Glucose POC Glucose (mg/dL) 168 H Calcium Urine Color Yellow Urine Appearance Clear Urine pH 5.0 Ur Specific [place] 1.011 Urine Protein Negative Urine Ketones Negative Urine Blood Negative Urine Nitrate Negative Urine Bilirubin Negative Urine Urobilinogen Negative Ur Leukocyte Esterase Negative Ur Creatinine Concen 94.71 Ur Urea Nitrogen Conc 405 Urine Glucose Negative 06/04/18 06/04/18 06/05/18 16:17 20:15 01:12 Sodium Potassium Chloride Carbon Dioxide Anion Gap BUN Creatinine Est GFR ( Amer) Est GFR (Non-Af Amer) BUN/Creatinine Ratio Glucose POC Glucose (mg/dL) 194 H 183 H 155 H Calcium Urine Color Urine Appearance Urine pH Ur Specific [place] Urine Protein Urine Ketones Urine Blood Urine Nitrate Urine Bilirubin Urine Urobilinogen Ur Leukocyte Esterase Ur Creatinine Concen Ur Urea Nitrogen Conc Urine Glucose 06/05/18 06/05/18 06:27 08:05 Sodium 136 Potassium 4.0 Chloride 99 L Carbon Dioxide 29 Anion Gap 8 BUN 49 H Creatinine 2.12 H Est GFR ( Amer) 37.2 Est GFR (Non-Af Amer) 30.8 BUN/Creatinine Ratio 23.1 H Glucose 157 H POC Glucose (mg/dL) 188 H Calcium 8.7 Urine Color Urine Appearance Urine pH Ur Specific [place] Urine Protein Urine Ketones Urine Blood Urine Nitrate Urine Bilirubin Urine Urobilinogen Ur Leukocyte Esterase Ur Creatinine Concen Ur Urea Nitrogen Conc Urine Glucose Assessment: 1. Left leg cellulitis, likely Grp A Strep, improving 2. T2DM with peripheral neuropathy 3. CKD 4. CAD Plan: 1. continue cephalexin 500 mg po BID for 5 more days, continue leg elevation and jeet wrap as able. FU with me next week.
[2018-06-05] MEDS ORDERED: Furosemide IV* 10 MG/ML 2 ML VIAL (20 MG) IV SLOW PU ONE (11:05)
[2018-06-05] MEDS: oxyCODONE TAB* 5 MG TAB PO PRN ×2 (13:26→23:37)
--- NOTE | 2018-06-05 14:35 | PN ---
Subjective Date of Service: 06/05/18 Interval History: Patient complains of slight dizziness on standing. Patient states that he has not felt like he was going to pass out, but that he feels slightly unsteady on standing. Patient states this is new and has not previously been present. Patient also states that since he has been in the hospital he has had difficulty initiating his urinary stream and has been having urinary frequency without dysuria. Patient complains of back pain at his baseline. Patient denies F/C, CP, SOB, N/V, abdominal pain, diarrhea, or other pain. Family History: Unchanged from Admission Social History: Unchanged from Admission Past Medical History: Unchanged from Admission Objective Active Medications: Acetaminophen (Tylenol Tab*) 650 mg PO Q6H PRN PRN Reason: PAIN Last Admin: 06/05/18 03:10 Dose: 650 mg Cephalexin HCl (Keflex Cap*) 500 mg PO BID [facility] Last Admin: 06/05/18 08:53 Dose: 500 mg Dextrose (D50w Syringe 50 Ml*) 12.5 gm IV PUSH .FOR FS < 60 - SS PRN PRN Reason: FS < 60 Gabapentin (Neurontin Cap(*)) 300 mg PO BID [facility] Last Admin: 06/05/18 08:53 Dose: 300 mg Hydralazine HCl (Apresoline Tab*) 25 mg PO TID PRN PRN Reason: Systolic Bp Greater Than:180 Insulin Glargine (Lantus(*)) 60 units SUBCUT Q24H [facility] Last Admin: 06/05/18 09:06 Dose: 10 unit Insulin Glargine (Lantus(*)) 30 units SUBCUT Q24H [facility] Last Admin: 06/04/18 21:11 Dose: 30 unit Insulin Human Lispro (Humalog*) 0 units SUBCUT ACHS [facility]; Protocol Last Admin: 06/05/18 13:25 Dose: 1 units Levothyroxine Sodium (Synthroid Tab*) 25 mcg PO DAILY@0600 [facility] Last Admin: 06/05/18 05:56 Dose: 25 mcg Nortriptyline HCl (Pamelor Cap*) 50 mg PO BEDTIME [facility] Last Admin: 06/04/18 21:10 Dose: 50 mg Oxycodone HCl (Roxycodone Tab*) 5 mg PO Q6H PRN PRN Reason: SEVERE PAIN Last Admin: 06/05/18 13:26 Dose: 5 mg Pantoprazole Sodium (Protonix Tab*) 40 mg PO DAILY [facility] Last Admin: 06/05/18 08:54 Dose: 40 mg Polyethylene Glycol/Electrolytes (Miralax*) 17 gm PO DAILY PRN PRN Reason: CONSTIPATION Last Admin: 06/04/18 17:01 Dose: 17 gm Potassium Chloride (Klor Con Er Tab*) 10 meq PO BID WITH MEALS [facility] Last Admin: 06/05/18 08:54 Dose: 10 meq Torsemide (Demadex*) 60 mg PO DAILY [facility] Last Admin: 06/05/18 08:53 Dose: 60 mg Tramadol HCl (Ultram*) 50 mg PO Q8HR [facility] Last Admin: 06/05/18 13:26 Dose: 50 mg Warfarin Sodium (Coumadin Tab(*)) 2.5 mg PO DAILY@1700 [facility]; Protocol Last Admin: 06/04/18 17:02 Dose: 2.5 mg Vital Signs - 8 hr 06/05/18 06/05/18 06/05/18 07:31 07:46 08:00 Temperature 98.3 F 98.3 F Pulse Rate 80 80 Respiratory 18 18 20 Rate Blood Pressure 117/69 117/69 (mmHg) O2 Sat by Pulse 90 Oximetry 06/05/18 06/05/18 06/05/18 08:53 12:05 12:10 Temperature Pulse Rate 78 79 Respiratory 18 Rate Blood Pressure 145/79 142/68 (mmHg) O2 Sat by Pulse Oximetry 06/05/18 06/05/18 12:12 13:26 Temperature Pulse Rate 81 Respiratory 18 Rate Blood Pressure 133/66 (mmHg) O2 Sat by Pulse Oximetry Oxygen Devices in Use Now: None Appearance: Patient is a 73yo male who appears stated age and is sitting in the bed in [facility]. Eyes: No Scleral Icterus, PERRLA Ears/Nose/Mouth/Throat: NL Teeth, Lips, Gums, Clear Oropharnyx, Mucous Membranes Moist Neck: NL Appearance and Movements; NL JVP, Trachea Midline Respiratory: Symmetrical Chest Expansion and Respiratory Effort, Clear to Auscultation, - - Diminished in bases. Cardiovascular: NL Sounds; No Murmurs; No JVD, RRR, No Edema Abdominal: NL Sounds; No Tenderness; No Distention, No Hepatosplenomegaly Lymphatic: No Cervical Adenopathy Extremities: No Edema, No Clubbing, Cyanosis Skin: No Nodules or Sclerosis, - - LLE edema and erythema to the level of the knee. Neurological: Alert and Oriented x 3, NL Sensation, NL Muscle Strength and Tone , - - CN II-XII intact. Result Diagrams: 06/03/18 05:58 06/05/18 06:27 Additional Lab and Data: Lab Results Microbiology and Other Data: Microbiology 05/31/18 11:35 Aerobic Blood Culture - Preliminary Blood Venous No Growth Day 1 Anaerobic Blood Culture - Preliminary No Growth Day 1 05/31/18 11:35 Aerobic Blood Culture - Preliminary Blood Venous No Growth Day 1 Anaerobic Blood Culture - Preliminary No Growth Day 1 Assess/Plan/Problems-Billing Assessment: Mr. Mckinley is a 73 yo male with a PMH of CAD s/p CABG, afib on coumadin, systolic HF EF < 20% s/p ICD, s/p biological valve replacement, DM II , HTN who presented to the ER on 05/31 with c/o increased left LE swelling, redness and pain. He was seen initially on 05/22 in the ED for similar complaints (increased swelling/warmth), DVT was ruled out, his torsemide was increased and patient then followed up with PCP on 05/27 & 05/28 and was dx with cellulitis and started on Doxy and is now improving with a slow course on keflex. - Patient Problems (1) CKD (chronic kidney disease) Current Visit: Yes Status: Acute Code(s): N18.9 - CHRONIC KIDNEY DISEASE, UNSPECIFIED SNOMED Code(s): 882403429 Comment: - Acute on Chronic renal failure. - Renal function increased abover baseline, stable at current level - FeUrea 21.8% incicating prerenal pathology, patient appears clinically fluid overloaded, continue increased Diuresis - Possibly related to starting losartan, patient also recently started complianing of symptoms possibly related to BPH, check Bladder/Renal US - UA negative, no known nephrotoxins being administered. (2) Cellulitis Current Visit: Yes Status: Acute Code(s): L03.90 - CELLULITIS, UNSPECIFIED SNOMED Code(s): 784170835 Comment: - Will continue keflex 500 mg BID per ID. - Blood cx NTD - Soft tissue US and Doppler negative - Encourage elevation of LE's and jeet wrap, worsening clinically today in PM after no elevation of leg in AM. (3) HTN (hypertension) Current Visit: Yes Status: Acute Code(s): I10 - ESSENTIAL (PRIMARY) HYPERTENSION SNOMED Code(s): 49869242 Comment: - controlled, non-orthostatic - Continue hydralazine prn, torsemide - Losartan started and stopped this admission due to borderline hypotension. - When patient is euvolemic, likely in the outpatient setting, may be able to start losartan and possibly BB/Spironolactone/Entresto if BP will tolerate. (4) Hx of deep venous thrombosis Current Visit: Yes Status: Acute Code(s): Z86.718 - PERSONAL HISTORY OF OTHER VENOUS THROMBOSIS AND EMBOLISM SNOMED Code(s): 325905264 Comment: - Hx of PE/DVT - s/p IVC filter - Continue home dose warfarin. - INR therapeutic - LE US negative (5) CAD (coronary artery disease) Current Visit: Yes Status: Chronic Code(s): I25.10 - ATHSCL HEART DISEASE OF [place] CORONARY ARTERY W/O ANG PCTRS SNOMED Code(s): 20538234 Comment: - No CP - s/p CABG, biological valve replacement - Continue atorvastatin, coumadin (6) Diabetes Current Visit: Yes Status: Chronic Code(s): E11.9 - TYPE 2 DIABETES MELLITUS WITHOUT COMPLICATIONS SNOMED Code(s): 30353735 Comment: - Fasting morning FSBG appropriate, continue home regimen - FSBG ACHS and SSI (7) Acute on chronic systolic (congestive) heart failure Current Visit: No Status: Acute Code(s): I50.23 - ACUTE ON CHRONIC SYSTOLIC (CONGESTIVE) HEART FAILURE SNOMED Code(s): 794308776 Comment: - Clinical signs of fluid overload, decreased weight overnight, but still up over 5 lbs this admission - Continue torsemide and IV Lasix - EF<20 - Patient should be started on HFrEF as above when able. (8) Full code status Current Visit: Yes Status: Acute Code(s): Z78.9 - OTHER SPECIFIED HEALTH STATUS SNOMED Code(s): 702249776 Comment: (9) DVT prophylaxis Current Visit: Yes Status: Acute Code(s): PBW5761 - SNOMED Code(s): 765143572 Comment: - Warfarin with therapeutic INR Status and Disposition: inpatient with cellulitis on IV abx failed oral antibiotics, now with TESFAYE and fluid overload, D/C when medically stable.
[2018-06-05] MEDS: Warfarin TAB(*) 5 MG PO SCH (16:44)
[2018-06-05] MEDS: Polyethylene Glycol 3350* 17 GM PACKET PO PRN (16:45)
[2018-06-05] MEDS: Nortriptyline CAP* 25 MG PO SCH (21:07)
[2018-06-05] MEDS ORDERED: Benzocaine/Menthol LOZ* 1 LOZENGE PO PRN (22:54)
[2018-06-06] MEDS: traMADol TAB* 50 MG PO SCH (06:10)
[2018-06-06] MEDS: Levothyroxine TAB* 25 MCG TAB PO SCH (06:11)
[2018-06-06 06:29] LABS: ABS Basophils 0 10^3/ul (0-0.2); ABS Eosinophils 0.1 10^3/ul (0-0.6); ABS Lymphocytes 0.7 10^3/ul (1.0-4.8); ABS Monocytes 0.8 10^3/ul (0-0.8); ABS Neutrophils 3.4 10^3/ul (1.5-7.7); ABS Nucleated RBC 0 10^3/ul; Eosinophil % 2.7 %; Hematocrit 32 % (36-46); Hemoglobin 10.7 g/dL (14.0-18.0); Lymphocyte % 14.4 %; Mean Corpuscular HGB Conc 34 g/dL (31-36); Mean Corpuscular Hemoglobin 30 pg (27-31); Mean Corpuscular Volume 89 fL (80-94); Mean Platelet Volume 7.8 fL (7.4-10.4); Nucleated Red Blood Cells % 0; Platelet Count 154 10^3/uL (150-450); Red Blood Count 3.57 10^6 /uL (4.18-5.48); Red Cell Distribution Width 16 % (10.5-15); White Blood Count 5.1 10^3/uL (3.5-10.8)
[2018-06-06 06:44] LABS: BUN/Creatinine Ratio 23.4 (8-20); Calcium 8.8 mg/dL (8.6-10.3); EGFR African American 47.7 (>60); EGFR Non-African American 39.4 (>60); Potassium 3.9 mmol/L (3.5-5.0)
[2018-06-06] MEDS: Torsemide TAB* 20 MG PO SCH (08:37)
[2018-06-06] MEDS: oxyCODONE TAB* 5 MG TAB PO PRN (08:37)
[2018-06-06] MEDS: Cephalexin CAP* 500 MG PO SCH (08:37)
[2018-06-06] MEDS: Gabapentin CAP(*) 300 MG PO SCH (08:38)
[2018-06-06] MEDS: Potassium Chlor TAB* 10 MEQ TAB.ER PO SCH (08:38)
[2018-06-06] MEDS: Pantoprazole TAB * 40 MG TAB PO SCH (08:38)
[2018-06-06] MEDS: Insulin LISPRO* 1 UNITS UNIT SUBCUT SCH ×2 (08:51→12:14)
[2018-06-06] MEDS: Insulin GLARGINE(*) 1 UNITS UNIT SUBCUT SCH (08:52)
[2018-06-06] MEDS ORDERED: Finasteride TAB* 5 MG PO SCH (09:00)
[2018-06-06 11:18] VITALS: BP 153/80
--- NOTE | 2018-06-07 01:34 | DS ---
CC: Dr. Gonzalez * DISCHARGE SUMMARY: DATE OF ADMISSION: 05/31/18 DATE OF DISCHARGE: 06/06/18 PRIMARY CARE PROVIDER: Dr. Gonzalez. MY ATTENDING WHILE IN HOSPITAL: Dr. Lee Ross.* (DICTATED BY OLIVER HUGHES) PRIMARY DISCHARGE DIAGNOSES: 1. Left lower extremity cellulitis, likely due to Strep. 2. Mild congestive heart failure exacerbation. 3. Acute kidney injury. SECONDARY DISCHARGE DIAGNOSES: 1. Chronic congestive heart failure, ejection fraction of less than 20%. 2. Coronary artery disease, status post CABG. 3. Atrial fibrillation, on Coumadin. 4. Hypertension. 5. History of deep vein thrombosis and pulmonary embolism. 6. Hyperlipidemia. 7. History of biological aortic valve replacement. 8. Gastroesophageal reflux disease. 9. Hypothyroidism. 10. Diabetes mellitus type 2. 11. Depression. 12. Chronic kidney disease stage 3. 13. Peripheral vascular disease. 14. ICD insertion. STUDIES DONE WHILE IN THE HOSPITAL: Ultrasound from 05/31/18 shows diffuse edema, no abscess. Venous Doppler study from 05/31/18 read as no evidence for deep vein thrombosis. Abdomen and bladder ultrasound from 06/05/18 read as high postvoid residual 26% , sonographically normal kidneys, nonspecific splenomegaly consistent with prior granulomatous disease. MEDICATIONS AT DISCHARGE: 1. Exenatide 2 mg subcutaneously weekly. 2. Nortriptyline 50 mg p.o. at bedtime. 3. Torsemide 60 mg p.o. daily. 4. Warfarin 2.5 mg p.o. daily. 5. Insulin glargine 60 units subcutaneously q.a.m. 6. Insulin glargine 50 units subcutaneously q.p.m. 7. Hydralazine 25 mg p.o. t.i.d. 8. Tramadol 50 mg p.o. q.8 hours as needed. 9. Potassium chloride 10 mEq p.o. b.i.d. 10. Omeprazole 40 mg p.o. daily. 11. Levothyroxine 25 mcg p.o. daily. 12. NovoLog insulin sliding scale subcutaneously daily. 13. Gabapentin 300 mg p.o. t.i.d. 14. Tylenol 650 mg q.6 hours as needed. 15. Cephalexin 500 mg p.o. b.i.d. x7 doses. 16. Finasteride 5 mg p.o. daily. New medications on discharge: 1. Tylenol. 2. Cephalexin. 3. Finasteride. Medication discontinued on discharge: 1. Doxycycline 100 mg p.o. q.12 hours. HOSPITAL COURSE: This is a brief summary of the patient's presentation. For more details, please see the history and physical from OLIVER Leahy, on 05/31/18. In brief, the patient is a 73-year-old male with past medical history significant for the above who presented to the emergency department with increased swelling in his lower extremity and pain. The patient was evaluated in the emergency department on 05/22/18 and was ruled out for PE and told to follow up with his primary care provider. At that time, he was diagnosed with cellulitis and started on doxycycline with no improvement. The patient again returned to the emergency department on 05/31/18 due to no improvement in his leg with antibiotics. The patient had previously fallen approximately 3 weeks ago and had not been ambulating as much due to back pain, which had been evaluated and had no fracture per the patient. The patient was admitted to the hospital for IV antibiotics. The patient at that time due to heart failure with reduced ejection fraction was switched from hydralazine to losartan. The patient only had minimally elevated CRP. The patient's INR was therapeutic. The patient's creatinine on admission was 1.74 consistent with his baseline. The patient improved progressively on IV cefazolin. The patient was encouraged to elevate his legs, though there was difficulty with compliance with this. The patient was seen in consultation by Di Casiano NP, of Infectious Disease and recommended switching from cefazolin to Keflex. The patient on 06/03/18, had a significant increase in his creatinine from 1.58 to 2.08. The patient also developed at this time signs of fluid overload and was given additional IV diuretics. At this time, swelling in the patient's legs increased as did the redness. The patient had fractional excretion of urea, which was consistent with prerenal etiology. The patient continued to be diuresed due to clinical signs of fluid overload. The patient in the hospital was treated with oxycodone for his back pain and was seen in consultation by Physical Therapy with whom he performed very well. The patient's blood pressure also decreased to the low end of normal while in the hospital and his losartan was stopped on 06/03/18. The patient continued to have signs of fluid overload and complaints of feeling of incomplete emptying of his bladder. The patient had unremarkable urinalysis. The patient had an abdomen and bladder ultrasound, both showing postvoid residuals, likely due to BPH. The patient was started on finasteride. The patient's creatinine decreased to 1.71, which is near his baseline. On 06/06/18, the patient was restarted on his hydralazine. He was stable and amenable for discharge on 06/06/18. PHYSICAL EXAM ON THE DAY OF DISCHARGE: General: The patient is a 73-year-old male who appears stated age and is sitting comfortably in the bed in no acute distress. Vital Signs: At the time of evaluation, temperature 98.3, pulse rate 88, respiratory rate 18, oxygen saturation 94% on room air, blood pressure 153/ 80. HEENT: Head: Normocephalic, atraumatic. Sclerae icteric. No conjunctival injection. Nasal mucosa moist. Oral mucosa moist. No pharyngeal erythema, discharge, or exudate. Neck: Supple, nontender. No lymphadenopathy. No carotid bruits auscultated. No JVD. Cardiac: Regular rate and rhythm. No clicks, murmurs, gallops, or rubs. Pulses are 2+ in the dorsalis pedis, posterior tibialis and radialis areas. 3+ pitting edema in the left lower extremity, 1+ in the right lower extremity, improved from previous exam. Respiratory: Clear to auscultation bilaterally. No wheezes, rales, or rhonchi. Good air exchange bilaterally. Abdomen: Soft, nontender, nondistended. There are bowel sounds present and normoactive in all 4 quadrants. No hepatosplenomegaly. No abdominal bruits auscultated. No hepatojugular reflux. Genitourinary: No suprapubic or CVA tenderness. Skin: Clean, dry, intact. No rashes. Venous stasis changes in the bilateral lower extremities. Erythema in the left lower leg up to slightly underneath the knee , improved from previous exam. Neuro: Cranial nerves II through XII are intact. No focal deficits. Alert and oriented x3. Psychiatric: Pleasant and cooperative. DISCHARGE PLAN: The patient will be discharged to home. The patient will finish up the 7-day course of antibiotic therapy with 3 more days of cephalexin. The patient will have his INR checked per routine. The patient will be continued on his home insulin regimen. The patient was recently given a large supply of tramadol for his back pain. The patient should use this for his back pain and has been encouraged to ambulate more frequently. The patient may need outpatient physical therapy if he continues to have no improvement and/ or repeat imaging of his back. The patient has been referred to visiting nurse services to help with his medications. The patient has been started on finasteride due to BPH symptoms. The patient due to diuresis is at high risk for falls and orthostatic hypotension, so the patient has not been started on tamsulosin. Referral to Urology and further evaluation of BPH symptoms should be undertaken if indicated through the patient's primary care provider. Side effects of finasteride have been discussed with the patient including low energy , possible depression, and anemia and he states understanding. The patient to follow up with his primary care provider in 1 week for general medical management and a repeat BMP and INR. The patient will ideally be on an ARB, a beta-pratibha, and a potassium sparing diuretic for his heart failure; however, and this may be arranged at a later date through patient's primary care provider. If the patient did not tolerate losartan well while in the hospital, spironolactone maybe to enhance the patient's diuresis and balance out his concern for hypokalemia with torsemide may be indicated. The patient should have a heart healthy consistent carbohydrate diet without caffeine. The patient should engage in activity as tolerated with frequent ambulation as above. The patient should wrap his legs daily and elevate them as tolerated. TIME SPENT: Approximately 60 minutes spent on the discharge of the patient, 30 of which was spent in [id number] with the patient obtaining history and physical and discussing treatment plan. OLIVER HUGHES [id number]/[facility] #: [id number] ANAMIKA
== END 2018-06-06 13:20 | disposition home health service (06) | DRG 602 ==
LOC: ED 10:52 → MED 13:09 → INTOOBSV 06-02 15:09 → OBSVTOIN 06-02 15:09
PROVIDERS: ADMIT Internal Medicine; ATTEND Internal Medicine
DX: L03.116 Cellulitis of left lower limb (principal); I50.23 Acute on chronic systolic (congestive) heart failure; N17.9 Acute kidney failure, unspecified; I13.0 Hypertensive heart and chronic kidney disease with heart failure and stage 1 through stage 4 chronic kidney disease, or unspecified chronic kidney disease; N18.3 Chronic kidney disease, stage 3 (moderate); E11.22 Type 2 diabetes mellitus with diabetic chronic kidney disease; E11.42 Type 2 diabetes mellitus with diabetic polyneuropathy; I48.91 Unspecified atrial fibrillation; E78.5 Hyperlipidemia, unspecified; I25.10 Atherosclerotic heart disease of native coronary artery without angina pectoris; K21.9 Gastro-esophageal reflux disease without esophagitis; B95.0 Streptococcus, group A, as the cause of diseases classified elsewhere; M54.9 Dorsalgia, unspecified; E66.9 Obesity, unspecified; E03.9 Hypothyroidism, unspecified; F32.9 Major depressive disorder, single episode, unspecified; I87.8 Other specified disorders of veins; E87.70 Fluid overload, unspecified; N40.1 Benign prostatic hyperplasia with lower urinary tract symptoms; R33.8 Other retention of urine; Z79.01 Long term (current) use of anticoagulants; Z95.1 Presence of aortocoronary bypass graft; Z95.810 Presence of automatic (implantable) cardiac defibrillator; Z95.2 Presence of prosthetic heart valve; Z86.718 Personal history of other venous thrombosis and embolism; Z86.711 Personal history of pulmonary embolism; Z79.4 Long term (current) use of insulin; Z79.899 Other long term (current) drug therapy; Z88.8 Allergy status to other drugs, medicaments and biological substances; Z83.3 Family history of diabetes mellitus; Z82.49 Family history of ischemic heart disease and other diseases of the circulatory system; Z87.891 Personal history of nicotine dependence; Z68.35 Body mass index [BMI] 35.0-35.9, adult; Z80.0 Family history of malignant neoplasm of digestive organs
CPT/HCPCS: 36415; 76770; 80048; 80053; 81003; 82550; 82570; 83036; 83735; 83880; 84443; 84484; 84540; 85025; 85027; 85610; 85652; 86140; 86141; 87040; 93005; 99284; A9270-GY; G0378; G8978-GP-CI; G8979-GP-CI; G8980-GP-CI; G8987-GO-CI; G8988-GO-CI; G8989-GO-CI; J0690; J1940

== ENCOUNTER 2018-07-12 18:52 | Observation (INO) | payer MEDICARE, BC ==
--- OUTSIDE RECORDS SUMMARY | 2018-07-12 19:52 | XMS REPORT | Continuity of Care Document ---
:1945 Author Organization [facility] Care Team Providers Name Role Phone PORTIA OCONNELL Admitting Physician PORTIA OCONNELL Attending Physician Allergies and Intolerances Code Code Allergy Type Reaction Severity Start End Status System Substance Date Date 20231025 RXNorm Motrin Drug ANAPHYLAXIS Unknown Active allergy 3 (disorder) Medications RxNorm Medication Dose Route Instructions Start End Status Date Date 231025 24 HR venlafaxine 75 75 mg oral orally every day Active MG Extended Release Oral Capsule 031662 Amlodipine 10 MG Oral 10 mg oral orally every day Active Tablet 1191 Aspirin 81 mg oral orally every day Active 204129 atorvastatin 10 MG 10 mg oral orally every Active Oral Tablet other day 3276562 canagliflozin 300 MG 300 mg oral orally every Active Oral Tablet morning ( administer before first meal of the day) 4018 Ergocalciferol 55229 oral orally every Active unit week 186356 Hydrochlorothiazide 25 mg oral orally every day Active 25 MG Oral Tablet 755042 Insulin Glargine 100 69 unit subcutaneous subcutaneously Active UNT/ML Injectable every day at Solution bedtime Metformin Oral 1000 mg oral orally 2 times Active per day 588428 Metoprolol Tartrate 100 mg oral orally 2 times Active 100 MG Oral Tablet per day 801512 Nortriptyline 75 MG 75 mg oral orally every day Active Oral Capsule at bedtime 7846 Omeprazole 20 mg oral orally BID Active 443408 valsartan 320 MG Oral 320 mg oral orally every day Active Tablet Problems Code Code System Problem Name Start Date End Date Status 06141614 SNOMED-CT Hypertensive disorder U Active 71446661 SNOMED-CT Diabetes mellitus U Active 067878885 SNOMED-CT Gastroesophageal reflux disease U Active 585760156 SNOMED-CT Anemia U Active 31495005 SNOMED-CT Depressive disorder U Active 807178337 SNOMED-CT Backache U Active 29198077 SNOMED-CT Posttraumatic stress disorder U Active Procedures Code Code System Procedure Date 45886534 SNOMED CT Cholecystectomy U BACK [DISC] U Results Laboratory Results Order: PT/INR Specimen Source: Body Site: Legend: (G,H)=High, (GG,HH,CH,#H)=Above High Threshold, (#,L)=Low, (##,CL,#L,LL) =Below Low Threshold, (C,CC,CA,#A,A)=Abnormal LOINC Test Result Flag Range Units Date 5902-2 1PT Time PPP 35.9 H 9.4-12.4 sec 06/19/2018 09:04 6301-6 1INR PPP 3.1 06/19/2018 09:04 Interpretive Dorinda: 1 INR INTERPERTATION 2.0-3.0 THERAPEUTIC MONITORING 2.5-3.5 HEART VALVE REPLACEMENT Performing Lab Footnotes:[facility] - [id number] - [address] [place] [address] HARRY Jay [email or web address] Social History Code Code System Social History Description Dates Observed Observation 757916187 SNOMED CT Current Smoking Unknown if ever Status smoked UNK AdministrativeGender Sex Assigned At Unknown Vital Signs No data in the system Goals Section No data in the system Health Concerns No data in the systemEncounter Diagnosis Date Code Code System Diagnosis Status I48.0 ICD10 PAROXYSMAL ATRIAL FIBRILLATION Active Advance Directives *RHIO - CONSENT IS YES Directive Type Effective Date Telecommunications Equipment Installer Notes Supporting Document Name Address Phone No [...]
--- OUTSIDE RECORDS SUMMARY | 2018-07-12 19:52 | XMS REPORT | Continuity of Care Document ---
:1945 Author Organization [facility] Care Team Providers Name Role Phone PORTIA OCONNELL Admitting Physician PORTIA OCONNELL Attending Physician Allergies and Intolerances Code Code Allergy Type Reaction Severity Start End Status System Substance Date Date 20231025 RXNorm Motrin Drug ANAPHYLAXIS Unknown Active allergy 3 (disorder) Medications RxNorm Medication Dose Route Instructions Start End Status Date Date 484677 24 HR venlafaxine 75 75 mg oral orally every day Active MG Extended Release Oral Capsule 307499 Amlodipine 10 MG Oral 10 mg oral orally every day Active Tablet 1191 Aspirin 81 mg oral orally every day Active 266932 atorvastatin 10 MG 10 mg oral orally every Active Oral Tablet other day 2693250 canagliflozin 300 MG 300 mg oral orally every Active Oral Tablet morning ( administer before first meal of the day) 4018 Ergocalciferol 19221 oral orally every Active unit week 143345 Hydrochlorothiazide 25 mg oral orally every day Active 25 MG Oral Tablet 484642 Insulin Glargine 100 69 unit subcutaneous subcutaneously Active UNT/ML Injectable every day at Solution bedtime Metformin Oral 1000 mg oral orally 2 times Active per day 623223 Metoprolol Tartrate 100 mg oral orally 2 times Active 100 MG Oral Tablet per day 901417 Nortriptyline 75 MG 75 mg oral orally every day Active Oral Capsule at bedtime 9146 Omeprazole 20 mg oral orally BID Active 039135 valsartan 320 MG Oral 320 mg oral orally every day Active Tablet Problems Code Code System Problem Name Start Date End Date Status 69701362 SNOMED-CT Hypertensive disorder U Active 39802514 SNOMED-CT Diabetes mellitus U Active 872265503 SNOMED-CT Gastroesophageal reflux disease U Active 322186961 SNOMED-CT Anemia U Active 00513317 SNOMED-CT Depressive disorder U Active 299420305 SNOMED-CT Backache U Active 11386604 SNOMED-CT Posttraumatic stress disorder U Active Procedures Code Code System Procedure Date 25046262 SNOMED CT Cholecystectomy U BACK [DISC] U Results Laboratory Results Order: PT/INR Specimen Source: Body Site: Legend: (G,H)=High, (GG,HH,CH,#H)=Above High Threshold, (#,L)=Low, (##,CL,#L,LL) =Below Low Threshold, (C,CC,CA,#A,A)=Abnormal LOINC Test Result Flag Range Units Date 5902-2 1PT Time PPP 29.9 H 9.4-12.4 sec 07/03/2018 08:20 6301-6 1INR PPP 2.6 07/03/2018 08:20 Interpretive Dorinda: 1 INR INTERPERTATION 2.0-3.0 THERAPEUTIC MONITORING 2.5-3.5 HEART VALVE REPLACEMENT Performing Lab Footnotes:[facility] - [id number] - [address] [place] [address] HARRY Jay [email or web address] Social History Code Code System Social History Description Dates Observed Observation 770628000 SNOMED CT Current Smoking Unknown if ever Status smoked UNK AdministrativeGender Sex Assigned At Unknown Vital Signs No data in the system Goals Section No data in the system Health Concerns No data in the systemEncounter Diagnosis Date Code Code System Diagnosis Status I48.0 ICD10 PAROXYSMAL ATRIAL FIBRILLATION Active Advance Directives *RHIO - CONSENT IS YES Directive Type Effective Date Director Of Pharmacy Notes Supporting Document Name Address Phone No [...]
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
[2018-07-12 21:21] LABS: Urine Appearance Clear; Urine Bilirubin Negative (Negative); Urine Blood Negative (Negative); Urine Color Straw; Urine Glucose 2+(150 mg/dL) (Negative); Urine Ketones Negative (Negative); Urine Nitrite Negative (Negative); Urine Protein Negative (Negative); Urine Specific Gravity 1.006 (1.010-1.030); Urine Urobilinogen Negative (Negative)
[2018-07-12 21:49] LABS: Albumin 4.5 g/dL (3.2-5.2); Albumin/Globulin Ratio 1.3 (1-3); BUN/Creatinine Ratio 16.3 (8-20); Calcium 9.3 mg/dL (8.6-10.3); EGFR African American 49.4 (>60); EGFR Non-African American 40.8 (>60); Globulin 3.5 g/dL (2-4); Potassium 3.6 mmol/L (3.5-5.0); Total Bilirubin 0.6 mg/dL (0.2-1.0)
[2018-07-12 21:51] LABS: Troponin I 0.03 ng/mL (<0.04)
[2018-07-12 21:56] LABS: Activated Partial Thrombo Time 38.7 seconds (26.0-36.3); INR 1.95 (0.82-1.09)
[2018-07-12 22:04] LABS: ABS Basophils 0 10^3/ul (0-0.2); ABS Eosinophils 0.1 10^3/ul (0-0.6); ABS Lymphocytes 0.7 10^3/ul (1.0-4.8); ABS Monocytes 0.5 10^3/ul (0-0.8); ABS Neutrophils 3.8 10^3/ul (1.5-7.7); ABS Nucleated RBC 0 10^3/ul; Eosinophil % 1.7 %; Hematocrit 38 % (36-46); Hemoglobin 12.3 g/dL (14.0-18.0); Lymphocyte % 13.9 %; Mean Corpuscular HGB Conc 33 g/dL (31-36); Mean Corpuscular Hemoglobin 29 pg (27-31); Mean Corpuscular Volume 89 fL (80-94); Mean Platelet Volume 8.7 fL (7.4-10.4); Nucleated Red Blood Cells % 0.1; Platelet Count 153 10^3/uL (150-450); Red Cell Distribution Width 15 % (10.5-15); White Blood Count 5.1 10^3/uL (3.5-10.8)
[2018-07-12] MEDS ORDERED: Acetaminophen TAB* 325 MG PO PRN (23:22)
[2018-07-13 00:09] LABS: HDL Cholesterol 26.1 mg/dL
[2018-07-13] MEDS: hydrALAZINE TAB* 25 MG PO SCH ×4 (01:09→20:54)
[2018-07-13] MEDS ORDERED: Dextrose 50% Syringe 50 ML* 25 GM/50 ML SYRINGE IV PUSH PRN (01:22)
[2018-07-13] MEDS: Nortriptyline CAP* 25 MG PO SCH ×4 (01:32→20:53)
[2018-07-13] MEDS: oxyCODONE/Acetamin 5/325 MG* TAB PO PRN ×3 (01:44→22:06)
[2018-07-13] MEDS ORDERED: Enoxaparin(*) 150 MG/ML 1 ML SYRINGE SUBCUT ONE (02:15)
[2018-07-13 03:46] LABS: ABS Basophils 0 10^3/ul (0-0.2); ABS Eosinophils 0.1 10^3/ul (0-0.6); ABS Lymphocytes 0.7 10^3/ul (1.0-4.8); ABS Monocytes 0.6 10^3/ul (0-0.8); ABS Neutrophils 3.4 10^3/ul (1.5-7.7); ABS Nucleated RBC 0 10^3/ul; Eosinophil % 2.1 %; Hematocrit 34 % (36-46); Hemoglobin 11.4 g/dL (14.0-18.0); Lymphocyte % 15.4 %; Mean Corpuscular HGB Conc 33 g/dL (31-36); Mean Corpuscular Hemoglobin 29 pg (27-31); Mean Corpuscular Volume 89 fL (80-94); Mean Platelet Volume 8.2 fL (7.4-10.4); Nucleated Red Blood Cells % 0; Platelet Count 142 10^3/uL (150-450); Red Blood Count 3.87 10^6 /uL (4.18-5.48); Red Cell Distribution Width 15 % (10.5-15); White Blood Count 4.8 10^3/uL (3.5-10.8)
[2018-07-13 04:00] LABS: BUN/Creatinine Ratio 17.4 (8-20); Calcium 8.8 mg/dL (8.6-10.3); EGFR African American 53.4 (>60); EGFR Non-African American 44.2 (>60); Potassium 3.2 mmol/L (3.5-5.0)
[2018-07-13 04:02] LABS: Troponin I 0.02 ng/mL (<0.04)
[2018-07-13] MEDS: Levothyroxine TAB* 25 MCG TAB PO SCH (05:28)
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
[2018-07-13] MEDS ORDERED: KCL 20 MEQ/100 ML IVPREMIX* 20 MEQ/100 ML BAG IV ONE (07:36)
--- NOTE | 2018-07-13 07:44 | PN ---
Subjective Date of Service: 07/13/18 Interval History: patient reported to the nurse he felt like he could go home but on evaluation states he continues to feel sob. Reports better than yesterday. occasional cough. no sputum production. No fever or chills. Reports his le have reduce in size with less edema. Reports that he doesn't add extra salt to diet but he frequently eats frozen meals due to continence and prior to coming to hospital he ate spaghetti and meats balls. Objective Active Medications: Acetaminophen (Tylenol Tab*) 650 mg PO Q4H PRN PRN Reason: FEVER/PAIN Amiodarone HCl (Cordarone Tab*) 200 mg PO DAILY [facility] Atorvastatin Calcium (Lipitor*) 10 mg PO DAILY [facility] Buspirone HCl (Buspar Tab *) 15 mg PO DAILY [facility] Carvedilol (Coreg Tab*) 25 mg PO BID [facility] Dextrose (D50w Syringe 50 Ml*) 12.5 gm IV PUSH .FOR FS < 60 - SS PRN PRN Reason: FS < 60 Docusate Sodium (Colace Cap*) 100 mg PO DAILY [facility] Gabapentin (Neurontin Cap(*)) 300 mg PO TID [facility] Hydralazine HCl (Apresoline Tab*) 25 mg PO TID [facility] Last Admin: 07/13/18 01:09 Dose: 25 mg Potassium Chloride (Potassium Chloride 20 Meq/100 Ml Ivpremix*) 20 meq in 100 mls @ 50 mls/hr IV ONCE ONE Stop: 07/13/18 09:35 Insulin Glargine (Lantus(*)) 50 units SUBCUT BEDTIME [facility] Insulin Glargine (Lantus(*)) 60 units SUBCUT QAM [facility] Insulin Human Lispro (Humalog*) 0 units SUBCUT AC [facility]; Protocol Levothyroxine Sodium (Synthroid Tab*) 25 mcg PO DAILY@0600 [facility] Last Admin: 07/13/18 05:28 Dose: 25 mcg Nortriptyline HCl (Pamelor Cap*) 50 mg PO 2100 [facility] Last Admin: 07/13/18 01:45 Dose: 50 mg Oxycodone/Acetaminophen (Percocet 5/325 Tab*) 1 tab PO Q4HR PRN PRN Reason: PAIN Last Admin: 07/13/18 01:44 Dose: 1 tab Potassium Chloride (Klor Con Er Tab*) 20 meq PO TID [facility] Torsemide (Torsemide) 20 mg PO ONCE ONE Stop: 07/13/18 22:20 Torsemide (Demadex*) 80 mg PO DAILY [facility] Warfarin Sodium (Coumadin Tab(*)) 2.5 mg PO DAILY [facility]; Protocol Vital Signs - 8 hr 07/13/18 07/13/18 07/13/18 00:01 00:10 00:16 Temperature 98.3 F Pulse Rate 76 Respiratory 21 16 22 Rate Blood Pressure 183/107 237/119 (mmHg) O2 Sat by Pulse 93 Oximetry 07/13/18 07/13/18 07/13/18 00:19 00:21 00:24 Temperature Pulse Rate Respiratory 22 22 19 Rate Blood Pressure 183/107 187/95 (mmHg) O2 Sat by Pulse Oximetry 07/13/18 07/13/18 07/13/18 00:30 00:40 00:50 Temperature 98.3 F 97.4 F Pulse Rate 76 78 Respiratory 18 16 20 Rate Blood Pressure 169/107 183/107 183/94 (mmHg) O2 Sat by Pulse 93 92 Oximetry 07/13/18 07/13/18 07/13/18 01:44 03:22 04:47 Temperature 97.6 F Pulse Rate 76 Respiratory 18 18 18 Rate Blood Pressure 161/73 (mmHg) O2 Sat by Pulse 98 Oximetry Oxygen Devices in Use Now: None Appearance: chornically ill male A+O x3 in NAD Eyes: No Scleral Icterus, PERRLA Respiratory: Symmetrical Chest Expansion and Respiratory Effort, Clear to Auscultation, - - noted to be slightly dyspneic when talking Cardiovascular: NL Sounds; No Murmurs; No JVD, RRR, - - 2+ LE edema Abdominal: NL Sounds; No Tenderness; No Distention, - - obese Extremities: - - vascular changes to le's Neurological: Alert and Oriented x 3, NL Sensation, NL Muscle Strength and Tone Lines/Tubes/Other Access: Clean, Dry and Intact Peripheral IV Nutrition: Taking PO's Result Diagrams: 07/13/18 03:30 07/13/18 03:30 Assess/Plan/Problems-Billing Assessment: Mr. Mckinley is a 73 yo male with a PMH of CAD s/p CABG, afib, systolic CHF EF < 20%, DMII, HTN who presented to the ER with c/o increased LE swelling, acute sob and Chest heaviness - Patient Problems (1) Acute on chronic systolic (congestive) heart failure Comment: - Clinical signs of fluid overload - Continue IV Lasix - EF<20 - has ICD - continue home medications (2) Chest pain Comment: - No further chest discomfort - troponins x3 negative, no EKG changes - underwent a cardiac nuclear stress test 5 weeks ago in [place] and was told it was normal (3) History of mechanical aortic valve replacement Comment: - Continue warfarin (4) Hx of deep venous thrombosis Comment: - Doppler negative - Hx of PE/DVT - s/p IVC filter - Continue home dose warfarin. - INR therapeutic - LE US negative (5) Diabetes Comment: - continue home regimen - FSBG ACHS and SSI (6) Hypothyroid Comment: TSH 4 levothyroxine 25 mcg daily (7) DVT prophylaxis Comment: - Warfarin with therapeutic INR (8) Full code status Comment: Status and Disposition: OBV acute on chronic CHF. Most likely DC home tomorrow
[2018-07-13] MEDS: Insulin LISPRO* 1 UNITS UNIT SUBCUT SCH ×3 (08:40→17:42)
[2018-07-13] MEDS: Potassium Chlor TAB* 20 MEQ TAB.ER PO SCH ×3 (08:44→20:53)
[2018-07-13] MEDS: Warfarin TAB(*) 2.5 MG PO SCH (08:44)
[2018-07-13] MEDS: Docusate CAP* 100 MG PO SCH (08:44)
[2018-07-13] MEDS: busPIRone TAB* 15 MG PO SCH (08:44)
[2018-07-13] MEDS: Atorvastatin* 10 MG TAB PO SCH (08:44)
[2018-07-13] MEDS: Amiodarone TAB* 200 MG PO SCH (08:45)
[2018-07-13] MEDS: Gabapentin CAP(*) 300 MG PO SCH ×3 (08:45→20:53)
[2018-07-13] MEDS: Carvedilol TAB* 25 MG PO SCH ×2 (08:45→20:54)
[2018-07-13] MEDS ORDERED: Insulin GLARGINE(*) 1 UNITS UNIT SUBCUT SCH ×2 (09:00→21:00)
[2018-07-13] MEDS ORDERED: Torsemide TAB* 20 MG PO SCH (09:00)
[2018-07-13] MEDS: Torsemide TAB 10 MG PO SCH (10:00)
[2018-07-13] MEDS ORDERED: Torsemide TAB 10 MG PO ONE (22:19)
[2018-07-14] MEDS: Levothyroxine TAB* 25 MCG TAB PO SCH (05:01)
[2018-07-14] MEDS: Insulin LISPRO* 1 UNITS UNIT SUBCUT SCH (07:43)
[2018-07-14 07:57] LABS: ABS Basophils 0 10^3/ul (0-0.2); ABS Eosinophils 0.2 10^3/ul (0-0.6); ABS Lymphocytes 0.9 10^3/ul (1.0-4.8); ABS Monocytes 0.7 10^3/ul (0-0.8); ABS Neutrophils 3.6 10^3/ul (1.5-7.7); ABS Nucleated RBC 0 10^3/ul; Eosinophil % 2.8 %; Hematocrit 36 % (36-46); Hemoglobin 11.9 g/dL (14.0-18.0); Lymphocyte % 15.9 %; Mean Corpuscular HGB Conc 33 g/dL (31-36); Mean Corpuscular Hemoglobin 29 pg (27-31); Mean Corpuscular Volume 89 fL (80-94); Mean Platelet Volume 8.3 fL (7.4-10.4); Nucleated Red Blood Cells % 0.1; Platelet Count 144 10^3/uL (150-450); Red Blood Count 4.05 10^6 /uL (4.18-5.48); Red Cell Distribution Width 15 % (10.5-15); White Blood Count 5.4 10^3/uL (3.5-10.8)
[2018-07-14 08:16] LABS: BUN/Creatinine Ratio 16.7 (8-20); Calcium 9.2 mg/dL (8.6-10.3); EGFR African American 48.7 (>60); EGFR Non-African American 40.3 (>60); Potassium 3.6 mmol/L (3.5-5.0)
[2018-07-14] MEDS ORDERED: Insulin GLARGINE(*) 1 UNITS UNIT SUBCUT SCH ×2 (09:00→21:00)
[2018-07-14] MEDS: Potassium Chlor TAB* 20 MEQ TAB.ER PO SCH (09:50)
[2018-07-14] MEDS: Torsemide TAB 10 MG PO SCH (09:51)
[2018-07-14] MEDS: Carvedilol TAB* 25 MG PO SCH (09:52)
[2018-07-14] MEDS: busPIRone TAB* 15 MG PO SCH (09:52)
[2018-07-14] MEDS: Atorvastatin* 10 MG TAB PO SCH (09:52)
[2018-07-14] MEDS: oxyCODONE/Acetamin 5/325 MG* TAB PO PRN (09:52)
[2018-07-14] MEDS: Docusate CAP* 100 MG PO SCH (09:52)
[2018-07-14] MEDS: Gabapentin CAP(*) 300 MG PO SCH (09:52)
[2018-07-14] MEDS: hydrALAZINE TAB* 25 MG PO SCH (09:53)
[2018-07-14] MEDS: Amiodarone TAB* 200 MG PO SCH (09:53)
[2018-07-14] MEDS: Warfarin TAB(*) 2.5 MG PO SCH (09:55)
--- NOTE | 2018-07-14 11:00 | DCNOTE ---
Subjective Date of Service: 07/14/18 Interval History: pt reports he feels much better today; stating his breathing is much better today and denies SOB. No cough or sputum production. Reports his LE has greatly reduced from the edema. Denies orthopnea. Objective Active Medications: Acetaminophen (Tylenol Tab*) 650 mg PO Q4H PRN PRN Reason: FEVER/PAIN Amiodarone HCl (Cordarone Tab*) 200 mg PO DAILY [facility] Last Admin: 07/14/18 09:53 Dose: 200 mg Atorvastatin Calcium (Lipitor*) 10 mg PO DAILY [facility] Last Admin: 07/14/18 09:52 Dose: 10 mg Buspirone HCl (Buspar Tab *) 15 mg PO DAILY [facility] Last Admin: 07/14/18 09:52 Dose: 15 mg Carvedilol (Coreg Tab*) 25 mg PO BID [facility] Last Admin: 07/14/18 09:52 Dose: 25 mg Dextrose (D50w Syringe 50 Ml*) 12.5 gm IV PUSH .FOR FS < 60 - SS PRN PRN Reason: FS < 60 Last Admin: 07/14/18 05:47 Dose: 12.5 gm Docusate Sodium (Colace Cap*) 100 mg PO DAILY [facility] Last Admin: 07/14/18 09:52 Dose: 100 mg Gabapentin (Neurontin Cap(*)) 300 mg PO TID [facility] Last Admin: 07/14/18 09:52 Dose: 300 mg Hydralazine HCl (Apresoline Tab*) 25 mg PO TID [facility] Last Admin: 07/14/18 09:53 Dose: 25 mg Insulin Glargine (Lantus(*)) 40 units SUBCUT BEDTIME [facility] Insulin Glargine (Lantus(*)) 50 units SUBCUT QAM [facility] Last Admin: 07/14/18 09:48 Dose: 50 units Insulin Human Lispro (Humalog*) 0 units SUBCUT AC [facility]; Protocol Last Admin: 07/14/18 07:43 Dose: Not Given Levothyroxine Sodium (Synthroid Tab*) 25 mcg PO DAILY@0600 [facility] Last Admin: 07/14/18 05:01 Dose: 25 mcg Nortriptyline HCl (Pamelor Cap*) 50 mg PO 2100 [facility] Last Admin: 07/13/18 20:53 Dose: 50 mg Oxycodone/Acetaminophen (Percocet 5/325 Tab*) 1 tab PO Q4HR PRN PRN Reason: PAIN Last Admin: 07/14/18 09:52 Dose: 1 tab Potassium Chloride (Klor Con Er Tab*) 20 meq PO TID [facility] Last Admin: 07/14/18 09:50 Dose: 20 meq Torsemide (Torsemide) 80 mg PO DAILY [facility] Last Admin: 07/14/18 09:51 Dose: 80 mg Warfarin Sodium (Coumadin Tab(*)) 2.5 mg PO 1700 JUDY; Protocol Vital Signs - 8 hr 07/14/18 07/14/18 07/14/18 03:17 07:44 08:48 Temperature 97.9 F 97.3 F Pulse Rate 69 72 Respiratory 20 20 16 Rate Blood Pressure 150/83 177/80 (mmHg) O2 Sat by Pulse 95 98 Oximetry 07/14/18 09:52 Temperature Pulse Rate Respiratory 20 Rate Blood Pressure (mmHg) O2 Sat by Pulse Oximetry Oxygen Devices in Use Now: None Appearance: AOx3 in NAD. Eyes: No Scleral Icterus, PERRLA Ears/Nose/Mouth/Throat: NL Teeth, Lips, Gums, Mucous Membranes Moist Neck: NL Appearance and Movements; NL JVP Respiratory: Symmetrical Chest Expansion and Respiratory Effort, Clear to Auscultation Cardiovascular: NL Sounds; No Murmurs; No JVD, RRR, - - 1+ LE edema Abdominal: NL Sounds; No Tenderness; No Distention, - - obese Extremities: No Clubbing, Cyanosis Neurological: Alert and Oriented x 3, NL Sensation, NL Muscle Strength and Tone Lines/Tubes/Other Access: Clean, Dry and Intact Peripheral IV Nutrition: Taking PO's Result Diagrams: 07/14/18 07:10 07/14/18 07:10 Assess/Plan/Problems-Billing Assessment: Mr. Mckinley is a 73 yo male with a PMH of CAD s/p CABG, afib, systolic CHF EF < 20%, DMII, HTN who presented to the ER with c/o increased LE swelling, acute sob and Chest heaviness - Patient Problems (1) Acute on chronic systolic (congestive) heart failure Comment: - much improvement overnight - EF<20 - has ICD - continue home medications (2) Chest pain Comment: - No further chest discomfort - troponins x3 negative, no EKG changes - underwent a cardiac nuclear stress test 5 weeks ago in [place] and was told it was normal (3) History of mechanical aortic valve replacement Comment: - Continue warfarin (4) Hx of deep venous thrombosis Comment: - Doppler negative - Hx of PE/DVT - s/p IVC filter - Continue home dose warfarin. - INR therapeutic - LE US negative (5) Diabetes Comment: - continue home regimen - FSBG ACHS and SSI (6) Hypothyroid Comment: TSH 4 levothyroxine 25 mcg daily (7) DVT prophylaxis Comment: - Warfarin with therapeutic INR (8) Full code status Comment: Status and Disposition: OBV acute on chronic CHF. DC home.
[2018-07-14 11:23] LABS: INR 1.99 (0.82-1.09)
[2018-07-14 11:50] VITALS: BP 119/70
[2018-07-14] MEDS ORDERED: Warfarin TAB(*) 2.5 MG PO SCH (17:00)
--- NOTE | 2018-07-14 21:55 | DS ---
CC: Dr. Gonzalez; Dr. Hernandez* DISCHARGE SUMMARY: DATE OF ADMISSION: 07/12/18 DATE OF DISCHARGE: 07/14/18 PROVIDER: Ethel Pearson NP. ATTENDING PHYSICIAN: Dr. Monteiro* (report dictated by Ethel Pearson NP). PRIMARY CARE PROVIDER: Dr. Gonzalez. HOTBED OPERATOR: Dr. Hernandez. DISCHARGE DIAGNOSIS: Acute on chronic systolic congestive heart failure with known ejection fraction of less than 20%. SECONDARY DIAGNOSES: 1. Status post automatic implantable cardioverter-defibrillator. 2. Coronary artery disease, status post coronary artery bypass graft. 3. Atrial fibrillation, on Coumadin. 4. Hypertension. 5. History of deep vein thrombosis and pulmonary embolism post IVC filter placement. 6. Hyperlipidemia. 7. Valvular disease, status post prosthetic biologic aortic valve replacement. 8. Gastroesophageal reflux disease. 9. Hypothyroidism. 10. Insulin-dependent type 2 diabetes. 11. Depression. 12. Chronic kidney disease, stage 3. 13. Peripheral vascular disease. DISCHARGE MEDICATIONS: 1. Coreg 25 mg p.o. b.i.d. 2. Colace 100 mg p.o. daily. 3. Vitamin D 1000 units p.o. daily. 4. Oxycodone/acetaminophen 5/325 mg p.o. q. 4 hours p.r.n. pain. 5. Buspirone 15 mg p.o. daily. 6. Atorvastatin 10 mg p.o. daily. 7. Amiodarone 200 mg daily. 8. Gabapentin 300 mg p.o. t.i.d. 9. Acetaminophen 650 mg p.o. q.8 hours p.r.n. 10. Nortriptyline 50 mg p.o. at bedtime. 11. Levothyroxine 25 mcg p.o. daily. 12. Lantus 50 units subcu at bedtime, 60 units q. a.m. 13. Lispro insulin sliding scale. 14. Torsemide 60 mg p.o. daily. 15. Potassium 20 mEq p.o. t.i.d. 16. Hydralazine 25 mg p.o. t.i.d. 17. Coumadin 2.5 mg p.o. daily. 18. Proscar 5 mg p.o. daily. HISTORY OF PRESENT ILLNESS AND HOSPITAL COURSE: Please see history and physical by Monica Benitez NP for full admission details, but in summary, this is a 73-year- old male with a past medical history as stated above who presented to emergency department on 07/12/18 with complaints of shortness of breath and chest discomfort and increase in lower extremity edema, left greater than right. The patient was found to have a BNP of 335, which is around the patient's baseline. Initial troponin was 0.03. EKG showed no acute changes. The patient was admitted to the hospitalist service on telemetry for acute on chronic systolic congestive heart failure exacerbation. The patient's torsemide was increased from 60 mg p.o. daily to 80 mg daily, and 24 hours after admission, the patient reported less shortness of breath and decrease in his lower extremity edema. He did undergo a venous Doppler of his lower extremities, which showed no DVT. Today, on evaluation, the patient reports that he is at baseline and has had resolution of his shortness of breath as well as his lower extremity edema greatly improved. The patient is able to ambulate on room air maintaining O2 sats greater than 94%. In regards to the patient's chest discomfort, the patient was monitored on telemetry. He had no further chest discomfort after admission. Troponins were trended, which were all negative x3. The patient reports that he just underwent a cardiac nuclear stress test 5 weeks ago in [place], which was low risk. I suspect the patient's congestive heart failure exacerbation was secondary to diet and noncompliance as the patient reports that the day prior to coming to the emergency department, he ate spaghetti and the meat ball as well as he eats dinners frequently. He states he does not add extra salt, but does admit that he most likely eats a high salt diet. Also reporting he eats microwave popcorn every night. This was discussed with the patient as far as diet compliance of the low salt diet is important for his health in relation to his systolic congestive heart failure. The patient is ready for discharge to home. He was recommended to take 80 mg of torsemide tomorrow morning then go back to his home dose of 60 mg p.o. daily. His creatinine has remained around baseline of 1.6. The patient was also recommended to buy a home scale and to weigh himself daily and if he gains more than 3 pounds, to notify his primary care provider. The patient's INR is 1.99 on today's lab. He will continue his home dose Coumadin. DISCHARGE PLAN: 1. The patient is to follow up with Dr. Gonzalez within one week. 2. The patient was recommended to buy a scale and weigh himself daily and if he gains more than 3 pounds, to notify his primary care provider. 3. Follow up with Dr. Hernandez as previously scheduled. 4. Low salt diet. TIME SPENT: Approximately . ETHEL PEARSON, MELINDA [id number]/[facility] #: [id number] ANAMIKA
== END 2018-07-14 12:20 | disposition home or self-care (01) ==
LOC: ED 18:52 → MEDTELE 23:22 → UNDOADMOB 07-13 00:02
PROVIDERS: ADMIT Hospitalist; ATTEND Internal Medicine
DX: I50.23 Acute on chronic systolic (congestive) heart failure (principal); I25.10 Atherosclerotic heart disease of native coronary artery without angina pectoris; Z95.810 Presence of automatic (implantable) cardiac defibrillator; I48.91 Unspecified atrial fibrillation; E11.22 Type 2 diabetes mellitus with diabetic chronic kidney disease; I12.9 Hypertensive chronic kidney disease with stage 1 through stage 4 chronic kidney disease, or unspecified chronic kidney disease; R06.02 Shortness of breath; Z95.5 Presence of coronary angioplasty implant and graft; J90 Pleural effusion, not elsewhere classified; R05 Cough; R60.9 Edema, unspecified; Z87.891 Personal history of nicotine dependence; Z79.01 Long term (current) use of anticoagulants; Z86.711 Personal history of pulmonary embolism; K21.9 Gastro-esophageal reflux disease without esophagitis; R07.9 Chest pain, unspecified; I38 Endocarditis, valve unspecified; Z95.4 Presence of other heart-valve replacement; Z86.718 Personal history of other venous thrombosis and embolism; E03.9 Hypothyroidism, unspecified; N18.3 Chronic kidney disease, stage 3 (moderate); Z79.4 Long term (current) use of insulin; I73.9 Peripheral vascular disease, unspecified
CPT/HCPCS: 36415; 71046; 80048; 80053; 80061; 81003; 83605; 83690; 83735; 83880; 84484; 85025; 85610; 85730; 93005; 96372; 99285; A9270-GY; G0378; J1650; J3480

== ENCOUNTER 2018-08-11 11:11 | Emergency (ER) | payer MEDICARE, BC ==
--- OUTSIDE RECORDS SUMMARY | 2018-08-11 11:40 | XMS REPORT | Continuity of Care Document ---
:1945 Author Organization [facility] Care Team Providers Name Role Phone PORTIA OCONNELL Admitting Physician PORTIA OCONNELL Attending Physician Allergies and Intolerances Code Code Allergy Type Reaction Severity Start End Status System Substance Date Date 20231025 RXNorm Motrin Drug ANAPHYLAXIS Unknown Active allergy 3 (disorder) Medications RxNorm Medication Dose Route Instructions Start End Status Date Date 118926 24 HR venlafaxine 75 75 mg oral orally every day Active MG Extended Release Oral Capsule 409269 Amlodipine 10 MG Oral 10 mg oral orally every day Active Tablet 1191 Aspirin 81 mg oral orally every day Active 669296 atorvastatin 10 MG 10 mg oral orally every Active Oral Tablet other day 1588811 canagliflozin 300 MG 300 mg oral orally every Active Oral Tablet morning ( administer before first meal of the day) 4018 Ergocalciferol 64116 oral orally every Active unit week 176024 Hydrochlorothiazide 25 mg oral orally every day Active 25 MG Oral Tablet 576416 Insulin Glargine 100 69 unit subcutaneous subcutaneously Active UNT/ML Injectable every day at Solution bedtime Metformin Oral 1000 mg oral orally 2 times Active per day 368801 Metoprolol Tartrate 100 mg oral orally 2 times Active 100 MG Oral Tablet per day 416297 Nortriptyline 75 MG 75 mg oral orally every day Active Oral Capsule at bedtime 0446 Omeprazole 20 mg oral orally BID Active 652784 valsartan 320 MG Oral 320 mg oral orally every day Active Tablet Problems Code Code System Problem Name Start Date End Date Status 67136033 SNOMED-CT Hypertensive disorder U Active 30741435 SNOMED-CT Diabetes mellitus U Active 920732354 SNOMED-CT Gastroesophageal reflux disease U Active 514117910 SNOMED-CT Anemia U Active 38713754 SNOMED-CT Depressive disorder U Active 297364687 SNOMED-CT Backache U Active 27961355 SNOMED-CT Posttraumatic stress disorder U Active Procedures Code Code System Procedure Date 85916284 SNOMED CT Cholecystectomy U BACK [DISC] U Results Laboratory Results Order: PT/INR Specimen Source: Body Site: Legend: (G,H)=High, (GG,HH,CH,#H)=Above High Threshold, (#,L)=Low, (##,CL,#L,LL) =Below Low Threshold, (C,CC,CA,#A,A)=Abnormal LOINC Test Result Flag Range Units Date 5902-2 1PT Time PPP 23.3 H 9.4-12.4 sec 07/31/2018 10:20 6301-6 1INR PPP 2.0 07/31/2018 10:20 Interpretive Dorinda: 1 INR INTERPERTATION 2.0-3.0 THERAPEUTIC MONITORING 2.5-3.5 HEART VALVE REPLACEMENT Performing Lab Footnotes:[facility] - [id number] - [address] [place] [address] HARRY Jay RICCIOMD1 Social History Code Code System Social History Description Dates Observed Observation 012430871 SNOMED CT Current Smoking Unknown if ever Status smoked UNK AdministrativeGender Sex Assigned At Unknown Vital Signs No data in the system Goals Section No data in the system Health Concerns No data in the systemEncounter Diagnosis Date Code Code System Diagnosis Status I48.0 ICD10 PAROXYSMAL ATRIAL FIBRILLATION Active Advance Directives *RHIO - CONSENT IS YES Directive Type Effective Date Bonding Machine Setter Notes Supporting Document Name Address Phone No [...]
--- OUTSIDE RECORDS SUMMARY | 2018-08-11 11:41 | XMS REPORT | Continuity of Care Document ---
:1945 Author Organization [facility] Care Team Providers Name Role Phone PORTIA OCONNELL Admitting Physician PORTIA OCONNELL Attending Physician Allergies and Intolerances Code Code Allergy Type Reaction Severity Start End Status System Substance Date Date 20231025 RXNorm Motrin Drug ANAPHYLAXIS Unknown Active allergy 3 (disorder) Medications RxNorm Medication Dose Route Instructions Start End Status Date Date 566293 24 HR venlafaxine 75 75 mg oral orally every day Active MG Extended Release Oral Capsule 264908 Amlodipine 10 MG Oral 10 mg oral orally every day Active Tablet 1191 Aspirin 81 mg oral orally every day Active 355329 atorvastatin 10 MG 10 mg oral orally every Active Oral Tablet other day 8170773 canagliflozin 300 MG 300 mg oral orally every Active Oral Tablet morning ( administer before first meal of the day) 4018 Ergocalciferol 67120 oral orally every Active unit week 003955 Hydrochlorothiazide 25 mg oral orally every day Active 25 MG Oral Tablet 393676 Insulin Glargine 100 69 unit subcutaneous subcutaneously Active UNT/ML Injectable every day at Solution bedtime Metformin Oral 1000 mg oral orally 2 times Active per day 724947 Metoprolol Tartrate 100 mg oral orally 2 times Active 100 MG Oral Tablet per day 157340 Nortriptyline 75 MG 75 mg oral orally every day Active Oral Capsule at bedtime 1846 Omeprazole 20 mg oral orally BID Active 180026 valsartan 320 MG Oral 320 mg oral orally every day Active Tablet Problems Code Code System Problem Name Start Date End Date Status 75778526 SNOMED-CT Hypertensive disorder U Active 21139703 SNOMED-CT Diabetes mellitus U Active 486540089 SNOMED-CT Gastroesophageal reflux disease U Active 676340935 SNOMED-CT Anemia U Active 53333914 SNOMED-CT Depressive disorder U Active 158244650 SNOMED-CT Backache U Active 39253859 SNOMED-CT Posttraumatic stress disorder U Active Procedures Code Code System Procedure Date 89433474 SNOMED CT Cholecystectomy U BACK [DISC] U Results Laboratory Results Order: PT/INR Specimen Source: Body Site: Legend: (G,H)=High, (GG,HH,CH,#H)=Above High Threshold, (#,L)=Low, (##,CL,#L,LL) =Below Low Threshold, (C,CC,CA,#A,A)=Abnormal LOINC Test Result Flag Range Units Date 5902-2 1PT Time PPP 20.7 H 9.4-12.4 sec 07/24/2018 08:50 6301-6 1INR PPP 1.8 07/24/2018 08:50 Interpretive Dorinda: 1 INR INTERPERTATION 2.0-3.0 THERAPEUTIC MONITORING 2.5-3.5 HEART VALVE REPLACEMENT Performing Lab Footnotes:[facility] - [id number] - [address] [place] [address] HARRY Jay RICCIOMD1 Social History Code Code System Social History Description Dates Observed Observation 634447535 SNOMED CT Current Smoking Unknown if ever Status smoked UNK AdministrativeGender Sex Assigned At Unknown Vital Signs No data in the system Goals Section No data in the system Health Concerns No data in the systemEncounter Diagnosis Date Code Code System Diagnosis Status I48.0 ICD10 PAROXYSMAL ATRIAL FIBRILLATION Active Advance Directives *RHIO - CONSENT IS YES Directive Type Effective Date Senior Planning Analyst Notes Supporting Document Name Address Phone No [...]
--- OUTSIDE RECORDS SUMMARY | 2018-08-11 11:41 | XMS REPORT | Continuity of Care Document ---
:1945 Author Organization [facility] Care Team Providers Name Role Phone PORTIA OCONNELL Admitting Physician PORTIA OCONNELL Attending Physician Allergies and Intolerances Code Code Allergy Type Reaction Severity Start End Status System Substance Date Date 20231025 RXNorm Motrin Drug ANAPHYLAXIS Unknown Active allergy 3 (disorder) Medications RxNorm Medication Dose Route Instructions Start End Status Date Date 557225 24 HR venlafaxine 75 75 mg oral orally every day Active MG Extended Release Oral Capsule 902433 Amlodipine 10 MG Oral 10 mg oral orally every day Active Tablet 1191 Aspirin 81 mg oral orally every day Active 534066 atorvastatin 10 MG 10 mg oral orally every Active Oral Tablet other day 8084541 canagliflozin 300 MG 300 mg oral orally every Active Oral Tablet morning ( administer before first meal of the day) 4018 Ergocalciferol 46678 oral orally every Active unit week 667398 Hydrochlorothiazide 25 mg oral orally every day Active 25 MG Oral Tablet 259440 Insulin Glargine 100 69 unit subcutaneous subcutaneously Active UNT/ML Injectable every day at Solution bedtime Metformin Oral 1000 mg oral orally 2 times Active per day 093141 Metoprolol Tartrate 100 mg oral orally 2 times Active 100 MG Oral Tablet per day 471233 Nortriptyline 75 MG 75 mg oral orally every day Active Oral Capsule at bedtime 4746 Omeprazole 20 mg oral orally BID Active 127146 valsartan 320 MG Oral 320 mg oral orally every day Active Tablet Problems Code Code System Problem Name Start Date End Date Status 41721227 SNOMED-CT Hypertensive disorder U Active 92453874 SNOMED-CT Diabetes mellitus U Active 511831850 SNOMED-CT Gastroesophageal reflux disease U Active 270554364 SNOMED-CT Anemia U Active 78659077 SNOMED-CT Depressive disorder U Active 910650611 SNOMED-CT Backache U Active 08087685 SNOMED-CT Posttraumatic stress disorder U Active Procedures Code Code System Procedure Date 10694854 SNOMED CT Cholecystectomy U BACK [DISC] U Results Laboratory Results Order: PT/INR Specimen Source: Body Site: Legend: (G,H)=High, (GG,HH,CH,#H)=Above High Threshold, (#,L)=Low, (##,CL,#L,LL) =Below Low Threshold, (C,CC,CA,#A,A)=Abnormal LOINC Test Result Flag Range Units Date 5902-2 1PT Time PPP 24.3 H 9.4-12.4 sec 07/10/2018 09:37 6301-6 1INR PPP 2.1 07/10/2018 09:37 Interpretive Dorinda: 1 INR INTERPERTATION 2.0-3.0 THERAPEUTIC MONITORING 2.5-3.5 HEART VALVE REPLACEMENT Performing Lab Footnotes:[facility] - [id number] - [address] [place] [address] HARRY Jay RICCIOMD1 Social History Code Code System Social History Description Dates Observed Observation 181765105 SNOMED CT Current Smoking Unknown if ever Status smoked UNK AdministrativeGender Sex Assigned At Unknown Vital Signs No data in the system Goals Section No data in the system Health Concerns No data in the systemEncounter Diagnosis Date Code Code System Diagnosis Status I48.0 ICD10 PAROXYSMAL ATRIAL FIBRILLATION Active Advance Directives *RHIO - CONSENT IS YES Directive Type Effective Date Mononitrotoluene Operator Notes Supporting Document Name Address Phone No [...]
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
[2018-08-11] MEDS ORDERED: Sulfamethox/Trimethoprim DS 800/160* TAB PO ONE (12:23)
[2018-08-11] MEDS ORDERED: oxyCODONE/Acetamin 5/325 MG* TAB PO ONE (14:09)
[2018-08-11 14:58] VITALS: BP 123/67
== END 2018-08-11 14:56 | disposition home or self-care (01) ==
LOC: ED 11:11
DX: I83.029 Varicose veins of left lower extremity with ulcer of unspecified site (principal); I25.10 Atherosclerotic heart disease of native coronary artery without angina pectoris; I50.9 Heart failure, unspecified; E11.22 Type 2 diabetes mellitus with diabetic chronic kidney disease; N18.9 Chronic kidney disease, unspecified; Z95.2 Presence of prosthetic heart valve; Z79.01 Long term (current) use of anticoagulants; Z95.810 Presence of automatic (implantable) cardiac defibrillator; Z89.411 Acquired absence of right great toe; Z88.8 Allergy status to other drugs, medicaments and biological substances; Z87.891 Personal history of nicotine dependence
CPT/HCPCS: 99283; A9270-GY

== ENCOUNTER 2018-08-16 14:15 | Emergency (ER) | payer MEDICARE, BC ==
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
[2018-08-16 16:35] LABS: ABS Lymphocytes 0.4 10^3/ul (1.0-4.8); ABS Monocytes 0.1 10^3/ul (0-0.8); ABS Neutrophils 8.1 10^3/ul (1.5-7.7); Hematocrit 35 % (42-52); Hemoglobin 11.5 g/dL (14.0-18.0); Lymphocyte % 4.3 %; Mean Corpuscular HGB Conc 33 g/dL (31-36); Mean Corpuscular Hemoglobin 29 pg (27-31); Mean Corpuscular Volume 89 fL (80-94); Mean Platelet Volume 8.2 fL (7.4-10.4); Platelet Count 172 10^3/uL (150-450); Red Blood Count 3.95 10^6 /uL (4.18-5.48); Red Cell Distribution Width 15 % (10.5-15); White Blood Count 8.6 10^3/uL (3.5-10.8)
[2018-08-16 16:45] LABS: Activated Partial Thrombo Time 47.5 seconds (26.0-38.0); INR 3.47 (0.82-1.09)
[2018-08-16 16:53] LABS: Albumin 4.2 g/dL (3.2-5.2); Albumin/Globulin Ratio 1.2 (1-3); BUN/Creatinine Ratio 22.8 (8-20); Calcium 9.3 mg/dL (8.6-10.3); EGFR African American 29.6 (>60); EGFR Non-African American 24.4 (>60); Globulin 3.5 g/dL (2-4); Potassium 5.4 mmol/L (3.5-5.0); Total Bilirubin 0.4 mg/dL (0.2-1.0); Total Protein 7.7 g/dL (6.4-8.9); Troponin I 0.02 ng/mL (<0.04)
[2018-08-16] MEDS ORDERED: Torsemide TAB* 20 MG PO ONE (17:20)
[2018-08-16] MEDS ORDERED: Torsemide TAB 10 MG PO ONE (17:30)
[2018-08-16 17:52] VITALS: BP 135/72
== END 2018-08-16 17:51 | disposition home or self-care (01) ==
LOC: ED 14:15
DX: I50.9 Heart failure, unspecified (principal); R06.02 Shortness of breath; Z79.01 Long term (current) use of anticoagulants; I25.10 Atherosclerotic heart disease of native coronary artery without angina pectoris; Z86.718 Personal history of other venous thrombosis and embolism; I10 Essential (primary) hypertension; Z95.0 Presence of cardiac pacemaker; I73.9 Peripheral vascular disease, unspecified; K21.9 Gastro-esophageal reflux disease without esophagitis; Z87.891 Personal history of nicotine dependence
CPT/HCPCS: 36415; 71046; 80053; 83605; 83880; 84484; 85025; 85610; 85730; 93005; 99283; A9270-GY

== ENCOUNTER → 2018-09-04 17:07 | Emergency (ER) | payer MEDICARE, BC ==
--- OUTSIDE RECORDS SUMMARY | 2018-09-04 17:24 | XMS REPORT | Continuity of Care Document ---
:1945 Author Organization [facility] Care Team Providers Name Role Phone PORTIA OCONNELL Admitting Physician PORTIA OCONNELL Attending Physician Allergies and Intolerances Code Code Allergy Type Reaction Severity Start End Status System Substance Date Date 20231025 RXNorm Motrin Drug ANAPHYLAXIS Unknown Active allergy 3 (disorder) Medications RxNorm Medication Dose Route Instructions Start End Status Date Date 171183 24 HR venlafaxine 75 75 mg oral orally every day Active MG Extended Release Oral Capsule 017349 Amlodipine 10 MG Oral 10 mg oral orally every day Active Tablet 1191 Aspirin 81 mg oral orally every day Active 177270 atorvastatin 10 MG 10 mg oral orally every Active Oral Tablet other day 0209688 canagliflozin 300 MG 300 mg oral orally every Active Oral Tablet morning ( administer before first meal of the day) 4018 Ergocalciferol 28456 oral orally every Active unit week 185291 Hydrochlorothiazide 25 mg oral orally every day Active 25 MG Oral Tablet 470679 Insulin Glargine 100 69 unit subcutaneous subcutaneously Active UNT/ML Injectable every day at Solution bedtime Metformin Oral 1000 mg oral orally 2 times Active per day 438826 Metoprolol Tartrate 100 mg oral orally 2 times Active 100 MG Oral Tablet per day 963356 Nortriptyline 75 MG 75 mg oral orally every day Active Oral Capsule at bedtime 5746 Omeprazole 20 mg oral orally BID Active 801482 valsartan 320 MG Oral 320 mg oral orally every day Active Tablet Problems Code Code System Problem Name Start Date End Date Status 18748698 SNOMED-CT Hypertensive disorder U Active 48864564 SNOMED-CT Diabetes mellitus U Active 844493838 SNOMED-CT Gastroesophageal reflux disease U Active 966878654 SNOMED-CT Anemia U Active 92060804 SNOMED-CT Depressive disorder U Active 884796531 SNOMED-CT Backache U Active 76255917 SNOMED-CT Posttraumatic stress disorder U Active Procedures Code Code System Procedure Date 71234365 SNOMED CT Cholecystectomy U BACK [DISC] U Results Laboratory Results Order: PT/INR Specimen Source: Body Site: Legend: (G,H)=High, (GG,HH,CH,#H)=Above High Threshold, (#,L)=Low, (##,CL,#L,LL) =Below Low Threshold, (C,CC,CA,#A,A)=Abnormal LOINC Test Result Flag Range Units Date 5902-2 1PT Time PPP 28.1 H 9.4-12.4 sec 08/14/2018 08:24 6301-6 1INR PPP 2.5 08/14/2018 08:24 Interpretive Dorinda: 1 INR INTERPERTATION 2.0-3.0 THERAPEUTIC MONITORING 2.5-3.5 HEART VALVE REPLACEMENT Performing Lab Footnotes:[facility] - [id number] - [address] [place] [address] HARRY Jay [id number] Social History Code Code System Social History Description Dates Observed Observation 799178188 SNOMED CT Current Smoking Unknown if ever Status smoked UNK AdministrativeGender Sex Assigned At Unknown Vital Signs No data in the system Goals Section No data in the system Health Concerns No data in the systemEncounter Diagnosis Date Code Code System Diagnosis Status I48.0 ICD10 PAROXYSMAL ATRIAL FIBRILLATION Active Advance Directives *RHIO - CONSENT IS YES Directive Type Effective Date Manager Integration Notes Supporting Document Name Address Phone No [...]
[2018-09-04 18:58] VITALS: BP 155/78
== END | disposition left against medical advice (07) ==
LOC: ED 17:07
DX: R06.00 Dyspnea, unspecified (principal); Z53.21 Procedure and treatment not carried out due to patient leaving prior to being seen by health care provider

== ENCOUNTER 2018-09-06 19:35 | Emergency (ER) | payer MEDICARE, BC ==
[2018-09-06 20:33] LABS: ABS Eosinophils 0.1 10^3/ul (0-0.6); ABS Lymphocytes 0.6 10^3/ul (1.0-4.8); ABS Monocytes 0.5 10^3/ul (0-0.8); ABS Neutrophils 3.6 10^3/ul (1.5-7.7); Eosinophil % 1.9 %; Hematocrit 35 % (42-52); Hemoglobin 11.4 g/dL (14.0-18.0); Lymphocyte % 12.6 %; Mean Corpuscular HGB Conc 33 g/dL (31-36); Mean Corpuscular Hemoglobin 29 pg (27-31); Mean Corpuscular Volume 88 fL (80-94); Mean Platelet Volume 7.7 fL (7.4-10.4); Platelet Count 120 10^3/uL (150-450); Red Blood Count 3.96 10^6 /uL (4.18-5.48); Red Cell Distribution Width 16 % (10-15); White Blood Count 4.7 10^3/uL (3.5-10.8)
[2018-09-06 20:50] LABS: Troponin I 0.03 ng/mL (<0.04)
[2018-09-06 20:59] LABS: Albumin/Globulin Ratio 1.1 (1-3); BUN/Creatinine Ratio 17.6 (8-20); Calcium 9.4 mg/dL (8.6-10.3); EGFR African American 51.9 (>60); EGFR Non-African American 42.9 (>60); Globulin 3.5 g/dL (2-4); Total Bilirubin 0.6 mg/dL (0.2-1.0); Total Protein 7.5 g/dL (6.4-8.9)
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
[2018-09-06 21:54] VITALS: BP 158/92
--- NOTE | 2018-09-07 18:04 | PN ---
Progress Note - Progress Note Date of Service: 09/06/18 Note: Pt. seen last night for CHF exacerbation. Final CXR read per radiology: IMPRESSION: #. Potential persistent airspace consolidation at the mid to lower RIGHT lung zone. #. Stigmata of chronic obstructive pulmonary disease. #. No evidence for pulmonary edema. R2 No change in treatment needed at this time.
== END 2018-09-06 21:52 | disposition home or self-care (01) ==
LOC: ED 19:35
DX: I50.9 Heart failure, unspecified (principal); R06.02 Shortness of breath; I25.2 Old myocardial infarction; Z95.1 Presence of aortocoronary bypass graft; Z95.2 Presence of prosthetic heart valve; Z79.01 Long term (current) use of anticoagulants; Z86.718 Personal history of other venous thrombosis and embolism; E11.22 Type 2 diabetes mellitus with diabetic chronic kidney disease; N18.9 Chronic kidney disease, unspecified; G47.9 Sleep disorder, unspecified; Z95.810 Presence of automatic (implantable) cardiac defibrillator; Z89.411 Acquired absence of right great toe; Z88.8 Allergy status to other drugs, medicaments and biological substances; Z87.891 Personal history of nicotine dependence
CPT/HCPCS: 36415; 71046; 80053; 83880; 84484; 85025; 93005; 99283

== ENCOUNTER 2018-09-16 12:08 | Observation (INO) | payer MEDICARE, BC ==
[2018-09-16] MEDS ORDERED: NS 0.9% 1000 ML** 1,000 ML IV ONE (13:36)
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
[2018-09-16] MEDS ORDERED: ceFAZolin 1 GM ADVAN(*) 1 GM in NS 0.9% 50 ML* 50 ML IVPB ONE (14:15)
[2018-09-16] MEDS ORDERED: ceFAZolin 1 GM ADVAN(*) 1 GM ADDV.VIAL IVPB ONE (14:28)
[2018-09-16 15:22] LABS: INR 2.86 (0.82-1.09)
[2018-09-16] MEDS ORDERED: Acetaminophen TAB* 325 MG PO PRN (15:25)
[2018-09-16] MEDS ORDERED: Dextrose 50% Syringe 50 ML* 25 GM/50 ML SYRINGE IV PUSH PRN (15:33)
[2018-09-16 15:34] LABS: Albumin 3.7 g/dL (3.2-5.2); Albumin/Globulin Ratio 1.1 (1-3); BUN/Creatinine Ratio 15.6 (8-20); C Reactive Protein 17.44 mg/L (<8.01); Calcium 9.2 mg/dL (8.6-10.3); EGFR African American 51.5 (>60); EGFR Non-African American 42.6 (>60); Globulin 3.3 g/dL (2-4); Total Bilirubin 0.6 mg/dL (0.2-1.0)
[2018-09-16] MEDS ORDERED: Cefepime(*) 1 GM in NS 0.9% 50 ML* 50 ML IVPB ONE (15:36)
[2018-09-16] MEDS ORDERED: Vancomycin(*) 1,000 MG VIAL IVPB SCH (16:00)
[2018-09-16] MEDS ORDERED: Cefepime 1 GM in Dextrose(*) 1 GM/50 ML q12h (Duplex) IV ONE (16:00)
[2018-09-16] MEDS ORDERED: Insulin LISPRO* 1 UNITS UNIT SUBCUT SCH (16:30)
[2018-09-16] MEDS ORDERED: VANCOMYCIN IVPB ONE ×2 (17:00)
[2018-09-16 17:21] LABS: ABS Eosinophils 0.1 10^3/ul (0-0.6); ABS Lymphocytes 0.6 10^3/ul (1.0-4.8); ABS Monocytes 0.6 10^3/ul (0-0.8); ABS Neutrophils 3.1 10^3/ul (1.5-7.7); Eosinophil % 2.3 %; Hematocrit 34 % (42-52); Hemoglobin 11.1 g/dL (14.0-18.0); Lymphocyte % 13.9 %; Mean Corpuscular HGB Conc 33 g/dL (31-36); Mean Corpuscular Hemoglobin 29 pg (27-31); Mean Corpuscular Volume 87 fL (80-94); Mean Platelet Volume 8.5 fL (7.4-10.4); Nucleated Red Blood Cells % 0.2; Platelet Count 162 10^3/uL (150-450); Red Blood Count 3.91 10^6 /uL (4.18-5.48); Red Cell Distribution Width 16 % (10-15); White Blood Count 4.4 10^3/uL (3.5-10.8)
[2018-09-16] MEDS ORDERED: Vancomycin per Pharmacy* NOTE FOLLOW UP PRN (17:38)
[2018-09-16] MEDS ORDERED: metroNIDAZOLE IV 500 MG/100ML* 500 MG/100 ML BAG IVPB SCH (18:00)
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
[2018-09-16] MEDS ORDERED: Insulin GLARGINE(*) 1 UNITS UNIT SUBCUT SCH (21:00)
[2018-09-16] MEDS: Gabapentin CAP(*) 300 MG PO SCH (21:57)
[2018-09-16] MEDS: Potassium Chlor TAB* 10 MEQ TAB.ER PO SCH (21:58)
[2018-09-16] MEDS: hydrALAZINE TAB* 25 MG PO SCH (22:06)
[2018-09-16] MEDS: metroNIDAZOLE IV 500 MG/100ML* 500 MG/100 ML BAG IVPB SCH (22:07)
[2018-09-16] MEDS: Nortriptyline CAP* 25 MG PO SCH (22:15)
[2018-09-17] MEDS: Hydrocodone/Acetamin 10/325 1 TAB PO PRN ×3 (01:14→22:10)
[2018-09-17] MEDS ORDERED: Cefepime 1 GM in Dextrose(*) 1 GM/50 ML q12h (Duplex) IV SCH (04:00)
[2018-09-17] MEDS: Levothyroxine TAB* 25 MCG TAB PO SCH (05:17)
[2018-09-17 07:25] LABS: ABS Eosinophils 0.1 10^3/ul (0-0.6); ABS Lymphocytes 0.4 10^3/ul (1.0-4.8); ABS Monocytes 0.6 10^3/ul (0-0.8); ABS Neutrophils 3.4 10^3/ul (1.5-7.7); Eosinophil % 1.9 %; Hematocrit 34 % (42-52); Hemoglobin 11.6 g/dL (14.0-18.0); Lymphocyte % 9.5 %; Mean Corpuscular HGB Conc 34 g/dL (31-36); Mean Corpuscular Hemoglobin 29 pg (27-31); Mean Corpuscular Volume 87 fL (80-94); Mean Platelet Volume 8.4 fL (7.4-10.4); Platelet Count 163 10^3/uL (150-450); Red Blood Count 3.93 10^6 /uL (4.18-5.48); Red Cell Distribution Width 16 % (10-15); White Blood Count 4.6 10^3/uL (3.5-10.8)
[2018-09-17 07:39] LABS: BUN/Creatinine Ratio 18.5 (8-20); Calcium 8.7 mg/dL (8.6-10.3); EGFR African American 62.7 (>60); EGFR Non-African American 51.8 (>60); Magnesium 1.9 mg/dL (1.9-2.7); Potassium 3.7 mmol/L (3.5-5.0)
[2018-09-17] MEDS: Insulin LISPRO* 1 UNITS UNIT SUBCUT SCH ×3 (08:04→17:21)
[2018-09-17] MEDS: Insulin GLARGINE(*) 1 UNITS UNIT SUBCUT SCH ×2 (08:05→21:57)
[2018-09-17] MEDS: Amiodarone TAB* 200 MG PO SCH (08:06)
[2018-09-17] MEDS: Gabapentin CAP(*) 300 MG PO SCH ×2 (08:06→21:55)
[2018-09-17] MEDS: Torsemide TAB 10 MG PO SCH (08:06)
[2018-09-17] MEDS: hydrALAZINE TAB* 25 MG PO SCH ×3 (08:06→22:10)
[2018-09-17] MEDS: Potassium Chlor TAB* 10 MEQ TAB.ER PO SCH ×3 (08:06→21:57)
[2018-09-17] MEDS: Tamsulosin CAP* 0.4 MG PO SCH (08:06)
[2018-09-17] MEDS ORDERED: Insulin GLARGINE(*) 1 UNITS UNIT SUBCUT SCH (09:00)
[2018-09-17] MEDS: metroNIDAZOLE IV 500 MG/100ML* 500 MG/100 ML BAG IVPB SCH (10:20)
--- NOTE | 2018-09-17 16:01 | PN ---
Subjective Date of Service: 09/17/18 Interval History: HOSPITALIST PROGRESS NOTE Patient seen and examined at bedside. Care reviewed and d/w Kalyani Palmer RN. He feels better today. States the edema and erythema on his RLE is going down. Pain is still present, but less intense. Family History: Unchanged from Admission Social History: Unchanged from Admission Past Medical History: Unchanged from Admission Objective Active Medications: Acetaminophen (Tylenol Tab*) 650 mg PO Q4H PRN PRN Reason: FEVER/PAIN Hydrocodone Bitart/Acetaminophen ([place] 10/325 (Nf)) 1 tab PO Q4H PRN PRN Reason: PAIN Last Admin: 09/17/18 07:26 Dose: 1 tab Amiodarone HCl (Cordarone Tab*) 200 mg PO DAILY [facility] Last Admin: 09/17/18 08:06 Dose: 200 mg Dextrose (D50w Syringe 50 Ml*) 12.5 gm IV PUSH .FOR FS < 60 - SS PRN PRN Reason: FS < 60 Gabapentin (Neurontin Cap(*)) 300 mg PO BID [facility] Last Admin: 09/17/18 08:06 Dose: 300 mg Hydralazine HCl (Apresoline Tab*) 25 mg PO TID [facility] Last Admin: 09/17/18 14:05 Dose: Not Given Clindamycin HCl/Dextrose (Cleocin 600 Mg Ivpremix(*) Sdv) 600 mg in 50 mls @ 100 mls/hr IV Q8H [facility] Insulin Glargine (Lantus(*)) 30 units SUBCUT BID [facility] Last Admin: 09/17/18 08:05 Dose: 30 unit Insulin Human Lispro (Humalog*) 0 units SUBCUT AC [facility]; Protocol Last Admin: 09/17/18 12:39 Dose: 2 unit Levothyroxine Sodium (Synthroid Tab*) 25 mcg PO DAILY@0600 [facility] Last Admin: 09/17/18 05:17 Dose: 25 mcg Nortriptyline HCl (Pamelor Cap*) 50 mg PO BEDTIME [facility] Last Admin: 09/16/18 22:15 Dose: 50 mg Potassium Chloride (Klor Con Er Tab*) 20 meq PO TID [facility] Last Admin: 09/17/18 14:02 Dose: 20 meq Tamsulosin HCl (Flomax Cap*) 0.4 mg PO DAILY [facility] Last Admin: 09/17/18 08:06 Dose: 0.4 mg Torsemide (Torsemide) 60 mg PO DAILY [facility] Last Admin: 09/17/18 08:06 Dose: 60 mg Warfarin Sodium (Coumadin Tab(*)) 2.5 mg PO 1700 [facility]; Protocol Vital Signs - 8 hr 09/17/18 09/17/18 09/17/18 08:00 08:06 10:10 Respiratory 18 18 16 Rate Oxygen Devices in Use Now: None Appearance: Pleasant obese gentleman sitting up in bed in NAD Eyes: No Scleral Icterus Ears/Nose/Mouth/Throat: Mucous Membranes Moist Neck: Trachea Midline Respiratory: Symmetrical Chest Expansion and Respiratory Effort, Clear to Auscultation Cardiovascular: RRR - Normal S1 and S2 Extremities: - - RLE edema and erythema to anterior aspect of leg, no open areas on the leg. Both legs have chronic skin changes with discoloration. Multiple toe amputations Neurological: Alert and Oriented x 3, NL Muscle Strength and Tone Result Diagrams: 09/17/18 06:00 09/17/18 05:54 Assess/Plan/Problems-Billing Assessment: Mr Mckinley is a 73yo M with PMH of type 2 DM, systolic CHF EF <20%, CAD s/p CABG, s/p porcine AVR, Afib on Warfarin, HTN, DVT/PE s/p IVC filter, HLD, GERD, hypothyroidism, depression, CKD stage 3, PVD; who presented to ED with c/o RLE edema/erythema, found to have cellulitis. - Patient Problems (1) Cellulitis Comment: - Doppler was negative for DVT. - Continue Cefepime. - ID consult requested. (2) Type 2 diabetes mellitus Comment: - BS was 57 overnight, symptomatic. - Will cut down Lantus to 30 units BID; continue Lispro SS. - Last A1c 7.6 06/04. (3) Afib Comment: - Continue Warfarin. (4) DVT prophylaxis Comment: - Warfarin. (5) Full code status Comment:
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
[2018-09-17] MEDS: Clindamycin 600 MG IVPREMIX(* 600 MG/50 ML SDV IV SCH (16:34)
[2018-09-17] MEDS: Warfarin TAB(*) 2.5 MG PO SCH (17:26)
--- NOTE | 2018-09-17 19:37 | CONSULT ---
Subjective Date of Service: 09/17/18 Interval History: Mr. Mckinley is a 73 yo male with PMH significant for DM2, ischemic cardiomyopathy , CAD s/p CABG, A fib, HTN, DVT/PE s/p IVC filter, HLD, AV replacement, GERD, hypothyroidism, depression, CKD stage 3, and PVD. He presented to the emergency room with complaints of persistent right leg redness. Presented to the hospital with wounds to the right toes. Patient seen and examined at bedside. Family History: Unchanged from Admission Social History: Unchanged from Admission Past Medical History: Unchanged from Admission Review of Systems - Measurements Intake and Output: Intake and Output Last 24 Hours 09/15/18 09/16/18 09/17/18 09/18/18 06:59 06:59 06:59 06:59 Intake Total 1417 1575 Output Total 1285 1750 Balance 132 -175 Weight 270 lb 11.2 oz Intake: IV Fluids 60 100 IVPB 107 55 Oral 1250 1420 Output: Urine 1285 1750 Other: # Bowel Movements 0 # Voids 2 3 - Review of Systems Constitutional Symptoms: Negative: Fever, Other - Chills Dermatology: Positive: Other - Wounds to right toes and foot Endocrinology: Positive: Diabetes Mellitus Objective Active Medications: Acetaminophen (Tylenol Tab*) 650 mg PO Q4H PRN Reason: FEVER/PAIN Hydrocodone Bitart/Acetaminophen ([place] 10/325 (Nf)) 1 tab PO Q4H PRN Reason: PAIN Amiodarone HCl (Cordarone Tab*) 200 mg PO DAILY [facility] Dextrose (D50w Syringe 50 Ml*) 12.5 gm IV PUSH .FOR FS < 60 - SS PRN Reason: FS < 60 Gabapentin (Neurontin Cap(*)) 300 mg PO BID [facility] Hydralazine HCl (Apresoline Tab*) 25 mg PO TID [facility] Clindamycin HCl/Dextrose (Cleocin 600 Mg Ivpremix(*) Sdv) 600 mg in 50 mls @ 100 mls/hr IV Q8H [facility] Insulin Glargine (Lantus(*)) 30 units SUBCUT BID [facility] Insulin Human Lispro (Humalog*) 0 units SUBCUT AC [facility]; Protocol Levothyroxine Sodium (Synthroid Tab*) 25 mcg PO DAILY@0600 [facility] Nortriptyline HCl (Pamelor Cap*) 50 mg PO BEDTIME [facility] Potassium Chloride (Klor Con Er Tab*) 20 meq PO TID [facility] Tamsulosin HCl (Flomax Cap*) 0.4 mg PO DAILY [facility] Torsemide (Torsemide) 60 mg PO DAILY [facility] Warfarin Sodium (Coumadin Tab(*)) 2.5 mg PO 1700 [facility]; Protocol Vital Signs - 8 hr 09/17/18 15:15 Temperature 98.2 F Pulse Rate 80 Respiratory 20 Rate Blood Pressure 155/90 (mmHg) O2 Sat by Pulse 95 Oximetry Oxygen Devices in Use Now: None Appearance: NAD, laying in bed Ears/Nose/Mouth/Throat: Mucous Membranes Moist Respiratory: Symmetrical Chest Expansion and Respiratory Effort Skin: - - See skin note below Neurological: Alert and Oriented x 3 Nutrition: Taking PO's Result Diagrams: 09/19/18 06:18 09/19/18 06:18 Additional Lab and Data: Above labs were pulled into the note when edited prior to signing, please see labs from day of consultation below Laboratory Tests 09/16/18 09/16/18 09/17/18 14:57 14:57 05:54 WBC Hgb Hct Plt Count ESR 40 H Sodium 140 Potassium 3.7 Chloride 104 Carbon Dioxide 28 BUN 25 H Creatinine 1.35 H Glucose 159 H C-Reactive Protein 17.44 H 09/17/18 06:00 WBC 4.6 Hgb 11.6 L Hct 34 L Plt Count 163 ESR Sodium Potassium Chloride Carbon Dioxide BUN Creatinine Glucose C-Reactive Protein Microbiology and Other Data: Microbiology 09/16/18 15:25 Skin and Soft Tissue MRSA/MSSA (PCR - Final Toe Mrsa Negative S.aureus Negative Gram Stain - Final Wound Culture - Preliminary Enterococcus Faecalis Skin Deviation Note - Skin Deviation Findings Plantar aspect of right foot - There is a calloused area that measures 2.5 cm x 2 cm x 0.1 cm. The surrounding skin is intact. There is no drainage noted. Right toes - There is a wound to the 2nd toe towards the medial aspect, measures 1 cmx 0.7 cm x 0.1 cm. The wound base is a yellow slough. The surrounding skin is itnact, there is no erythema or drainage. The 5th lateral toe with a wound, measures 1.8 cm x 1 cm x 0.1 cm. The wound base is 25 % red granulation tissue, with yellow slough. The surrounding skin is intact. There is no drainage noted. Right lower extremity - There is soft tissue swelling on the lateral aspect distal to the knee. There is erythema and warmth to touch. Assessment/Plan: Mr. Mckinley is a 73 yo male with PMH significant for DM2, ischemic cardiomyopathy , CAD s/p CABG, A fib, HTN, DVT/PE s/p IVC filter, HLD, AV replacement, GERD, hypothyroidism, depression, CKD stage 3, and PVD. Presented to the hospital with wounds to the right toes and right plantar foot. 1. Right foot wounds. Suspect these are diabetic ulcers. Recommend applying ABX ointment to wounds, followed by rolled gauze and change daily. Consider wound clinic referral at discharge. 2. Right LE cellulitis. Mangement per ID/Primary team. 3. PVD. 4. DM2. HgA1C was 7.6 in 05/2018. Maintain good glycemic control to allow for wound healing. 5. Right 1st toe osteomyelitis. S/P amputation. 6. Diet. Consistent Carbohydrate diet. 7. Code Status. Full Code Status. 8. Disposition. Inpatient, disposition per primary medicine team. TIME SPENT: Time for this wound consultation was 20 minutes and 10 minutes was spent with the patient discussing past medical history; assessing, measuring, and photographing the wounds. Wound Problem/Plan Assessment:
[2018-09-17] MEDS: Nortriptyline CAP* 25 MG PO SCH (21:55)
[2018-09-18] MEDS: Clindamycin 600 MG IVPREMIX(* 600 MG/50 ML SDV IV SCH ×3 (00:54→16:30)
[2018-09-18] MEDS: Levothyroxine TAB* 25 MCG TAB PO SCH (07:36)
[2018-09-18] MEDS: Insulin LISPRO* 1 UNITS UNIT SUBCUT SCH ×3 (07:59→17:12)
[2018-09-18] MEDS: Insulin GLARGINE(*) 1 UNITS UNIT SUBCUT SCH ×2 (08:40→22:25)
[2018-09-18] MEDS: Gabapentin CAP(*) 300 MG PO SCH ×2 (08:40→22:22)
[2018-09-18] MEDS: hydrALAZINE TAB* 25 MG PO SCH ×3 (08:41→22:22)
[2018-09-18] MEDS: Potassium Chlor TAB* 10 MEQ TAB.ER PO SCH ×3 (08:41→22:21)
[2018-09-18] MEDS: Tamsulosin CAP* 0.4 MG PO SCH (08:41)
[2018-09-18] MEDS: Amiodarone TAB* 200 MG PO SCH (08:41)
[2018-09-18] MEDS: Torsemide TAB 10 MG PO SCH (08:41)
[2018-09-18] MEDS ORDERED: Atorvastatin* 10 MG TAB PO SCH (17:00)
--- NOTE | 2018-09-18 17:08 | PN ---
Subjective Date of Service: 09/18/18 Interval History: HOSPITALIST PROGRESS NOTE Patient seen and examined at bedside. Care reviewed and d/w Kalyani Palmer RN. He thinks his leg continues to improve slowly. Still has edema, but erythema is receding from demarcation line. Family History: Unchanged from Admission Social History: Unchanged from Admission Past Medical History: Unchanged from Admission Objective Active Medications: Acetaminophen (Tylenol Tab*) 650 mg PO Q4H PRN PRN Reason: FEVER/PAIN Hydrocodone Bitart/Acetaminophen ([place] 10/325 (Nf)) 1 tab PO Q4H PRN PRN Reason: PAIN Last Admin: 09/17/18 22:10 Dose: 1 tab Amiodarone HCl (Cordarone Tab*) 200 mg PO DAILY [facility] Last Admin: 09/18/18 08:41 Dose: 200 mg Atorvastatin Calcium (Lipitor*) 10 mg PO 1700 [facility] Carvedilol (Coreg Tab*) 25 mg PO BID [facility] Dextrose (D50w Syringe 50 Ml*) 12.5 gm IV PUSH .FOR FS < 60 - SS PRN PRN Reason: FS < 60 Gabapentin (Neurontin Cap(*)) 300 mg PO BID [facility] Last Admin: 09/18/18 08:40 Dose: 300 mg Hydralazine HCl (Apresoline Tab*) 25 mg PO TID [facility] Last Admin: 09/18/18 15:01 Dose: 25 mg Clindamycin HCl/Dextrose (Cleocin 600 Mg Ivpremix(*) Sdv) 600 mg in 50 mls @ 100 mls/hr IV Q8H [facility] Last Admin: 09/18/18 08:41 Dose: 100 mls/hr Insulin Glargine (Lantus(*)) 25 units SUBCUT BID [facility] Insulin Human Lispro (Humalog*) 0 units SUBCUT AC [facility]; Protocol Last Admin: 09/18/18 13:01 Dose: 1 unit Levothyroxine Sodium (Synthroid Tab*) 25 mcg PO DAILY@0600 [facility] Last Admin: 09/18/18 07:36 Dose: 25 mcg Nortriptyline HCl (Pamelor Cap*) 50 mg PO BEDTIME [facility] Last Admin: 09/17/18 21:55 Dose: 50 mg Potassium Chloride (Klor Con Er Tab*) 20 meq PO TID [facility] Last Admin: 09/18/18 15:00 Dose: 20 meq Tamsulosin HCl (Flomax Cap*) 0.4 mg PO DAILY [facility] Last Admin: 09/18/18 08:41 Dose: 0.4 mg Torsemide (Torsemide) 60 mg PO DAILY [facility] Last Admin: 09/18/18 08:41 Dose: 60 mg Warfarin Sodium (Coumadin Tab(*)) 2.5 mg PO 1700 [facility]; Protocol Last Admin: 09/17/18 17:26 Dose: 2.5 mg Vital Signs - 8 hr 09/18/18 12:00 Respiratory 16 Rate Oxygen Devices in Use Now: None Appearance: Elderly obese gentleman sitting up in bed in NAD. Eyes: No Scleral Icterus Ears/Nose/Mouth/Throat: Mucous Membranes Moist Neck: Trachea Midline Respiratory: Symmetrical Chest Expansion and Respiratory Effort, Clear to Auscultation Cardiovascular: RRR - Normal S1 and S2 Extremities: - - RLE edema is unchanged, erythema is subsiding Neurological: Alert and Oriented x 3, NL Muscle Strength and Tone Result Diagrams: 09/17/18 06:00 09/17/18 05:54 Assess/Plan/Problems-Billing Assessment: Mr Mckinley is a 73yo M with PMH of type 2 DM, systolic CHF EF <20%, CAD s/p CABG, s/p porcine AVR, Afib on Warfarin, HTN, DVT/PE s/p IVC filter, HLD, GERD, hypothyroidism, depression, CKD stage 3, PVD; who presented to ED with c/o RLE edema/erythema, found to have cellulitis. - Patient Problems (1) Cellulitis Comment: - Doppler was negative for DVT. - ID consult appreciated - likely group A strep cellulitis; diabetic foot ulcers likely door of entry; doesn't think enterococcus is playing a role at this time. Recommended treatment with Clindamycin. (2) Diabetic foot ulcers Comment: - Patient has multiple wounds on right foot - plantar area, and toes ( please see pictures in wound care note). - Will refer to wound clinic as outpatient. (3) Type 2 diabetes mellitus Comment: - BS was 78 this AM, but spikes with meals. - Will cut down Lantus to 25 units BID; and increase Lispro SS. - Last A1c 7.6 06/04. (4) Afib Comment: - Continue Warfarin - repeat INR in AM. (5) DVT prophylaxis Comment: - Warfarin. (6) Full code status Comment: Status and Disposition: Anticipate d/c in AM if leg continues to improve.
[2018-09-18] MEDS: Warfarin TAB(*) 2.5 MG PO SCH (17:11)
[2018-09-18] MEDS: Hydrocodone/Acetamin 10/325 1 TAB PO PRN (22:22)
[2018-09-18] MEDS: Carvedilol TAB* 25 MG PO SCH (22:22)
[2018-09-18] MEDS: Nortriptyline CAP* 25 MG PO SCH (22:23)
[2018-09-19] MEDS: Clindamycin 600 MG IVPREMIX(* 600 MG/50 ML SDV IV SCH ×2 (00:41→08:37)
[2018-09-19 06:40] LABS: ABS Eosinophils 0.1 10^3/ul (0-0.6); ABS Lymphocytes 0.8 10^3/ul (1.0-4.8); ABS Monocytes 0.7 10^3/ul (0-0.8); ABS Neutrophils 2.7 10^3/ul (1.5-7.7); Eosinophil % 2.2 %; Hematocrit 34 % (42-52); Hemoglobin 11.4 g/dL (14.0-18.0); INR 3.74 (0.82-1.09); Lymphocyte % 19.5 %; Mean Corpuscular HGB Conc 33 g/dL (31-36); Mean Corpuscular Hemoglobin 29 pg (27-31); Mean Corpuscular Volume 87 fL (80-94); Mean Platelet Volume 7.7 fL (7.4-10.4); Platelet Count 162 10^3/uL (150-450); Red Blood Count 3.94 10^6 /uL (4.18-5.48); Red Cell Distribution Width 17 % (10-15); White Blood Count 4.3 10^3/uL (3.5-10.8)
[2018-09-19 06:55] LABS: BUN/Creatinine Ratio 15.6 (8-20); Calcium 8.8 mg/dL (8.6-10.3); EGFR African American 45.3 (>60); EGFR Non-African American 37.4 (>60); Potassium 4.1 mmol/L (3.5-5.0)
[2018-09-19] MEDS: Levothyroxine TAB* 25 MCG TAB PO SCH (07:13)
[2018-09-19] MEDS: Insulin GLARGINE(*) 1 UNITS UNIT SUBCUT SCH (08:38)
[2018-09-19] MEDS: Insulin LISPRO* 1 UNITS UNIT SUBCUT SCH ×2 (08:38→14:21)
[2018-09-19] MEDS: hydrALAZINE TAB* 25 MG PO SCH (08:48)
[2018-09-19] MEDS: Torsemide TAB 10 MG PO SCH (08:48)
[2018-09-19] MEDS: Potassium Chlor TAB* 10 MEQ TAB.ER PO SCH (08:48)
[2018-09-19] MEDS: Tamsulosin CAP* 0.4 MG PO SCH (08:49)
[2018-09-19] MEDS: Gabapentin CAP(*) 300 MG PO SCH (08:49)
[2018-09-19] MEDS: Amiodarone TAB* 200 MG PO SCH (08:49)
[2018-09-19] MEDS: Carvedilol TAB* 25 MG PO SCH (08:49)
[2018-09-19 11:47] VITALS: BP 113/57
--- NOTE | 2018-09-19 12:35 | DS ---
CC: Dr. Gonzalez * DISCHARGE SUMMARY: DATE OF ADMISSION: 09/16/18 DATE OF DISCHARGE: 09/19/18 HISTORY AND HOSPITAL COURSE: This 73-year-old man presented with cellulitis of the right lower leg, who is being followed by channel cementer outsole machine for superficial ulcers on his toes of his right foot and the plantar surface of his right foot. When he saw the channel cementer outsole machine last, he had cellulitis lateral to the knee and around the knee. His channel cementer outsole machine recommended he go straight to the hospital which he did and was admitted. He was treated with intravenous clindamycin. Dr. Marti saw him in consultation. This was his recommendation. The cellulitis has resolved. He still has considerable edema of the his right leg. I note an ultrasound of the right leg did not show any evidence for DVT. The patient is relatively numb in the feet and has no pain. His diabetic control was adequate while he was here. It was recommended he dress his foot with an antibiotic ointment. He will take clindamycin p.o. for 6 more days following discharge. DISCHARGE DIAGNOSES: 1. Cellulitis of the right leg, improved. Two superficial ulcers of right foot. 2. Diabetes. 3. Coronary artery disease, status post coronary artery bypass grafting. 4. Atrial fibrillation, on warfarin. 5. Hypothyroidism. 6. Gastroesophageal reflux disease. 7. Hyperlipidemia. 8. Chronic kidney disease. DISCHARGE MEDICATIONS: 1. Due to his elevated INR, warfarin will be held on 09/19/18 and 09/20/18. He will get an INR on 09/21/18. If this is in the therapeutic range, he will start warfarin 2 mg daily. Further followup will be with Dr. Gonzalez. 2. Clindamycin 300 mg t.i.d. for 6 days. 3. Atorvastatin 10 mg daily. 4. Carvedilol 25 mg b.i.d. 5. Nortriptyline 50 mg h.s. 6. Torsemide 60 mg daily. 7. Insulin glargine 60 units daily. 8. Insulin glargine 50 units at bedtime 9. Hydralazine 25 mg t.i.d. 10. Potassium 20 mEq t.i.d. 11. Levothyroxine 25 mcg daily. 12. NovoLog as prescribed. 13. Gabapentin 300 mg t.i.d. 14. Tamsulosin 0.4 mg daily. 15. Amiodarone 200 mg daily. 16. [place] 10/325 as prescribed. 17. Bacitracin ointment to wound b.i.d. The patient will have BMP and INR on 09/21/18. DISPOSITION ON DISCHARGE: discharge home CONDITION ON DISCHARGE: improved [id number]/CPS #: [id number] MTDD
[2018-09-19] MEDS ORDERED: Bacitracin OINTMENT* 0.5% 0.5 oz TUBE TOPICAL SCH (21:00)
== END 2018-09-19 12:10 | disposition home or self-care (01) ==
LOC: ED 12:08 → MED 15:25
PROVIDERS: ADMIT Internal Medicine; ATTEND Internal Medicine
DX: L03.115 Cellulitis of right lower limb (principal); I25.10 Atherosclerotic heart disease of native coronary artery without angina pectoris; E11.22 Type 2 diabetes mellitus with diabetic chronic kidney disease; I12.9 Hypertensive chronic kidney disease with stage 1 through stage 4 chronic kidney disease, or unspecified chronic kidney disease; N18.3 Chronic kidney disease, stage 3 (moderate); Z95.5 Presence of coronary angioplasty implant and graft; Z79.01 Long term (current) use of anticoagulants; E03.9 Hypothyroidism, unspecified; K21.9 Gastro-esophageal reflux disease without esophagitis; E78.5 Hyperlipidemia, unspecified; Z79.899 Other long term (current) drug therapy; I73.9 Peripheral vascular disease, unspecified; Z87.891 Personal history of nicotine dependence; Z95.4 Presence of other heart-valve replacement; Z95.0 Presence of cardiac pacemaker
CPT/HCPCS: 36415; 80048; 80053; 83605; 83735; 83880; 85025; 85610; 85652; 86140; 87040; 87070; 87077; 87186; 87205; 87640; 87641; 96365; 96367; 96372; 99284; A9270-GY; G0378; J0690; J0692; J3370; J3490

== ENCOUNTER 2018-09-27 12:00 | Emergency (ER) | payer MEDICARE, BC ==
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
[2018-09-27 13:46] LABS: ABS Eosinophils 0.1 10^3/ul (0-0.6); ABS Lymphocytes 0.8 10^3/ul (1.0-4.8); ABS Monocytes 0.6 10^3/ul (0-0.8); ABS Neutrophils 4.7 10^3/ul (1.5-7.7); Eosinophil % 0.9 %; Hematocrit 34 % (42-52); Hemoglobin 11.4 g/dL (14.0-18.0); Lymphocyte % 12.6 %; Mean Corpuscular HGB Conc 34 g/dL (31-36); Mean Corpuscular Hemoglobin 29 pg (27-31); Mean Corpuscular Volume 87 fL (80-94); Mean Platelet Volume 8.2 fL (7.4-10.4); Nucleated Red Blood Cells % 0.2; Platelet Count 156 10^3/uL (150-450); Red Blood Count 3.87 10^6 /uL (4.18-5.48); Red Cell Distribution Width 17 % (10-15); White Blood Count 6.2 10^3/uL (3.5-10.8)
[2018-09-27 13:55] LABS: INR 1.7 (0.82-1.09)
[2018-09-27 14:08] LABS: Troponin I 0.02 ng/mL (<0.04)
[2018-09-27 14:14] LABS: Albumin 3.9 g/dL (3.2-5.2); Albumin/Globulin Ratio 1.1 (1-3); BUN/Creatinine Ratio 18.3 (8-20); C Reactive Protein 17.15 mg/L (<8.01); Calcium 9.5 mg/dL (8.6-10.3); EGFR African American 50.1 (>60); EGFR Non-African American 41.4 (>60); Globulin 3.4 g/dL (2-4); Potassium 4.1 mmol/L (3.5-5.0); Total Bilirubin 0.6 mg/dL (0.2-1.0); Total Protein 7.3 g/dL (6.4-8.9)
[2018-09-27 15:43] VITALS: BP 143/85
== END 2018-09-27 15:42 | disposition home or self-care (01) ==
LOC: ED 12:00
DX: R60.0 Localized edema (principal); R06.02 Shortness of breath; J90 Pleural effusion, not elsewhere classified; E11.22 Type 2 diabetes mellitus with diabetic chronic kidney disease; I12.9 Hypertensive chronic kidney disease with stage 1 through stage 4 chronic kidney disease, or unspecified chronic kidney disease; N18.9 Chronic kidney disease, unspecified; I50.9 Heart failure, unspecified; I48.91 Unspecified atrial fibrillation; I25.2 Old myocardial infarction; Z86.718 Personal history of other venous thrombosis and embolism; Z86.711 Personal history of pulmonary embolism; Z79.01 Long term (current) use of anticoagulants; Z95.2 Presence of prosthetic heart valve; Z95.810 Presence of automatic (implantable) cardiac defibrillator; Z95.1 Presence of aortocoronary bypass graft; Z89.411 Acquired absence of right great toe; Z88.8 Allergy status to other drugs, medicaments and biological substances; Z87.81 Personal history of (healed) traumatic fracture; Z87.891 Personal history of nicotine dependence
CPT/HCPCS: 36415; 71045; 80053; 83605; 83880; 84484; 85025; 85610; 86140; 93005; 99283

== ENCOUNTER 2019-01-17 11:22 | Emergency (ER) | payer MEDICARE, BC ==
--- OUTSIDE RECORDS SUMMARY | 2019-01-17 11:50 | XMS REPORT | Continuity of Care Document ---
:1945 External Reference #:[id number] Author Name Daryl Hernandez M.D. (transmitted by agent of provider Pat Ronquillo) Address [address] [place] [address] Care Team Providers Name Role Phone Lee Gonzalez MD - Family Medicine Care Team Information Packer Problems Active Problems Provider Date Diabetic neuropathy Nilson Burgos M.D. Onset: 04/14/2014 Chronic ischemic heart disease Daryl Hernandez M.D. Onset: 09/17/2015 Coronary arteriosclerosis Daryl Hernandez M.D. Onset: 09/17/2015 Chronic post-traumatic stress disorder Daryl Hernandez M.D. Onset: 2015 Edema Mercedez Clemons M.D. Onset: 01/27/2016 Chronic combined systolic and diastolic Mercedez Clemons M.D. Onset: 01/27/2016 heart failure Dyspnea Mercedez Clemons M.D. Onset: 01/27/2016 Social History Type Date Description Comments Sex Unknown Tobacco Use Start: Unknown End: Former Cigarette Smoker Quit 1990 Denies Unknown using pipe, cigar, e-cigarettes, or chewing tobacco. Smoking Status Reviewed: 12/04/18 Former Cigarette Smoker Quit 1990 Denies using pipe, cigar, e-cigarettes, or chewing tobacco. ETOH Use Denies alcohol use ETOH Use Has consumed alcohol in the past Tobacco Use Start: Unknown End: Patient is a former Unknown smoker Recreational Drug Use Denies Drug Use Exercise Type/Frequency Does not exercise Allergies, Adverse Reactions, Alerts Active Allergies Reaction Severity Comments Date Ibuprofen 04/14/2014 Oxycodone angioedema, hives, SOB 09/07/2014 Invanz rash 09/29/2014 Lisinopril Cough, SOB, difficulty walk 02/04/2015 Simvastatin 01/11/2016 Crestor 01/11/2016 Lovastatin 01/11/2016 Gemfibrozil 01/11/2016 Diltiazem 01/11/2016 Inactive Allergies NKDA 11/07/2013 Medications Active Medications SIG Qnty Indications Ordering Date Provider Warfarin Sodium 1-3 tabs ( 2-6 90tabs Daryl DHarsha 11/13/2018 2mg Tablets mg) daily, Diana Hernandez determined by inr dose Buspirone HCL take one tablet Daryl DHarsha 05/23/2018 15mg Tablets by mouth once a Diana Hernandez day Hydralazine HCL 1 by mouth three Daryl DHarsha 05/23/2018 25mg times a day Diana Hernandez Tablets Amiodarone HCL 1 by mouth every 90tabs Dayrl An 01/11/2016 200mg day Diana Hernandez Tablets Novofine Unknown 32G X 6 mm Misc Bydureon injection once Unknown 2mg Suspension Rec weekly Lantus Solostar inject 60 SQ qam Unknown 100Unit/ML , 50 SQ qpm Solution Pen-Inject Atorvastatin Calcium 1 tab every other Unknown 10mg day Tablets Nortriptyline HCL 1 by mouth every Unknown 50mg night at bedtime Capsules Potassium Chloride ER 1 by mouth twice Unknown 20Meq daily Tablets ER Coreg 1 tablet twice a 60tabs Z95.2 Daryl D. 25mg Tablets day Diana Hernandez Docusate Sodium 1 by mouth twice Unknown 100mg daily Capsules Gabapentin 1 by mouth twice Unknown 100mg Capsules a day Levothyroxine Sodium 1 by mouth every Unknown 25mcg day Tablets Torsemide 3 by mouth every 90tabs Daryl An 20mg Tablets day Diana Hernandez Cholecalciferol 1000 units daily Unknown Immunizations CPT Code Status Date Vaccine Lot # [id number] Ordered 12/17/2014 Influenza Virus Vaccine, Quadrivalent, Split, Preservative Free Vital Signs Date Vital Result Comment 12/04/2018 10:23am Height 72 inches 6'0" Weight 269.00 lb with shoes Heart Rate 74 /min BP Systolic Standing 144 mmHg Lue lg cuff BP Diastolic Standing 80 mmHg Lue lg cuff BMI (Body Mass Index) 36.5 kg/m2 05/24/2018 8:47am Height 72 inches 6'0" Weight 258.00 lb with shoes Heart Rate 80 /min BP Systolic Sitting 140 mmHg Lue, large cuff BP Diastolic Sitting 80 mmHg Lue, large cuff BP Systolic Standing 130 mmHg Lue, large cuff BP Diastolic Standing 80 mmHg Lue, large cuff Respiratory Rate 14 /min BMI (Body Mass Index) 35.0 kg/m2 Ejection Fraction 37% Bubble study 05/29/17 Results Test Date Facility Test Result H/L Range Note Inr/Protime 11/22/2018 [facility] Inr 1.98 High 0.82-1.09 1 [place] [address] [phone] Inr/Protime 11/11/2018 [facility] Inr 2.51 High 0.82-1.09 2 [place] [address] [phone] Inr/Protime 11/01/2018 [facility] Inr 2.32 High 0.82-1.09 3 [place] [address] [phone] Inr/Protime 10/25/2018 [facility] Inr 1.83 High 0.82-1.09 4 [place] [address] [phone] Inr/Protime 10/14/2018 [facility] Inr 1.44 High 0.82-1.09 5 [place] [address] [phone] Comp Metabolic 09/09/2018 [facility] Sodium 141 mmol/L Normal 135-145 [place] [address] [phone] Potassium 4.2 mmol/L Normal 3.5-5.0 Chloride 105 mmol/L Normal 101-111 Co2 Carbon Dioxide 29 mmol/L Normal 22-32 Anion Gap 7 mmol/L Normal 2-11 Glucose 202 mg/dL High 70-100 Blood Urea Nitrogen 27 mg/dL High 6-24 Creatinine 1.63 mg/dL High 0.67-1.17 BUN/Creatinine Ratio 16.6 Normal 8-20 Calcium 9.0 mg/dL Normal 8.6-10.3 Total Protein 6.6 g/dL Normal 6.4-8.9 Albumin 3.8 g/dL Normal 3.2-5.2 Globulin 2.8 g/dL Normal 2-4 Albumin/Globulin Ratio 1.4 Normal 1-3 Total Bilirubin 0.60 mg/dL Normal 0.2-1.0 Alkaline Phosphatase 167 U/L High 34-104 Alt 36 U/L Normal 7-52 Ast 30 U/L Normal 13-39 Egfr Non- 41.7 >60 Egfr 50.4 >60 6 Thyroid 09/09/2018 [facility] Free T4 (Free 1.04 Normal 0.61- 1.[address] Thyroxine) ng/[place] [address] [phone] Thyroxine 8.58 g/dL Normal 6.09-12.23 TSH (Thyroid Stim Horm) 4.20 mcIU/mL Normal 0.34-5.60 Inr/Protime 09/09/2018 [facility] Inr 3.15 High 0.82-1.[address] [place] [address] [phone] 1 Standard intensity warfarin therapeutic range: 2.0-3.0 High intensity warfarin therapeutic range: 2.5-3.5 2 Standard intensity warfarin therapeutic range: 2.0-3.0 High intensity warfarin therapeutic range: 2.5-3.5 3 Standard intensity warfarin therapeutic range: 2.0-3.0 High intensity warfarin therapeutic range: 2.5-3.5 4 Standard intensity warfarin therapeutic range: 2.0-3.0 High intensity warfarin therapeutic range: 2.5-3.5 5 Standard intensity warfarin therapeutic range: 2.0-3.0 High intensity warfarin therapeutic range: 2.5-3.5 6 Because ethnic data is not always readily [...] 15-29 5 Kidney failure <15 (or dialysis) 7 Standard intensity warfarin therapeutic range: 2.0-3.0 High intensity warfarin therapeutic range: 2.5-3.5 Procedures Date Code Description Status 12/04/2018 96947 Interrogation Implant Cardiovasc Monitor System Incl Completed Analysis Int 12/04/2018 50764 Icd eval w/iterative adjment single lead Icd Completed 12/04/2018 04883 EKG Tracing & Interpretation Completed 09/04/2018 30184 Interrogation Implant Cardiovasc Monitor System Incl Completed Analysis Int 09/04/2018 29721 Interrogation Implant Cardiovasc Monitor System Incl Completed Analysis Int 09/04/2018 69367 Icd eval w/iterative adjment single lead Icd Completed 09/04/2018 25709 Icd eval w/iterative adjment single lead Icd Completed 07/13/2018 23785 EKG, Interpretation Only Completed Medical Devices Description No Information Available Encounters Type Date Location Provider Dx Diagnosis Office Visit 09/19/2018 [facility] Joon Espino, L03.115 Cellulitis of 9:32a jordyn Heredia M.D. right lower limb Hospitalists E11.621 Type 2 diabetes mellitus with foot ulcer L97.518 Non-prs chronic ulcer oth prt right foot with oth severity Office Visit 09/17/2018 9:10a [facility] Guanaco Iglesias03.115 Cellulitis of For Infectious Diana Eric right lower limb Diseases E11.621 Type 2 diabetes mellitus with foot ulcer L97.511 Non-prs chronic ulcer oth prt r foot limited to brkdwn skin E11.22 Type 2 diabetes mellitus w diabetic chronic kidney disease N18.3 Chronic kidney disease, stage 3 (moderate) E11.51 Type 2 diabetes w diabetic peripheral angiopath w/o gangrene Office Visit 09/17/2018 8:45a [facility] Di Valenzuela E11.621 Type 2 diabetes [address] [facility] Stephenie PAID INTERN mellitus with foot ulcer L97.518 Non-prs chronic ulcer oth prt right foot with oth severity L03.115 Cellulitis of right lower limb E11.51 Type 2 diabetes w diabetic peripheral angiopath w/o gangrene I73.9 Peripheral vascular disease, unspecified Office Visit 09/16/2018 [facility] L03.116 Cellulitis of 9:30a Assoc,jordyn Benitez, MELINDA left lower limb Hospitalists N18.9 Chronic kidney disease, unspecified E11.22 Type 2 diabetes mellitus w diabetic chronic kidney disease Office Visit 07/14/2018 [facility] I50.23 Acute on chronic 8:14a Assoc,jordyn Lorenzo, PAID INTERN systolic Hospitalists (congestive) heart failure E11.9 Type 2 diabetes mellitus without complications Office Visit 07/12/2018 8:13a [facility] R06.02 Shortness of Assoc,jordyn Benitez, MELINDA breath Hospitalists I50.20 Unspecified systolic (congestive) heart failure R07.9 Chest pain, unspecified Office Visit 06/06/2018 9:11a [facility] Cameron L03.116 Cellulitis of Assoc,jordyn Patel, PA left lower limb Hospitalists N17.9 Acute kidney failure, unspecified 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 1-4/unsp chr kdny I50.23 Acute on chronic systolic (congestive) heart failure E11.22 Type 2 diabetes mellitus w diabetic chronic kidney disease N18.9 Chronic kidney disease, unspecified Office Visit 06/04/2018 [facility] L03.116 Cellulitis of 9:10a Assoc,jordyn Benitez NP left lower limb Hospitalists N18.9 Chronic kidney disease, unspecified 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 cardiac defibrillator 12/04/2018 Z95.810 Presence of automatic (implantable) [facility] Pacer Schedule cardiac defibrillator 12/04/2018 I25.5 Ischemic cardiomyopathy Daryl Hernandez M.D. 12/04/2018 I25.5 Ischemic cardiomyopathy [employer] Pacer Schedule 12/04/2018 N18.3 Chronic kidney disease, stage 3 Daryl Hernandez M.D. (moderate) 12/04/2018 I48.0 Paroxysmal atrial fibrillation Daryl Hernandez M.D. 12/04/2018 I25.10 Atherosclerotic heart disease of Daryl Hernandez M.D. [place] coronary artery without angina pectoris 09/19/2018 L03.115 Cellulitis of right lower limb Joon Espino M.D. 09/19/2018 E11.621 Type 2 diabetes mellitus with foot Joon Espino M.D. ulcer 09/19/2018 L97.518 Non-prs chronic ulcer oth prt right Joon Espino M.D. foot with oth severity 09/18/2018 L03.115 Cellulitis of right lower limb Junie Bergeron M.D. 09/18/2018 E11.9 Type 2 diabetes mellitus without Junie Bergeron M.D. complications 09/17/2018 L03.115 Cellulitis of right lower limb [place]an[place] Eric M.D. 09/17/2018 E11.621 Type 2 diabetes mellitus with foot Di Casiano NP ulcer 09/17/2018 E11.621 Type 2 diabetes mellitus with foot Guanaco Eric M.D. ulcer 09/17/2018 L97.518 Non-prs chronic ulcer oth prt right Di Casiano, MELINDA foot with oth severity 09/17/2018 L03.115 Cellulitis of right lower limb Junie Bergeron M.D. 09/17/2018 L97.511 Non-prs chronic ulcer oth prt r foot Guanaco Eric M.D. limited to brkdwn skin 09/17/2018 L03.115 Cellulitis of right lower limb Di Casiano, PAID INTERN 09/17/2018 E11.22 Type 2 diabetes mellitus w diabetic [place]an[place] Eric M.D. chronic kidney disease 09/17/2018 E11.9 Type 2 diabetes mellitus without Junie Bergeron M.D. complications 09/17/2018 N18.3 Chronic kidney disease, stage 3 [place]an[place] Eric M.D. (moderate) 09/17/2018 E11.51 Type 2 diabetes w diabetic Di Valenzuela Stephenie, MELINDA peripheral angiopath w/o gangrene 09/17/2018 E11.51 Type 2 diabetes w diabetic Guanaco Eric M.D. peripheral angiopath w/o gangrene 09/17/2018 I73.9 Peripheral vascular disease, Di Casiano, MELINDA unspecified 09/17/2018 I48.91 Unspecified atrial fibrillation Junie Bergeron M.D. 09/16/2018 L03.116 Cellulitis of left lower limb Monica Benitez, PAID INTERN 09/16/2018 N18.9 Chronic kidney disease, unspecified Monica Benitez, PAID INTERN 09/16/2018 E11.22 Type 2 diabetes mellitus w diabetic Monica Benitez, PAID INTERN chronic kidney disease 09/04/2018 Z95.810 Presence of automatic (implantable) Daryl Hernandez M.D. cardiac defibrillator 09/04/2018 Z95.810 Presence of automatic (implantable) [employer] Pacer Schedule cardiac defibrillator 09/04/2018 I25.5 Ischemic cardiomyopathy Daryl Hernandez M.D. 09/04/2018 I25.5 Ischemic cardiomyopathy [employer] Pacer Schedule 07/14/2018 I50.23 Acute on chronic systolic Valorie Lorenzo, PAID INTERN (congestive) heart failure 07/14/2018 E11.9 Type 2 diabetes mellitus without Valorie Lorenzo, PAID INTERN complications 07/13/2018 R94.31 Abnormal electrocardiogram [ECG] Bassem Davis M.D., [facility], [EKG] [facility] 07/13/2018 I50.23 Acute on chronic systolic Valorie Lorenzo, PAID INTERN (congestive) heart failure 07/13/2018 R07.9 Chest pain, unspecified Valorie Lorenzo, PAID INTERN 07/13/2018 E11.9 Type 2 diabetes mellitus without Valorie Lorenzo, PAID INTERN complications 07/13/2018 E03.9 Hypothyroidism, unspecified Valorie Lorenzo, PAID INTERN 07/12/2018 R06.02 Shortness of breath Monicamallorie Benitez, PAID INTERN 07/12/2018 I50.20 Unspecified systolic (congestive) Monica [place], PAID INTERN heart failure 07/12/2018 R07.9 Chest pain, unspecified Monica Eli, PAID INTERN 06/06/2018 L03.116 Cellulitis of left lower limb OLIVER Kapoor 06/06/2018 N17.9 Acute kidney failure, unspecified OLIVER Kapoor 06/06/2018 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116 Cellulitis of left lower limb Guanaco Eric M.D. 06/05/2018 L03.116 Cellulitis of left lower limb OLIVER Kapoor 06/05/2018 E11.22 Type 2 diabetes mellitus w diabetic [place] Eric M.D. 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 Monica Eli, MELINDA and [facility] 06/04/2018 I50.22 Chronic systolic (congestive) heart Monica Benitez, PAID INTERN failure 06/04/2018 E11.22 Type 2 diabetes mellitus w diabetic Monica Benitez, PAID INTERN chronic kidney disease 06/04/2018 Z95.1 Presence of aortocoronary bypass Monica MELINDA Benitez graft Plan of Treatment Future Appointment(s):03/05/2019 1:00 pm - [facility]ca Pacer Schedule at [facility]12/04/2018 - Daryl Hernandez M.D.Z95.810 Presence of automatic (implantable) cardiac defibrillatorFollow up:6 [id number] Ischemic ikcstdsfoskefqV18.3 Chronic kidney disease, stage 3 (moderate)I48.0 Paroxysmal atrial jqaoltspsmefY79.10 Atherosclerotic heart disease of [place] coronary artery without angina pectoris Functional Status Description No Information Available Mental Status Description No Information Available Referrals Description No Information Available
--- OUTSIDE RECORDS SUMMARY | 2019-01-17 11:50 | XMS REPORT | Continuity of Care Document ---
:1945 External Reference #:[id number] Author Name Daryl Hernandez M.D. (transmitted by agent of provider Francisca Villalba) Address [address] 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 11/13/2018 2mg Tablets mg) daily, David M.DHarsha determined by inr dose Buspirone HCL take one tablet Daryl D. 05/23/2018 15mg Tablets by mouth once a Brand, M.DHarsha day Hydralazine HCL 1 by mouth three Daryl D. 05/23/2018 25mg times a day Brand M.DHarsha Tablets Amiodarone HCL 1 by mouth every 90tabs Daryl D. 01/11/2016 200mg day Brand, M.DHarsha Tablets Cholecalciferol 1000 units daily Unknown Torsemide 3 by mouth every 90tabs Daryl D. 20mg Tablets day Brand, M.An Levothyroxine Sodium 1 by mouth every Unknown 25mcg day Tablets Gabapentin 1 by mouth twice Unknown 100mg Capsules a day Docusate Sodium 1 by mouth twice Unknown 100mg daily Capsules Coreg 1 tablet twice a 60tabs Z95.2 Daryl D. 25mg Tablets day Brand, M.DHarsha Potassium Chloride ER 1 by mouth three Unknown 20Meq times per day (Dr Tablets ER Niziol increased) Magnesium Oxide One tab a day Unknown 400mg Tablets Nortriptyline HCL 1 by mouth every Unknown 50mg night at bedtime Capsules Atorvastatin Calcium 1 tab every other Unknown 10mg day Tablets Lantus Solostar inject 60 SQ qam Unknown 100Unit/ML , 50 SQ qpm Solution Pen-Inject Bydureon injection once Unknown 2mg Suspension Rec weekly Novofine Unknown 32G X 6 mm Misc Immunizations CPT Code Status Date Vaccine Lot # [id number] Ordered 12/17/2014 Influenza Virus Vaccine, Quadrivalent, Split, [...] Ejection Fraction LVEF 30-3% 05/29/2017 bubble echo Results Test Date Facility Test Result H/L Range Note Inr/Protime 11/22/2018 [facility] Inr 1.98 High 0.82-1.09 1 [place] [address] [phone] Inr/Protime 11/11/2018 [facility] Inr 2.51 High 0.82-1.09 2 [place] [address] [phone] Inr/Protime 11/01/2018 [facility] Inr 2.32 High 0.82-1.09 3 [place] [address] [phone] Inr/Protime 10/25/2018 [facility] Inr 1.83 High 0.82-1.[address] [place] [address] [phone] Inr/Protime 10/14/2018 [facility] Inr 1.44 High 0.82-1.09 5 [place] [address] [phone] Comp Metabolic 09/09/2018 [facility] Sodium 141 mmol/L Normal 135-145 Panel [address] [place] [address] [phone] Potassium 4.2 mmol/L Normal 3.5-5.0 Chloride 105 [...] >60 Egfr 50.4 >60 6 Thyroid 09/09/2018 [facility] Free T4 (Free 1.04 Normal 0.61- 1.[address] Thyroxine) ng/[place] [address] [phone] Thyroxine 8.58 g/dL Normal 6.09-12.23 TSH (Thyroid Stim Horm) 4.20 mcIU/mL Normal 0.34-5.60 Inr/Protime 09/09/2018 [facility] Inr 3.15 High 0.82-1.[address] [place] [address] [phone] 1 Standard intensity warfarin therapeutic range: 2.0-3.0 [...] range: 2.5-3.5 Procedures Date Code Description Status 09/04/2018 60451 Interrogation Implant Cardiovasc Monitor System Incl Completed Analysis Int 09/04/2018 43854 Interrogation Implant Cardiovasc Monitor System Incl Completed Analysis Int 09/04/2018 81806 Icd eval w/iterative adjment single lead Icd Completed 09/04/2018 40170 Icd eval w/iterative adjment single lead Icd Completed 07/13/2018 04144 EKG, Interpretation Only Completed Medical Devices Description No Information Available Encounters Type Date Location Provider Dx Diagnosis Office Visit 09/19/2018 [facility] Joon Espino L03.115 Cellulitis of 9:32a jordyn Heredia M.D. right lower limb Hospitalists E11.621 Type 2 diabetes mellitus with foot ulcer L97.518 Non-prs chronic ulcer oth prt right foot with oth severity Office Visit 09/17/2018 9:10a [facility] Guanaco Iglesias03.115 Cellulitis of For Hiral Eric M.D. right lower limb Diseases E11.621 Type 2 [...] Valenzuela E11.621 Type 2 diabetes [place] [facility] [employer]ENTICE mellitus with foot ulcer L97.518 Non-prs chronic ulcer oth prt right foot with oth severity L03.115 Cellulitis of right lower limb E11.51 Type 2 diabetes w diabetic peripheral angiopath w/o gangrene I73.9 Peripheral vascular disease, unspecified [facility] of 9:30a Assoc,jordyn Benitez NP left lower limb Hospitalists N18.9 Chronic kidney disease, unspecified E11.22 Type 2 diabetes mellitus w diabetic chronic kidney disease Office Visit 07/14/2018 [facility] I50.23 Acute on chronic 8:14a Assoc,jordyn Lorenzo, MELINDA systolic Hospitalists (congestive) heart failure E11.9 Type 2 diabetes mellitus without complications Office Visit 07/12/2018 8:13a [facility] R06.02 Shortness of Assariela,jordyn Benitez NP breath Hospitalists I50.20 Unspecified systolic (congestive) heart failure R07.9 Chest pain, unspecified Office Visit 06/06/2018 9:11a [facility] [place] L03.116 Cellulitis of Assoc,OLIVER De La Garza left lower limb Hospitalists N17.9 Acute kidney [...] Unspecified atrial fibrillation Office Visit 06/05/2018 10:53a [facility] Guanaco Nolan L03.116 Cellulitis of For Hiral Eric M.D. 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1 Presence of aortocoronary bypass graft [facility] L03.116 Cellulitis of 10:44a For Infectious Casiano, [employer] AP[employer]ENTICE left lower limb Diseases I89.0 Lymphedema, not elsewhere classified E11.51 Type 2 diabetes w diabetic peripheral angiopath w/o gangrene E11.22 Type 2 diabetes mellitus w diabetic chronic kidney disease N18.3 Chronic kidney disease, stage 3 (moderate) Office Visit 06/03/2018 [facility] L03.116 Cellulitis of 9:01a Assoc,jordyn Benitez, [employer] APPRENTICE left lower limb Hospitalists N18.9 Chronic kidney disease, unspecified I13.0 Hyp hrt & chr kdny dis w hrt fail and stg 1-4/unsp chr kdny E11.22 Type 2 diabetes mellitus w diabetic chronic kidney disease I50.22 Chronic systolic (congestive) heart failure Z95.1 Presence of aortocoronary bypass graft Assessments Date Code Description Provider 09/19/2018 L03.115 Cellulitis of right lower limb [...] Type 2 diabetes mellitus with foot Di Casiano, MELINDA ulcer 09/17/2018 E11.621 Type 2 diabetes mellitus with foot Gu[place] Eric M.D. ulcer 09/17/2018 L97.518 Non-prs chronic ulcer oth prt right Di Casiano NP foot with oth severity 09/17/2018 L03.115 Cellulitis of right lower limb Junie Bergeron M.D. 09/17/2018 L97.511 Non-prs chronic ulcer oth prt r foot Guanaco Eric M.D. limited to brkdwn skin 09/17/2018 L03.115 Cellulitis of right lower limb Di Casiano, MELINDA 09/17/2018 E11.22 Type 2 diabetes mellitus w [...] Cellulitis of left lower limb Monica Benitez, [employer]ENTICE 09/16/2018 N18.9 Chronic kidney disease, unspecified Monica Benitez, [employer]PRENTICE 09/16/2018 E11.22 Type 2 diabetes mellitus w diabetic Monica MELINDA Benitez chronic kidney disease 09/04/2018 Z95.810 Presence of automatic (implantable) Daryl Hernandez M.D. cardiac defibrillator 09/04/2018 Z95.810 Presence of automatic (implantable) [facility] Pacer Schedule cardiac defibrillator 09/04/2018 I25.5 Ischemic cardiomyopathy Daryl Hernandez M.D. 09/04/2018 I25.5 Ischemic cardiomyopathy [facility] Pacer Schedule 07/14/2018 I50.23 Acute on chronic systolic Valorie Lorenzo, [employer] APPRENTICE (congestive) heart failure 07/14/2018 E11.9 Type 2 diabetes mellitus without Valorie Lorenzo, [employer]PRENTICE complications 07/13/2018 R94.31 Abnormal electrocardiogram [ECG] Bassem Davis M.D., FACC, [EKG] [facility] 07/13/2018 I50.23 Acute on chronic systolic Valorie Lorenzo, F[employer]IT[employer] APPRENTICE (congestive) heart failure 07/13/2018 R07.9 Chest pain, unspecified Valorie Lorenzo, F[employer]PH[employer]ER APPRENTICE 07/13/2018 E11.9 Type 2 diabetes mellitus without Valorie Lorenzo, F[employer]PRENTICE complications 07/13/2018 E03.9 Hypothyroidism, unspecified Valorie Lorenzo, F[employer]ER APPRENTICE 07/12/2018 R06.02 Shortness of breath Monica Reading, [employer]ER APPRENTICE 07/12/2018 I50.20 Unspecified systolic (congestive) Monica Eli, F[employer]ER APPRENTICE heart failure 07/12/2018 R07.9 Chest pain, unspecified Monica Eli, F[employer]PHOL[employer]ER APPRENTICE 06/06/2018 L03.116 Cellulitis of left lower limb [...] OLIVER Kapoor and stg 1-4/unsp chr kdny 06/05/2018 N18.9 Chronic kidney disease, unspecified Guanaco Eric M.D. 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 Monica Benitez, F[employer]IT[employer]ER APPRENTICE and stg 1-4/unsp chr kdny 06/04/2018 I50.22 Chronic systolic (congestive) heart Monica Benitez, F[employer]ER APPRENTICE failure 06/04/2018 E11.22 Type 2 diabetes mellitus w diabetic Monica Benitez, F[employer]IT[employer]PHOL[employer]ER APPRENTICE chronic kidney disease 06/04/2018 Z95.1 Presence of aortocoronary bypass Monica Benitez, F[employer]ER APPRENTICE graft 06/03/2018 L03.116 Cellulitis of left lower limb Monica Benitez, FURNIT[employer]PHOL[employer]ER APPRENTICE 06/03/2018 N18.9 Chronic kidney disease, unspecified Monica Eli, FURNIT[employer]PHOL[employer]ER APPRENTICE 06/03/2018 L03.116 Cellulitis of left lower limb Di Nicolas Casiano, FURNIT[employer]PHOLSTERER APPRENTICE 06/03/2018 I13.0 Hyp hrt & chr kdny dis w hrt fail Monica Eli, F[employer]IT[employer]PHOL[employer]ER APPRENTICE and stg 1-4/unsp chr kdny 06/03/2018 E11.22 Type 2 diabetes mellitus w diabetic Monica Benitez, F[employer]PHOL[employer]ER APPRENTICE chronic kidney disease 06/03/2018 I89.0 Lymphedema, not elsewhere classified Di Casiano, FURNITURE [employer]PH[employer]ER APPRENTICE 06/03/2018 I50.22 Chronic systolic (congestive) heart Monica Benitez NP failure 06/03/2018 Z95.1 Presence of aortocoronary bypass Monica Benitez NP graft 06/03/2018 E11.51 Type 2 diabetes w diabetic Di Casiano NP peripheral angiopath w/o gangrene 06/03/2018 E11.22 Type 2 diabetes mellitus w diabetic Di Casiano NP chronic kidney disease 06/03/2018 N18.3 Chronic kidney disease, stage 3 Di Casiano NP (moderate) Plan of Treatment Future Appointment(s):12/04/2018 10:00 am - Ica Pacer Schedule at [facility]05/24/2018 - Daryl Hernandez M.D.I25.5 Ischemic cardiomyopathyFollow up:6 hiacpfD86.810 Presence of automatic (implantable) cardiac defibrillator Functional Status Description No Information Available Mental Status Description No Information Available Referrals Description No Information Available
[2019-01-17 13:46] LABS: ABS Eosinophils 0.1 10^3/ul (0-0.6); ABS Lymphocytes 0.8 10^3/ul (1.0-4.8); ABS Monocytes 0.6 10^3/ul (0-0.8); ABS Neutrophils 3.7 10^3/ul (1.5-7.7); Hematocrit 38 % (42-52); Hemoglobin 12.4 g/dL (14.0-18.0); Lymphocyte % 14.7 %; Mean Corpuscular HGB Conc 33 g/dL (31-36); Mean Corpuscular Hemoglobin 29 pg (27-31); Mean Corpuscular Volume 88 fL (80-94); Mean Platelet Volume 8.3 fL (7.4-10.4); Platelet Count 134 10^3/uL (150-450); Red Blood Count 4.34 10^6 /uL (4.18-5.48); Red Cell Distribution Width 17 % (10-15); White Blood Count 5.2 10^3/uL (3.5-10.8)
[2019-01-17 14:02] LABS: Albumin/Globulin Ratio 1.1 (1-3); BUN/Creatinine Ratio 15.6 (8-20); C Reactive Protein 14.44 mg/L (<8.01); Calcium 9.4 mg/dL (8.6-10.3); EGFR African American 56.8 (>60); Globulin 3.5 g/dL (2-4); Potassium 3.4 mmol/L (3.5-5.0); Total Bilirubin 0.7 mg/dL (0.2-1.0); Total Protein 7.5 g/dL (6.4-8.9)
[2019-01-17] MEDS ORDERED: Clindamycin CAP* 150 MG PO ONE ×2 (15:44→15:46)
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
[2019-01-17 16:24] VITALS: BP 139/94
== END 2019-01-17 16:06 | disposition home or self-care (01) ==
LOC: ED 11:22
DX: E11.622 Type 2 diabetes mellitus with other skin ulcer (principal); L97.829 Non-pressure chronic ulcer of other part of left lower leg with unspecified severity; I11.0 Hypertensive heart disease with heart failure; I50.9 Heart failure, unspecified; I25.10 Atherosclerotic heart disease of native coronary artery without angina pectoris; E78.00 Pure hypercholesterolemia, unspecified; I25.2 Old myocardial infarction; K21.9 Gastro-esophageal reflux disease without esophagitis; F41.9 Anxiety disorder, unspecified; F43.10 Post-traumatic stress disorder, unspecified; D64.9 Anemia, unspecified; E03.9 Hypothyroidism, unspecified; Z95.2 Presence of prosthetic heart valve; Z86.711 Personal history of pulmonary embolism; Z95.810 Presence of automatic (implantable) cardiac defibrillator; Z95.1 Presence of aortocoronary bypass graft; Z90.49 Acquired absence of other specified parts of digestive tract; Z89.411 Acquired absence of right great toe; Z87.891 Personal history of nicotine dependence; Z88.1 Allergy status to other antibiotic agents; Z88.8 Allergy status to other drugs, medicaments and biological substances
CPT/HCPCS: 36415; 80053; 85025; 86140; 99282; A9270-GY

== ENCOUNTER 2019-04-21 13:48 | Emergency (ER) | payer MEDICARE, BC ==
[2019-04-21] MEDS ORDERED: Tranexamic Acid 1,000 MG/10 ML SDV ONE (13:59)
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
[2019-04-21 16:32] VITALS: BP 166/94
== END 2019-04-21 16:07 | disposition home or self-care (01) ==
LOC: ED 13:48
DX: I83.892 Varicose veins of left lower extremity with other complications (principal); E11.9 Type 2 diabetes mellitus without complications; E11.22 Type 2 diabetes mellitus with diabetic chronic kidney disease; I13.0 Hypertensive heart and chronic kidney disease with heart failure and stage 1 through stage 4 chronic kidney disease, or unspecified chronic kidney disease; N18.9 Chronic kidney disease, unspecified; I11.0 Hypertensive heart disease with heart failure; I50.9 Heart failure, unspecified; Z79.4 Long term (current) use of insulin; E07.9 Disorder of thyroid, unspecified; Z86.711 Personal history of pulmonary embolism; Z86.718 Personal history of other venous thrombosis and embolism; K21.9 Gastro-esophageal reflux disease without esophagitis; F41.9 Anxiety disorder, unspecified; F32.9 Major depressive disorder, single episode, unspecified; Z79.01 Long term (current) use of anticoagulants; Z95.1 Presence of aortocoronary bypass graft; Z95.2 Presence of prosthetic heart valve; Z88.8 Allergy status to other drugs, medicaments and biological substances; Z89.411 Acquired absence of right great toe; Z95.810 Presence of automatic (implantable) cardiac defibrillator; Z79.899 Other long term (current) drug therapy; Z87.891 Personal history of nicotine dependence
CPT/HCPCS: 99282

== ENCOUNTER 2019-04-21 19:43 | Observation (INO) | payer MEDICARE, BC ==
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
[2019-04-21] MEDS ORDERED: HYDROcodone/ACETAMIN 5-325 MG* 1 TAB PO PRN (20:32)
[2019-04-21] MEDS ORDERED: Tranexamic Acid 1,000 MG/10 ML SDV INH ONE (20:36)
[2019-04-21 20:47] LABS: INR 2.22 (0.82-1.09)
[2019-04-21 20:49] LABS: ABS Eosinophils 0.1 10^3/ul (0-0.6); ABS Lymphocytes 0.7 10^3/ul (1.0-4.8); ABS Monocytes 0.7 10^3/ul (0-0.8); ABS Neutrophils 4.9 10^3/ul (1.5-7.7); Eosinophil % 1.6 %; Hematocrit 35 % (42-52); Hemoglobin 11.9 g/dL (14.0-18.0); Lymphocyte % 11.6 %; Mean Corpuscular HGB Conc 34 g/dL (31-36); Mean Corpuscular Hemoglobin 30 pg (27-31); Mean Corpuscular Volume 88 fL (80-94); Red Blood Count 3.94 10^6 /uL (4.18-5.48); Red Cell Distribution Width 16 % (10-15); White Blood Count 6.4 10^3/uL (3.5-10.8)
[2019-04-21] MEDS ORDERED: Acetaminophen TAB* 325 MG PO PRN (22:03)
[2019-04-21] MEDS ORDERED: Dextrose 50% Syringe 50 ML* 25 GM/50 ML SYRINGE IV PUSH PRN (22:03)
[2019-04-21 22:06] LABS: Mean Platelet Volume 8.8 fL (7.4-10.4); Platelet Count 93 10^3/uL (150-450)
--- NOTE | 2019-04-22 00:30 | HP ---
CC: Dr. Gonzalez; Dr. Bolaños * HISTORY AND PHYSICAL: DATE OF ADMISSION: 04/21/19 PRIMARY CARE PROVIDERS: Dr. Gonzalez, Dr. Bolaños. ATTENDING PHYSICIAN WHILE IN THE HOSPITAL: Dr. Sarah Singer * (report dictated by Jose Hendrix NP). CHIEF COMPLAINT: 1. Abrasion. 2. Bleeding. HISTORY OF PRESENT ILLNESS: Mr. Mckinley is a 73-year-old male patient with multiple medical problems, history of cellulitis, diabetes, CAD, AFib, hypothyroidism, GERD, hyperlipidemia, CKD, CHF, last known EF less than 20%, DVT , PE, PTSD, [place], BPH, valvular heart disease and depression, who comes in today, he states that he was told in the past by one of his primary care providers that he has chronic skin discoloration from venous insufficiency, and per the patient, was told that if he were to scrub that area hard and use, according to the patient, Gold Fierro, the discoloration would go away. This morning, he was taking a shower, on his left ankle he was using a sponge, he was scrubbing aggressively, he sustained an abrasion to the top of his left ankle. He was concerned because it started bleeding. He is on blood thinners per his history and came into the ER this morning. They were able to control the bleeding with Aquacel dressing and a Vaseline gauze and wrapped it. He went home. Unfortunately, this evening, he put his foot down, he was getting up to walk around, he noticed that his foot felt wet. He looked down, he noticed that there was a significant amount of bleeding from that foot. He was concerned and called 911 and came into the hospital. He was evaluated by the provider that had seen him earlier in the day. Two stitches were placed. The bleeding was controlled. However, there was concern given the reoccurrence of bleeding, and because of this, we were asked to evaluate for admission. He denies any other significant complaints. Denies specifically having any recent shortness of breath. No chest pain. No nausea or vomiting. No abdominal discomfort reported. No orthopnea, but again there was concern with his recurrence of bleeding, we were asked to evaluate for admission. PAST MEDICAL HISTORY: Significant for: 1. Cellulitis. 2. Diabetes. 3. CAD. 4. AFib. 5. Hypothyroidism. 6. GERD. 7. Hyperlipidemia. 8. CKD. 9. CHF. 10. Last known EF 20%. 11. DVT. 12. PE. 13. PTSD. 14. [place]. 15. BPH. 16. Depression. 17. Valvular heart disease. PAST SURGICAL HISTORY: 1. He has had CABG. 2. IVC filter. 3. Aortic valve replacement. 4. Cholecystectomy. 5. ICD pacemaker placement. 6. ORIF of the pelvis. 7. ORIF of the ulna and radius. 8. Back surgery. HOME MEDICATIONS: According to the list that he provided includes: 1. Trazodone 50 to 150 mg at bedtime as needed. 2. Tramadol 50 mg every 6 hours as needed. 3. Prednisone 20 mg daily which according to Dr. Cabrera was prescribed several weeks ago for 10 days. He is no longer on this. 4. Hydralazine 25 mg p.o. t.i.d. 5. Antifungal 1 application topically b.i.d. 6. Flomax 0.4 mg daily. 7. Potassium chloride 10 mEq p.o. b.i.d. 8. Prilosec 40 mg daily. 9. Nortriptyline 50 mg daily. 10. Synthroid 25 mcg daily. 11. Lantus 50 units in the p.m., 60 units in the a.m. 12. Insulin aspart 0 to 80 units subcu daily, sliding scale. 13. Hydrocodone 1 tablet p.o. every 4 hours as needed. 14. Diflucan 100 mg p.o. daily. 15. Proscar 5 mg daily. 16. Bydureon 2 mg subcu weekly. 17. Doxycycline 100 mg p.o. daily, this was prescribed on 04/10/19 for 2 weeks , he has about 4 days left. 18. Guaifenesin/codeine 10 cc p.o. every 4 hours as needed. 19. He is on warfarin 1 tablet daily as directed. 20. Demadex 1 tablet daily as directed. ALLERGIES TO MEDICATIONS: Include DILTIAZEM, ERTAPENEM, GABAPENTIN, GEMFIBROZIL , LISINOPRIL, LOSARTAN, CRESTOR, and ZOCOR. FAMILY HISTORY: Both his parents had CAD. His father in an MVA, had a history of diabetes. SOCIAL HISTORY: He is a former alcoholic and a former smoker. He quit both of these about 30 years ago. Surrogate decision maker is his daughter. REVIEW OF SYSTEMS: There is no documented fever. Denied having any significant weight change. There is no double vision. He denies having any ear discharge. There is no rhinorrhea. There is no sore throat, no thyroid enlargement. Denied having any chest pain. There is no orthopnea. There is no nocturnal dyspnea, no abdominal pain, no nausea, no vomiting, no dysuria, no frequency, no seizure, no loss of consciousness. Review of 14 systems completed , all others are negative. PHYSICAL EXAMINATION GENERAL: At this time, Mr. Mckinley is a 73-year-old male patient. He is chronically ill appearing. He is sitting in the ED stretcher. He does not appear to be in any acute distress. VITAL SIGNS: Blood pressure 122/75, pulse 87, respirations 20, O2 saturation 93 %, temperature 97.3. HEENT: Head: Atraumatic, normocephalic. Eyes: EOMs intact. Sclerae anicteric, not pale. Throat: Oral mucosa appears to be moist. No oropharyngeal erythema. NECK: Supple. LUNGS: Clear to auscultation bilaterally. No wheezes, rales, or rhonchi. HEART: Heart sounds S1, S2. Irregular rate and rhythm. No murmurs, rubs, or gallops. ABDOMEN: Soft, flat, nontender. Bowel sounds are present. EXTREMITIES: He has chronic discoloration of the feet bilaterally, brawny discoloration. Pulses were palpable. No peripheral edema. He is moving all 4 extremities. 5/5 strength. NEUROLOGIC: He is awake, alert, oriented x3. No gross focal deficits. Speech is clear. Tongue midline. No facial drooping. No drift was noted. SKIN: Grossly intact with the exception he has an abrasion noted to the top of his left ankle, which is covered with an Thad dressing. It is clean, dry, and intact at this point. Otherwise, skin grossly intact. DIAGNOSTIC STUDIES/LAB DATA: WBC 6.4, RBC of 3.94, hemoglobin 11.9, hematocrit 35, platelet count pending. His INR was 2.22. Old medical records were reviewed. ASSESSMENT AND PLAN: Mr. Mckinley is a 73-year-old male patient, coming in to the ED today with complaints of recurrence of bleeding to his left ankle, status post abrasion from scrubbing it with a sponge. He will be admitted under observation status for: 1. Abrasion with subsequent bleeding. At this point, sutures were placed by the ER. Bleeding appears to be controlled at this point. We will monitor him overnight. We will continue with daily dressings. His H and H was stable. We will repeat his labs in the morning. We will continue to follow. 2. History of diabetes. Continue his meds as prescribed. I will put him on a sliding scale. 3. History of coronary artery disease. Continue with secondary prevention. He is not having any active chest pain. It is stable at this point. 3. Atrial fibrillation. We will continue his warfarin as prescribed. His INR was stable. 4. Hypothyroidism. Continue Synthroid. 5. Gastroesophageal reflux disease. Continue meds as prescribed. 6. Hyperlipidemia. Continue meds as prescribed. 7. Chronic kidney disease. Again, not an active issue. 8. History of congestive heart failure. Continue with medication as prescribed , stable. 9. History of deep vein thrombosis/pulmonary embolism. Continue with warfarin. 10. History of posttraumatic stress disorder, anxiety, depression. Continue with supportive care. 11. Benign prostatic hyperplasia. Continue with Flomax. 12. DVT prophylaxis: He is on warfarin. We will continue this. INR was stable. 13. Code status: Full code. 14. Fluids, electrolytes, and nutrition: I would recommend a heart healthy consistent carb diet. TIME SPENT: Time spent on admission 60 minutes, greater than half the time was spent [id number] with the patient obtaining my history and physical; other half time spent going over the plan of care with the patient and implementing plan of care. I discussed the plan of care with my attending Dr. Singer, she is in agreement. JOSE HENDRIX, MELINDA [id number]/[facility] #: [id number] ANAMIKA
[2019-04-22] MEDS: Hydrocodone/Acetamin 10/325 MG 1 TAB PO PRN ×2 (02:19→08:34)
[2019-04-22] MEDS ORDERED: Levothyroxine TAB* 25 MCG TAB PO SCH (06:00)
[2019-04-22 06:31] LABS: ABS Eosinophils 0.1 10^3/ul (0-0.6); ABS Lymphocytes 0.8 10^3/ul (1.0-4.8); ABS Monocytes 0.5 10^3/ul (0-0.8); ABS Neutrophils 3.3 10^3/ul (1.5-7.7); Eosinophil % 2.3 %; Hematocrit 31 % (42-52); Hemoglobin 10.4 g/dL (14.0-18.0); Lymphocyte % 17.6 %; Mean Corpuscular HGB Conc 33 g/dL (31-36); Mean Corpuscular Hemoglobin 29 pg (27-31); Mean Corpuscular Volume 88 fL (80-94); Mean Platelet Volume 8.5 fL (7.4-10.4); Nucleated Red Blood Cells % 0.1; Platelet Count 82 10^3/uL (150-450); Red Blood Count 3.55 10^6 /uL (4.18-5.48); Red Cell Distribution Width 16 % (10-15); White Blood Count 4.7 10^3/uL (3.5-10.8)
[2019-04-22 06:33] LABS: INR 2.14 (0.82-1.09)
[2019-04-22 06:43] LABS: BUN/Creatinine Ratio 16.7 (8-20); Calcium 8.4 mg/dL (8.6-10.3); EGFR African American 50.8 (>60); Potassium 3.6 mmol/L (3.5-5.0)
[2019-04-22] MEDS: hydrALAZINE TAB* 25 MG PO SCH ×2 (08:24→13:04)
[2019-04-22] MEDS: Insulin LISPRO* 1 UNITS UNIT SUBCUT SCH ×2 (08:35→13:04)
[2019-04-22] MEDS ORDERED: Torsemide TAB* 20 MG PO SCH (09:00)
[2019-04-22] MEDS ORDERED: Tamsulosin CAP* 0.4 MG PO SCH (09:00)
[2019-04-22] MEDS ORDERED: Nortriptyline CAP* 25 MG PO SCH (09:00)
[2019-04-22] MEDS ORDERED: Insulin GLARGINE(*) 1 UNITS UNIT SUBCUT SCH ×2 (09:00→18:00)
[2019-04-22] MEDS ORDERED: Pantoprazole TAB * 40 MG TAB PO SCH (09:00)
[2019-04-22] MEDS ORDERED: Potassium Chlor TAB* 10 MEQ TAB.ER PO SCH (09:00)
[2019-04-22] MEDS ORDERED: DOXYcycline CAP(*) 100 MG PO SCH (09:00)
[2019-04-22] MEDS ORDERED: Amiodarone TAB* 200 MG PO SCH (09:00)
[2019-04-22] MEDS ORDERED: Finasteride TAB* 5 MG PO SCH (09:00)
[2019-04-22 11:05] VITALS: BP 139/72
[2019-04-22] MEDS ORDERED: Warfarin TAB(*) 2 MG PO SCH (17:00)
--- NOTE | 2019-04-22 18:47 | DS ---
CC: Dr. Gonzalez * DISCHARGE SUMMARY: DATE OF ADMISSION: 04/21/19 DATE OF DISCHARGE: 04/22/19 PRIMARY CARE PROVIDER: Dr. Gonzalez. ATTENDING PHYSICIAN WHILE IN THE HOSPITAL: Dr. Juan F Espino * (dictated by OLIVER Leahy). PRIMARY DIAGNOSIS: Abrasion with subsequent bleeding, resolved. SECONDARY DIAGNOSES: 1. Diabetes mellitus type 2. 2. Coronary artery disease, status post coronary artery bypass grafting. 3. Atrial fibrillation, on Coumadin. 4. Hypothyroidism. 5. Gastroesophageal reflux disease. 6. Hyperlipidemia. 7. Chronic kidney disease. 8. Systolic heart failure with ejection fraction of 20%. 9. History of DVT/PE. 10. Posttraumatic stress disorder. 11. Benign prostatic hyperplasia. 12. Depression. 13. Valvular heart disease. PROCEDURES WHILE IN THE HOSPITAL: Laceration repair with [address] Morales in the emergency department on 04/21/19. HISTORY OF PRESENT ILLNESS/HOSPITAL COURSE: Mohit Mckinley is a 73-year-old white male with past medical history significant for atrial fibrillation, on Coumadin; coronary artery disease, status post CABG; hypothyroidism; hyperlipidemia; CKD and heart failure with reduced ejection fraction, who presents to the emergency department due to bleeding from a wound that was not stopping. The patient was scrubbing aggressively in the shower and caused an abrasion on his left ankle. He presented to the emergency department for bleeding control and sutures were placed. The patient had previously reported to the emergency department prior to this and a bleeding had stopped with Aquacel dressing; however, he then represented to the emergency department the same day and required sutures. Due to this, the emergency department asked the Hospital Medicine team to admit the patient for observation overnight due to the recurrence of the bleeding. On the day of discharge, the patient is feeling well. He is ambulated and there has been no recurrence of bleeding of the wound. The dressing is clean, dry and intact to his left ankle. His H and H did have a minimal decrease, however, it is overall stable and his INR is within therapeutic range. The patient has no issues with pain control and feeling safe to go home. DISCHARGE PLAN: Diet: Heart healthy, low carbohydrate. Activity: The patient may return to normal activity as tolerated. The patient is advised to avoid showering today and tomorrow and he may get the wound wet. After that, he was advised to follow up with his primary care provider within 7 to 9 days for a wound check and the suture removal. He is advised to return to the emergency department if he is having bleeding that is not going away with pressure, chest pain, difficulty breathing, fever, chills, or other concerning symptoms. DISCHARGE MEDICATIONS: New medications: None. Continued home medications: 1. Coumadin 2 mg p.o. daily. 2. Flomax 0.4 mg p.o. daily. 3. Potassium chloride 20 mEq p.o. daily. 4. Insulin glargine 60 units subcu q.a.m., 50 units subcu q.p.m. 5. Insulin aspart 80 units subcu daily on a sliding scale (1 unit for blood sugar 81 to 150, 4 units for blood glucose 151 to 200, 6 units for blood glucose 201 to 250, 8 units for blood glucose 251 to 300, 10 units for blood glucose 301 to 350, 12 units for glucose 351 to 400, over 400 call ambulance). 6. Terbinafine 1 application topically b.i.d. 7. Synthroid 25 mcg p.o. daily. 8. Torsemide 60 mg p.o. daily. 9. Nortriptyline 50 mg p.o. daily. 10. Amiodarone 200 mg p.o. daily. 11. Hydralazine 25 mg p.o. t.i.d. 12. Hydrocodone/acetaminophen 10 mg/325 mg 1 tab p.o. q.4 hours p.r.n. pain. 13. Exenatide microspheres 2 mg subcu weekly. 14. Doxycycline 100 mg p.o. daily (the patient scheduled to complete this prescription in 3 days). 15. Lipitor 10 mg p.o. every other day. 16. Trazodone 250 mg p.o. at bedtime p.r.n. insomnia. CONDITION ON DISCHARGE: Stable. DISPOSITION: Home. TIME SPENT: Approximately 35 minutes was spent on this discharge, approximately half this time was spent at bedside evaluating the patient and discussing the plan of care. OLIVER LEAHY [id number]/[facility] #: [id number] ANA[place]
[2019-04-23] MEDS ORDERED: Atorvastatin* 10 MG TAB PO SCH (09:00)
== END 2019-04-22 14:00 | disposition home or self-care (01) ==
LOC: ED 19:43 → SSU 21:55
PROVIDERS: ADMIT Nurse Practitioner Family; ATTEND Nurse Practitioner Family
DX: S90.512A Abrasion, left ankle, initial encounter (principal); X58.XXXA Exposure to other specified factors, initial encounter; Y92.9 Unspecified place or not applicable; I13.0 Hypertensive heart and chronic kidney disease with heart failure and stage 1 through stage 4 chronic kidney disease, or unspecified chronic kidney disease; E11.22 Type 2 diabetes mellitus with diabetic chronic kidney disease; N18.9 Chronic kidney disease, unspecified; I50.20 Unspecified systolic (congestive) heart failure; I25.10 Atherosclerotic heart disease of native coronary artery without angina pectoris; Z95.5 Presence of coronary angioplasty implant and graft; I48.91 Unspecified atrial fibrillation; K21.9 Gastro-esophageal reflux disease without esophagitis; E78.5 Hyperlipidemia, unspecified; Z86.718 Personal history of other venous thrombosis and embolism; F43.10 Post-traumatic stress disorder, unspecified; I25.2 Old myocardial infarction; I38 Endocarditis, valve unspecified; F32.9 Major depressive disorder, single episode, unspecified; N40.0 Benign prostatic hyperplasia without lower urinary tract symptoms; L03.90 Cellulitis, unspecified; Z79.01 Long term (current) use of anticoagulants; Z79.4 Long term (current) use of insulin; Z79.899 Other long term (current) drug therapy; Z95.2 Presence of prosthetic heart valve; Z95.810 Presence of automatic (implantable) cardiac defibrillator; Z88.8 Allergy status to other drugs, medicaments and biological substances; Z88.2 Allergy status to sulfonamides; Z88.9 Allergy status to unspecified drugs, medicaments and biological substances; Z87.891 Personal history of nicotine dependence
CPT/HCPCS: 12001; 36415; 80048; 85025; 85060; 85610; 99283; A9270-GY; G0378